=== PATIENT | female | born 1950 | race Caucasian/White ===

== ENCOUNTER 2017-07-08 19:46 | Inpatient (IN) | payer MEDICARE ==
[~2017-07-08] VITALS: Ht 170.2 cm; Wt 72.7 kg
--- OUTSIDE RECORDS SUMMARY | 2017-07-08 19:48 | XMS REPORT | Clinical Summary ---
Author Author [facility] Organization [facility] Address Unknown Phone Unavailable Care Team Providers Care Supervisor Braiding Name Role Phone Davon Grewal MD PCP Allergies Active Allergy Reactions Severity Noted Date Comments Acetaminophen-Codeine 12/05/2016 Amoxicillin 12/05/2016 Cefaclor Rash High 12/29/2007 Lisinopril Other (See Comments) High 05/24/2009 cough Losartan Other (See Comments) High 09/07/2015 Elevated serum creatinine Penicillins Rash Low 05/23/2015 Current Medications Prescription Sig. Disp. Refills Start End Date Status Date acetaminophen (TYLENOL) Take 2 tablets by mouth. Active 325 MG tablet ipratropium-albuterol USE 1 VIAL VIA NEBULIZER 11/02/19 Active (DUO-NEB) 0.5-2.5 mg/mL EVERY 6 HOURS NEEDED 17 nebulizer FOR WHEEZING aspirin (ECOTRIN) 81 MG Take 81 mg by mouth. 01/05/20 01/05/20 Active enteric coated tablet 17 18 atorvastatin (LIPITOR) 20 Take 20 mg by mouth. 05/25/19 Active MG tablet 16 cholecalciferol, vitamin Take 1 tablet by mouth. Active D3, (VITAMIN D3) 1,000 unit tablet ferrous sulfate 325 (65 TAKE 1 TABLET BY MOUTH 02/01/20 Active FE) MG tablet TWICE DAILY WITH MEALS 17 gabapentin (NEURONTIN) TAKE 2 CAPSULES BY MOUTH 03/23/19 Active 100 mg capsule THREE TIMES DAILY 18 hydrALAZINE (APRESOLINE) Take 50 mg by mouth. 12/18/19 12/18/19 Active 50 MG tablet 17 18 insulin ASPART (NovoLOG 2 units before each Meal 10/24/19 Active Flexpen U-100 Insulin) Tid 17 100 unit/mL insulin pen insulin DETEMIR (LEVEMIR) Inject 12 unit bid 10/24/19 Active 100 unit/mL (3 mL) 17 insulin pen isosorbide mononitrate Take 60 mg by mouth. Active (IMDUR) 60 MG 24 hr tablet meclizine (ANTIVERT) 25 Chew 12.5 mg. Active mg chewable tablet MELATONIN ORAL Take 10 mg by mouth. Active metoprolol tartrate Take 25 mg by mouth. Active (LOPRESSOR) 25 mg tablet ondansetron (ZOFRAN, Take 4 mg by mouth. Active HYDROCHLORIDE,) 4 MG tablet pantoprazole (PROTONIX) Take 40 mg by mouth. 05/25/19 Active 40 MG EC tablet 16 ticagrelor (BRILINTA) 90 Take 90 mg by mouth. Active mg tablet traMADol (ULTRAM) 50 mg Take 50 mg by mouth. Active tablet vitamin A & D ointment Apply topically 2 (two) 02/20/20 02/20/20 Active times daily. 17 18 clopidogrel (PLAVIX) 75 Take 75 mg by mouth Active mg tablet daily. Active Problems Not on file Encounters Date Type Specialty Care Team Description 05/17/2017 [facility] Diarrhea, unspecified type (Primary Dx) after 07/07/2016 Social History Tobacco Use Types Packs/Day Years Used Date Never Smoker Smokeless Tobacco: Never Used Alcohol Use Drinks/Week oz/Week Comments No Sex Assigned at Date Recorded Not on file Last Filed Vital Signs Vital Sign Reading Time Taken Blood Pressure 196/77 05/17/2017 6:03 PM CDT Pulse 64 05/17/2017 6:03 PM CDT Temperature 36.6 C (97.9 F) 05/17/2017 6:03 PM CDT Respiratory Rate 16 05/17/2017 6:03 PM CDT Oxygen Saturation 99% 05/17/2017 6:03 PM CDT Inhaled Oxygen - - Concentration Weight 79.4 kg (175 lb) 05/17/2017 3:55 PM CDT Height 170.2 cm (5' 7") 05/17/2017 3:55 PM CDT Body Mass Index 27.41 05/17/2017 3:55 PM CDT Plan of Treatment Not on file Results * Estimated GFR (05/17/2017 4:20 PM) Component Value Ref Range GFR Non Af Amer 13 (A) mL/min/1.73 m2 GFR Af Amer 15 (A) mL/min/1.73 m2 Comment: Chronic kidney disease: <60 mL/min/1.73m2 Kidney failure: <15 mL/min/1.73m2 The estimated GFR is calculated from the IDMS-traceable Modification of Diet in Renal Disease Equation. The accuracy of the calculation is poor when the creatinine is normal. Calculated values >90 mL/min/1.73m2 are not reported. This equation has not been validated in children (<18 years), women, the elderly (>70 years), or ethnic groups other than Caucasians and Americans. Specimen Performing Laboratory Plasma specimen [facility] [address] [place] [address] * CBC with platelet and differential (05/17/2017 4:20 PM) Component Value Ref Range WBC 14.3 (H) 4.2 - 11.0 k/uL RBC 3.42 (L) 4.04 - 5.86 m/uL HGB 9.5 (L) 11.5 - 15.3 g/dL HCT 31.5 (L) 34.0 - 45.0 % MCV 92.1 80.0 - 98.0 fL MCH 27.8 27.0 - 34.0 pg MCHC 30.2 (L) 31.5 - 36.5 g/dL RDW - SD 52.6 (H) 37.0 - 51.0 fL MPV 9.8 7.4 - 10.4 fL Platelet count 469 (H) 150 - 400 k/uL Nucleated RBC 0.10 /100 WBC Neutrophils 71.5 (H) 36.0 - 66.0 % Lymphocytes 16.1 (L) 24.0 - 44.0 % Monocytes 5.8 0.0 - 6.0 % Eosinophils 5.4 0.0 - 6.0 % Basophils 0.5 0.0 - 1.2 % Immature granulocytes 0.7 0.0 - 1.0 % Specimen Performing Laboratory Blood [facility] [address] [place] [address] * Comprehensive metabolic panel (05/17/2017 4:20 PM) Component Value Ref Range Sodium 139 135 - 150 mEq/L Potassium 4.0 3.5 - 5.0 mEq/L Chloride 100 100 - 109 mEq/L CO2 32 24 - 32 mmol/L Anion gap 7 7 - 15 mEq/L Comment: Starting from June , anion gap calculation no longer incorporates potassium. Please note the change. BUN 35 (H) 7 - 18 mg/dL Creatinine 3.6 (H) 0.8 - 1.5 mg/dL Glucose 163 (H) 65 - 100 mg/dL Calcium 9.0 8.6 - 10.7 mg/dL Protein 6.7 6.3 - 8.2 g/dL Albumin 2.6 (L) 3.2 - 5.0 g/dL A/G ratio 0.6 (L) 0.7 - 3.8 Alkaline phosphatase 114 30 - 120 U/L AST 15 15 - 37 U/L ALT 13 (L) 30 - 65 U/L Total bilirubin 0.2 0.2 - 1.2 mg/dL Specimen Performing Laboratory Plasma specimen [facility] [place] [address] after 07/07/2016 Insurance Payer Benefit Subscriber ID Type Phone Address Plan / Group [facility] AD[facility] xxxxxxxxxxx O ADVANTAGE [facility] [place] [address]
--- OUTSIDE RECORDS SUMMARY | 2017-07-08 19:48 | XMS REPORT | Clinical Summary ---
Author Author ANGELLA [employer] [facility] [employer] Address Unknown Phone Unavailable Care Team Providers Care Resource Specialist Name Role Phone PCP Unavailable Allergies Active Allergy Reactions Severity Noted Date Comments Lisinopril Other (See Comments) High 05/24/2009 cough Losartan Other (See Comments) High 09/07/2015 Elevated serum creatinine Codeine Nausea And Vomiting 09/02/2015 Amoxicillin Rash Low 02/17/2017 Cefaclor Rash Low 05/23/2015 Penicillins Rash Low 05/23/2015 Current Medications Prescription Sig. Disp. Refills Start End Date Status Date atorvastatin (LIPITOR) 20 Take 1 tablet (20 mg 60 tablet 0 05/25/19 Active MG tablet total) by mouth nightly. 16 pantoprazole (PROTONIX) Take 1 tablet (40 mg 30 tablet 0 05/25/19 Active 40 MG tablet total) by mouth daily. 16 ferrous sulfate 325 (65 Take 325 mg by mouth 2 Active FE) MG tablet (two) times daily with breakfast and dinner . cholecalciferol (VITAMIN Take 1,000 Units by mouth Active D3) 1,000 unit tablet daily. gabapentin (NEURONTIN) Take 1 capsule (100 mg 0 12/18/19 Active 100 MG capsule total) by mouth 2 (two) 17 times daily. hydrALAZINE (APRESOLINE) Take 1 tablet (50 mg 12/18/19 12/18/19 Active 50 MG tablet total) by mouth 2 (two) 17 18 times daily. metoprolol (LOPRESSOR) 25 Take 1 tablet (25 mg 0 12/18/19 Active MG tablet total) by mouth 2 (two) 17 times daily. ALPRAZolam (XANAX) 0.5 MG Take 0.5 mg by mouth Active tablet every night as needed for Anxiety. calcium carbonate (TUMS) Take 1 tablet by mouth Active 500 mg chewable tablet daily. aspirin 81 MG EC tablet Take 1 tablet (81 mg 0 01/05/20 01/05/20 Active total) by mouth daily. 17 18 traMADol (ULTRAM) 50 mg Take 50 mg by mouth 2 Active tablet (two) times daily as needed for Pain. melatonin 3 mg Tab tablet Take 10 mg by mouth Active nightly. insulin detemir (LEVEMIR) Inject 12 Units Active 100 unit/mL injection subcutaneously 2 (two) times daily. ipratropium-albuterol Take 3 mLs by Active (DUO-NEB) 0.5 mg-3 mg(2.5 nebulization every 6 mg base)/3 mL nebulizer (six) hours as needed for solution Wheezing. vitamins A & Apply topically 2 (two) 45 g 0 02/20/20 02/20/20 Active F-nzcnllplfb-uevnlaw (A & times daily. 17 18 D) ointment insulin lispro (HUMALOG) Inject subcutaneously 3 Active 100 unit/mL InPn (three) times daily with meals As needed based on sliding scale . meclizine (ANTIVERT) 25 Take 12.5 mg by mouth 3 Active MG tablet (three) times daily as needed. amLODIPine (NORVASC) 5 MG Take 5 mg by mouth daily. Active tablet bisacodyl (DULCOLAX) 5 mg Take 5 mg by mouth daily Active EC tablet as needed for Constipation. clopidogrel (PLAVIX) 75 Take 75 mg by mouth Active mg tablet daily. multivitamin per tablet Take 1 tablet by mouth Active daily. ondansetron (ZOFRAN) 4 MG Take 4 mg by mouth 2 Active tablet (two) times daily as needed for Nausea. LOPERAMIDE HCL Take 2 mg by mouth as Active (LOPERAMIDE ORAL) needed. insulin glargine (LANTUS) Inject 25 Units 10 mL 0 05/25/19 12/18/19 Discontin 100 unit/mL injection subcutaneously 2 (two) 16 17 ued times daily Use as directed. insulin lispro (HUMALOG) Inject 7 Units 10 Syringe 0 05/25/19 Discontin 100 unit/mL InPn subcutaneously 3 (three) 16 17 ued times daily with meals. amLODIPine (NORVASC) 5 MG Take 5 mg by mouth 2 08/11/19 Discontin tablet (two) times daily. 17 ued clopidogrel (PLAVIX) 75 Take 75 mg by mouth 12/06/19 Discontin mg tablet daily. 17 ued gabapentin (NEURONTIN) Take 200 mg by mouth 3 12/18/19 Discontin 100 MG capsule (three) times daily . 17 ued meclizine (ANTIVERT) 25 Take 12.5 mg by mouth 3 01/05/20 Discontin MG tablet (three) times daily as 17 ued needed. metoclopramide HCl Take 10 mg by mouth 4 12/18/19 Discontin (REGLAN) 10 MG tablet (four) times daily as 17 ued needed for Nausea. sertraline (ZOLOFT) 100 Take 25 mg by mouth daily 12/18/19 Discontin MG tablet . 17 ued carvedilol (COREG) 25 MG Take 25 mg by mouth 2 12/06/19 Discontin tablet (two) times daily with 17 ued breakfast and dinner. calcium citrate-vitamin D Take 2 tablets by mouth 08/08/19 Discontin (CITRACAL+D) 315-200 daily with lunch. 17 ued mg-unit per tablet multivitamin Take 2 tablets by mouth 01/05/20 Discontin (MULTIVITAMIN) per tablet daily VITAFUSION WOMEN'S 17 ued GUMMY VITAMINS . traMADol (ULTRAM) 50 mg Take 50 mg by mouth every 08/08/19 Discontin tablet 6 (six) hours as needed 17 ued for Pain. cloNIDine HCl (CATAPRES) 1 tablet every 8 hours as 06/07/19 12/18/19 Discontin 0.1 MG tablet needed for SBP>160 or 17 17 ued DBP>100. hydrALAZINE (APRESOLINE) Take 1 tablet (50 mg 0 06/24/19 12/18/19 Discontin 50 MG tablet total) by mouth every 8 17 17 ued (eight) hours. furosemide (LASIX) 20 MG Take 20 mg by mouth every 08/11/19 Discontin tablet morning. 17 ued furosemide (LASIX) 20 MG Take 10 mg by mouth daily 08/11/19 Discontin tablet with lunch. 17 ued ciprofloxacin HCl (CIPRO) Take 500 mg by mouth 2 07/22/19 Discontin 500 MG tabletIndications: (two) times daily. 17 ued E. Coli Urinary Tract Infection ciprofloxacin (CIPRO) 500 Take 500 mg by mouth 2 07/20/19 07/22/19 Discontin mg/5 mL (two) times daily. 17 17 ued suspensionIndications: E. Coli Urinary Tract Infection melatonin 5 mg Take 10 mg by mouth every 01/05/20 Discontin TbDLIndications: Sleep night as needed . 17 ued Disorders ciprofloxacin HCl (CIPRO) Take 1 tablet (500 mg 10 tablet 0 07/22/19 07/29/19 Discontin 500 MG tabletIndications: total) by mouth 2 (two) 17 17 ued E. Coli Urinary Tract times daily. Infection ipratropium-albuterol Take 3 mLs by 60 vial 0 08/01/19 01/05/20 Discontin (DUO-NEB) 0.5 mg-3 mg(2.5 nebulization every 6 17 17 ued mg base)/3 mL nebulizer (six) hours as needed for solution Wheezing. levoFLOXacin (LEVAQUIN) Take 1 tablet (250 mg 7 tablet 0 08/01/19 Discontin 250 MG tablet total) by mouth daily for 17 17 ued 7 days. methylPREDNISolone follow package 21 tablet 0 08/01/19 08/08/19 Discontin (MEDROL DOSEPACK) 4 mg directions. 17 17 ued tablet isosorbide mononitrate Take 1 tablet (30 mg 30 tablet 0 08/01/1911/21 Discontin (IMDUR) 30 MG 24 hr total) by mouth daily for 17 17 ued tablet 30 days. bumetanide (BUMEX) 1 MG Take 1 mg by mouth daily. 08/11/19 Discontin tablet 17 ued isosorbide dinitrate Take 30 mg by mouth 4 08/11/19 Discontin (ISORDIL) 30 MG tablet (four) times daily. 17 ued isosorbide mononitrate Take 1 tablet (60 mg 30 tablet 0 08/11/1911/21 (IMDUR) 60 MG 24 hr total) by mouth daily for 17 17 tablet 30 days. levoFLOXacin (LEVAQUIN) Take 1 tablet (250 mg 3 tablet 0 08/11/19 Discontin 250 MG tablet total) by mouth daily for 17 17 ued 3 days. furosemide (LASIX) 40 MG Take 1 tablet (40 mg 30 tablet 0 08/11/19 08/18/19 Discontin tablet total) by mouth daily for 17 17 ued 30 days. ondansetron (ZOFRAN) 4 MG Take 1 tablet (4 mg 30 tablet 0 08/11/19 08/18/19 tablet total) by mouth 2 (two) 17 17 times daily as needed for Nausea for up to 7 days. ondansetron (ZOFRAN) 4 MG Take 1 tablet (4 mg 12 tablet 0 08/11/19 08/18/19 tablet total) by mouth every 6 17 17 (six) hours for 7 days. furosemide (LASIX) 40 MG Take 1 tablet (40 mg 60 tablet 0 08/18/19 09/17/19 tablet total) by mouth 2 (two) 17 17 times daily for [address] 1 patch (1.5 mg 10 patch 0 08/18/19 12/06/19 Discontin (TRANSDERM-SCOP) 1.5 mg total) onto the skin 17 17 ued (1 mg over 3 days) patch every third day as needed (nausea/vomitting). traMADol (ULTRAM) 50 mg Take 2 tablets (100 mg 30 tablet 0 08/18/19 08/28/19 tablet total) by mouth every 6 17 17 (six) hours as needed for Pain for up to 10 days. Max Daily Amount: 400 mg cefTRIAXone (ROCEPHIN) 1 Inject 1 g intravenously 0 08/24/19 g in sodium chloride 0.9 daily for 7 days Patient 17 17 % (NS) 100 mL ADD EASE tolerated rocephin in the [facility] without allergic symptoms. ondansetron (ZOFRAN) 4 Inject 2 mLs (4 mg total) 20 mL 0 08/24/19 Discontin mg/2 mL injection intravenously every 8 17 17 ued (eight) hours as needed. aspirin 81 MG chewable Take 81 mg by mouth 01/05/20 Discontin tablet daily. 17 ued acetaminophen (TYLENOL) Take 325 mg by mouth . 01/05/20 Discontin 325 MG tablet 17 ued amLODIPine (NORVASC) 5 MG Take 5 mg by mouth daily. 12/18/19 Discontin tablet 17 ued metoprolol (LOPRESSOR) 25 Take 12.5 mg by mouth 2 10/16/20 Discontin MG tablet (two) times daily. 17 ued ticagrelor (BRILINTA) 90 Take 90 mg by mouth 2 06/21/19 Discontin mg Tab tablet (two) times daily. 18 ued insulin glargine (LANTUS) Inject 8 Units 10 mL 0 12/18/19 02/18/20 Discontin 100 unit/mL injection subcutaneously every 17 17 ued morning Use as directed. insulin lispro (HUMALOG) Inject 7 Units 10 Syringe 0 12/18/19 Discontin 100 unit/mL InPn subcutaneously 3 (three) 17 17 ued times daily as needed. isosorbide mononitrate Take 1 tablet (60 mg 90 tablet 3 12/18/1905/21 Discontin (IMDUR) 60 MG 24 hr total) by mouth daily. 17 17 ued tablet ondansetron (ZOFRAN) 4 MG Take 4 mg by mouth 3 02/20/20 Discontin tablet (three) times daily as 17 ued needed for Nausea. isosorbide mononitrate Take 1 tablet (60 mg 0 01/05/20 04/04/19 Discontin (IMDUR) 60 MG 24 hr total) by mouth daily. 17 18 ued tablet multivitamin capsule Take 1 capsule by mouth 02/18/20 Discontin daily. 17 ued melatonin 3 mg Tab tablet Take 10 mg by mouth 02/18/20 Discontin nightly. 17 ued calcium citrate-vitamin D Take 2 tablets by mouth 02/18/20 Discontin (CITRACAL+D) 315-200 daily. 17 ued mg-unit per tablet ciprofloxacin HCl (CIPRO) Take 1 tablet (500 mg 7 tablet 0 02/18/20 02/18/20 Discontin 500 MG tablet total) by mouth daily for 17 17 ued 7 days. promethazine (PHENERGAN) Take 1 tablet (25 mg 30 tablet 0 02/18/20 02/18/20 Discontin 25 MG tablet total) by mouth every 6 17 17 ued (six) hours as needed for Nausea for up to 7 days. diphenoxylate-atropine Take 1 tablet by mouth 4 30 tablet 0 02/18/20 02/18/20 Discontin (LOMOTIL) 2.5-0.025 mg (four) times daily as 17 17 ued per tablet needed for Diarrhea for up to 10 days. Max Daily Amount: 4 tablets metroNIDAZOLE (FLAGYL) Take 1 tablet (500 mg 14 tablet 0 02/18/20 Discontin 500 MG tablet total) by mouth 2 (two) 17 17 ued times daily for 7 days. insulin aspart (NOVOLOG) Inject subcutaneously 3 02/20/20 Discontin 100 unit/mL InPn (three) times daily with 17 ued meals. metroNIDAZOLE (FLAGYL) Take 1 tablet (500 mg 30 tablet 0 02/20/20 500 MG tablet total) by mouth every 8 17 17 (eight) hours for 10 days. miconazole (MICOTIN) 2 % Place 1 applicator 45 g 0 02/20/20 vaginal cream vaginally nightly for 7 17 17 days. minocycline Take 1 capsule (100 mg 10 capsule 0 06/22/19 06/27/19 (MINOCIN,DYNACIN) 100 MG total) by mouth 2 (two) 18 18 capsule times daily for 10 doses. Active Problems Problem Noted Date Hx of ventricular fibrillation 06/20/2017 Overview: history of sudden cardiac (SCD) resuscitated VF 11/18/2016 [facility] S/P implantation of automatic cardioverter/defibrillator (AICD) MRI 2017 conditional Subcutaneous AICD single chamber BSX left 06/20/2017 Hemodialysis patient ([facility]) MWF 06/20/2017 Coronary artery disease involving jena coronary artery of jena heart 11/2016 S/P primary angioplasty with coronary stent MIRIAN RCA [facility] 11/201606/20/2017 Clostridium difficile colitis 02/19/2017 Leukocytosis 02/18/2017 ESRD (end stage renal disease) ([facility]) 02/18/2017 Hypokalemia 02/18/2017 Hypertensive urgency 02/18/2017 NITHYA on CPAP 02/18/2017 Nausea vomiting and diarrhea 02/17/2017 Diarrhea 02/17/2017 GI bleed 01/02/2017 Acute encephalopathy 12/09/2016 Bilateral pleural effusion 12/07/2016 Complex sleep apnea syndrome 12/07/2016 Hypotension 12/06/2016 Hypoxia 08/22/2016 Biliary colic 08/15/2016 Chronic cholecystitis 08/13/2016 Diabetes mellitus type 2 with neurological manifestations ([facility]) 06/20/2016 Chronic diastolic CHF (congestive heart failure) ([facility]) 09/07/2015 History of cerebellar stroke 06/03/2015 Hypertension 05/23/2015 GERD (gastroesophageal reflux disease), H/O 05/23/2015 Frequent falls Sleep apnea Hyperlipidemia ESRD (end stage renal disease) ([facility]) Resolved Problems Problem Noted Date Resolved Date Hyponatremia 12/09/2016 02/06/2017 Persistent fever 12/09/2016 02/06/2017 SIRS (systemic inflammatory response syndrome) ([facility]) 12/06/2016 01/03/2017 Sepsis secondary to UTI ([facility]) 08/20/2016 01/03/2017 Acute renal failure, unspecified acute renal failure type ([facility]) 08/20/2016 01/03/2017 Hypokalemia 08/16/2016 02/06/2017 Generalized abdominal pain 08/12/2016 01/03/2017 Vomiting in adult 08/12/2016 02/06/2017 Dyspnea on exertion 07/28/2016 02/06/2017 COPD with acute exacerbation ([facility]) 07/28/2016 08/20/2016 CHF (congestive heart failure) ([facility]) 07/19/2016 12/06/2016 Shortness of breath 07/19/2016 01/03/2017 Acute renal failure superimposed on stage 3 chronic kidney disease ([facility]) 01/03/2017 Bimalleolar fracture, left, closed, initial encounter 06/17/20162016 Encounters Date Type Specialty Care Team Description 06/20/2017 [facility] Romelia Majano MD - Encounter 06/21/2017 06/20/2017 Anesthesia Jonathon Mckeon MD Event 06/20/2017 Procedure Pass 06/20/2017 Surgery Romelia Majano MD SUBCUTANEOUS ICD GENERATOR & LEAD INSERTION (S-ICD) 05/03/2017 Documentation Transplant Monse Maldonado 04/29/2017 Orders Only Transplant Lillie Rivera RN ESRD (end stage renal disease) on dialysis ([facility]) (Primary Dx);Pre-transplant evaluation for chronic kidney disease;Abnormal blood chemistry;Anemia of renal disease;Type 2 diabetes mellitus with chronic kidney disease on chronic dialysis, with long-term current use of insulin ([facility]) 04/04/2017 Office Visit Cardiology Susana Carrasco MD 03/25/2017 Abstract Ainsley Burch 03/21/2017 Abstract Ainsley Burch 03/18/2017 Abstract Hailey Burchiea 02/17/2017 Emergency Cardiology Reggie Brown, Nausea vomiting and - MD diarrhea (Primary 02/19/2017 Yeni Robbins Dx);ESRD on dialysis MD Kiki ([facility]);Hypokalemia;Rocael Lofotn MD nsive urgency;Clostridium difficile colitis;Chronic diastolic CHF (congestive heart failure) ([facility]);History of cerebellar stroke;Frequent falls;Diabetes mellitus type 2 with neurological manifestations ([facility]);Chronic cholecystitis;Biliary colic;Hypoxia;ESRD (end stage renal disease) ([facility]);Bilateral pleural effusion;Complex sleep apnea syndrome 01/15/2017 Documentation Cardiology Salome Rivera, MELT SUPERINTENDANT 01/03/2017 Anesthesia Gastroenterology Sarahy Menendez, Event PRODUCT LISTER 01/03/2017 Procedure Pass Gastroenterology 01/03/2017 Surgery Gastroenterology Marsha Oseguera MD UPPER ENDOSCOPY 01/02/2017 [facility] Internal Medicine Noah Horner MD Acute encephalopathy - Encounter Karley Balbuena MD (Primary 01/04/2017 Leonarda Martinez MD Dx);Gastrointestinal hemorrhage, unspecified gastrointestinal hemorrhage type;ESRD (end stage renal disease) ([facility]) 12/12/2016 Outside Orders Lab Amari Shetty Acute renal failure, unspecified acute renal failure type (HCC) (Primary Dx) 12/05/2016 [facility] General Internal Medicine James Dougherty MD Acute renal failure, - Encounter Estefany Fan, unspecified acute renal 12/17/2016 failure type ([facility]);Laboratory test 08/20/2016 [facility] General Internal Medicine Brit Perea MD Acute renal failure, - Encounter Phill Adamson MD unspecified acute renal 08/23/2016 failure type ([facility]) (Primary Dx);Urinary tract infection without hematuria, site unspecified 08/14/2016 Anesthesia Tyree Timmons AA Event 08/14/2016 Procedure Pass 08/14/2016 Surgery Akash Joya MD LAPAROSCOPY,CHOLECYSTECTO MY 08/12/2016 [facility] General Internal Medicine Karie Dockery MD Chronic cholecystitis - Encounter Lalita Barker MD (Primary Dx);Generalized 08/17/2016 abdominal pain;Vomiting in adult;Shortness of breath;Other chest pain;Chronic diastolic heart failure (HCC) 08/10/2016 Emergency Emergency Medicine Gaby Hoang DO Nausea and vomiting, - intractability of 08/11/2016 vomiting not specified, unspecified vomiting type (Primary Dx);Gallbladder sludge;Leukocytosis, unspecified type;Constipation, unspecified constipation type;Renal insufficiency 08/07/2016 [facility] General Internal Medicine Karie Dockery MD Acute on chronic - Encounter Anisa Chandra MD diastolic (congestive) 08/10/2016 heart failure (HCC) (Primary Dx);Congestive heart failure, unspecified congestive heart failure chronicity, unspecified congestive heart failure type (HCC);Weakness 07/28/2016 Emergency General Internal Medicine Autumn Pickering MD COPD with acute - Hannah Mckeon, exacerbation (HCC) 08/01/2016 (Primary Dx);Dyspnea on exertion;Hypoxia;Acute respiratory failure with hypoxia (HCC) 07/19/2016 Emergency General Internal Medicine Edwin Weaver MD SOB (shortness of breath) - Candy Walters (Primary Dx);Acute 07/21/2016 congestive heart failure, unspecified congestive heart failure type (HCC);Bilateral pleural effusion;Bimalleolar fracture, left, closed, initial encounter 07/19/2016 Orders Only General Internal Medicine after 07/07/2016 Family History Medical History Relation Name Comments Heart disease Father Kidney disease Father Arthritis Mother Stroke Mother Cancer Sister Relation Name Status Comments Father Mother Sister Social History Tobacco Use Types Packs/Day Years Used Date Never Smoker Smokeless Tobacco: Never Used Alcohol Use Drinks/Week oz/Week Comments No Sex Assigned at Date Recorded Not on file Last Filed Vital Signs Vital Sign Reading Time Taken Blood Pressure 164/71 06/21/2017 8:16 AM CDT Pulse 73 06/21/2017 8:16 AM CDT Temperature 37.6 C (99.6 F) 06/21/2017 8:16 AM CDT Respiratory Rate 19 06/21/2017 8:16 AM CDT Oxygen Saturation 96% 06/21/2017 8:16 AM CDT Inhaled Oxygen - - Concentration Weight 72.1 kg (158 lb 14.4 oz) 06/20/2017 6:01 AM CDT Height 170.2 cm (5' 7") 06/20/2017 6:01 AM CDT Body Mass Index 24.89 06/20/2017 6:01 AM CDT Plan of Treatment Date Type Specialty Care Team Description 07/23/2017 Office Visit Transplant 07/23/2017 Orders Only Transplant Hepatology 07/23/2017 Evaluation Transplant 07/23/2017 Evaluation Transplant Health Maintenance Due Date Last Done Comments INFLUENZA VACCINE 12/02/2017 Implants Implanted Type Area Pediatric Cns Device Expiration Model / Identifier Date Serial / Lot Scr Crtx Dcp St 2.7x18 Ns 202.818 - Fracture/F Left: SYNTHES:SYNTHES 202.818 / [id number] [employer]ation Ankle [employer] / Implanted: Qty: 1 on 06/20/2016 by [id number] Gutiérrez MD Plt Recon Lcp 8h 3.5x112 Ns - Fracture/F Left: SYNTHES:SYNTHES 245.081 / [id number] [employer]ation Ankle [employer] / Implanted: Qty: 1 on 06/20/2016 by [id number] Gutiérrez MD Scr Crtx St D/L/P 3.5x14 Ns - Fracture/F Left: SYNTHES:SYNTHES 204.814 / [id number] ixation Ankle [employer] / Implanted: Qty: 1 on 06/20/2016 by [id number] Gutiérrez MD Scr Lck St T15 3.5x16 Ns 212.104 - Fracture/F Left: SYNTHES:SYNTHES 212.104 / [id number] ixation Ankle [employer] / Implanted: Qty: 1 on 06/20/2016 by [id number] Gutiérrez MD Scr Lck St T15 3.5x12 Ns 212.102 - Fracture/F Left: SYNTHES:SYNTHES 212.102 / [id number] ixation Ankle [employer] / Implanted: Qty: 1 on 06/20/2016 by [id number] Gutiérrez MD Scr Braden Sh-Thrd 4.0x40 Ns 207.640 Fracture/F Left: SYNTHES:SYNTHES 207.640 / - [id number] ixation Ankle [employer] / Implanted: Qty: 1 on 06/20/2016 by [id number] Gutiérrez MD [place] [employer] S-Icd PACEMAKER/ Left: [place]ON 04/05/2019 [id number] / Implanted: Qty: 1 on 06/20/2017 by ICD [employer] [id number] / Romelia Majano MD CHAMBER Wall DEVICE Emblem S-Icd Subcutaneous Electrode Pacemaker Left: B[place]ON 2019 [id number] / Implanted: Qty: 1 on 06/20/2017 by Lead [employer] [id number] / Romelia Majano MD Wall 42mm X 4.0 Cortex Screw Left: Synthes 206.442 / Implanted: Qty: 1 on 06/20/2016 by Trinh Lindquist MD [id number] 44mm X 4.0 Cortex Screw Left: Synthes 206.444 / Implanted: Qty: 1 on 06/20/2016 by Trinh Lindquist MD [id number] 40mm X 4.0 Cortex Screw Left: Synthes 206.440 / Implanted: Qty: 2 on 06/20/2016 by Trinh Lindquist MD [id number] Procedures Procedure Name Priority Date/Time Associated Diagnosis Comments SUBCUTANEOUS ICD 06/20/2017 V-tach (HCC) GENERATOR & LEAD 7:30 AM CDT INSERTION (S-ICD) Case Notes 1CASE POP6 FIRST CASE REQUEST W/GENERAL ANESTHESIA Special Needs FIRST CASE REQUEST W/GENERAL ANESTHESIA UPPER ENDOSCOPY 01/03/2017 GI Bleed 12:00 PM CDT LAPAROSCOPY,CHOLECYSTECTO 08/14/2016 ABDOMINAL PAIN, MY 1:00 PM CDT CHOLECYSTITIS Special Needs ROOM MartinDRTrung JOYA WILL CALL IF ASSIST NEEDED CRITICAL CARE Routine 07/28/2016 Results for this 3:31 PM CDT procedure are in the results section. after 07/07/2016 Results * EKG-SCANNED (06/25/2017 7:30 AM) Only the most recent of 5 results within the time period is included. * ARRYTHMIA IMPLANT REPORT - SCAN (06/25/2017 7:30 AM) * RHYTHM STRIP - SCAN (06/25/2017 7:30 AM) Only the most recent of 12 results within the time period is included. * CARDIAC CATH REPORT - SCAN (06/21/2017 6:21 PM) * CBC (Hemogram only) (06/21/2017 3:22 AM) Only the most recent of 2 results within the time period is included. Component Value Ref Range WBC 10.9 (H) 3.5 - 10.5 K/ L RBC 4.78 3.93 - 5.22 M/ L Hemoglobin 13.1 11.2 - 15.7 GM/DL Hematocrit 44.3 34.1 - 44.9 % MCV 92.7 79.4 - 94.8 fL MCH 27.4 25.6 - 32.2 pg MCHC 29.6 (L) 32.2 - 35.5 GM/DL RDW 17.8 (H) 11.7 - 14.4 % Platelets 241 150 - 450 K/CU MM MPV 10.5 9.4 - 12.3 fL nRBC 0 0 - 0 /100 WBC Specimen Performing Laboratory Blood [address] [address] * Basic metabolic panel (06/21/2017 3:22 AM) Only the most recent of 32 results within the time period is included. Component Value Ref Range Sodium 136 136 - 145 meq/L Potassium 4.3 3.5 - 5.1 meq/L Chloride 96 (L) 98 - 107 meq/L CO2 26 22 - 29 meq/L BUN 34 (H) 7 - 21 mg/dL Creatinine 4.17 (H) 0.57 - 1.25 mg/dL Glucose 202 (H) 70 - 105 mg/dL Calcium 9.0 8.4 - 10.2 mg/dL EGFR 11Comment: ESTIMATED GFR IS NOT ACCURATE mL/min/1.73 sq m CREATININE CLEARANCE IN PREDICTING GLOMERULAR FILTRATION RATE. ESTIMATED GFR IS NOT APPLICABLE FOR DIALYSIS PATIENTS. Specimen Performing Laboratory Blood [address] [address] * POC-Glucose meter (06/20/2017 5:51 PM) Only the most recent of 131 results within the time period is included. Component Value Ref Range POC-Glucose Meter 221 (H)Comment: TESTED AT [address] 70 - 110 mg /dL [facility] [id number] Specimen Performing Laboratory Blood [address] [address] * Potassium-Stat Lab (06/20/2017 7:18 AM) Component Value Ref Range Potassium 3.5 (L) 3.6 - 5.5 meq/L Specimen Performing Laboratory Blood, Arterial [address] [address] * PERIPHERAL VASCULAR REPORT - SCAN (02/19/2017 10:52 AM) Only the most recent of 4 results within the time period is included. * Vein mapping arm/arms (02/19/2017 9:30 AM) Component Value Ref Range Ejection Fraction Specimen Performing Laboratory [facility] Impressions Right Impression 1. There is no deep venous obstruction in the jugular, subclavian, axillary, brachial, radial or ulnar veins. 2. There is no superficial venous obstruction in the cephalic or basilic veins. 3. The subclavian, axillary, brachial, radial and ulnar arteries are patent with normal triphasic Doppler waveforms throughout. Left Impression 1. There is no deep venous obstruction in the jugular, subclavian, axillary, brachial, radial or ulnar veins. 2. There is no superficial venous obstruction in the cephalic or basilic veins. 3. The subclavian, axillary, brachial, radial and ulnar arteries are patent with normal triphasic Doppler waveforms throughout. Conclusions Summary Arterial duplex imaging, venous duplex imaging and compression of both upper extremities was performed. All arteries and veins were adequately visualized. The arteries were patent with normal triphasic Doppler waveforms bilaterally. The venous systems were patent and compressible with no evidence of thrombus bilaterally. Superficial venous measurements are documented below. Signature Velocities are measured in cm/s ; Diameters are measured in cm Cephalic Mapping Right Left + + + + + + +---- + !Location ! !AP Diam !Trans Diam! !AP Diam !Trans Diam ! + + + + + + +---- + !Cephalic at Prox UA ! !0.38 ! ! !0.24 ! ! + + + + + + +---- + !Cephalic at Mid UA ! !0.37 ! ! !0.17 ! ! + + + + + + +---- + !Cephalic at Dist UA ! !0.27 ! ! !0.19 ! ! + + + + + + +---- + !Cephalic at Prox LA ! !0.15 ! ! !0.24 ! ! + + + + + + +---- + !Cephalic at Mid LA ! !0.18 ! ! !0.21 ! ! + + + + + + +---- + !Cephalic at Dist LA ! !0.12 ! ! !0.13 ! ! + + + + + + +---- + Basilic Mapping Right Left + + + + + + +---- + !Location ! !AP Diam !Trans Diam! !AP Diam !Trans Diam ! + + + + + + +---- + !Basilic at Prox UA ! !0.44 ! ! !0.48 ! ! + + + + + + +---- + !Basilic at Mid UA ! !0.45 ! ! !0.32 ! ! + + + + + + +---- + !Basilic at Dist UA ! !0.35 ! ! !0.29 ! ! + + + + + + +---- + !Basilic at Prox LA ! !0.19 ! ! !0.19 ! ! + + + + + + +---- + !Basilic at Mid LA ! !0.23 ! ! !0.11 ! ! + + + + + + +---- + !Basilic at Dist LA ! !0.16 ! ! !0.14 ! ! + + + + + + +---- + Narrative [facility] - Upper Extremities Vein Mapping Demographics Patient Name HONEY ANGUIANO Date of Study 02/19/2017 [place] [id number] Visit Number [id number] Female Accession Number [id number] of 1950 [facility] June[facility] Number [id number] Physician SonographerSjunior Champion. Kuldeep Allan, Physician , [facility] Procedure Type of Study: Veins: Upper Extremity Vein Mapping, VEIN MAPPING ARM/ARMS. Indications for Study:Permanent dialysis access placement . Patient Status:Routine. Study Location:Vascular Lab. Technical Quality:Adequate visualization. Risk Factors History of Disease + +----+ + !Diagnosis!Date!Comments ! + +----+ + !History/Risk Factors:!!ESRD, HTN, DM, H/O CVA, CKD, CAD, CHF ! + +----+ + Procedure Note Interface, External Ris In - 02/19/2017 10:12 AM LOSS CONTROL REPRESENTATIVE PV LAB - Upper Extremities Vein Mapping Demographics Patient Name HONEY ANGUIANO Date of Study 02/19/2017 [place] Age 66 Visit Number [id number] Gender Female Accession Number [id number] Date of 1950 Referring [facility] Room Number 2461 Physician Name Plate Stamping Machine Operator Trupti Gaitan Interpreting Flavia Allan, Physician , [facility] Procedure Type of Study: Veins: Upper Extremity Vein Mapping, VEIN MAPPING ARM/ARMS. Indications for Study:Permanent dialysis access placement . Patient Status:Routine. Study Location:Vascular Lab. Technical Quality:Adequate visualization. Risk Factors History of Disease + +----+ + !Diagnosis !Date!Comments ! + +----+ + !History/Risk Factors: ! !ESRD, HTN, DM, H/O CVA, CKD, CAD, CHF ! + +----+ + Impressions Right Impression 1. There is no deep venous obstruction in the jugular, subclavian, axillary, brachial, radial or ulnar veins. 2. There is no superficial venous obstruction in the cephalic or basilic veins. 3. The subclavian, axillary, brachial, radial and ulnar arteries are patent with normal triphasic Doppler waveforms throughout. Left Impression 1. There is no deep venous obstruction in the jugular, subclavian, axillary, brachial, radial or ulnar veins. 2. There is no superficial venous obstruction in the cephalic or basilic veins. 3. The subclavian, axillary, brachial, radial and ulnar arteries are patent with normal triphasic Doppler waveforms throughout. Conclusions Summary Arterial duplex imaging, venous duplex imaging and compression of both upper extremities was performed. All arteries and veins were adequately visualized. The arteries were patent with normal triphasic Doppler waveforms bilaterally. The venous systems were patent and compressible with no evidence of thrombus bilaterally. Superficial venous measurements are documented below. Signature Velocities are measured in cm/s ; Diameters are measured in cm Cephalic Mapping Right Left + + + + + + +---- + !Location ! !AP Diam !Trans Diam ! !AP Diam ! Trans Diam ! + + + + + + +---- + !Cephalic at Prox UA ! !0.38 ! ! !0.24 ! ! + + + + + + +---- + !Cephalic at Mid UA ! !0.37 ! ! !0.17 ! ! + + + + + + +---- + !Cephalic at Dist UA ! !0.27 ! ! !0.19 ! ! + + + + + + +---- + !Cephalic at Prox LA ! !0.15 ! ! !0.24 ! ! + + + + + + +---- + !Cephalic at Mid LA ! !0.18 ! ! !0.21 ! ! + + + + + + +---- + !Cephalic at Dist LA ! !0.12 ! ! !0.13 ! ! + + + + + + +---- + Basilic Mapping Right Left + + + + + + +---- + !Location ! !AP Diam !Trans Diam ! !AP Diam ! Trans Diam ! + + + + + + +---- + !Basilic at Prox UA ! !0.44 ! ! !0.48 ! ! + + + + + + +---- + !Basilic at Mid UA ! !0.45 ! ! !0.32 ! ! + + + + + + +---- + !Basilic at Dist UA ! !0.35 ! ! !0.29 ! ! + + + + + + +---- + !Basilic at Prox LA ! !0.19 ! ! !0.19 ! ! + + + + + + +---- + !Basilic at Mid LA ! !0.23 ! ! !0.11 ! ! + + + + + + +---- + !Basilic at Dist LA ! !0.16 ! ! !0.14 ! ! + + + + + + +---- + * Hepatitis B surface antigen (02/18/2017 12:26 PM) Only the most recent of 2 results within the time period is included. Component Value Ref Range hepatitis B Surface Ag Nonreactive Nonreactive Specimen Performing Laboratory Blood - [facility], [address] [address] * CBC with platelet count + automated diff (02/18/2017 7:05 AM) Only the most recent of 35 results within the time period is included. Component Value Ref Range WBC 10.5 3.5 - 10.5 K/ L RBC 3.39 (L) 3.93 - 5.22 M/ L Hemoglobin 9.7 (L) 11.2 - 15.7 GM/DL Hematocrit 31.3 (L) 34.1 - 44.9 % MCV 92.3 79.4 - 94.8 fL MCH 28.6 25.6 - 32.2 pg MCHC 31.0 (L) 32.2 - 35.5 GM/DL RDW 16.3 (H) 11.7 - 14.4 % Platelets 318Comment: Significant difference from previous 150 - 450 K/CU MM result MPV 10.2 9.4 - 12.3 fL nRBC 0 0 - 0 /100 WBC % Neutros 73 % % Lymphs 14 % % Monos 7 % % Eos 4 % % Baso 1 % # Neutros 7.69 (H) 1.56 - 6.13 K/ L # Lymphs 1.51 1.18 - 3.74 K/ L # Monos 0.76 (H) 0.24 - 0.36 K/ L # Eos 0.46 (H) 0.04 - 0.36 K/ L # Baso 0.07 0.01 - 0.08 K/ L Immature 0 0 - 1 % Granulocytes-Relative Specimen Performing Laboratory Blood - Arm, [place] [address] * CBC with platelet count + automated diff (02/18/2017 7:05 AM) Only the most recent of 35 results within the time period is included. Specimen Performing Laboratory Blood Narrative The following orders were created for panel order CBC with platelet count + automated diff. Procedure Abnormality Status --------- - ------ CBC with platelet count ...[[id number]]AbnormalFinal result Please view results for these tests on the individual orders. * Clostridium difficile Toxin PCR (02/17/2017 10:27 PM) Component Value Ref Range C.Diff Toxin, PCR Detected (A) Not Detected Specimen Performing Laboratory Stool [place] [id number] Narrative This qualitative real-time polymerase chain reaction assay detects the tcdB gene , encoded on the C.difficile pathogenicity locus (PaLoc).The product of tcdB , toxin B, is a cytotoxin essential for causing C.difficile-associated disease ( CDAD) and is found in virtually all toxigenic C.difficile. This assay is performed for patients suspected of having either community- acquired or nosocomial CDAD.Accordingly, only symptomatic patients should be tested and formed stools will be rejected unless ileus is present (i.e., specified when ordering).Patients may be colonized with toxigenic C.difficile strains not causing active disease; therefore, clinical correlation is needed when deciding how to manage patients with a positive test result. The assay has not been validated as a test of cure as amplifiable nucleic acid may persist after effective treatment; therefore, follow-up testing of a positive result is not recommended. * STOOL PATH CHARGE (02/17/2017 8:41 PM) Component Value Ref Range Pathogen exam charged Done Specimen Performing [place] [address] * Shiga Toxin Screen (02/17/2017 8:41 PM) Component Value Ref Range Shiga toxin 1 Not detected Not detected Shiga toxin 2 Not detected Not detected Specimen Performing [place] [address] * Ova and Parasite Examination (02/17/2017 8:41 PM) Component Value Ref Range O&P Direct Smear No ova or parasites seen No ova or parasites seen Specimen [place] [address] * Fecal leukocytes (02/17/2017 8:41 PM) Component Value Ref Range Fecal Leukocytes 3+ Fecal leukocytes seen (A) No fecal leukocytes seen Specimen Performing [place] [address] * Stool culture + Shiga toxin (02/17/2017 8:41 PM) Component Value Ref Range Result No Salmonella, Shigella or Campylobacter isolated Specimen [place] [address] * POCT OCCULT BLOOD STOOL (GUIAC) [facility] ONLY (02/17/2017 8:04 PM) Only the most recent of 2 results within the time period is included. Component Value Ref Range Fecal Occult Blood Positive (A) Negative (Guiac), POC QC Result Acceptable?, QC Acceptable POC FOB Card Lot #, POC [id number] FOB Developer Lot # [id number] Specimen Performing Laboratory Stool * Lipase (02/17/2017 2:28 PM) Only the most recent of 5 results within the time period is included. Component Value Ref Range Lipase 26 8 - 78 U/L Specimen Performing Laboratory Blood - Line, [place] [address] * Hepatic function panel (02/17/2017 2:28 PM) Only the most recent of 6 results within the time period is included. Component Value Ref Range Protein, Total 6.8 6.0 - 8.3 gm/dL Albumin 3.5 3.5 - 5.0 g/dL Total Bilirubin 0.4 0.2 - 1.2 mg/dL Bilirubin, Direct 0.2 0.1 - 0.5 mg/dL Alkaline Phosphatase 120 40 - 150 U/L AST 22 5 - 34 U/L ALT 13 6 - 55 U/L Specimen Performing Laboratory Blood - Line, Venous [facility] [address] [place] [address] * TRANSFUSION SERVICE REPORT - SCAN (01/06/2017 5:42 PM) Only the most recent of 13 results within the time period is included. * Prepare Leuko-Red RBC (01/04/2017 11:54 PM) Only the most recent of 5 results within the time period is included. Component Value Ref Range CROSSMATCH COMPATIBLE Unit ABO A Pos UNIT NUMBER [id number] Status WORK IN PROGRESS Blood Bank Product RED BLOOD CELLS PRODUCT CODE [id number] CROSSMATCH COMPATIBLE Unit ABO A Pos UNIT NUMBER [id number] Status TRANSFUSED Blood Bank Product RED BLOOD CELLS PRODUCT CODE [id number] Specimen Performing Laboratory Other [facility] [place] * Hemodialysis (01/04/2017 7:16 PM) Only the most recent of 4 results within the time period is included. Narrative Moustapha Kaur RN 01/04/20177:16 PM HD completed 3.5h, UF 3L. Lab Results Component Value Date WBC 10.7 (H) 01/04/2017 HGB 8.8 (L) 01/04/2017 HCT 28.3 (L) 01/04/2017 MCV 90.1 01/04/2017 PLT 394 01/04/2017 Lab Results Component Value Date GLUCOSE 145 (H) 01/04/2017 CALCIUM 9.0 01/04/2017 NA 143 01/04/2017 K 3.7 01/04/2017 CO2 28 01/04/2017 CL 103 01/04/2017 BUN 20 01/04/2017 CREATININE 3.08 (H) 01/04/2017 Lab Results Component Value Date HEPBSAG Nonreactive 12/07/2016 Vitals: 11/03/17 1500 BP: 124/67 Pulse: 84 Resp: 18 Temp: 97.5 F (36.4 C) SpO2: 94% * REPORT OF PROCEDURE - ENDOSCOPY URL (01/03/2017 1:09 PM) * Transfuse Leuko-Red RBC (01/03/2017 6:48 AM) Only the most recent of 3 results within the time period is included. * Type and screen, automated ([facility] and [facility] only) (01/02/2017 11:52 PM) Only the most recent of 2 results within the time period is included. Component Value Ref Range ABO/RH AUTOMATED (BEAKER) AB POSITIVE Ab Scrn NEGATIVE Specimen Performing Laboratory Blood [facility] [address] [place] [address] * XR chest 1 view portable / bedside (01/02/2017 8:30 PM) Only the most recent of 8 results within the time period is included. Specimen Performing Laboratory GE RIS Narrative FINAL REPORT EXAM: Chest one view COMPARISON: December 15, 2016 CLINICAL HISTORY: Anemia, generalized weakness FINDINGS: There is interval improvement in bilateral pleural effusions. The cardiac size remains enlarged. The left internal jugular tunneled dialysis catheter is unchanged in position. There is no evidence of pneumothorax. The regional osseous structures are unremarkable. Signed: Dinh Calderon MD Report Verified Date/Time:01/02/2017 20:51:27 Reading Location: [address] Consult Reading Room Procedure Note Interface, External Ris In - 01/02/2017 8:53 PM CDT FINAL REPORT EXAM: Chest one view COMPARISON: December 15, 2016 CLINICAL HISTORY: Anemia, generalized weakness FINDINGS: There is interval improvement in bilateral pleural effusions. The cardiac size remains enlarged. The left internal jugular tunneled dialysis catheter is unchanged in position. There is no evidence of pneumothorax. The regional osseous structures are unremarkable. Signed: Dinh Calderon MD Report Verified Date/Time: 01/02/2017 20:51:27 Reading Location: [address] Consult Reading Room * ECG 12 lead (01/02/2017 7:04 PM) Only the most recent of 3 results within the time period is included. Specimen Performing Laboratory GE MUSE Narrative Ventricular Rate 77 BPM Atrial Rate 77 BPM P-R Interval 192 ms QRS Duration 78 ms Q-T Interval 446 ms QTC Calculation(Bazett) 504 ms P [place] 31 degrees R [place] 18 degrees T [place] 23 degrees Normal sinus rhythm Poor R wave progression Nonspecific ST and T wave abnormality Abnormal ECG When compared with ECG of 09-DEC-2016 08:25, No significant change was found Confirmed by Rashel ROBLES MICHAEL ([id number]) on 01/02/2017 8:57:58 PM Procedure Note Interface, External Ris In - 01/02/2017 8:58 PM CDT Ventricular Rate 77 BPM Atrial Rate 77 BPM P-R Interval 192 ms QRS Duration 78 ms Q-T Interval 446 ms QTC Calculation(Bazett) 504 ms P [place] 31 degrees R [place] 18 degrees T [place] 23 degrees Normal sinus rhythm Poor R wave progression Nonspecific ST and T wave abnormality Abnormal ECG When compared with ECG of 09-DEC-2016 08:25, No significant change was found Confirmed by Rashel ROBLES MICHAEL ([id number]) on 01/02/2017 8:57:58 PM * PT/PTT (01/02/2017 7:02 PM) Only the most recent of 4 results within the time period is included. Component Value Ref Range Protime 12.9 11.7 - 14.7 seconds INR 1.0 <=5.9 PTT 32.9 22.5 - 36.0 seconds Specimen Performing Laboratory Blood - Arm, Left [place] [id number] Narrative RECOMMENDED COUMADIN/WARFARIN INR THERAPY RANGES STANDARD DOSE: 2.0 - 3.0 Includes: PROPHYLAXIS for venous thrombosis, systemic embolization; TREATMENT for venous thrombosis and/or pulmonary embolus. HIGH RISK: Target INR is 2.5-3.5 for patients with mechanical heart valves. * Troponin I (01/02/2017 7:02 PM) Only the most recent of 13 results within the time period is included. Component Value Ref Range Troponin I 0.01 0.00 - 0.03 ng/mL Specimen Performing Laboratory Blood - Arm, Left [address] [address] Narrative Troponin I (TnI) levels must be interpreted in the context of the presenting symptoms and the clinical findings. Elevated TnI levels indicate myocardial damage, but are not specific for ischemic heart disease. Elevated TnI levels are seen in patients with other cardiac conditions (including myocarditis and congestive heart failure), and slight TnI elevations occur in patients with other conditions, including sepsis, renal failure, acidosis, acute neurological disease, and persistent tachyarrhythmia. * B-type Natriuretic Factor (BNP) (01/02/2017 7:02 PM) Only the most recent of 6 results within the time period is included. Component Value Ref Range BNP 190 (H) 0 - 100 pg/mL Specimen Performing Laboratory Blood - Arm, [address] [address] * Magnesium (01/02/2017 7:02 PM) Only the most recent of 10 results within the time period is included. Component Value Ref Range Magnesium 1.4 (L) 1.6 - 2.6 mg/dL Specimen Performing Laboratory Blood - Arm, [address] [address] * Creatine Kinase (CK), Total and MB (01/02/2017 7:02 PM) Only the most recent of 10 results within the time period is included. Component Value Ref Range Total CK 21 (L) 29 - 200 U/L CK-MB 0.7 0.0 - 6.6 ng/mL MB Relative Index 3.3 % Specimen Performing Laboratory Blood - Arm, [address] [address] Narrative CK-MB Reference Range: <6.7Normal 6.7-10.0Borderline >10.0 Abnormal * Protein, total (12/13/2016 11:00 AM) Component Value Ref Range Protein, Total 7.2Comment: Specimen moderately hemolyzed 6.0 - 8.3 gm/dL Specimen Performing Laboratory Blood - Arm, [address] [address] * Lactate dehydrogenase (LDH) (12/13/2016 11:00 AM) Component Value Ref Range LDH 416 (H)Comment: Specimen moderately hemolyzed 125 - 220 U/L Specimen Performing Laboratory Blood - Arm, Right [facility] [address] * US thoracentesis (12/12/2016 3:17 PM) Specimen Performing Laboratory GE RIS Narrative FINAL REPORT Ultrasound-guided diagnostic thoracentesis. Clinical History: fever, effusion. Informed consent was obtained from the patient and the risks of the procedure were explained including bleeding, infection, pneumothorax and visceral injury. The increased risk of bleeding as the patient is on Brilanta was discussed with the patient, Dr. Dougherty and Dr. King. The procedure was deemed medically necessary despite the increased risk. A smaller needle was utilized. Sedation: 1% Xylocaine was used as local sedation. Conscious sedation protocol was not utilized as no systemic analgesia was administered. Technique: Using sterile technique, ultrasound guidance and a 22-gauge spinal needle, the tip of the needle was inserted into the left pleural space. The procedure yielded 40 cc of serous fluid. The needle was removed. No immediate complications developed. Labs were sent as requested. Estimated blood loss: None Patient disposition: The patient was asymptomatic at the end of the exam. A followup chest x-ray will be performed while the patient is in the department to ensure that no pneumothorax developed. Impression: Successful left sided thoracentesis. Signed: Brynn Terry MD Report Verified Date/Time:12/12/2016 15:24:19 Reading Location: [address] Ultrasound Reading Room Procedure Note Interface, External Ris In - 12/12/2016 3:26 PM CDT FINAL REPORT Ultrasound-guided diagnostic thoracentesis. Clinical History: fever, effusion. Informed consent was obtained from the patient and the risks of the procedure were explained including bleeding, infection, pneumothorax and visceral injury. The increased risk of bleeding as the patient is on Brilanta was discussed with the patient, Dr. Dougherty and Dr. King. The procedure was deemed medically necessary despite the increased risk. A smaller needle was utilized. Sedation: 1% Xylocaine was used as local sedation. Conscious sedation protocol was not utilized as no systemic analgesia was administered. Technique: Using sterile technique, ultrasound guidance and a 22-gauge spinal needle, the tip of the needle was inserted into the left pleural space. The procedure yielded 40 cc of serous fluid. The needle was removed. No immediate complications developed. Labs were sent as requested. Estimated blood loss: None Patient disposition: The patient was asymptomatic at the end of the exam. A followup chest x-ray will be performed while the patient is in the department to ensure that no pneumothorax developed. Impression: Successful left sided thoracentesis. Signed: Brynn Terry MD Report Verified Date/Time: 12/12/2016 15:24:19 Reading Location: [address] Ultrasound Reading Room * Body fluid culture + gram stain (12/12/2016 3:10 PM) Component Value Ref Range Result No growth Gram Stain Result <1+ WBCs Gram Stain Result No organisms seen Specimen Performing Laboratory Body Fluid - Pleural, [facility] Left [address] [place] [address] * Body fluid cell count with differential (12/12/2016 3:10 PM) Component Value Ref Range Appearance Hazy (A) Clear Color Straw Colorless, Straw RBCs 619 (H) <=1 /cu mm Adjusted WBC Count 366 (H) <=5 /cu mm Lining Cells 0 <=1 /cu mm % Segs 5 % % Lymphs 81 % % Monos 14 % % Eos 0 % % Baso 0 % Container Body Fluid EDTA Tube Specimen Performing Laboratory Body Fluid - Pleural, [facility] Left [address] [place] [address] * Protein, body fluid (12/12/2016 3:10 PM) Component Value Ref Range Protein, Fluid 3.0 Light's criteria identifies effusions if one or more are present: Pleural to serum protein ratio of more than 0.5; Pleural to Serum LDH of more than 0.6; Pleural LDH of more than two third of upper serum reference limit g/dL Specimen Performing Laboratory Body Fluid - Pleural, [facility] Left [address] [place] [address] Narrative Absence of reference range indicates that normals have not been defined. Assay performance has not been validated for this type of specimen. * Lactate dehydrogenase (LDH), body fluid (12/12/2016 3:10 PM) Component Value Ref Range LDH, Fluid 96 Light's criteria identifies effusions if one or more are present: Pleural to serum protein ratio of more than 0.5; Pleural to serum LDH ratio of more than 0.6; Pleural LDH more than two third of upper serum reference limit U/L Specimen Performing Laboratory Body Fluid - Pleural, [facility] Left [address] [place] [address] Narrative Absence of reference range indicates that normals have not been defined. Assay performance has not been validated for this type of specimen. * Hemoglobin and hematocrit (12/11/2016 9:13 PM) Only the most recent of 2 results within the time period is included. Component Value Ref Range Hemoglobin 8.7 (L) 11.2 - 15.7 GM/DL Hematocrit 28.6 (L) 34.1 - 44.9 % Specimen Performing Laboratory Blood - Arm, Left [address] [address] Narrative Get after transfusion * EEG AWAKE/ASLEEP (12/11/2016 9:36 AM) Specimen Performing Laboratory GE RIS Narrative DATE OF REPORT: 12/11/16 ACC: [id number] EE Start time: 08:34 am Stop time: 09:19 am ICD-10: R56.9 CPT Code: 16208 HISTORY: 65 y.o female on HD, ESRD, past NM, past cerebellar CVA (1 yr ago) with confusion since past few days. MEDICATIONS THAT COULD AFFECT EEG: Tylenol, Norvasc, ASA, Lipitor, Catapres, Neurontin, Apresoline, Lantus, Humalog, Duo-Neb, Antivert, Melatonin, Reglan, Lopressor,Protonix, Zoloft, Brilinta TECHNICAL SUMMARY: This is a digital EEG recorded with 32 input channels reviewed with bipolar and referential montages using the modified combinatorial system nomenclature. DESCRIPTION OF RECORD: During the maximally alert state an 8 Hz posterior dominant rhythm was seen that was symmetric, reactive to eye opening and well regulated.More anteriorly, low voltage frontocentral beta predominated. There is moderate voltage 4 to 5 Hz activity in anterior regions.Drowsiness was characterized by alpha attenuation and increased frontocentral theta, vertex sharp transients and POSTS. Stage 2 sleep was not achieved. HV: Hyperventilation was not performed. PHOTIC STIMULATION: not performed IMPRESSION: This patient's electroencephalogram is mildly diffusely slow consistent with the presence of a mild diffuse brain disturbance.No epileptiform activity is present. Viridiana Tafoya MD Neurophysiology/Epilepsy Fellow I have reviewed the electroencephalogram and this report and agree with its interpretation. Procedure Note Interface, External Ris In - 12/11/2016 3:38 PM CDT DATE OF REPORT: 12/11/16 ACC: [id number] EE Start time: 08:34 am Stop time: 09:19 am ICD-10: R56.9 CPT Code: 50499 HISTORY: 65 y.o female on HD, ESRD, past NM, past cerebellar CVA (1 yr ago) with confusion since past few days. MEDICATIONS THAT COULD AFFECT EEG: Tylenol, Norvasc, ASA, Lipitor, Catapres, Neurontin, Apresoline, Lantus, Humalog, Duo-Neb, Antivert, Melatonin, Reglan, Lopressor,Protonix, Zoloft, Brilinta TECHNICAL SUMMARY: This is a digital EEG recorded with 32 input channels reviewed with bipolar and referential montages using the modified combinatorial system nomenclature. DESCRIPTION OF RECORD: During the maximally alert state an 8 Hz posterior dominant rhythm was seen that was symmetric, reactive to eye opening and well regulated. More anteriorly, low voltage frontocentral beta predominated. There is moderate voltage 4 to 5 Hz activity in anterior regions. Drowsiness was characterized by alpha attenuation and increased frontocentral theta, vertex sharp transients and POSTS. Stage 2 sleep was not achieved. HV: Hyperventilation was not performed. PHOTIC STIMULATION: not performed IMPRESSION: This patient's electroencephalogram is mildly diffusely slow consistent with the presence of a mild diffuse brain disturbance. No epileptiform activity is present. Viridiana Tafoya MD Neurophysiology/Epilepsy Fellow I have reviewed the electroencephalogram and this report and agree with its interpretation. * Vancomycin level, random (12/11/2016 4:34 AM) Only the most recent of 2 results within the time period is included. Component Value Ref Range Vancomycin Rm 16.4 ug/mL Specimen Performing Laboratory Blood - Arm, Left [facility] [address] [address] Narrative Reference Range: No Normals * XR chest 2 views (12/10/2016 10:20 AM) Only the most recent of 2 results within the time period is included. Specimen Performing Laboratory [facility] RIS Narrative FINAL REPORT One lateral and two frontal chest images. Comparison to December 06 Discussion: Cardiac prominence, moderate to large left effusion, and pulmonary congestion overall similar. No pneumothorax. Left chest dialysis catheter unchanged. Signed: Tisha Clarke MD Report Verified Date/Time:12/10/2016 11:04:41 Reading Location: [facility] Radiology Reading Room Procedure Note Interface, External Ris In - 12/10/2016 11:06 AM CDT FINAL REPORT One lateral and two frontal chest images. Comparison to December 06 Discussion: Cardiac prominence, moderate to large left effusion, and pulmonary congestion overall similar. No pneumothorax. Left chest dialysis catheter unchanged. Signed: Tisha Clarke MD Report Verified Date/Time: 12/10/2016 11:04:41 Reading Location: [facility] Radiology Reading Room * Adriana antigen with reflex to titer (12/10/2016 4:19 AM) Component Value Ref Range Adriana Antigen Negative Specimen Performing Laboratory Blood - Arm, [facility] [address] [place] [address] * MR brain without IV contrast (12/09/2016 3:32 PM) Specimen Performing Laboratory [facility] RIS Narrative FINAL REPORT MRI brain without contrast 12/09/2016 3:30 PM CLINICAL INDICATION: Cerebral ischemia TECHNIQUE: Multiplanar, multisequence MR imaging of the brain was performed utilizing the following imaging sequences: Axial T1, T2, FLAIR, GRE, and DWI; sagittal and coronal T1-weighted images. COMPARISON: 06/18/2016 FINDINGS: There is no acute infarct, hematoma, mass, extra-axial collection, or hydrocephalus. 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 Additional tiny chronic infarcts are evident in the cerebellum. There is generalized parenchymal volume loss. Normal appearing flow-voids are present in the major intracranial vascular structures. The sellar and pineal regions are normal. The craniovertebral junction is intact. The orbits, face, and skull base are without worrisome finding. IMPRESSION: Chronic ischemic changes. No acute intracranial abnormality. Signed: Wilfrido West MD Report Verified Date/Time:12/09/2016 15:33:57 Reading Location: [address] Neuro Reading Room Procedure Note Interface, External Ris In - 12/09/2016 3:36 PM CDT FINAL REPORT MRI brain without contrast 12/09/2016 3:30 PM CLINICAL INDICATION: Cerebral ischemia TECHNIQUE: Multiplanar, multisequence MR imaging of the brain was performed utilizing the following imaging sequences: Axial T1, T2, FLAIR, GRE, and DWI; sagittal and coronal T1-weighted images. COMPARISON: 06/18/2016 FINDINGS: There is no acute infarct, hematoma, mass, extra-axial collection, or hydrocephalus. 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 Additional tiny chronic infarcts are evident in the cerebellum. There is generalized parenchymal volume loss. Normal appearing flow-voids are present in the major intracranial vascular structures. The sellar and pineal regions are normal. The craniovertebral junction is intact. The orbits, face, and skull base are without worrisome finding. IMPRESSION: Chronic ischemic changes. No acute intracranial abnormality. Signed: Wilfrido West MD Report Verified Date/Time: 12/09/2016 15:33:57 Reading Location: [address] Neuro Reading Room * Blood gas, arterial (12/09/2016 7:45 AM) Only the most recent of 2 results within the time period is included. Component Value Ref Range pH, Arterial 7.40 7.35 - 7.45 pCO2, Arterial 44 35 - 45 mmHg pO2, Arterial 83 80 - 90 mmHg O2 Sat, Arterial 95.3 (L) 96.0 - 97.0 % HCO3, Arterial 26 21 - 29 mmol/L Base Excess, Arterial 1.7 -2.0 - 3.0 mmol/L Patient Temperature 38.5 C FIO2 32.0 % Specimen Performing Laboratory Blood, Arterial - Arm, [facility] Left [address] [place] [address] * Urinalysis w/Microscopic (12/09/2016 6:45 AM) Only the most recent of 3 results within the time period is included. Component Value Ref Range Color, UA Yellow Clarity, UA Hazy Specific [place], UA 1.020 1.001 - 1.035 pH, UA 5.0 5.0 - 8.0 Protein, UA 200 mg/dL (A) Negative Glucose, UA Negative Negative Ketones, UA 10 mg/dL (A) Negative Bilirubin, UA Positive (A) Negative Blood, UA Small (A) Negative Nitrite, UA Negative Negative Leukocytes, UA Moderate (A) Negative Urobilinogen, UA 0.2 0.2 - 1.0 mg/dL RBC, UA 4 /HPF WBC, UA 5 /HPF Mucus Rare Squam Epithel, UA <1 /HPF Renal Epithelial 5 /HPF Casts 2 /LPF Yeast Many Specimen Source Urine, Straight Catheter Specimen Performing Laboratory Urine - Urine, [facility] Catheter [address] [place] [id number] * Urine culture (12/09/2016 6:45 AM) Only the most recent of 5 results within the time period is included. 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 Other organisms and resistance markers not contained in this PCR panel cannot be excluded and follow-up of traditional culture results is required. This sample was tested at the [facility] Clinical Microbiology Laboratory using the [employer] FilmArray Blood Culture ID Panel. This test is FDA cleared for in vitro diagnostic use and has been verified and approved by the [facility] Clinical Microbiologylaboratory for clinical use. Reference Range: Not Detected * Blood culture (12/09/2016 6:36 AM) Only the most recent of 8 results within the time period is included. Component Value Ref Range Result Result From Aerobic Bottle Only Coagulase negative Staphylococcus (A) Gram Stain Result From aerobic bottle only: gram positive cocci in clusters Specimen Performing Laboratory Blood - Arm, [place] [address] Narrative Coagulase Negative Staphylococcus Species (CoNS) DETECTED, Methicillin Resistant First line therapy: Vancomycin Coagulase Negative Staphylococcus (CoNS) DETECTED mecA DETECTED Possible contamination.The likelihood of pathogenicity is increased if the organism is observed in multiple blood cultures obtained from separate venipunctures. Other organisms and resistance markers not contained in this PCR panel cannot be excluded and follow-up of traditional culture results is required. This sample was tested at the [facility] Clinical Microbiology Laboratory using the HBCSArray Blood Culture ID Panel. This test is FDA cleared for in vitro diagnostic use and has been verified and approved by the [facility] Clinical Microbiology laboratory for clinical use. Reference Range: Not Detected * Vancomycin level, trough (12/09/2016 6:36 AM) Component Value Ref Range Vancomycin Tr 30.4 (HH) 10.0 - 20.0 ug/mL Specimen Performing Laboratory Blood [address] [address] * Lactic acid, venous, whole blood (12/09/2016 6:10 AM) Only the most recent of 2 results within the time period is included. Component Value Ref Range Lactate, Venous 0.7 0.5 - 2.2 mmol/L Specimen Performing Laboratory Blood - Arm, Left [address] [address] Narrative Effective 07/06/2015: Units/Reference Range Change New: 0.5-2.2 mmol/LPrevious: 5-20 mg/dL * Comprehensive metabolic panel (12/09/2016 6:10 AM) Only the most recent of 4 results within the time period is included. Component Value Ref Range Protein, Total 5.8 (L) 6.0 - 8.3 gm/dL Albumin 2.5 (L) 3.5 - 5.0 g/dL Alkaline Phosphatase 163 (H) 40 - 150 U/L Total Bilirubin 0.4 0.2 - 1.2 mg/dL Sodium 129 (L) 136 - 145 meq/L Potassium 4.2 3.5 - 5.1 meq/L Chloride 96 (L) 98 - 107 meq/L CO2 23 22 - 29 meq/L BUN 29 (H) 7 - 21 mg/dL Creatinine 3.02 (H) 0.57 - 1.25 mg/dL Glucose 126 (H) 70 - 105 mg/dL Calcium 8.6 8.4 - 10.2 mg/dL AST 13 5 - 34 U/L ALT 9 6 - 55 U/L EGFR 15Comment: ESTIMATED GFR IS NOT ACCURATE mL/min/1.73 sq m CREATININE CLEARANCE IN PREDICTING GLOMERULAR FILTRATION RATE. ESTIMATED GFR IS NOT APPLICABLE FOR DIALYSIS PATIENTS. Specimen Performing Laboratory Blood - Arm, Left [address] [address] * Cortisol (12/08/2016 5:07 PM) Component Value Ref Range Cortisol, Total 14.0 3.7 - 19.4 ug/dL Specimen Performing Laboratory Blood - Arm, Left [address] [address] * Vitamin B12 and Folate (12/07/2016 6:45 AM) Component Value Ref Range Vitamin B12 1240 (H) 213 - 816 pg/mL Folate 10.5 >=7.0 ng/mL Specimen Performing Laboratory Blood - Arm, [address] [address] * TSH/Free T4 If Indicated (12/07/2016 6:45 AM) Only the most recent of 2 results within the time period is included. Component Value Ref Range TSH 2.64 0.35 - 4.94 uIU/mL Specimen Performing Laboratory Blood - Arm, Right [address] [address] * Iron, TIBC, % sat. (without ferritin) (12/07/2016 6:45 AM) Only the most recent of 2 results within the time period is included. Component Value Ref Range Iron 12 (L) 40 - 160 ug/dL TIBC 159 (L) 250 - 450 ug/dL Iron % Saturation 8 (L) 20 - 55 % Specimen Performing Laboratory Blood - Arm, Right [address] [address] * Reticulocyte count (12/07/2016 6:45 AM) Component Value Ref Range % Retic 2.7 (H) 0.5 - 1.7 % Specimen Performing Laboratory Blood - Arm, Right [address] [address] * Ferritin (12/07/2016 6:45 AM) Component Value Ref Range Ferritin 1142 (H) 5 - 275 ng/mL Specimen Performing Laboratory Blood - Arm, Right [address] [address] * Urinalysis w/Microscopic + Reflex to Culture (12/06/2016 1:30 PM) Component Value Ref Range Color, UA Yellow Clarity, UA Hazy Specific [place], UA 1.020 1.001 - 1.035 pH, UA 5.0 5.0 - 8.0 Protein, UA 70 mg/dL (A) Negative Glucose, UA Negative Negative Ketones, UA Negative Negative Bilirubin, UA Positive (A) Negative Blood, UA Trace (A) Negative Nitrite, UA Negative Negative Leukocytes, UA Large (A) Negative Urobilinogen, UA 2.0 (H) 0.2 - 1.0 mg/dL RBC, UA 7 /HPF WBC, UA 59 /HPF Bacteria, UA Occasional Mucus Rare Squam Epithel, UA 2 /HPF Hyaline Casts, UA 75 /LPF Yeast Few Specimen Source Specimen Performing Laboratory Urine - Urine, Straight [facility] Catheter [address] [place] [address] * Type and screen (08/22/2016 11:23 AM) Only the most recent of 3 results within the time period is included. Component Value Ref Range Ab Scrn NEGATIVE ABO Grouping AB Rh Factor POS Specimen Performing Laboratory Blood [facility] [address] [place] [address] * US renal complete (08/20/2016 2:45 PM) Specimen Performing Laboratory GE RIS Narrative FINAL REPORT Renal ultrasound, 08/20/2016 Grayscale, and limited Doppler evaluations of the kidneys were performed. Examination is limited secondary to patient body habitus. Both kidneys measure less than 10 cm in diameter, measuring 9.5 cm in length on the right and 9.8 cm on the left. There is no evidence of hydronephrosis, stone or definite mass blood flow can be seen in the kidneys. No perinephric fluid collections are identified. Echogenicity appears grossly within normal limits. The bladder was not seen. The patient has a Kelly catheter but it also could not be visualized. CONCLUSION: No evidence of hydronephrosis. Somewhat limited examination. Signed: Oscar Piper MD Report Verified Date/Time:08/20/2016 14:47:22 Reading Location: [facility] Radiology Reading Room Procedure Note Interface, External Ris In - 08/20/2016 3:19 PM CDT FINAL REPORT Renal ultrasound, 08/20/2016 Grayscale, and limited Doppler evaluations of the kidneys were performed. Examination is limited secondary to patient body habitus. Both kidneys measure less than 10 cm in diameter, measuring 9.5 cm in length on the right and 9.8 cm on the left. There is no evidence of hydronephrosis, stone or definite mass blood flow can be seen in the kidneys. No perinephric fluid collections are identified. Echogenicity appears grossly within normal limits. The bladder was not seen. The patient has a Kelly catheter but it also could not be visualized. CONCLUSION: No evidence of hydronephrosis. Somewhat limited examination. Signed: Oscar Piper MD Report Verified Date/Time: 08/20/2016 14:47:22 Reading Location: [facility] Radiology Reading Room * Occult blood, stool (08/17/2016 11:25 AM) Component Value Ref Range Occult blood Negative Negative Specimen Performing Laboratory Stool - Per Rectum [facility] [address] [place] [address] * Prepare Leuko-Red PLT (08/15/2016 11:54 PM) Component Value Ref Range Unit ABO A Pos UNIT NUMBER [id number] Status TRANSFUSED Blood Bank Product [employer] PRODUCT CODE [id number] Specimen Performing Laboratory Blood [facility] [place] * Tissue Exam (08/14/2016 1:51 PM) Component Value Ref Range Case Report Surgical Pathology Report Case: [id number] Authorizing Provider: Akash Joya MD Collected: 08/14/2016 1351 Ordering Location: [address] Med/Surg Received: 08/14/2016 2291 Pathologist: Roxana Hill MD Specimen: Gallbladder DIAGNOSIS GALLBLADDER, CHOLECYSTECTOMY: CHRONIC CHOLECYSTITIS CPT Code(s) MG/ew 22722 CLINICAL HISTORY Abdominal pain, cholecystitis SPECIMEN SOURCE Gallbladder GROSS DESCRIPTION Specimen is received in fixative and designated with the same medical record number and the same name as "gallbladder", consists of a cholecystectomy specimen (7.0 x 3.0 x 0.8 cm). The gallbladder contains no gallstones. The mucosa is yellow-lopez and velvety. No discrete lesions are identified. Se[employer] sections of the gallbladder mucosa and cystic duct are submitted into A1. MG/ew MICROSCOPIC DESCRIPTION Performed Specimen Performing Laboratory Tissue - Gallbladder [facility] [address] [place] [address] * NM hepatobiliary (HIDA) scan (08/13/2016 12:40 PM) Specimen Performing Laboratory GE R[facility] Narrative FINAL REPORT PROCEDURE: HEPATOBILIARY SCAN CPT CODE: 76980 INDICATION: Nausea, vomiting, positive Agustin's sign PROTOCOL: 6.2 mCi of Tc-99m mebrofenin was injected intravenously. Images of the upper abdomen were obtained for approximately 60 minutes after tracer injection. FINDINGS:Initial tracer uptake into the liver is physiological. The dome of the liver is excluded from the available images. Subsequent tracer clearance from the liver proceeds normally. There is good visualization of the extrahepatic biliary duct and the gallbladder, and the tracer appears appropriately in the small bowel. Moderate tracer activity is noted in the stomach. IMPRESSION: 1. Bile reflux into the stomach. 2. Otherwise normal study. Signed: Tito Joya MD Report Verified Date/Time:08/13/2016 16:23:17 Reading Location: [address] Med Reading Room Procedure Note Interface, External Ris In - 08/13/2016 4:25 PM CDT FINAL REPORT PROCEDURE: HEPATOBILIARY SCAN CPT CODE: 42640 INDICATION: Nausea, vomiting, positive Agustin's sign PROTOCOL: 6.2 mCi of Tc-99m mebrofenin was injected intravenously. Images of the upper abdomen were obtained for approximately 60 minutes after tracer injection. FINDINGS: Initial tracer uptake into the liver is physiological. The dome of the liver is excluded from the available images. Subsequent tracer clearance from the liver proceeds normally. There is good visualization of the extrahepatic biliary duct and the gallbladder, and the tracer appears appropriately in the small bowel. Moderate tracer activity is noted in the stomach. IMPRESSION: 1. Bile reflux into the stomach. 2. Otherwise normal study. Signed: Tito Joya MD Report Verified Date/Time: 08/13/2016 16:23:17 Reading Location: [address] Reading Room * Hemoglobin A1c (08/13/2016 6:23 AM) Component Value Ref Range Hemoglobin A1C 6.8 (H) 4.3 - 6.1 % Specimen Performing Laboratory Blood [facility] [address] [place] [address] * Amylase (08/12/2016 10:07 PM) Component Value Ref Range Amylase 18 (L) 30 - 110 U/L Specimen Performing Laboratory Blood [facility] [address] [place] [address] * US abdomen limited (08/12/2016 3:09 PM) Specimen Performing Laboratory GE RIS Narrative ...................................................................... ...................................................................... ............................ Study Date Accession # Location 08/12/2016 4:45 PM [id number] Procedure Code Procedure 5010 U/S, ABDOMINAL, LIMITED ...................................................................... ...................................................................... ............................ Final Patient: Honey Anguiano : 1950 TECHNIQUE: Grayscale ultrasound of the right abdomen. INDICATION: 65-year-old woman with abdominal pain and emesis. COMPARISON: Abdomen and pelvis CT 08/10/2016. FINDINGS: MIDLINE VASCULATURE: The visualized IVC is patent. Portal vein is patent. The maximum visualized aortic diameter is 1.6 cm. LIVER: Smooth liver contour. No focal lesions. BILIARY: Gallbladder: Gallbladder sludge present. No gallbladder wall thickening, pericholecystic fluid, or distention. Negative sonographic Agustin sign. Common bile duct measures 0.3 cm, within normal limits. No intrahepatic biliary ductal dilatation. PANCREAS: Incompletely visualized due to overlying bowel gas. PERITONEUM: No free fluid. RIGHT KIDNEY: Normal in size. No hydronephrosis. No sonographically evident solid mass lesion. IMPRESSION: Gallbladder sludge without evidence of acute cholecystitis or biliary ductal dilatation. The above findings were discussed with Dr. Lopez, who acknowledged the findings, on 08/12/2016 at 4:48 PM. Dictated on: 08/12/2016 4:45 PM Interpreted by: Selin Alan Transcribed by: Signed by: Selin Alan 08/12/2016 4:49 PM Procedure Note Interface, External Ris In - 08/15/2016 2:39 PM CDT ...................................................................... ...................................................................... ............................ Study Date Accession # Location 08/12/2016 4:45 PM [id number] Procedure Code Procedure 5010 U/S, ABDOMINAL, LIMITED ...................................................................... ...................................................................... ............................ Final Patient: Honey Anguiano : 1950 TECHNIQUE: Grayscale ultrasound of the right abdomen. INDICATION: 65-year-old woman with abdominal pain and emesis. COMPARISON: Abdomen and pelvis CT 08/10/2016. FINDINGS: MIDLINE VASCULATURE: The visualized IVC is patent. Portal vein is patent. The maximum visualized aortic diameter is 1.6 cm. LIVER: Smooth liver contour. No focal lesions. BILIARY: Gallbladder: Gallbladder sludge present. No gallbladder wall thickening, pericholecystic fluid, or distention. Negative sonographic Agustin sign. Common bile duct measures 0.3 cm, within normal limits. No intrahepatic biliary ductal dilatation. PANCREAS: Incompletely visualized due to overlying bowel gas. PERITONEUM: No free fluid. RIGHT KIDNEY: Normal in size. No hydronephrosis. No sonographically evident solid mass lesion. IMPRESSION: Gallbladder sludge without evidence of acute cholecystitis or biliary ductal dilatation. The above findings were discussed with Dr. Lopez, who acknowledged the findings, on 08/12/2016 at 4:48 PM. Dictated on: 08/12/2016 4:45 PM Interpreted by: Selin Alan Transcribed by: Signed by: Selin Alan 08/12/2016 4:49 PM * CT abdomen pelvis without contrast (08/10/2016 10:48 PM) Only the most recent of 2 results within the time period is included. Specimen Performing Laboratory [employer] Narrative FINAL REPORT CT abdomen pelvis without IV or oral contrast Technique: Axial images were obtained from the lung bases to the pubic symphysis without IV or oral contrast. Coronal and sagittal reformats were provided. Lack of contrast limits evaluation of the solid organs and hollow viscera. This exam was performed according to our departmental dose optimization program which includes automated exposure control, adjustment of the mA and/or kV according to patient size and/or use of iterative reconstruction technique. History: EMESIS abdominal pain Comparison: CT 08/07/2016 Findings: Lower chest: Small to moderate bilateral pleural effusions with adjacent compressive atelectasis identified, slightly increased since the prior study.. Trace pericardial effusion is noted. Liver: No significant findings. Gallbladder and biliary tree: Faint intraluminal density within the otherwise unremarkable gallbladder may represent artifact or sludge. No biliary dilatation. Spleen: No significant findings. Adrenal Glands: No significant findings. Pancreas: No significant findings. Kidneys and ureters: A 7 mm relatively hyperdense focus within the interpolar region of the left kidney anteriorly is too small to further characterize but could represent a proteinaceous or hemorrhagic cyst. Follow-up study can be obtained to document stability. Bowel: No obstructing pattern or bowel wall thickening. A moderate amount stool is noted within the colon and rectum, correlate for history of constipation. Appendix:Nonvisualized. No right lower quadrant inflammatory changes. Bladder: A few punctate gas foci within the bladder may be related to recent instrumentation. No bladder wall thickening is noted. Major vascular structures: No significant findings. Reproductive organs: The uterus is not visualized. No adnexal masses are noted. Surgical clips are noted along the pelvic sidewalls. Other: No free air, fluid or adenopathy. Skeleton: No acute bony abnormality. IMPRESSION: Limited noncontrast study. No acute abnormality to explain given complaint. Small to moderate bilateral pleural effusions with adjacent compressive atelectasis, increased in size since the prior study. Possible gallbladder sludge versus artifact. No biliary dilatation. Additional findings as above. Signed: Jose Luis Molina MD Report Verified Date/Time:08/10/2016 23:15:06 Reading Location: [facility] B1 C013T Transitional Reading Room Procedure Note Interface, External Ris In - 08/10/2016 11:17 PM CDT FINAL REPORT CT abdomen pelvis without IV or oral contrast Technique: Axial images were obtained from the lung bases to the pubic symphysis without IV or oral contrast. Coronal and sagittal reformats were provided. Lack of contrast limits evaluation of the solid organs and hollow viscera. This exam was performed according to our departmental dose optimization program which includes automated exposure control, adjustment of the mA and/or kV according to patient size and/or use of iterative reconstruction technique. History: EMESIS abdominal pain Comparison: CT 08/07/2016 Findings: Lower chest: Small to moderate bilateral pleural effusions with adjacent compressive atelectasis identified, slightly increased since the prior study.. Trace pericardial effusion is noted. Liver: No significant findings. Gallbladder and biliary tree: Faint intraluminal density within the otherwise unremarkable gallbladder may represent artifact or sludge. No biliary dilatation. Spleen: No significant findings. Adrenal Glands: No significant findings. Pancreas: No significant findings. Kidneys and ureters: A 7 mm relatively hyperdense focus within the interpolar region of the left kidney anteriorly is too small to further characterize but could represent a proteinaceous or hemorrhagic cyst. Follow-up study can be obtained to document stability. Bowel: No obstructing pattern or bowel wall thickening. A moderate amount stool is noted within the colon and rectum, correlate for history of constipation. Appendix: Nonvisualized. No right lower quadrant inflammatory changes. Bladder: A few punctate gas foci within the bladder may be related to recent instrumentation. No bladder wall thickening is noted. Major vascular structures: No significant findings. Reproductive organs: The uterus is not visualized. No adnexal masses are noted. Surgical clips are noted along the pelvic sidewalls. Other: No free air, fluid or adenopathy. Skeleton: No acute bony abnormality. IMPRESSION: Limited noncontrast study. No acute abnormality to explain given complaint. Small to moderate bilateral pleural effusions with adjacent compressive atelectasis, increased in size since the prior study. Possible gallbladder sludge versus artifact. No biliary dilatation. Additional findings as above. Signed: Jose Luis Molina MD Report Verified Date/Time: 08/10/2016 23:15:06 Reading Location: [address] Reading Room * Venous doppler arm, left (08/07/2016 10:37 PM) Specimen Performing Laboratory [facility] Narrative FINAL REPORT VENOUS DOPPLER ARM, LEFT CLINICAL INDICATION:left arm swelling COMPARISON: None TECHNIQUE: Real time dawkins scale, color, and spectral Doppler imaging of the left upper extremity venous system was performed. FINDINGS: There is normal compressibility of the left internal jugular, brachial, basilic, and cephalic veins. There is normal color and spectral Doppler flow within the internal jugular, subclavian, axillary, cephalic, basilic, and brachial veins. IMPRESSION: No evidence for deep venous thrombosis of the left upper extremity. Signed: JR Mccracken Robert MD Report Verified Date/Time:08/07/2016 22:49:49 Reading Location: [address] Reading Room Procedure Note Interface, External Ris In - 08/07/2016 10:52 PM CDT FINAL REPORT VENOUS DOPPLER ARM, LEFT CLINICAL INDICATION: left arm swelling COMPARISON: None TECHNIQUE: Real time dawkins scale, color, and spectral Doppler imaging of the left upper extremity venous system was performed. FINDINGS: There is normal compressibility of the left internal jugular, brachial, basilic, and cephalic veins. There is normal color and spectral Doppler flow within the internal jugular, subclavian, axillary, cephalic, basilic, and brachial veins. IMPRESSION: No evidence for deep venous thrombosis of the left upper extremity. Signed: JR Mccracken Robert MD Report Verified Date/Time: 08/07/2016 22:49:49 Reading Location: [address] Reading Room * Ammonia (08/07/2016 10:14 PM) Component Value Ref Range Ammonia <11 (L) 17 - 80 mol/L Specimen Performing Laboratory Blood - Arm, Right [facility] [address] [place] [address] * Venous doppler legs bilateral (08/07/2016 9:57 PM) Only the most recent of 2 results within the time period is included. Specimen Performing Laboratory [facility] Narrative FINAL REPORT VENOUS DOPPLER LEGS, BILATERAL INDICATION: bilateral leg swelling COMPARISON: 07/19/16 TECHNIQUE:Real time dawkins-scale, color, and spectral Doppler imaging of the bilateral lower extremity venous system. FINDINGS: Thigh: Normal compressibility and color Doppler flow within the common femoral, superficial femoral, and popliteal veins bilaterally. Calf: Normal compressibility is demonstrated within the peroneal and posterior tibial veins bilaterally. Additional findings: None. IMPRESSION: No Doppler or grayscale evidence for deep venous thrombosis bilaterally. Signed: JR Mccracken Robert MD Report Verified Date/Time:08/07/2016 22:47:15 Reading Location: [address] Reading Room Procedure Note Interface, External Ris In - 08/07/2016 10:49 PM CDT FINAL REPORT VENOUS DOPPLER LEGS, BILATERAL INDICATION: bilateral leg swelling COMPARISON: 07/19/16 TECHNIQUE: Real time dawkins-scale, color, and spectral Doppler imaging of the bilateral lower extremity venous system. FINDINGS: Thigh: Normal compressibility and color Doppler flow within the common femoral, superficial femoral, and popliteal veins bilaterally. Calf: Normal compressibility is demonstrated within the peroneal and posterior tibial veins bilaterally. Additional findings: None. IMPRESSION: No Doppler or grayscale evidence for deep venous thrombosis bilaterally. Signed: JR Mccracken Robert MD Report Verified Date/Time: 08/07/2016 22:47:15 Reading Location: [address] Reading Room * D-dimer, quantitative (08/07/2016 9:21 PM) Only the most recent of 2 results within the time period is included. Component Value Ref Range D-Dimer, Quant 1.72 (H) <0.50 MG/L FEU Specimen Performing Laboratory Blood - Arm, Left [facility] [address] [place] [address] Narrative REGARDING D-DIMER RESULTS: The 98% NPV (Negative Predictive Value) for DVT/PE exclusion is 0.50 mg/L FEU as suggested by the civil engineering manager and as approved by the FDA. * aPTT (08/07/2016 7:42 PM) Component Value Ref Range PTT 26.3 23.0 - 35.0 seconds Specimen Performing Laboratory Blood - Arm, Right [facility] [address] [place], [place] [address] * Prothrombin time/INR (08/07/2016 7:42 PM) Component Value Ref Range Protime 10.7 9.3 - 12.0 seconds INR 1.0 <=5.9 Specimen Performing Laboratory Blood - Arm, Right [facility] [address] [place], [place] [address] Narrative RECOMMENDED COUMADIN/WARFARIN INR THERAPY RANGES STANDARD DOSE: 2.0 - 3.0 Includes: PROPHYLAXIS for venous thrombosis, systemic embolization; TREATMENT for venous thrombosis and/or pulmonary embolus. HIGH RISK: Target INR is 2.5-3.5 for patients with mechanical heart valves. * Manual Differential (08/01/2016 5:12 AM) Only the most recent of 2 results within the time period is included. Component Value Ref Range % Neutros (manual) 81 % % Lymphs (manual) 10 % % Monos (manual) 8 % % Bands (manual) 1 0 - 10 % # Neutros (manual) 18.14 (H) 1.80 - 8.00 K/ L # Lymphs (manual) 2.24 1.48 - 4.50 K/ L # Monos (manual) 1.79 (H) 0.00 - 1.30 K/ L # Bands (manual) 0.2 0.0 - 0.8 K/ L Total Counted 100 Bands plus Segmented 18.37 Neutrophils WBC Morphology Normal Platelet Morphology Normal RBC Morphology Normal Specimen Performing Laboratory Blood - Arm, [facility] [address] [place], [place] [address] * Glucose (07/31/2016 8:43 PM) Component Value Ref Range Glucose 561 (HH) 70 - 110 mg/dL Specimen Performing Laboratory Blood - Arm, Right [facility] [address] [place] [address] * Urea Nitrogen, random urine (07/29/2016 3:11 PM) Component Value Ref Range Urea Nitrogen, Ur 614 mg/dL Specimen Performing Laboratory Urine - Urine, [facility] [address] [address] [place] [address] Narrative Reference Range: No Normals * Creatinine, random urine (07/29/2016 3:11 PM) Component Value Ref Range Creatinine, Ur 57.0 mg/dL Specimen Performing Laboratory Urine - Urine, [facility] [address] [place] [address] Narrative Reference Range: No Normals * ED ECG Interpretation (07/28/2016 3:31 PM) Only the most recent of 2 results within the time period is included. Narrative Autumn Pickering MD 07/28/20163:31 PM ECG/EKG Interpretation Date/Time: 07/28/2016 2:12 PM Performed by: AUTUMN PICKERING Authorized by: AUTUMN PICKERING The ECG was interpreted by ED physician. The ECG is interpreted as sinus bradycardia. Rate is bradycardic. Heart rate is 55 BPM. Conduction: conduction normal. ST segments normal. T waves normal. [place] is normal. Clinical Impression: non-specific ECGECG reviewed and does not meet STEMI criteria. Patient tolerance: Patient tolerated the procedure well with no immediate complications * Critical Care (07/28/2016 3:31 PM) Narrative Autumn Pickering MD 07/28/20163:31 PM Critical Care Performed by: AUTUMN PICKERING Authorized by: AUTUMN PICKERING Total critical care time: 60 minutes Critical care was necessary to treat or prevent imminent or life-threatening deterioration of the following conditions: respiratory failure. Critical care was time spent personally by me on the following activities: discussions with consultants, evaluation of patient's response to treatment, obtaining history from patient or surrogate, ordering and review of laboratory studies, pulse oximetry, review of old charts, interpretation of cardiac output measurements, examination of patient, ordering and performing treatments and interventions, ordering and review of radiographic studies and re-evaluation of patient's condition. Comments: Acute respiratory failure with hypoxia requiring supplemental oxygen * ECHOCARDIOGRAM REPORT - SCAN (07/23/2016 11:53 AM) * ECHO W CONTRAST & DOPPLER (07/20/2016 3:53 PM) Component Value Ref Range Ejection Fraction Est EF is 55-60% Specimen Performing Laboratory [facility] ASTON SHANKAR Narrative Transthoracic Echocardiography Report (TTE) Demographics Patient NameTHOMSNORTH RIOJASIADate of Study07/20/2016 [place] Gender Female Visit [id number] Race Unknown [id number] Number Date of 1950 ReferringSaint [facility] Hospitalsamantha Reynolds Physician Age 65 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 Physician Procedure Type of Study TTE procedure:2DECHO W/CONTRAST & DOPPLER (Routine) Indications:Dyspnea/SOB. Clinical History ANEMIA, CHF, CKD, HTN, NM, STROKE, TIA, CAD. Height: 67 inches Weight: 92.99 kg (205 lbs) BSA: 2.04 m^2 BMI: 32.11 kg/m^2 Rhythm: Normal Sinus Rhythm HR: 66 bpm BP: 167/72 mmHg Summary Normal LV size. Normal LV systolic function with an estimated LVEF of 55-60%. Doppler indices are consistent with normal diastolic function. No obvious wall motion abnormalities. No obvious structural valvular abnormalities visualized. There appears to be no significant functional valvular abnormality seen. No pulmonary hypertension; estimated PA systolic pressure of 18 mm Hg, assuming an RA pressure of 3 mm Hg. No pericardial effusion. No previous study to compare from. Signature Findings Left VentricleNormal left ventricular chamber size. Normal wall thickness. Normal overall left ventricular systolic function. No apparent segmental wall motion abnormalities. Estimated LVEF is 55-60%. Normal left ventricular diastolic filling dynamics. Left Atrium The left atrium is normal in size (LA volume indexed to BSA <29 mL/m2). Right Ventricle The right ventricular chamber size and systolic function are within normal limits. Right AtriumNormal right atrium size. Aortic ValveStructurally normal aortic valve with normal cusp mobility. There is no evidence of aortic valve sclerosis or stenosis. Mitral ValveThe mitral valve appears structurally normal. There is trace mitral regurgitation observed. Tricuspid Valve The tricuspid valve has normal leaflets and excursion. There is trace tricuspid regurgitation. The systolic PA pressure is estimated to be at least 18 mmHg. Pulmonic ValveNo significant pulmonic valve regurgitation seen. Pericardial No pericardial effusion is visualized. Effusion Aorta/PA/PV/IVC Normal IVC size with appropriate collapse. Normal aortic root size. Chambers/Structures Left Atrium LA Dimension: 3.54 cm Left Ventricle LVIDd: 4.62 cmLVEDV 2D: 98.51 ml LVIDs: 3.39 cmLVESV 2D: 47.1 ml LV Septum Diastolic: 1.32 cm LV Septum Systolic: 1.43 cm LV PW Diastolic: 1.01 cmLV FS: 26.6 % LV PW Systolic: 1.45 cm LV ESV (Cubed): 38.96 cc LVOT Diameter: 2.06 cm LV ESV (Teich):47.1 ml LV SV (Teich):51.23 ml LV SI (Teich):25.11 ml/m^2 LVEF 2D Teich: 52.2 % Right Atrium RA Systolic Pressure: 10 mmHg Right Ventricle RV Systolic Pressure: 25.6 mmHg Aorta Ao Root S of Elisabet.: 2.59 cm Shunts QS:110.02 ml Doppler/Quantitative Measurements Mitral Valve MV Peak E-Wave: 1.15 m/sMV Peak A-Wave: 0.88 m/s Peak Velocity: 1.16 m/s E/A Ratio: 1.31 Mean Velocity: 0.6 m/sPeak Gradient: 5.33 mmHg Mean Gradient: 1.72 mmHgDeceleration Time: 228.9 msec Area (continuity): 3.27 cm^2 MR Velocity: 4.69 m/s MV VTI: 33.67 cm MR Pk Grad: 88.11 mmHg Tissue Doppler E' Septal Velocity: 0.06 m/s E' Lateral Velocity: 0.09 m/s Aortic Valve Peak Velocity: 1.67 m/sMean Velocity: 1.2 m /s Peak Gradient: 11.18 mmHgMean Gradient: 6.41 mmHg AV Area (continuity): 2.47 cm^2 AV VTI: 44.46 cm Cusp Separation: 1.94 cm AV DVI: 0.74 LVOT Peak Velocity: 1.23 m/s Peak Gradient: 6.1 mmHg Mean Velocity: 0.94 m/s Mean Gradient: 3.77 mmHg LVOT Diameter: 2.06 cmLVOT VTI: 33.01 cm LVOT Area: 3.33 cm^2LVOT SV:109.96 ml LVOT CO: 7.26 l/min LVOT CI: 3.56 l/min/m^2 Tricuspid Valve Estimated RVSP: 25.6 mmHg Estimated RAP: 10 mmHg TR Velocity: 1.97 m/s TR Gradient: 15.6 mmHg Pulmonic Valve Peak Velocity: 0.88 m/sPeak Gradient: 3.08 mmHg Estimated PASP: 25.6 mmHg Procedure Note Interface, External Ris In - 07/23/2016 11:09 AM CDT Transthoracic Echocardiography Report (TTE) Demographics Patient Name HONEY ANGUIANO Date of Study 07/20/2016 [place] Gender Female Visit Number [id number] Race Unknown Room Number A514 Number Date of 1950 Referring Owen Reynolds Physician Age 65 year(s) 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 Physician Procedure Type of Study TTE procedure:2DECHO W/CONTRAST & DOPPLER (Routine) Indications:Dyspnea/SOB. Clinical History ANEMIA, CHF, CKD, HTN, NM, STROKE, TIA, CAD. Height: 67 inches Weight: 92.99 kg (205 lbs) BSA: 2.04 m^2 BMI: 32.11 kg/m^2 Rhythm: Normal Sinus Rhythm HR: 66 bpm BP: 167/72 mmHg Summary Normal LV size. Normal LV systolic function with an estimated LVEF of 55-60%. Doppler indices are consistent with normal diastolic function. No obvious wall motion abnormalities. No obvious structural valvular abnormalities visualized. There appears to be no significant functional valvular abnormality seen. No pulmonary hypertension; estimated PA systolic pressure of 18 mm Hg, assuming an RA pressure of 3 mm Hg. No pericardial effusion. No previous study to compare from. Signature Findings Left Ventricle Normal left ventricular chamber size. Normal wall thickness. Normal overall left ventricular systolic function. No apparent segmental wall motion abnormalities. Estimated LVEF is 55-60%. Normal left ventricular diastolic filling dynamics. Left Atrium The left atrium is normal in size (LA volume indexed to BSA <29 mL/m2). Right Ventricle The right ventricular chamber size and systolic function are within normal limits. Right Atrium Normal right atrium size. Aortic Valve Structurally normal aortic valve with normal cusp mobility. There is no evidence of aortic valve sclerosis or stenosis. Mitral Valve The mitral valve appears structurally normal. There is trace mitral regurgitation observed. Tricuspid Valve The tricuspid valve has normal leaflets and excursion. There is trace tricuspid regurgitation. The systolic PA pressure is estimated to be at least 18 mmHg. Pulmonic Valve No significant pulmonic valve regurgitation seen. Pericardial No pericardial effusion is visualized. Effusion Aorta/PA/PV/IVC Normal IVC size with appropriate collapse. Normal aortic root size. Chambers/Structures Left Atrium LA Dimension: 3.54 cm Left Ventricle LVIDd: 4.62 cm LVEDV 2D:98.51 ml LVIDs: 3.39 cm LVESV 2D:47.1 ml LV Septum Diastolic: 1.32 cm LV Septum Systolic: 1.43 cm LV PW Diastolic: 1.01 cm LV FS: 26.6 % LV PW Systolic: 1.45 cm LV ESV (Cubed):38.96 cc LVOT Diameter: 2.06 cm LV ESV (Teich):47.1 ml LV SV (Teich):51.23 ml LV SI (Teich):25.11 ml/m^2 LVEF 2D Teich: 52.2 % Right Atrium RA Systolic Pressure: 10 mmHg Right Ventricle RV Systolic Pressure: 25.6 mmHg Aorta Ao Root S of Eilsabet.: 2.59 cm Shunts QS:110.02 ml Doppler/Quantitative Measurements Mitral Valve MV Peak E-Wave: 1.15 m/s MV Peak A-Wave: 0.88 m/s Peak Velocity: 1.16 m/s E/A Ratio: 1.31 Mean Velocity: 0.6 m/s Peak Gradient: 5.33 mmHg Mean Gradient: 1.72 mmHg Deceleration Time: 228.9 msec Area (continuity): 3.27 cm^2 MR Velocity: 4.69 m/s MV VTI: 33.67 cm MR Pk Grad: 88.11 mmHg Tissue Doppler E' Septal Velocity: 0.06 m/s E' Lateral Velocity: 0.09 m/s Aortic Valve Peak Velocity: 1.67 m/s Mean Velocity: 1.2 m/s Peak Gradient: 11.18 mmHg Mean Gradient: 6.41 mmHg AV Area (continuity): 2.47 cm^2 AV VTI: 44.46 cm Cusp Separation: 1.94 cm AV DVI: 0.74 LVOT Peak Velocity: 1.23 m/s Peak Gradient: 6.1 mmHg Mean Velocity: 0.94 m/s Mean Gradient: 3.77 mmHg LVOT Diameter: 2.06 cm LVOT VTI: 33.01 cm LVOT Area: 3.33 cm^2 LVOT SV:109.96 ml LVOT CO: 7.26 l/min LVOT CI: 3.56 l/min/m^2 Tricuspid Valve Estimated RVSP: 25.6 mmHg Estimated RAP: 10 mmHg TR Velocity: 1.97 m/s TR Gradient: 15.6 mmHg Pulmonic Valve Peak Velocity: 0.88 m/s Peak Gradient: 3.08 mmHg Estimated PASP: 25.6 mmHg * NM lung scan perfusion particulate vent (07/19/2016 7:35 PM) Specimen Performing Laboratory [facility] Impressions : 1. Very low probability of acute pulmonary embolization. 2. Mild parenchymal abnormality, similar to 09/03/15. 3. Left pleural abnormality, not seen on the prior study. Signed: Tito Joya MD Report Verified Date/Time:07/19/2016 20:03:57 Narrative FINAL REPORT PROCEDURE: V/Q LUNG SCAN CPT CODE: 69998 INDICATION: dyspnea, elevated d-dimer PROTOCOL: 10.4 mCi ofXe-133 gas was administered by inhalation. Single breath and rebreathing/washout images were obtained in the anterior and the posterior projections.5.3 mCi of Tc-99m MAA was then injected intravenously, and static perfusion images were obtained in multiple projections. FINDINGS: Ventilation: Initial tracer distribution is mildly irregular. Washout is mildly delayed. Perfusion:Tracer distribution is nonsegmentally mildly irregular in both lungs and further, nonsegmentally decreased in the left lung base. Procedure Note Interface, External Ris In - 07/19/2016 8:06 PM CDT FINAL REPORT PROCEDURE: V/Q LUNG SCAN CPT CODE: [id number] INDICATION: dyspnea, elevated d-dimer PROTOCOL: 10.4 mCi of Xe-133 gas was administered by inhalation. Single breath and rebreathing/washout images were obtained in the anterior and the posterior projections. 5.3 mCi of Tc-99m MAA was then injected intravenously, and static perfusion images were obtained in multiple projections. FINDINGS: Ventilation: Initial tracer distribution is mildly irregular. Washout is mildly delayed. Perfusion: Tracer distribution is nonsegmentally mildly irregular in both lungs and further, nonsegmentally decreased in the left lung base. IMPRESSION : 1. Very low probability of acute pulmonary embolization. 2. Mild parenchymal abnormality, similar to 09/03/15. 3. Left pleural abnormality, not seen on the prior study. Signed: Tito Joya MD Report Verified Date/Time: 07/19/2016 20:03:57 after 07/07/2016
--- OUTSIDE RECORDS SUMMARY | 2017-07-08 19:50 | XMS REPORT ---
Author Author [facility] Address Unknown Phone Unavailable Care Team Providers Care Neonatal Critical Care Nurse Name Role Phone SILVANO CHEO Unavailable Unavailable GRAHAM, JAIR Unavailable Unavailable SAMWAYS, RESHMA Unavailable Unavailable LUNDY, BELIZEAN Unavailable Unavailable TIMMY, MARIA DEL ROSARIO Unavailable Unavailable STONE, JOHANNA Unavailable Unavailable MELLISA, SLICK Unavailable Unavailable SAMANTHA, ARIF Unavailable Unavailable OTHEE, ORI Unavailable Unavailable HARJAI, JOGESH Unavailable Unavailable DEBBIE, CAR Unavailable Unavailable Problems This patient has no known problems. Allergies, Adverse Reactions, Alerts This patient has no known allergies or adverse reactions. Medications This patient has no known medications. Results Test Description Test Time Test Comments Text Results Atomic Results Result Comments BASIC METABOLIC PANEL 2017-06-21 04:36:00 SODIUM (BEAKER) (test iwlx=003) 136 meq/L 136-145 POTASSIUM (BEAKER) (test qkiu=805) 4.3 meq/L 3.5-5.1 CHLORIDE (BEAKER) (test ptbf=754) 96 meq/L 98-107 CO2 (BEAKER) (test hzgv=912) 26 meq/L 22-29 BLOOD UREA NITROGEN (BEAKER) (test suee=499) 34 mg/dL 7-21 CREATININE (BEAKER) (test vxjs=339) 4.17 mg/dL 0.57-1.25 GLUCOSE RANDOM (BEAKER) (test agru=339) 202 mg/dL 70-105 CALCIUM (BEAKER) (test msfv=269) 9.0 mg/dL 8.4-10.2 EGFR (BEAKER) (test woft=5358) 11 mL/min/1.73 sq m ESTIMATED GFR IS NOT ACCURATE CREATININE CLEARANCE IN PREDICTING GLOMERULAR FILTRATION RATE. ESTIMATED GFR IS NOT APPLICABLE FOR DIALYSIS PATIENTS. CBC (HEMOGRAM ONLY)2017-06-21 04:25:00* Test Item Value Reference Range Comments WHITE BLOOD CELL COUNT (BEAKER) (test pfdl=965) 10.9 K/ L 3.5-10.5 RED BLOOD CELL COUNT (BEAKER) (test jizh=625) 4.78 M/ L 3.93-5.22 HEMOGLOBIN (BEAKER) (test jiou=619) 13.1 GM/DL 11.2-15.7 HEMATOCRIT (BEAKER) (test ldhw=537) 44.3 % 34.1-44.9 MEAN CORPUSCULAR VOLUME (BEAKER) (test vial=719) 92.7 fL 79.4-94.8 MEAN CORPUSCULAR HEMOGLOBIN (BEAKER) (test myuh=877) 27.4 pg 25.6-32.2 MEAN CORPUSCULAR HEMOGLOBIN CONC (BEAKER) (test bavr=222) 29.6 GM/DL 32.2- 35.5 RED CELL DISTRIBUTION WIDTH (BEAKER) (test phik=281) 17.8 % 11.7-14.4 PLATELET COUNT (BEAKER) (test scbg=797) 241 K/CU MM 150-450 MEAN PLATELET VOLUME (BEAKER) (test mmgv=051) 10.5 fL 9.4-12.3 NUCLEATED RED BLOOD CELLS (BEAKER) (test somz=606) 0 /100 WBC 0-0 POCT-GLUCOSE [id number] 17:53:00* Test Item Value Reference Range Comments POC-GLUCOSE METER (BEAKER) (test tyhw=7052) 221 mg/dL 70-110 TESTED AT [address] [address] POCT-GLUCOSE [id number] 12:47:00* Test Item Value Reference Range Comments POC-GLUCOSE METER (BEAKER) (test yykh=3644) 223 mg/dL 70-110 TESTED AT [address] [address] POTASSIUM-STAT [id number] 07:40:00* Test Item Value Reference Range Comments POTASSIUM (BEAKER) (test apmp=311) 3.5 meq/L 3.6-5.5 POCT-GLUCOSE [id number] 06:29:00* Test Item Value Reference Range Comments POC-GLUCOSE METER (BEAKER) (test dgnz=5560) 209 mg/dL 70-110 TESTED AT [address] [address] OVA AND PARASITE [id number] 15:07:00* Test Item Value Reference Range Comments DIRECT SMEAR - O\\T\\P (BEAKER) (test noej=240) No ova or parasites seen No ova or parasites seen STOOL CULTURE + SHIGA [id number] 13:15:00* Test Item Value Reference Range Comments CULTURE (BEAKER) (test gtoi=4491) No Salmonella, Shigella or Campylobacter isolated SHIGA TOXIN [id number] 13:59:00* Test Item Value Reference Range Comments SHIGA TOXIN 1 (BEAKER) (test rprk=4382) Not detected Not detected SHIGA TOXIN 2 (BEAKER) (test ghkk=6774) Not detected Not detected POCT-GLUCOSE [id number] 13:34:00* Test Item Value Reference Range Comments POC-GLUCOSE METER (BEAKER) (test zdty=4614) 210 mg/dL 70-110 TESTED AT [address] [address] POCT-GLUCOSE [id number] 10:06:00* Test Item Value Reference Range Comments POC-GLUCOSE METER (BEAKER) (test qdno=0188) 182 mg/dL 70-110 TESTED AT [address] [address] STOOL PATH [id number] 09:45:00* Test Item Value Reference Range Comments PATHOGEN EXAM CHARGED (BEAKER) (test bool=7322) Done POCT-GLUCOSE [id number] 21:34:00* Test Item Value Reference Range Comments POC-GLUCOSE METER (BEAKER) (test ryfi=1072) 110 mg/dL 70-110 TESTED AT [address] [address] POCT-GLUCOSE [id number] 17:22:00* Test Item Value Reference Range Comments POC-GLUCOSE METER (BEAKER) (test ivna=2112) 113 mg/dL 70-110 TESTED AT [address] [address] HEPATITIS B SURFACE [id number] 13:16:00* Test Item Value Reference Range Comments HEPATITIS B SURFACE ANTIGEN (2) (BEAKER) (test plkb=6843) Nonreactive Nonreactive POCT-GLUCOSE [id number] 11:37:00* Test Item Value Reference Range Comments POC-GLUCOSE METER (BEAKER) (test nkro=1258) 155 mg/dL 70-110 TESTED AT [address] [address] CLOSTRIDIUM DIFFICILE TOXIN [id number] 09:27:00* Test Item Value Reference Range Comments CLOSTRIDIUM DIFFICILE TOXIN, PCR (BEAKER) (test dssf=6607) Detected Not Detected This qualitative real-time polymerase chain reaction assay detects the tcdB gene , encoded on the C.difficile pathogenicity locus (PaLoc). The product of tcdB, toxin B, is a cytotoxin essential for causing C.difficile-associated disease ( CDAD) and is found in virtually all toxigenic C.difficile.This assay is performed for patients suspected of having either community-acquired or nosocomial CDAD. Accordingly, only symptomatic patients should be tested and formed stools will be rejected unless ileus is present (i.e., specified when ordering). Patients may be colonized with toxigenic C.difficile strains not causing active disease; therefore, clinical correlation is needed when deciding how to manage patients with a positive test result.The assay has not been validated as a test of cure as amplifiable nucleic acid may persist after effective treatment; therefore, follow-up testing of a positive result is not recommended.FECAL [id number] 09:26:00* Test Item Value Reference Range Comments FECAL LEUKOCYTES (BEAKER) (test ohzx=770) 3+ Fecal leukocytes seen No fecal leukocytes seen BASIC METABOLIC [id number] 08:33:00* Test Item Value Reference Range Comments SODIUM (BEAKER) (test bqia=749) 138 meq/L 136-145 POTASSIUM (BEAKER) (test dpkv=998) 3.0 meq/L 3.5-5.1 CHLORIDE (BEAKER) (test hkzj=468) 101 meq/L 98-107 CO2 (BEAKER) (test ahnn=626) 25 meq/L 22-29 BLOOD UREA NITROGEN (BEAKER) (test xgza=213) 33 mg/dL 7-21 CREATININE (BEAKER) (test ziij=081) 4.23 mg/dL 0.57-1.25 GLUCOSE RANDOM (BEAKER) (test uslu=038) 133 mg/dL 70-105 CALCIUM (BEAKER) (test yqsq=278) 8.5 mg/dL 8.4-10.2 EGFR (BEAKER) (test gpsg=4400) 10 mL/min/1.73 sq m ESTIMATED GFR IS NOT ACCURATE CREATININE CLEARANCE IN PREDICTING GLOMERULAR FILTRATION RATE. ESTIMATED GFR IS NOT APPLICABLE FOR DIALYSIS PATIENTS. POCT-GLUCOSE [id number] 08:06:00* Test Item Value Reference Range Comments POC-GLUCOSE METER (BEAKER) (test wigz=0256) 139 mg/dL 70-110 TESTED AT [facility] [address] [facility] [address] CBC W/PLT COUNT & AUTO [id number] 07:55:00* Test Item Value Reference Range Comments WHITE BLOOD CELL COUNT (BEAKER) (test ybuc=062) 10.5 K/ L 3.5-10.5 RED BLOOD CELL COUNT (BEAKER) (test pqbc=327) 3.39 M/ L 3.93-5.22 HEMOGLOBIN (BEAKER) (test lqrg=435) 9.7 GM/DL 11.2-15.7 HEMATOCRIT (BEAKER) (test kbkj=984) 31.3 % 34.1-44.9 MEAN CORPUSCULAR VOLUME (BEAKER) (test hjjd=377) 92.3 fL 79.4-94.8 MEAN CORPUSCULAR HEMOGLOBIN (BEAKER) (test mcdl=945) 28.6 pg 25.6-32.2 MEAN CORPUSCULAR HEMOGLOBIN CONC (BEAKER) (test rdbj=116) 31.0 GM/DL 32.2- 35.5 RED CELL DISTRIBUTION WIDTH (BEAKER) (test hicp=542) 16.3 % 11.7-14.4 PLATELET COUNT (BEAKER) (test uola=878) 318 K/CU MM 150-450 Significant difference from previous result MEAN PLATELET VOLUME (BEAKER) (test kfht=262) 10.2 fL 9.4-12.3 NUCLEATED RED BLOOD CELLS (BEAKER) (test zszu=273) 0 /100 WBC 0-0 NEUTROPHILS RELATIVE PERCENT (BEAKER) (test yhvr=422) 73 % LYMPHOCYTES RELATIVE PERCENT (BEAKER) (test jxbi=926) 14 % MONOCYTES RELATIVE PERCENT (BEAKER) (test cext=605) 7 % EOSINOPHILS RELATIVE PERCENT (BEAKER) (test qpsw=181) 4 % BASOPHILS RELATIVE PERCENT (BEAKER) (test psov=456) 1 % NEUTROPHILS ABSOLUTE COUNT (BEAKER) (test krnt=963) 7.69 K/ L 1.56-6.13 LYMPHOCYTES ABSOLUTE COUNT (BEAKER) (test txjl=554) 1.51 K/ L 1.18-3.74 MONOCYTES ABSOLUTE COUNT (BEAKER) (test mbpv=410) 0.76 K/ L 0.24-0.36 EOSINOPHILS ABSOLUTE COUNT (BEAKER) (test fitn=638) 0.46 K/ L 0.04-0.36 BASOPHILS ABSOLUTE COUNT (BEAKER) (test yzli=900) 0.07 K/ L 0.01-0.08 IMMATURE GRANULOCYTES-RELATIVE PERCENT (BEAKER) (test mehx=5184) 0 % 0-1 POCT-GLUCOSE [id number] 01:54:00* Test Item Value Reference Range Comments POC-GLUCOSE METER (BEAKER) (test wtom=1679) 145 mg/dL 70-110 TESTED AT [facility] [address] [facility] [address] POCT-GLUCOSE [id number] 22:41:00* Test Item Value Reference Range Comments POC-GLUCOSE METER (BEAKER) (test gveg=5882) 145 mg/dL 70-110 TESTED AT [address] [address] BASIC METABOLIC [id number] 15:04:00* Test Item Value Reference Range Comments SODIUM (BEAKER) (test vcey=266) 141 meq/L 136-145 POTASSIUM (BEAKER) (test pkgy=259) 3.4 meq/L 3.5-5.1 CHLORIDE (BEAKER) (test mejj=907) 100 meq/L 98-107 CO2 (BEAKER) (test ridc=482) 24 meq/L 22-29 BLOOD UREA NITROGEN (BEAKER) (test uiyw=164) 30 mg/dL 7-21 CREATININE (BEAKER) (test mbfq=635) 4.09 mg/dL 0.57-1.25 GLUCOSE RANDOM (BEAKER) (test veaq=921) 190 mg/dL 70-105 CALCIUM (BEAKER) (test rxwn=300) 9.3 mg/dL 8.4-10.2 EGFR (BEAKER) (test jmeo=9560) 11 mL/min/1.73 sq m ESTIMATED GFR IS NOT ACCURATE CREATININE CLEARANCE IN PREDICTING GLOMERULAR FILTRATION RATE. ESTIMATED GFR IS NOT APPLICABLE FOR DIALYSIS PATIENTS. [id number] 14:58:00* Test Item Value Reference Range Comments LIPASE (BEAKER) (test ckfb=902) 26 U/L 8-78 HEPATIC FUNCTION [id number] 14:58:00* Test Item Value Reference Range Comments TOTAL PROTEIN (BEAKER) (test fftn=623) 6.8 gm/dL 6.0-8.3 ALBUMIN (BEAKER) (test mezi=7148) 3.5 g/dL 3.5-5.0 BILIRUBIN TOTAL (BEAKER) (test ejcu=219) 0.4 mg/dL 0.2-1.2 BILIRUBIN DIRECT (BEAKER) (test gkta=126) 0.2 mg/dL 0.1-0.5 ALKALINE PHOSPHATASE (BEAKER) (test andp=116) 120 U/L 40-150 AST (SGOT) (BEAKER) (test vbeg=117) 22 U/L 5-34 ALT (SGPT) (BEAKER) (test wfrm=788) 13 U/L 6-55 CBC W/PLT COUNT & AUTO [id number] 14:47:00* Test Item Value Reference Range Comments WHITE BLOOD CELL COUNT (BEAKER) (test wiuj=849) 14.2 K/ L 3.5-10.5 RED BLOOD CELL COUNT (BEAKER) (test vinn=233) 3.76 M/ L 3.93-5.22 HEMOGLOBIN (BEAKER) (test tklb=774) 10.9 GM/DL 11.2-15.7 HEMATOCRIT (BEAKER) (test lgdb=499) 34.8 % 34.1-44.9 MEAN CORPUSCULAR VOLUME (BEAKER) (test zgze=058) 92.6 fL 79.4-94.8 MEAN CORPUSCULAR HEMOGLOBIN (BEAKER) (test klym=974) 29.0 pg 25.6-32.2 MEAN CORPUSCULAR HEMOGLOBIN CONC (BEAKER) (test supg=659) 31.3 GM/DL 32.2- 35.5 RED CELL DISTRIBUTION WIDTH (BEAKER) (test xvjc=055) 16.5 % 11.7-14.4 PLATELET COUNT (BEAKER) (test iubo=736) 370 K/CU MM 150-450 MEAN PLATELET VOLUME (BEAKER) (test cpwd=440) 10.2 fL 9.4-12.3 NUCLEATED RED BLOOD CELLS (BEAKER) (test uvqo=871) 0 /100 WBC 0-0 NEUTROPHILS RELATIVE PERCENT (BEAKER) (test qpqo=195) 78 % LYMPHOCYTES RELATIVE PERCENT (BEAKER) (test ljje=041) 13 % MONOCYTES RELATIVE PERCENT (BEAKER) (test uvxx=894) 6 % EOSINOPHILS RELATIVE PERCENT (BEAKER) (test usrk=659) 2 % BASOPHILS RELATIVE PERCENT (BEAKER) (test vqyi=728) 1 % NEUTROPHILS ABSOLUTE COUNT (BEAKER) (test nrfo=178) 11.02 K/ L 1.56-6.13 LYMPHOCYTES ABSOLUTE COUNT (BEAKER) (test lpzl=461) 1.84 K/ L 1.18-3.74 MONOCYTES ABSOLUTE COUNT (BEAKER) (test mlyg=643) 0.87 K/ L 0.24-0.36 EOSINOPHILS ABSOLUTE COUNT (BEAKER) (test ewmd=560) 0.34 K/ L 0.04-0.36 BASOPHILS ABSOLUTE COUNT (BEAKER) (test hspa=467) 0.10 K/ L 0.01-0.08 IMMATURE GRANULOCYTES-RELATIVE PERCENT (BEAKER) (test vpec=5559) 0 % 0-1 POCT-GLUCOSE [id number] 09:03:00* Test Item Value Reference Range Comments POC-GLUCOSE METER (BEAKER) (test mkdd=4097) 126 mg/dL 70-110 TESTED AT [address] [address] POCT-GLUCOSE [id number] 07:35:00* Test Item Value Reference Range Comments POC-GLUCOSE METER (BEAKER) (test ytsi=6797) 153 mg/dL 70-110 TESTED AT [address] [address] BASIC METABOLIC [id number] 06:28:00* Test Item Value Reference Range Comments SODIUM (BEAKER) (test cxgg=561) 143 meq/L 136-145 POTASSIUM (BEAKER) (test rafq=543) 3.7 meq/L 3.5-5.1 CHLORIDE (BEAKER) (test piow=563) 103 meq/L 98-107 CO2 (BEAKER) (test dgfq=602) 28 meq/L 22-29 BLOOD UREA NITROGEN (BEAKER) (test ctrq=734) 20 mg/dL 7-21 CREATININE (BEAKER) (test ffuk=599) 3.08 mg/dL 0.57-1.25 GLUCOSE RANDOM (BEAKER) (test pkie=631) 145 mg/dL 70-105 CALCIUM (BEAKER) (test ebqa=476) 9.0 mg/dL 8.4-10.2 EGFR (BEAKER) (test qonm=1695) 15 mL/min/1.73 sq m ESTIMATED GFR IS NOT ACCURATE CREATININE CLEARANCE IN PREDICTING GLOMERULAR FILTRATION RATE. ESTIMATED GFR IS NOT APPLICABLE FOR DIALYSIS PATIENTS. CBC W/PLT COUNT & AUTO [id number] 06:20:00* Test Item Value Reference Range Comments WHITE BLOOD CELL COUNT (BEAKER) (test alau=362) 10.7 K/ L 3.5-10.5 RED BLOOD CELL COUNT (BEAKER) (test xnjc=869) 3.14 M/ L 3.93-5.22 HEMOGLOBIN (BEAKER) (test bgac=608) 8.8 GM/DL 11.2-15.7 HEMATOCRIT (BEAKER) (test wxrf=718) 28.3 % 34.1-44.9 MEAN CORPUSCULAR VOLUME (BEAKER) (test qeqm=272) 90.1 fL 79.4-94.8 MEAN CORPUSCULAR HEMOGLOBIN (BEAKER) (test wvar=062) 28.0 pg 25.6-32.2 MEAN CORPUSCULAR HEMOGLOBIN CONC (BEAKER) (test krjr=034) 31.1 GM/DL 32.2- 35.5 RED CELL DISTRIBUTION WIDTH (BEAKER) (test wwse=493) 16.8 % 11.7-14.4 PLATELET COUNT (BEAKER) (test xcuq=654) 394 K/CU MM 150-450 MEAN PLATELET VOLUME (BEAKER) (test mfes=128) 10.6 fL 9.4-12.3 NUCLEATED RED BLOOD CELLS (BEAKER) (test tqxl=374) 0 /100 WBC 0-0 NEUTROPHILS RELATIVE PERCENT (BEAKER) (test ppoa=864) 79 % LYMPHOCYTES RELATIVE PERCENT (BEAKER) (test oyxv=324) 14 % MONOCYTES RELATIVE PERCENT (BEAKER) (test yrvy=241) 6 % EOSINOPHILS RELATIVE PERCENT (BEAKER) (test jlgn=255) 0 % BASOPHILS RELATIVE PERCENT (BEAKER) (test mayg=388) 1 % NEUTROPHILS ABSOLUTE COUNT (BEAKER) (test xwzy=799) 8.43 K/ L 1.56-6.13 LYMPHOCYTES ABSOLUTE COUNT (BEAKER) (test tnqy=209) 1.45 K/ L 1.18-3.74 MONOCYTES ABSOLUTE COUNT (BEAKER) (test gzmj=800) 0.66 K/ L 0.24-0.36 EOSINOPHILS ABSOLUTE COUNT (BEAKER) (test iaot=416) 0.00 K/ L 0.04-0.36 BASOPHILS ABSOLUTE COUNT (BEAKER) (test kxye=545) 0.05 K/ L 0.01-0.08 IMMATURE GRANULOCYTES-RELATIVE PERCENT (BEAKER) (test nujq=1769) 1 % 0-1 POCT-GLUCOSE [id number] 20:34:00* Test Item Value Reference Range Comments POC-GLUCOSE METER (BEAKER) (test idkz=9300) 218 mg/dL 70-110 TESTED AT [address] [address] POCT-GLUCOSE [id number] 17:41:00* Test Item Value Reference Range Comments POC-GLUCOSE METER (BEAKER) (test pwjv=3930) 229 mg/dL 70-110 TESTED AT [address] [address] POCT-GLUCOSE [id number] 15:09:00* Test Item Value Reference Range Comments POC-GLUCOSE METER (BEAKER) (test ifmn=9661) 172 mg/dL 70-110 TESTED AT [address] [address] POCT-GLUCOSE [id number] 12:32:00* Test Item Value Reference Range Comments POC-GLUCOSE METER (BEAKER) (test msdl=4519) 163 mg/dL 70-110 TESTED AT [address] [address] BASIC METABOLIC [id number] 08:50:00* Test Item Value Reference Range Comments SODIUM (BEAKER) (test huwh=596) 141 meq/L 136-145 POTASSIUM (BEAKER) (test pmhh=624) 3.2 meq/L 3.5-5.1 CHLORIDE (BEAKER) (test pquv=655) 99 meq/L 98-107 CO2 (BEAKER) (test oovc=174) 33 meq/L 22-29 BLOOD UREA NITROGEN (BEAKER) (test dwel=359) 14 mg/dL 7-21 CREATININE (BEAKER) (test aduj=509) 2.43 mg/dL 0.57-1.25 GLUCOSE RANDOM (BEAKER) (test aljr=781) 156 mg/dL 70-105 CALCIUM (BEAKER) (test uwsl=898) 9.0 mg/dL 8.4-10.2 EGFR (BEAKER) (test qwks=3513) 20 mL/min/1.73 sq m ESTIMATED GFR IS NOT ACCURATE CREATININE CLEARANCE IN PREDICTING GLOMERULAR FILTRATION RATE. ESTIMATED GFR IS NOT APPLICABLE FOR DIALYSIS PATIENTS. CBC W/PLT COUNT & AUTO [id number] 08:23:00* Test Item Value Reference Range Comments WHITE BLOOD CELL COUNT (BEAKER) (test anzp=659) 10.9 K/ L 3.5-10.5 RED BLOOD CELL COUNT (BEAKER) (test kwhw=296) 3.44 M/ L 3.93-5.22 HEMOGLOBIN (BEAKER) (test aqmq=485) 9.6 GM/DL 11.2-15.7 HEMATOCRIT (BEAKER) (test wcbg=084) 30.7 % 34.1-44.9 MEAN CORPUSCULAR VOLUME (BEAKER) (test mlkg=154) 89.2 fL 79.4-94.8 MEAN CORPUSCULAR HEMOGLOBIN (BEAKER) (test ujqf=880) 27.9 pg 25.6-32.2 MEAN CORPUSCULAR HEMOGLOBIN CONC (BEAKER) (test citl=456) 31.3 GM/DL 32.2- 35.5 RED CELL DISTRIBUTION WIDTH (BEAKER) (test oqln=876) 16.2 % 11.7-14.4 PLATELET COUNT (BEAKER) (test jkpz=044) 401 K/CU MM 150-450 MEAN PLATELET VOLUME (BEAKER) (test bmmc=389) 10.3 fL 9.4-12.3 NUCLEATED RED BLOOD CELLS (BEAKER) (test koec=338) 0 /100 WBC 0-0 NEUTROPHILS RELATIVE PERCENT (BEAKER) (test csjc=679) 70 % LYMPHOCYTES RELATIVE PERCENT (BEAKER) (test jvgr=220) 18 % MONOCYTES RELATIVE PERCENT (BEAKER) (test zvjy=855) 8 % EOSINOPHILS RELATIVE PERCENT (BEAKER) (test djge=532) 3 % BASOPHILS RELATIVE PERCENT (BEAKER) (test uxhb=586) 1 % NEUTROPHILS ABSOLUTE COUNT (BEAKER) (test cmga=594) 7.57 K/ L 1.56-6.13 LYMPHOCYTES ABSOLUTE COUNT (BEAKER) (test gapv=567) 1.90 K/ L 1.18-3.74 MONOCYTES ABSOLUTE COUNT (BEAKER) (test krsh=201) 0.85 K/ L 0.24-0.36 EOSINOPHILS ABSOLUTE COUNT (BEAKER) (test kwlj=935) 0.35 K/ L 0.04-0.36 BASOPHILS ABSOLUTE COUNT (BEAKER) (test ikwy=767) 0.10 K/ L 0.01-0.08 IMMATURE GRANULOCYTES-RELATIVE PERCENT (BEAKER) (test auwg=1794) 1 % 0-1 POCT-GLUCOSE [id number] 04:47:00* Test Item Value Reference Range Comments POC-GLUCOSE METER (BEAKER) (test hffv=3549) 155 mg/dL 70-110 TESTED AT [facility] [address] [facility] [address] RAD, CHEST, 1 VIEW, NON [id number] 20:51:00Reason for exam:->ANEMIAReason for exam:->GENERALIZED WEAKNESS, NOT ASSOCIATED WITH EXTREMITIESFINAL REPORT EXAM: Chest one view COMPARISON: December 15, 2016 CLINICAL HISTORY: Anemia, generalized weakness FINDINGS: There is interval improvement in bilateral pleural effusions. The cardiac size remains enlarged. The left internal jugular tunneled dialysis catheter is unchanged in position. There is no evidence of pneumothorax. The regional osseous structures are unremarkable. Signed: Ronald Calderon MDReport Verified Date/Time: 01/02/2017 20:51:27 Reading Location: [address] Consult Reading Room TINE KINASE (CK), TOTAL AND [id number] 20:31:00* Test Item Value Reference Range Comments CREATINE KINASE TOTAL (BEAKER) (test lpel=976) 21 U/L 29-200 CREATINE KINASE-MB (BEAKER) (test sxmu=038) 0.7 ng/mL 0.0-6.6 CREATINE KINASE-MB INDEX (BEAKER) (test jjnl=053) 3.3 % CK-MB Reference Range:<6.7 Normal6.7-10.0 Borderline>10.0 AbnormalTROPONIN [id number] 20:31:00* Test Item Value Reference Range Comments TROPONIN I (BEAKER) (test kjii=829) 0.01 ng/mL 0.00-0.03 Troponin I (TnI) levels must be interpreted [...] failure, acidosis, acute neurological disease, and persistent tachyarrhythmia.B-TYPE NATRIURETIC FACTOR (BNP) 20:27:00* Test Item Value Reference Range Comments B-TYPE NATRIURETIC PEPTIDE (BEAKER) (test xmcs=675) 190 pg/mL 0-100 BASIC METABOLIC [id number] 20:26:00* Test Item Value Reference Range Comments SODIUM (BEAKER) (test kwpw=916) 139 meq/L 136-145 POTASSIUM (BEAKER) (test gtlk=933) 3.1 meq/L 3.5-5.1 CHLORIDE (BEAKER) (test khfs=247) 97 meq/L 98-107 CO2 (BEAKER) (test bmfi=016) 33 meq/L 22-29 BLOOD UREA NITROGEN (BEAKER) (test gpxs=032) 13 mg/dL 7-21 CREATININE (BEAKER) (test uwjd=334) 2.08 mg/dL 0.57-1.25 GLUCOSE RANDOM (BEAKER) (test zbhx=116) 157 mg/dL 70-105 CALCIUM (BEAKER) (test urzs=127) 9.1 mg/dL 8.4-10.2 EGFR (BEAKER) (test nvwt=9835) 24 mL/min/1.73 sq m ESTIMATED GFR IS NOT ACCURATE CREATININE CLEARANCE IN PREDICTING GLOMERULAR FILTRATION RATE. ESTIMATED GFR IS NOT APPLICABLE FOR DIALYSIS PATIENTS. [id number] 20:23:00* Test Item Value Reference Range Comments MAGNESIUM (BEAKER) (test vvgk=756) 1.4 mg/dL 1.6-2.6 [id number] 20:07:00* Test Item Value Reference Range Comments PROTIME (BEAKER) (test dhen=212) 12.9 seconds 11.7-14.7 INR (BEAKER) (test btzg=102) 1.0 <=5.9 PARTIAL THROMBOPLASTIN TIME (BEAKER) (test lnep=264) 32.9 seconds 22.5-36.0 RECOMMENDED COUMADIN/WARFARIN INR THERAPY RANGESSTANDARD DOSE: 2.0 - 3.0 Includes: PROPHYLAXIS for venous thrombosis, systemic embolization; TREATMENT for venous thrombosis and/or pulmonary embolus.HIGH RISK: Target INR is 2.5-3.5 for patients with mechanical heart valves.CBC W/PLT COUNT & AUTO [id number] 19:54:00* Test Item Value Reference Range Comments WHITE BLOOD CELL COUNT (BEAKER) (test gvqj=966) 10.4 K/ L 3.5-10.5 RED BLOOD CELL COUNT (BEAKER) (test pdvz=483) 2.90 M/ L 3.93-5.22 HEMOGLOBIN (BEAKER) (test ytee=592) 8.0 GM/DL 11.2-15.7 HEMATOCRIT (BEAKER) (test zupu=769) 26.0 % 34.1-44.9 MEAN CORPUSCULAR VOLUME (BEAKER) (test rdpq=734) 89.7 fL 79.4-94.8 MEAN CORPUSCULAR HEMOGLOBIN (BEAKER) (test ejko=348) 27.6 pg 25.6-32.2 MEAN CORPUSCULAR HEMOGLOBIN CONC (BEAKER) (test netj=723) 30.8 GM/DL 32.2- 35.5 RED CELL DISTRIBUTION WIDTH (BEAKER) (test irwb=809) 17.0 % 11.7-14.4 PLATELET COUNT (BEAKER) (test oyby=205) 428 K/CU MM 150-450 MEAN PLATELET VOLUME (BEAKER) (test qrkr=246) 10.3 fL 9.4-12.3 NUCLEATED RED BLOOD CELLS (BEAKER) (test dnob=964) 0 /100 WBC 0-0 NEUTROPHILS RELATIVE PERCENT (BEAKER) (test rywv=295) 68 % LYMPHOCYTES RELATIVE PERCENT (BEAKER) (test vuuz=175) 17 % MONOCYTES RELATIVE PERCENT (BEAKER) (test gyru=968) 9 % EOSINOPHILS RELATIVE PERCENT (BEAKER) (test frxg=779) 4 % BASOPHILS RELATIVE PERCENT (BEAKER) (test zfsk=858) 1 % NEUTROPHILS ABSOLUTE COUNT (BEAKER) (test ghwj=384) 7.09 K/ L 1.56-6.13 LYMPHOCYTES ABSOLUTE COUNT (BEAKER) (test uclv=725) 1.79 K/ L 1.18-3.74 MONOCYTES ABSOLUTE COUNT (BEAKER) (test wzgf=638) 0.91 K/ L 0.24-0.36 EOSINOPHILS ABSOLUTE COUNT (BEAKER) (test tvka=332) 0.42 K/ L 0.04-0.36 BASOPHILS ABSOLUTE COUNT (BEAKER) (test honq=349) 0.10 K/ L 0.01-0.08 IMMATURE GRANULOCYTES-RELATIVE PERCENT (BEAKER) (test uqtz=4147) 0 % 0-1 POCT-GLUCOSE [id number] 09:03:00* Test Item Value Reference Range Comments POC-GLUCOSE METER (BEAKER) (test clkk=4044) 105 mg/dL 70-110 TESTED AT [facility] [address] [facility] [address] BASIC METABOLIC [id number] 05:12:00* Test Item Value Reference Range Comments SODIUM (BEAKER) (test tgop=223) 142 meq/L 136-145 POTASSIUM (BEAKER) (test pdld=707) 3.6 meq/L 3.5-5.1 CHLORIDE (BEAKER) (test zafy=113) 104 meq/L 98-107 CO2 (BEAKER) (test zwvv=257) 28 meq/L 22-29 BLOOD UREA NITROGEN (BEAKER) (test dzxw=834) 21 mg/dL 7-21 CREATININE (BEAKER) (test eyno=117) 2.64 mg/dL 0.57-1.25 GLUCOSE RANDOM (BEAKER) (test yadn=281) 96 mg/dL 70-105 CALCIUM (BEAKER) (test zajy=619) 9.1 mg/dL 8.4-10.2 EGFR (BEAKER) (test zchw=3070) 18 mL/min/1.73 sq m ESTIMATED GFR IS NOT ACCURATE CREATININE CLEARANCE IN PREDICTING GLOMERULAR FILTRATION RATE. ESTIMATED GFR IS NOT APPLICABLE FOR DIALYSIS PATIENTS. CBC W/PLT COUNT & AUTO [id number] 04:55:00* Test Item Value Reference Range Comments WHITE BLOOD CELL COUNT (BEAKER) (test nivb=423) 11.4 K/ L 3.5-10.5 RED BLOOD CELL COUNT (BEAKER) (test vubr=580) 3.44 M/ L 3.93-5.22 HEMOGLOBIN (BEAKER) (test ysoq=159) 9.2 GM/DL 11.2-15.7 HEMATOCRIT (BEAKER) (test ubxm=215) 30.1 % 34.1-44.9 MEAN CORPUSCULAR VOLUME (BEAKER) (test echq=822) 87.5 fL 79.4-94.8 MEAN CORPUSCULAR HEMOGLOBIN (BEAKER) (test amya=747) 26.7 pg 25.6-32.2 MEAN CORPUSCULAR HEMOGLOBIN CONC (BEAKER) (test piqn=780) 30.6 GM/DL 32.2- 35.5 RED CELL DISTRIBUTION WIDTH (BEAKER) (test abvp=780) 15.8 % 11.7-14.4 PLATELET COUNT (BEAKER) (test igci=892) 589 K/CU MM 150-450 MEAN PLATELET VOLUME (BEAKER) (test aohn=458) 9.7 fL 9.4-12.3 NUCLEATED RED BLOOD CELLS (BEAKER) (test pzjv=414) 0 /100 WBC 0-0 NEUTROPHILS RELATIVE PERCENT (BEAKER) (test utvc=080) 65 % LYMPHOCYTES RELATIVE PERCENT (BEAKER) (test ngwt=408) 19 % MONOCYTES RELATIVE PERCENT (BEAKER) (test wyrb=911) 7 % EOSINOPHILS RELATIVE PERCENT (BEAKER) (test vuzd=220) 7 % BASOPHILS RELATIVE PERCENT (BEAKER) (test hctn=621) 1 % NEUTROPHILS ABSOLUTE COUNT (BEAKER) (test kwrc=945) 7.46 K/ L 1.56-6.13 LYMPHOCYTES ABSOLUTE COUNT (BEAKER) (test ewcc=192) 2.19 K/ L 1.18-3.74 MONOCYTES ABSOLUTE COUNT (BEAKER) (test yqfn=501) 0.77 K/ L 0.24-0.36 EOSINOPHILS ABSOLUTE COUNT (BEAKER) (test ikob=465) 0.82 K/ L 0.04-0.36 BASOPHILS ABSOLUTE COUNT (BEAKER) (test tlel=307) 0.10 K/ L 0.01-0.08 IMMATURE GRANULOCYTES-RELATIVE PERCENT (BEAKER) (test ysgk=5198) 1 % 0-1 POCT-GLUCOSE [id number] 20:22:00* Test Item Value Reference Range Comments POC-GLUCOSE METER (BEAKER) (test fhix=6009) 122 mg/dL 70-110 TESTED AT [facility] [address] [facility] [address] POCT-GLUCOSE [id number] 17:12:00* Test Item Value Reference Range Comments POC-GLUCOSE METER (BEAKER) (test mqip=0752) 173 mg/dL 70-110 TESTED AT [facility] [address] [facility] [address] POCT-GLUCOSE [id number] 08:54:00* Test Item Value Reference Range Comments POC-GLUCOSE METER (BEAKER) (test kwbg=6572) 145 mg/dL 70-110 TESTED AT [facility] [address] [facility] [address] CBC W/PLT COUNT & AUTO [id number] 06:24:00* Test Item Value Reference Range Comments WHITE BLOOD CELL COUNT (BEAKER) (test djpb=867) 12.0 K/ L 3.5-10.5 RED BLOOD CELL COUNT (BEAKER) (test pdga=987) 3.27 M/ L 3.93-5.22 HEMOGLOBIN (BEAKER) (test evjj=660) 8.7 GM/DL 11.2-15.7 HEMATOCRIT (BEAKER) (test xfic=798) 29.0 % 34.1-44.9 MEAN CORPUSCULAR VOLUME (BEAKER) (test cfzz=296) 88.7 fL 79.4-94.8 MEAN CORPUSCULAR HEMOGLOBIN (BEAKER) (test iojl=836) 26.6 pg 25.6-32.2 MEAN CORPUSCULAR HEMOGLOBIN CONC (BEAKER) (test pryv=926) 30.0 GM/DL 32.2- 35.5 RED CELL DISTRIBUTION WIDTH (BEAKER) (test hkbm=034) 16.1 % 11.7-14.4 PLATELET COUNT (BEAKER) (test rcmn=928) 554 K/CU MM 150-450 MEAN PLATELET VOLUME (BEAKER) (test oerv=264) 9.5 fL 9.4-12.3 NUCLEATED RED BLOOD CELLS (BEAKER) (test vhoq=157) 0 /100 WBC 0-0 NEUTROPHILS RELATIVE PERCENT (BEAKER) (test pywj=200) 66 % LYMPHOCYTES RELATIVE PERCENT (BEAKER) (test rlal=206) 17 % MONOCYTES RELATIVE PERCENT (BEAKER) (test pyvd=844) 8 % EOSINOPHILS RELATIVE PERCENT (BEAKER) (test kqbj=627) 8 % BASOPHILS RELATIVE PERCENT (BEAKER) (test mtex=027) 1 % NEUTROPHILS ABSOLUTE COUNT (BEAKER) (test ajjp=178) 7.90 K/ L 1.56-6.13 LYMPHOCYTES ABSOLUTE COUNT (BEAKER) (test tlsd=163) 2.01 K/ L 1.18-3.74 MONOCYTES ABSOLUTE COUNT (BEAKER) (test wtuy=297) 0.95 K/ L 0.24-0.36 EOSINOPHILS ABSOLUTE COUNT (BEAKER) (test tura=557) 0.91 K/ L 0.04-0.36 BASOPHILS ABSOLUTE COUNT (BEAKER) (test hnok=268) 0.10 K/ L 0.01-0.08 IMMATURE GRANULOCYTES-RELATIVE PERCENT (BEAKER) (test mrhe=4490) 1 % 0-1 BASIC METABOLIC [id number] 06:10:00* Test Item Value Reference Range Comments SODIUM (BEAKER) (test mccl=330) 139 meq/L 136-145 POTASSIUM (BEAKER) (test pooa=203) 3.5 meq/L 3.5-5.1 CHLORIDE (BEAKER) (test trky=970) 102 meq/L 98-107 CO2 (BEAKER) (test alti=019) 27 meq/L 22-29 BLOOD UREA NITROGEN (BEAKER) (test aijk=498) 20 mg/dL 7-21 CREATININE (BEAKER) (test oegq=679) 2.60 mg/dL 0.57-1.25 GLUCOSE RANDOM (BEAKER) (test bjaz=354) 126 mg/dL 70-105 CALCIUM (BEAKER) (test tfak=359) 8.8 mg/dL 8.4-10.2 EGFR (BEAKER) (test quxw=2094) 18 mL/min/1.73 sq m ESTIMATED GFR IS NOT ACCURATE CREATININE CLEARANCE IN PREDICTING GLOMERULAR FILTRATION RATE. ESTIMATED GFR IS NOT APPLICABLE FOR DIALYSIS PATIENTS. POCT-GLUCOSE [id number] 20:42:00* Test Item Value Reference Range Comments POC-GLUCOSE METER (BEAKER) (test afbk=3210) 113 mg/dL 70-110 TESTED AT [facility] [address] [facility] [address] RAD, CHEST, 1 VIEW, NON [id number] 17:02:00Reason for exam:->sobShould this be performed at the bedside?->YesFINAL REPORT EXAMINATION: AP PORTABLE CHEST RADIOGRAPH CLINICAL INDICATION: Shortness of breath FINDINGS: Compared with 12/12/2016. The enlarged heart, pulmonary edema and bilateral pleural effusions are again noted and grossly stable. More confluent consolidation at the lung bases likely reflects associated passive atelectasis. No evidence of new lung consolidation or pneumothorax. Tip of the left jugular dialysis catheter projects over the junction of the superior vena cava and right atrium. IMPRESSION: Congestive heart failure/fluid overload, similar to previous. Signed: Jak Thurston MDReport Verified Date/Time: 2016 17:02:03 Reading Location: [address] Reading Room - GLUCOSE [id number] 16:57:00* Test Item Value Reference Range Comments POC-GLUCOSE METER (BEAKER) (test hitg=9613) 92 mg/dL 70-110 TESTED AT [address] [address] POCT-GLUCOSE [id number] 12:56:00* Test Item Value Reference Range Comments POC-GLUCOSE METER (BEAKER) (test axlj=5246) 125 mg/dL 70-110 TESTED AT [address] [address] POCT-GLUCOSE [id number] 08:34:00* Test Item Value Reference Range Comments POC-GLUCOSE METER (BEAKER) (test mkqj=9975) 89 mg/dL 70-110 TESTED AT [address] [address] BODY FLUID CULTURE + GRAM [id number] 07:42:00* Test Item Value Reference Range Comments CULTURE (BEAKER) (test nqya=8289) No growth GRAM STAIN RESULT (BEAKER) (test ejug=6736) <1+ WBCs GRAM STAIN RESULT (BEAKER) (test lyeu=71523) No organisms seen CBC W/PLT COUNT & AUTO [id number] 04:06:00* Test Item Value Reference Range Comments WHITE BLOOD CELL COUNT (BEAKER) (test eqom=340) 13.2 K/ L 3.5-10.5 RED BLOOD CELL COUNT (BEAKER) (test dumk=960) 3.22 M/ L 3.93-5.22 HEMOGLOBIN (BEAKER) (test yptr=156) 8.6 GM/DL 11.2-15.7 HEMATOCRIT (BEAKER) (test khul=044) 28.8 % 34.1-44.9 MEAN CORPUSCULAR VOLUME (BEAKER) (test qagx=624) 89.4 fL 79.4-94.8 MEAN CORPUSCULAR HEMOGLOBIN (BEAKER) (test wdsl=142) 26.7 pg 25.6-32.2 MEAN CORPUSCULAR HEMOGLOBIN CONC (BEAKER) (test hkwm=600) 29.9 GM/DL 32.2- 35.5 RED CELL DISTRIBUTION WIDTH (BEAKER) (test yvnh=902) 16.3 % 11.7-14.4 PLATELET COUNT (BEAKER) (test cjud=026) 515 K/CU MM 150-450 MEAN PLATELET VOLUME (BEAKER) (test ysmd=243) 9.5 fL 9.4-12.3 NUCLEATED RED BLOOD CELLS (BEAKER) (test qkwi=143) 0 /100 WBC 0-0 NEUTROPHILS RELATIVE PERCENT (BEAKER) (test hbbm=789) 62 % LYMPHOCYTES RELATIVE PERCENT (BEAKER) (test rxwf=877) 22 % MONOCYTES RELATIVE PERCENT (BEAKER) (test rmiw=520) 7 % EOSINOPHILS RELATIVE PERCENT (BEAKER) (test cbsd=319) 8 % BASOPHILS RELATIVE PERCENT (BEAKER) (test vara=136) 1 % NEUTROPHILS ABSOLUTE COUNT (BEAKER) (test vlax=967) 8.19 K/ L 1.56-6.13 LYMPHOCYTES ABSOLUTE COUNT (BEAKER) (test gdbx=747) 2.85 K/ L 1.18-3.74 MONOCYTES ABSOLUTE COUNT (BEAKER) (test yaap=868) 0.93 K/ L 0.24-0.36 EOSINOPHILS ABSOLUTE COUNT (BEAKER) (test tdqa=436) 1.00 K/ L 0.04-0.36 BASOPHILS ABSOLUTE COUNT (BEAKER) (test pjtc=153) 0.11 K/ L 0.01-0.08 IMMATURE GRANULOCYTES-RELATIVE PERCENT (BEAKER) (test hiap=0693) 1 % 0-1 POCT-GLUCOSE [id number] 21:23:00* Test Item Value Reference Range Comments POC-GLUCOSE METER (BEAKER) (test vgiu=9143) 101 mg/dL 70-110 TESTED AT [facility] [address] [facility] [address] POCT-GLUCOSE [id number] 17:51:00* Test Item Value Reference Range Comments POC-GLUCOSE METER (BEAKER) (test ites=3371) 129 mg/dL 70-110 TESTED AT [facility] [address] [facility] [address] POCT-GLUCOSE [id number] 12:38:00* Test Item Value Reference Range Comments POC-GLUCOSE METER (BEAKER) (test kxuk=0350) 133 mg/dL 70-110 TESTED AT [place] [id number] [facility] [address] BLOOD [id number] 11:00:00* Test Item Value Reference Range Comments CULTURE (BEAKER) (test jbyq=7938) No growth in 5 days BASIC METABOLIC [id number] 09:53:00* Test Item Value Reference Range Comments SODIUM (BEAKER) (test dhmy=890) 144 meq/L 136-145 POTASSIUM (BEAKER) (test bzkf=444) 4.3 meq/L 3.5-5.1 CHLORIDE (BEAKER) (test tazx=964) 104 meq/L 98-107 CO2 (BEAKER) (test vgms=164) 28 meq/L 22-29 BLOOD UREA NITROGEN (BEAKER) (test sosk=242) 17 mg/dL 7-21 CREATININE (BEAKER) (test qbra=383) 2.26 mg/dL 0.57-1.25 GLUCOSE RANDOM (BEAKER) (test lbmb=233) 110 mg/dL 70-105 CALCIUM (BEAKER) (test aikm=556) 8.8 mg/dL 8.4-10.2 EGFR (BEAKER) (test jspo=3577) 22 mL/min/1.73 sq m ESTIMATED GFR IS NOT ACCURATE CREATININE CLEARANCE IN PREDICTING GLOMERULAR FILTRATION RATE. ESTIMATED GFR IS NOT APPLICABLE FOR DIALYSIS PATIENTS. 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 Other organisms and resistance markers not contained in this PCR panel cannot be excluded and follow-up of traditional culture results is required. This sample was tested at the [facility] Clinical Microbiology Laboratory using the [email or web address] Blood Culture ID Panel. This test is FDA cleared for in vitro diagnostic use and has been verified and approved by the [facility] Clinical Microbiology laboratory for clinical use. Reference Range: Not DetectedPOCT-GLUCOSE [id number] 21:18:00 * Test Item Value Reference Range Comments POC-GLUCOSE METER (BEAKER) (test kweu=2855) 165 mg/dL 70-110 TESTED AT [address] [address] POCT-GLUCOSE [id number] 17:36:00* Test Item Value Reference Range Comments POC-GLUCOSE METER (BEAKER) (test aaas=7966) 104 mg/dL 70-110 TESTED AT [address] [address] POCT-GLUCOSE [id number] 16:26:00* Test Item Value Reference Range Comments POC-GLUCOSE METER (BEAKER) (test dslj=9671) 90 mg/dL 70-110 TESTED AT [address] [address] LACTATE DEHYDROGENASE (LDH)2016-12-13 12:00:00* Test Item Value Reference Range Comments LACTATE DEHYDROGENASE (BEAKER) (test clla=348) 416 U/L 125-220 Specimen moderately hemolyzed PROTEIN, [id number] 11:58:00* Test Item Value Reference Range Comments TOTAL PROTEIN (BEAKER) (test shwo=606) 7.2 gm/dL 6.0-8.3 Specimen moderately hemolyzed POCT-GLUCOSE [id number] 11:45:00* Test Item Value Reference Range Comments POC-GLUCOSE METER (BEAKER) (test hxpw=1111) 141 mg/dL 70-110 TESTED AT [address] [address] POCT-GLUCOSE [id number] 07:53:00* Test Item Value Reference Range Comments POC-GLUCOSE METER (BEAKER) (test bpjf=6453) 64 mg/dL 70-110 TESTED AT [address] [address] POCT-GLUCOSE [id number] 07:40:00* Test Item Value Reference Range Comments POC-GLUCOSE METER (BEAKER) (test gyzz=1170) 51 mg/dL 70-110 Notified NARENDRA SOTO/ TESTED AT [facility] [address] [facility] [address] CBC W/PLT COUNT & AUTO [id number] 06:06:00* Test Item Value Reference Range Comments WHITE BLOOD CELL COUNT (BEAKER) (test ofpy=995) 12.8 K/ L 3.5-10.5 RED BLOOD CELL COUNT (BEAKER) (test iyoo=451) 3.12 M/ L 3.93-5.22 HEMOGLOBIN (BEAKER) (test mdji=842) 8.4 GM/DL 11.2-15.7 HEMATOCRIT (BEAKER) (test rvgg=066) 27.8 % 34.1-44.9 MEAN CORPUSCULAR VOLUME (BEAKER) (test qjpc=934) 89.1 fL 79.4-94.8 MEAN CORPUSCULAR HEMOGLOBIN (BEAKER) (test opad=321) 26.9 pg 25.6-32.2 MEAN CORPUSCULAR HEMOGLOBIN CONC (BEAKER) (test tzoo=807) 30.2 GM/DL 32.2- 35.5 RED CELL DISTRIBUTION WIDTH (BEAKER) (test xcfk=110) 17.4 % 11.7-14.4 PLATELET COUNT (BEAKER) (test hvho=976) 511 K/CU MM 150-450 MEAN PLATELET VOLUME (BEAKER) (test qewe=358) 9.5 fL 9.4-12.3 NUCLEATED RED BLOOD CELLS (BEAKER) (test snzx=411) 0 /100 WBC 0-0 NEUTROPHILS RELATIVE PERCENT (BEAKER) (test tcxd=897) 66 % LYMPHOCYTES RELATIVE PERCENT (BEAKER) (test klkz=030) 17 % MONOCYTES RELATIVE PERCENT (BEAKER) (test eykr=036) 10 % EOSINOPHILS RELATIVE PERCENT (BEAKER) (test kyzb=076) 5 % BASOPHILS RELATIVE PERCENT (BEAKER) (test lesp=310) 1 % NEUTROPHILS ABSOLUTE COUNT (BEAKER) (test obco=742) 8.50 K/ L 1.56-6.13 LYMPHOCYTES ABSOLUTE COUNT (BEAKER) (test lfid=891) 2.19 K/ L 1.18-3.74 MONOCYTES ABSOLUTE COUNT (BEAKER) (test icaj=442) 1.28 K/ L 0.24-0.36 EOSINOPHILS ABSOLUTE COUNT (BEAKER) (test frgi=302) 0.63 K/ L 0.04-0.36 BASOPHILS ABSOLUTE COUNT (BEAKER) (test qqov=607) 0.12 K/ L 0.01-0.08 IMMATURE GRANULOCYTES-RELATIVE PERCENT (BEAKER) (test exkq=7676) 1 % 0-1 POCT-GLUCOSE [id number] 21:31:00* Test Item Value Reference Range Comments POC-GLUCOSE METER (BEAKER) (test ykci=8791) 145 mg/dL 70-110 TESTED AT [facility] [address] [facility] [address] BODY FLUID CELL COUNT WITH [id number] 17:46:00* Test Item Value Reference Range Comments APPEARANCE FLUID (BEAKER) (test bjtj=516) Hazy Clear COLOR FLUID (BEAKER) (test cqme=539) Straw Colorless, Straw RBC FLUID (BEAKER) (test hesz=679) 619 /cu mm <=1 ADJUSTED WBC FLUID (BEAKER) (test rbny=3022) 366 /cu mm <=5 LINING CELLS (BEAKER) (test elnp=8523) 0 /cu mm <=1 NEUTROPHILS FLUID (BEAKER) (test mjbd=4013) 5 % LYMPHS FLUID (BEAKER) (test xvop=923) 81 % MONO/MACROPHAGE FLUID (BEAKER) (test bfmr=570) 14 % EOSINOPHILS FLUID (BEAKER) (test bimp=608) 0 % BASO FLUID (BEAKER) (test hctb=429) 0 % CONTAINER BODY FLUID (BEAKER) (test hsmi=5810) EDTA Tube POCT-GLUCOSE [id number] 17:34:00* Test Item Value Reference Range Comments POC-GLUCOSE METER (BEAKER) (test hkxe=3651) 142 mg/dL 70-110 TESTED AT [facility] [address] [facility] [address] LACTATE DEHYDROGENASE (LDH), BODY [id number] 16:51:00* Test Item Value Reference Range Comments LACTATE DEHYDROGENASE FLUID (BEAKER) (test fxtb=045) 96 U/L Light's criteria identifies effusions if one or more are pre Absence of reference range indicates that normals have not been defined.Assay performance has not been validated for this type of specimen.PROTEIN, BODY [id number] 16:51:00* Test Item Value Reference Range Comments PROTEIN FLUID (BEAKER) (test uywz=936) 3.0 g/dL Light's criteria identifies effusions if one or more are pre Absence of reference range indicates that normals have not been defined.Assay performance has not been validated for this type of specimen.RAD, CHEST, 1 VIEW , NON [id number] 16:37:00Reason for exam:->thoracentesisShould this be performed at the bedside?->YesFINAL REPORT EXAM: AP chest radiograph HISTORY PROVIDED: Status post thoracentesis COMPARISON: 2016 IMPRESSION:Left pleural effusion has decreased in size since the previous examination and is now moderate in size. No discernible pneumothorax. Small right pleural effusion shows no significant change. There are associated bibasilar opacities likely representing atelectasis without significant change. Central pulmonary vascular congestion is similar. The tip of a left IJ dialysis type catheter terminates at the level of the right atrium. The cardiac silhouette is partially obscured but remains enlarged. No acute osseous abnormality. Signed: Shaka Canales MDReport Verified Date/Time: 2016 16:37:28 Reading Location: [facility] Mammo Reading Room U/S, [id number] 15:24:00Laterality?->LeftReason for exam:->fever, effusionFINAL REPORT Ultrasound-guided diagnostic thoracentesis. Clinical History: fever, effusion. Informed consent was obtained from the patient and the risks of the procedure were explained including bleeding, infection, pneumothorax and visceral injury. The increased risk of bleeding as the patient is on Brilanta was discussed with the patient, Dr. Lundy and Dr. King. The procedure was deemed medically necessary despite the increased risk. A smaller needle was utilized. Sedation: 1% Xylocaine was used as local sedation. Conscious sedation protocol was not utilized as no systemic analgesia was administered. Technique: Using sterile technique, ultrasound guidance and a 22- gauge spinal needle, the tip of the needle [...] developed. Impression: Successful left sided thoracentesis. Signed: Deo Terry MDReport Verified Date/Time: 12/12/2016 15:24:19 Reading Location: [address] Ultrasound Reading Room E [id number] 08:35:00* Test Item Value Reference Range Comments CULTURE (BEAKER) (test bcwa=1591) >100,000 col/mL Adriana albicans POCT-GLUCOSE [id number] 07:51:00* Test Item Value Reference Range Comments POC-GLUCOSE METER (BEAKER) (test effm=1927) 145 mg/dL 70-110 TESTED AT [address] [address] CBC W/PLT COUNT & AUTO [id number] 06:01:00* Test Item Value Reference Range Comments WHITE BLOOD CELL COUNT (BEAKER) (test dxba=731) 18.3 K/ L 3.5-10.5 RED BLOOD CELL COUNT (BEAKER) (test mrlz=707) 3.04 M/ L 3.93-5.22 HEMOGLOBIN (BEAKER) (test qpyx=164) 8.2 GM/DL 11.2-15.7 HEMATOCRIT (BEAKER) (test zxcn=025) 26.9 % 34.1-44.9 MEAN CORPUSCULAR VOLUME (BEAKER) (test mcyz=141) 88.5 fL 79.4-94.8 MEAN CORPUSCULAR HEMOGLOBIN (BEAKER) (test eexb=325) 27.0 pg 25.6-32.2 MEAN CORPUSCULAR HEMOGLOBIN CONC (BEAKER) (test rulp=934) 30.5 GM/DL 32.2- 35.5 RED CELL DISTRIBUTION WIDTH (BEAKER) (test jlbu=006) 17.9 % 11.7-14.4 PLATELET COUNT (BEAKER) (test tapm=422) 556 K/CU MM 150-450 MEAN PLATELET VOLUME (BEAKER) (test hzwv=015) 9.8 fL 9.4-12.3 NUCLEATED RED BLOOD CELLS (BEAKER) (test qxwv=380) 0 /100 WBC 0-0 NEUTROPHILS RELATIVE PERCENT (BEAKER) (test anki=449) 69 % LYMPHOCYTES RELATIVE PERCENT (BEAKER) (test vdxg=354) 14 % MONOCYTES RELATIVE PERCENT (BEAKER) (test kgxg=018) 11 % EOSINOPHILS RELATIVE PERCENT (BEAKER) (test qbot=492) 4 % BASOPHILS RELATIVE PERCENT (BEAKER) (test eatl=350) 1 % NEUTROPHILS ABSOLUTE COUNT (BEAKER) (test wpxy=065) 12.71 K/ L 1.56-6.13 LYMPHOCYTES ABSOLUTE COUNT (BEAKER) (test wqei=473) 2.59 K/ L 1.18-3.74 MONOCYTES ABSOLUTE COUNT (BEAKER) (test scif=876) 1.99 K/ L 0.24-0.36 EOSINOPHILS ABSOLUTE COUNT (BEAKER) (test roxj=090) 0.78 K/ L 0.04-0.36 BASOPHILS ABSOLUTE COUNT (BEAKER) (test rjwy=564) 0.10 K/ L 0.01-0.08 IMMATURE GRANULOCYTES-RELATIVE PERCENT (BEAKER) (test rgeb=8671) 1 % 0-1 POCT-GLUCOSE [id number] 05:50:00* Test Item Value Reference Range Comments POC-GLUCOSE METER (BEAKER) (test esiv=6837) 79 mg/dL 70-110 TESTED AT [place] [id number] POCT-GLUCOSE [id number] 22:04:00* Test Item Value Reference Range Comments POC-GLUCOSE METER (BEAKER) (test wxrk=3705) 87 mg/dL 70-110 TESTED AT [address] [address] HEMOGLOBIN AND [id number] 21:51:00* Test Item Value Reference Range Comments HEMOGLOBIN (BEAKER) (test wptk=080) 8.7 GM/DL 11.2-15.7 HEMATOCRIT (BEAKER) (test rugz=851) 28.6 % 34.1-44.9 Get after transfusionPOCT-GLUCOSE [id number] 21:32:00* Test Item Value Reference Range Comments POC-GLUCOSE METER (BEAKER) (test litl=3055) 40 mg/dL 70-110 TESTED AT [place] [id number] POCT-GLUCOSE [id number] 16:44:00* Test Item Value Reference Range Comments POC-GLUCOSE METER (BEAKER) (test xvgc=6283) 145 mg/dL 70-110 TESTED AT [facility] [address] [facility] [address] EEG AWAKE/ASLEEP AND [id number] 15:38:00Reason for exam:->confusionDATE OF REPORT: 12/11/16 ACC: [id number] Start time: 08:34 am Stop time: 09: 19 am ICD-10: R56.9 CPT Code: 22494 HISTORY: 65 y.o female on HD, ESRD, past IL, 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 E [id number] 14:26:00* Test Item Value Reference Range Comments CULTURE (BEAKER) (test tttz=3620) 30-39,000 col/mL YeastSame as first isolate. POCT-GLUCOSE [id number] 12:24:00* Test Item Value Reference Range Comments POC-GLUCOSE METER (BEAKER) (test kxyd=3819) 208 mg/dL 70-110 TESTED AT [place] [id number] [facility] [address] HEMOGLOBIN AND [id number] 11:52:00* Test Item Value Reference Range Comments HEMOGLOBIN (BEAKER) (test ckks=093) 6.1 GM/DL 11.2-15.7 HEMATOCRIT (BEAKER) (test mlvh=334) 20.2 % 34.1-44.9 [id number] 09:17:00* Test Item Value Reference Range Comments PROTIME (BEAKER) (test onlx=943) 15.4 seconds 11.7-14.7 INR (BEAKER) (test lsja=409) 1.2 <=5.9 PARTIAL THROMBOPLASTIN TIME (BEAKER) (test ijcd=242) 42.1 seconds 22.5-36.0 RECOMMENDED COUMADIN/WARFARIN INR THERAPY RANGESSTANDARD DOSE: 2.0 - 3.0 Includes: PROPHYLAXIS for venous thrombosis, systemic embolization; TREATMENT for venous thrombosis and/or pulmonary embolus.HIGH RISK: Target INR is 2.5-3.5 for patients with mechanical heart valves.Draw on HDDraw on HDPOCT-GLUCOSE [id number] 08:42:00* Test Item Value Reference Range Comments POC-GLUCOSE METER (BEAKER) (test estd=6881) 136 mg/dL 70-110 TESTED AT [address] [address] MISCELLANEOUS LAB [id number] 07:50:00* Test Item Value Reference Range Comments SCAN RESULT (test rnsm=[id number]) Result comments: Coagulase Negative Staphylococcus Species (CoNS) [...] required. This sample was tested at the [facility] Clinical Microbiology Laboratory using the [employer] Blood Culture ID Panel. This test is FDA cleared for in vitro diagnostic use and has been verified and approved by the [facility] Clinical Microbiology laboratory for clinical use. Reference Range: Not DetectedVANCOMYCIN LEVEL, [id number] 07 :46:00* Test Item Value Reference Range Comments VANCOMYCIN RANDOM (BEAKER) (test vprn=493) 16.4 ug/mL Reference Range: No NormalsCBC W/PLT COUNT & AUTO [id number] 07:36: 00* Test Item Value Reference Range Comments WHITE BLOOD CELL COUNT (BEAKER) (test uccv=147) 16.5 K/ L 3.5-10.5 RED BLOOD CELL COUNT (BEAKER) (test ejcq=203) 2.50 M/ L 3.93-5.22 HEMOGLOBIN (BEAKER) (test tgbj=578) 6.9 GM/DL 11.2-15.7 HEMATOCRIT (BEAKER) (test clsx=191) 22.7 % 34.1-44.9 MEAN CORPUSCULAR VOLUME (BEAKER) (test ifkq=110) 90.8 fL 79.4-94.8 MEAN CORPUSCULAR HEMOGLOBIN (BEAKER) (test oisj=812) 27.6 pg 25.6-32.2 MEAN CORPUSCULAR HEMOGLOBIN CONC (BEAKER) (test wubl=688) 30.4 GM/DL 32.2- 35.5 RED CELL DISTRIBUTION WIDTH (BEAKER) (test wlim=265) 16.1 % 11.7-14.4 PLATELET COUNT (BEAKER) (test awfe=260) 521 K/CU MM 150-450 MEAN PLATELET VOLUME (BEAKER) (test yllp=379) 10.3 fL 9.4-12.3 NUCLEATED RED BLOOD CELLS (BEAKER) (test ayld=041) 0 /100 WBC 0-0 NEUTROPHILS RELATIVE PERCENT (BEAKER) (test qjmv=732) 75 % LYMPHOCYTES RELATIVE PERCENT (BEAKER) (test ytoc=187) 12 % MONOCYTES RELATIVE PERCENT (BEAKER) (test mgcs=340) 8 % EOSINOPHILS RELATIVE PERCENT (BEAKER) (test pifr=123) 3 % BASOPHILS RELATIVE PERCENT (BEAKER) (test haqj=476) 0 % NEUTROPHILS ABSOLUTE COUNT (BEAKER) (test okam=933) 12.44 K/ L 1.56-6.13 LYMPHOCYTES ABSOLUTE COUNT (BEAKER) (test ixdr=718) 1.99 K/ L 1.18-3.74 MONOCYTES ABSOLUTE COUNT (BEAKER) (test zngp=141) 1.39 K/ L 0.24-0.36 EOSINOPHILS ABSOLUTE COUNT (BEAKER) (test optz=948) 0.49 K/ L 0.04-0.36 BASOPHILS ABSOLUTE COUNT (BEAKER) (test hiab=782) 0.07 K/ L 0.01-0.08 IMMATURE GRANULOCYTES-RELATIVE PERCENT (BEAKER) (test dpyg=5708) 1 % 0-1 BLOOD [id number] 06:00:00* Test Item Value Reference Range Comments CULTURE (BEAKER) (test pikx=4633) No growth in 5 days BLOOD [id number] 06:00:00* Test Item Value Reference Range Comments CULTURE (BEAKER) (test cwmv=3630) No growth in 5 days POCT-GLUCOSE [id number] 23:48:00* Test Item Value Reference Range Comments POC-GLUCOSE METER (BEAKER) (test spic=2932) 171 mg/dL 70-110 TESTED AT [facility] [address] [facility] [address] POCT-GLUCOSE [id number] 11:34:00* Test Item Value Reference Range Comments POC-GLUCOSE METER (BEAKER) (test hoag=9879) 185 mg/dL 70-110 TESTED AT [facility] [address] [facility] [address] RAD, CHEST, 2 [id number] 11:04:00Reason for exam:->feverFINAL REPORT One lateral and two frontal chest images. Comparison to December 06 Discussion: Cardiac prominence, moderate to large left effusion, and pulmonary congestion overall similar. No pneumothorax. Left chest dialysis catheter unchanged. Signed: Tisha Clarkeeport Verified Date/Time: 2016 11:04:41 Reading Location: [facility] Radiology Reading Room ANA ANTIGEN WITH REFLEX TO [id number] 09:58:00* Test Item Value Reference Range Comments ADRIANA ANTIGEN (BEAKER) (test gnli=1127) Negative POCT-GLUCOSE [id number] 07:59:00* Test Item Value Reference Range Comments POC-GLUCOSE METER (BEAKER) (test yrrx=9607) 145 mg/dL 70-110 TESTED AT [facility] [address] [facility] [address] CBC W/PLT COUNT & AUTO [id number] 05:09:00* Test Item Value Reference Range Comments WHITE BLOOD CELL COUNT (BEAKER) (test kxsv=806) 19.6 K/ L 3.5-10.5 RED BLOOD CELL COUNT (BEAKER) (test nejg=155) 2.72 M/ L 3.93-5.22 HEMOGLOBIN (BEAKER) (test mzce=312) 7.5 GM/DL 11.2-15.7 HEMATOCRIT (BEAKER) (test ntyi=589) 24.9 % 34.1-44.9 MEAN CORPUSCULAR VOLUME (BEAKER) (test zodv=915) 91.5 fL 79.4-94.8 MEAN CORPUSCULAR HEMOGLOBIN (BEAKER) (test iugb=850) 27.6 pg 25.6-32.2 MEAN CORPUSCULAR HEMOGLOBIN CONC (BEAKER) (test glxj=002) 30.1 GM/DL 32.2- 35.5 RED CELL DISTRIBUTION WIDTH (BEAKER) (test deiz=246) 16.1 % 11.7-14.4 PLATELET COUNT (BEAKER) (test hmcz=159) 525 K/CU MM 150-450 MEAN PLATELET VOLUME (BEAKER) (test lzqe=521) 10.1 fL 9.4-12.3 NUCLEATED RED BLOOD CELLS (BEAKER) (test spym=245) 0 /100 WBC 0-0 NEUTROPHILS RELATIVE PERCENT (BEAKER) (test tutq=937) 78 % LYMPHOCYTES RELATIVE PERCENT (BEAKER) (test cueu=905) 10 % MONOCYTES RELATIVE PERCENT (BEAKER) (test isgi=878) 8 % EOSINOPHILS RELATIVE PERCENT (BEAKER) (test dcdj=079) 2 % BASOPHILS RELATIVE PERCENT (BEAKER) (test tgpq=184) 0 % NEUTROPHILS ABSOLUTE COUNT (BEAKER) (test lepi=859) 15.35 K/ L 1.56-6.13 LYMPHOCYTES ABSOLUTE COUNT (BEAKER) (test zdpj=180) 2.03 K/ L 1.18-3.74 MONOCYTES ABSOLUTE COUNT (BEAKER) (test zdxt=530) 1.60 K/ L 0.24-0.36 EOSINOPHILS ABSOLUTE COUNT (BEAKER) (test vzzy=799) 0.43 K/ L 0.04-0.36 BASOPHILS ABSOLUTE COUNT (BEAKER) (test jpok=679) 0.05 K/ L 0.01-0.08 IMMATURE GRANULOCYTES-RELATIVE PERCENT (BEAKER) (test tswk=2044) 1 % 0-1 BASIC METABOLIC [id number] 05:03:00* Test Item Value Reference Range Comments SODIUM (BEAKER) (test mwzc=659) 132 meq/L 136-145 POTASSIUM (BEAKER) (test avpw=269) 3.9 meq/L 3.5-5.1 CHLORIDE (BEAKER) (test wrer=634) 96 meq/L 98-107 CO2 (BEAKER) (test zlsw=938) 25 meq/L 22-29 BLOOD UREA NITROGEN (BEAKER) (test eszf=430) 37 mg/dL 7-21 CREATININE (BEAKER) (test zwrx=616) 3.28 mg/dL 0.57-1.25 GLUCOSE RANDOM (BEAKER) (test waje=910) 129 mg/dL 70-105 CALCIUM (BEAKER) (test efan=759) 8.7 mg/dL 8.4-10.2 EGFR (BEAKER) (test horv=3963) 14 mL/min/1.73 sq m ESTIMATED GFR IS NOT ACCURATE CREATININE CLEARANCE IN PREDICTING GLOMERULAR FILTRATION RATE. ESTIMATED GFR IS NOT APPLICABLE FOR DIALYSIS PATIENTS. POCT-GLUCOSE [id number] 21:52:00* Test Item Value Reference Range Comments POC-GLUCOSE METER (BEAKER) (test qtpu=6697) 160 mg/dL 70-110 TESTED AT [facility] [address] [facility] [address] POCT-GLUCOSE [id number] 17:01:00* Test Item Value Reference Range Comments POC-GLUCOSE METER (BEAKER) (test neas=7552) 214 mg/dL 70-110 TESTED AT [place] [id number] [facility] [address] MR, BRAIN, WITHOUT [id number] 15:33:00FINAL REPORT MRI brain without contrast 12/09/2016 3:30 [...] ischemic changes. No acute intracranial abnormality. Signed: Leroy Westort Verified Date/Time: 12/09/2016 15 :33:57 Reading Location: [address] Neuro Reading Room -GLUCOSE [id number] 11:19:00* Test Item Value Reference Range Comments POC-GLUCOSE METER (BEAKER) (test nofc=8933) 157 mg/dL 70-110 TESTED AT [facility] [address] [place] [address] BLOOD GAS, [id number] 07:59:00* Test Item Value Reference Range Comments PH ARTERIAL (BEAKER) (test pxfr=583) 7.40 7.35-7.45 PCO2 ARTERIAL (BEAKER) (test begd=180) 44 mmHg 35-45 PO2 ARTERIAL (BEAKER) (test irjw=687) 83 mmHg 80-90 O2 SATURATION ARTERIAL (BEAKER) (test vuzz=974) 95.3 % 96.0-97.0 HCO3 ARTERIAL (BEAKER) (test cynz=826) 26 mmol/L 21-29 BASE EXCESS ARTERIAL (BEAKER) (test jgue=047) 1.7 mmol/L -2.0-3.0 PATIENT TEMPERATURE (BEAKER) (test mhui=0606) 38.5 C FIO2 (BEAKER) (test oeng=9714) 32.0 % VANCOMYCIN LEVEL, [id number] 07:50:00* Test Item Value Reference Range Comments VANCOMYCIN TROUGH (BEAKER) (test qizg=786) 30.4 ug/mL 10.0-20.0 POCT-GLUCOSE [id number] 07:36:00* Test Item Value Reference Range Comments POC-GLUCOSE METER (BEAKER) (test txqe=6122) 164 mg/dL 70-110 TESTED AT [facility] [address] [facility] [address] URINALYSIS W/ [id number] 07:36:00* Test Item Value Reference Range Comments COLOR (BEAKER) (test zpki=805) Yellow CLARITY (BEAKER) (test xain=369) Hazy SPECIFIC GRAVITY UA (BEAKER) (test xuxs=457) 1.020 1.001-1.035 PH UA (BEAKER) (test jwkb=183) 5.0 5.0-8.0 PROTEIN UA (BEAKER) (test oelh=587) 200 mg/dL Negative GLUCOSE UA (BEAKER) (test nncl=802) Negative Negative KETONES UA (BEAKER) (test frki=179) 10 mg/dL Negative BILIRUBIN UA (BEAKER) (test jmdn=534) Positive Negative BLOOD UA (BEAKER) (test owlo=120) Small Negative NITRITE UA (BEAKER) (test lwhw=783) Negative Negative LEUKOCYTE ESTERASE UA (BEAKER) (test hjqq=905) Moderate Negative UROBILINOGEN UA (BEAKER) (test ojxk=830) 0.2 mg/dL 0.2-1.0 RBC UA (BEAKER) (test nskw=270) 4 /HPF WBC UA (BEAKER) (test bjgh=788) 5 /HPF MUCUS (BEAKER) (test lioh=6782) Rare SQUAMOUS EPITHELIAL (BEAKER) (test qzjk=018) < /HPF RENAL EPITHELIAL (BEAKER) (test wegf=2749) 5 /HPF CASTS (BEAKER) (test oebm=1241) 2 /LPF YEAST (BEAKER) (test xpkr=0939) Many SOURCE(BEAKER) (test tnot=6126) Urine, Straight Catheter TROPONIN [id number] 07:20:00* Test Item Value Reference Range Comments TROPONIN I (BEAKER) (test ecpz=802) < ng/mL 0.00-0.03 Troponin I (TnI) levels must be interpreted [...] failure, acidosis, acute neurological disease, and persistent tachyarrhythmia.COMPREHENSIVE METABOLIC [id number] 07:14:00* Test Item Value Reference Range Comments TOTAL PROTEIN (BEAKER) (test qnqt=964) 5.8 gm/dL 6.0-8.3 ALBUMIN (BEAKER) (test dvjp=8328) 2.5 g/dL 3.5-5.0 ALKALINE PHOSPHATASE (BEAKER) (test bygs=227) 163 U/L 40-150 BILIRUBIN TOTAL (BEAKER) (test aqki=565) 0.4 mg/dL 0.2-1.2 SODIUM (BEAKER) (test fosx=108) 129 meq/L 136-145 POTASSIUM (BEAKER) (test biuu=568) 4.2 meq/L 3.5-5.1 CHLORIDE (BEAKER) (test dnpu=233) 96 meq/L 98-107 CO2 (BEAKER) (test mbth=879) 23 meq/L 22-29 BLOOD UREA NITROGEN (BEAKER) (test ieln=534) 29 mg/dL 7-21 CREATININE (BEAKER) (test ftcf=491) 3.02 mg/dL 0.57-1.25 GLUCOSE RANDOM (BEAKER) (test sapb=543) 126 mg/dL 70-105 CALCIUM (BEAKER) (test esuc=272) 8.6 mg/dL 8.4-10.2 AST (SGOT) (BEAKER) (test sgev=123) 13 U/L 5-34 ALT (SGPT) (BEAKER) (test smxm=252) 9 U/L 6-55 EGFR (BEAKER) (test renk=8713) 15 mL/min/1.73 sq m ESTIMATED GFR IS NOT ACCURATE CREATININE CLEARANCE IN PREDICTING GLOMERULAR FILTRATION RATE. ESTIMATED GFR IS NOT APPLICABLE FOR DIALYSIS PATIENTS. CBC W/PLT COUNT & AUTO [id number] 06:58:00* Test Item Value Reference Range Comments WHITE BLOOD CELL COUNT (BEAKER) (test ywlo=346) 21.1 K/ L 3.5-10.5 RED BLOOD CELL COUNT (BEAKER) (test ozea=301) 2.62 M/ L 3.93-5.22 HEMOGLOBIN (BEAKER) (test purg=964) 7.3 GM/DL 11.2-15.7 HEMATOCRIT (BEAKER) (test yhev=545) 24.0 % 34.1-44.9 MEAN CORPUSCULAR VOLUME (BEAKER) (test idrv=289) 91.6 fL 79.4-94.8 MEAN CORPUSCULAR HEMOGLOBIN (BEAKER) (test fxfd=667) 27.9 pg 25.6-32.2 MEAN CORPUSCULAR HEMOGLOBIN CONC (BEAKER) (test oedb=438) 30.4 GM/DL 32.2- 35.5 RED CELL DISTRIBUTION WIDTH (BEAKER) (test chky=562) 16.3 % 11.7-14.4 PLATELET COUNT (BEAKER) (test hevn=430) 487 K/CU MM 150-450 MEAN PLATELET VOLUME (BEAKER) (test uyxs=264) 10.1 fL 9.4-12.3 NUCLEATED RED BLOOD CELLS (BEAKER) (test uklm=362) 0 /100 WBC 0-0 NEUTROPHILS RELATIVE PERCENT (BEAKER) (test pptw=360) 84 % LYMPHOCYTES RELATIVE PERCENT (BEAKER) (test grnr=945) 6 % MONOCYTES RELATIVE PERCENT (BEAKER) (test flxx=574) 7 % EOSINOPHILS RELATIVE PERCENT (BEAKER) (test vncc=622) 2 % BASOPHILS RELATIVE PERCENT (BEAKER) (test svfl=084) 0 % NEUTROPHILS ABSOLUTE COUNT (BEAKER) (test wwtg=508) 17.67 K/ L 1.56-6.13 LYMPHOCYTES ABSOLUTE COUNT (BEAKER) (test dcgp=123) 1.30 K/ L 1.18-3.74 MONOCYTES ABSOLUTE COUNT (BEAKER) (test kxhd=662) 1.57 K/ L 0.24-0.36 EOSINOPHILS ABSOLUTE COUNT (BEAKER) (test zscv=978) 0.39 K/ L 0.04-0.36 BASOPHILS ABSOLUTE COUNT (BEAKER) (test aovt=429) 0.08 K/ L 0.01-0.08 IMMATURE GRANULOCYTES-RELATIVE PERCENT (BEAKER) (test vbvq=1413) 1 % 0-1 LACTIC ACID, VENOUS, WHOLE [id number] 06:58:00* Test Item Value Reference Range Comments LACTATE BLOOD VENOUS (2) (BEAKER) (test eeju=0816) 0.7 mmol/L 0.5-2.2 Effective 07/06/2015: Units/Reference Range ChangeNew: 0.5-2.2 mmol/L Previous: 5 -20 mg/dLPOCT-GLUCOSE [id number] 06:18:00* Test Item Value Reference Range Comments POC-GLUCOSE METER (BEAKER) (test rtvi=8676) 149 mg/dL 70-110 TESTED AT [address] [address] POCT-GLUCOSE [id number] 23:24:00* Test Item Value Reference Range Comments POC-GLUCOSE METER (BEAKER) (test bwur=1400) 133 mg/dL 70-110 TESTED AT [address] [address] POCT-GLUCOSE [id number] 21:01:00* Test Item Value Reference Range Comments POC-GLUCOSE METER (BEAKER) (test hnox=2367) 110 mg/dL 70-110 TESTED AT [place] [address] [id number] 17:57:00* Test Item Value Reference Range Comments CORTISOL, TOTAL (BEAKER) (test pbmx=8305) 14.0 ug/dL 3.7-19.4 POCT-GLUCOSE [id number] 17:46:00* Test Item Value Reference Range Comments POC-GLUCOSE METER (BEAKER) (test anum=7604) 159 mg/dL 70-110 TESTED AT [address] [address] POCT-GLUCOSE [id number] 12:54:00* Test Item Value Reference Range Comments POC-GLUCOSE METER (BEAKER) (test hfag=4727) 132 mg/dL 70-110 TESTED AT [address] [address] POCT-GLUCOSE [id number] 08:09:00* Test Item Value Reference Range Comments POC-GLUCOSE METER (BEAKER) (test zavx=3948) 163 mg/dL 70-110 TESTED AT [address] [address] BASIC METABOLIC [id number] 06:03:00* Test Item Value Reference Range Comments SODIUM (BEAKER) (test wlxl=013) 132 meq/L 136-145 POTASSIUM (BEAKER) (test pmpq=781) 3.9 meq/L 3.5-5.1 CHLORIDE (BEAKER) (test mlbw=146) 98 meq/L 98-107 CO2 (BEAKER) (test mjfv=946) 26 meq/L 22-29 BLOOD UREA NITROGEN (BEAKER) (test akcm=334) 22 mg/dL 7-21 CREATININE (BEAKER) (test oubs=266) 2.40 mg/dL 0.57-1.25 GLUCOSE RANDOM (BEAKER) (test iuoo=882) 136 mg/dL 70-105 CALCIUM (BEAKER) (test hoay=176) 8.4 mg/dL 8.4-10.2 EGFR (BEAKER) (test rsdm=2421) 20 mL/min/1.73 sq m ESTIMATED GFR IS NOT ACCURATE CREATININE CLEARANCE IN PREDICTING GLOMERULAR FILTRATION RATE. ESTIMATED GFR IS NOT APPLICABLE FOR DIALYSIS PATIENTS. VANCOMYCIN LEVEL, [id number] 05:50:00* Test Item Value Reference Range Comments VANCOMYCIN RANDOM (BEAKER) (test viav=298) 12.0 ug/mL Reference Range: No NormalsPOCT-GLUCOSE [id number] 22:04:00* Test Item Value Reference Range Comments POC-GLUCOSE METER (BEAKER) (test uynq=0234) 232 mg/dL 70-110 TESTED AT [facility] [address] [facility] [address] POCT-GLUCOSE [id number] 12:41:00* Test Item Value Reference Range Comments POC-GLUCOSE METER (BEAKER) (test zxcq=7642) 153 mg/dL 70-110 TESTED AT [address] [address] [id number] 09:02:00* Test Item Value Reference Range Comments FERRITIN (BEAKER) (test whvr=266) 1142 ng/mL 5-275 TSH/FREE T4 IF [id number] 09:02:00* Test Item Value Reference Range Comments THYROID STIMULATING HORMONE (BEAKER) (test sonj=100) 2.64 uIU/mL 0.35-4.94 VITAMIN B12 AND [id number] 09:02:00* Test Item Value Reference Range Comments VITAMIN B12 (BEAKER) (test jbla=449) 1240 pg/mL 213-816 FOLATE (BEAKER) (test ycka=608) 10.5 ng/mL >=7.0 HEPATITIS B SURFACE [id number] 08:29:00* Test Item Value Reference Range Comments HEPATITIS B SURFACE ANTIGEN (2) (BEAKER) (test sein=9253) Nonreactive Nonreactive IRON, TIBC, % SAT. (WITHOUT FERRITIN)2016-12-07 08:28:00* Test Item Value Reference Range Comments IRON (BEAKER) (test rwuh=816) 12 ug/dL 40-160 TOTAL IRON BINDING CAPACITY (BEAKER) (test bxtc=400) 159 ug/dL 250-450 IRON % SATURATION (2) (BEAKER) (test iqia=0964) 8 % 20-55 CBC (HEMOGRAM ONLY)2016-12-07 08:27:00* Test Item Value Reference Range Comments WHITE BLOOD CELL COUNT (BEAKER) (test llfh=812) 18.2 K/ L 3.5-10.5 RED BLOOD CELL COUNT (BEAKER) (test gqkn=847) 2.73 M/ L 3.93-5.22 HEMOGLOBIN (BEAKER) (test mtzn=171) 7.5 GM/DL 11.2-15.7 HEMATOCRIT (BEAKER) (test jxtb=052) 24.9 % 34.1-44.9 MEAN CORPUSCULAR VOLUME (BEAKER) (test hauv=004) 91.2 fL 79.4-94.8 MEAN CORPUSCULAR HEMOGLOBIN (BEAKER) (test kuez=876) 27.5 pg 25.6-32.2 MEAN CORPUSCULAR HEMOGLOBIN CONC (BEAKER) (test jhgi=419) 30.1 GM/DL 32.2- 35.5 RED CELL DISTRIBUTION WIDTH (BEAKER) (test uygu=047) 16.3 % 11.7-14.4 PLATELET COUNT (BEAKER) (test moby=060) 555 K/CU MM 150-450 MEAN PLATELET VOLUME (BEAKER) (test cqnz=541) 10.1 fL 9.4-12.3 NUCLEATED RED BLOOD CELLS (BEAKER) (test qpju=162) 0 /100 WBC 0-0 POCT-GLUCOSE [id number] 08:12:00* Test Item Value Reference Range Comments POC-GLUCOSE METER (BEAKER) (test waef=1106) 124 mg/dL 70-110 TESTED AT [facility] [address] [facility] [address] RETICULOCYTE [id number] 07:38:00* Test Item Value Reference Range Comments RETICULOCYTE COUNT PCT (BEAKER) (test srxw=961) 2.7 % 0.5-1.7 BASIC METABOLIC [id number] 07:31:00* Test Item Value Reference Range Comments SODIUM (BEAKER) (test fcmf=272) 131 meq/L 136-145 POTASSIUM (BEAKER) (test xbqv=462) 3.9 meq/L 3.5-5.1 CHLORIDE (BEAKER) (test wnvz=024) 95 meq/L 98-107 CO2 (BEAKER) (test xluq=380) 28 meq/L 22-29 BLOOD UREA NITROGEN (BEAKER) (test lrjh=535) 40 mg/dL 7-21 CREATININE (BEAKER) (test pkoz=988) 3.53 mg/dL 0.57-1.25 GLUCOSE RANDOM (BEAKER) (test pmly=910) 87 mg/dL 70-105 CALCIUM (BEAKER) (test itpj=698) 8.5 mg/dL 8.4-10.2 EGFR (BEAKER) (test wmpn=5559) 13 mL/min/1.73 sq m ESTIMATED GFR IS NOT ACCURATE CREATININE CLEARANCE IN PREDICTING GLOMERULAR FILTRATION RATE. ESTIMATED GFR IS NOT APPLICABLE FOR DIALYSIS PATIENTS. POCT-GLUCOSE [id number] 23:12:00* Test Item Value Reference Range Comments POC-GLUCOSE METER (BEAKER) (test ofmo=9304) 175 mg/dL 70-110 TESTED AT [facility] [address] [facility] [address] POCT-GLUCOSE [id number] 18:26:00* Test Item Value Reference Range Comments POC-GLUCOSE METER (BEAKER) (test dqvh=6963) 112 mg/dL 70-110 TESTED AT [facility] [address] [facility] [address] RAD, CHEST, 2 [id number] 17:12:00Reason for exam:->assess for left side pleural effusionFINAL REPORT EXAM: PA and lateral chest radiograph COMPARISON: August 22, 2016 CLINICAL HISTORY: Left pleural effusion FINDINGS: There is interval worsening in cardiomegaly and development of large left pleural effusion and small right pleural effusion. Bilateral pulmonary vascular congestion is also noted. There is no evidence of pneumothorax. A left internal jugular tunneled dialysis catheter is noted with its tip at the proximal right atrium. The regional osseous structures are unremarkable. Signed : Ronald Calderoneport Verified Date/Time: 12/06/2016 17:12:10 Reading Location: [facility] Consult Reading Room ALYSIS W/ REFLEX URINE [id number] 14:48:00* Test Item Value Reference Range Comments COLOR (BEAKER) (test bwgc=072) Yellow CLARITY (BEAKER) (test anez=644) Hazy SPECIFIC GRAVITY UA (BEAKER) (test aufp=540) 1.020 1.001-1.035 PH UA (BEAKER) (test lvwp=345) 5.0 5.0-8.0 PROTEIN UA (BEAKER) (test zogm=966) 70 mg/dL Negative GLUCOSE UA (BEAKER) (test hbqz=055) Negative Negative KETONES UA (BEAKER) (test nhqm=998) Negative Negative BILIRUBIN UA (BEAKER) (test aqvb=890) Positive Negative BLOOD UA (BEAKER) (test sjva=669) Trace Negative NITRITE UA (BEAKER) (test ulhf=954) Negative Negative LEUKOCYTE ESTERASE UA (BEAKER) (test xzlp=185) Large Negative UROBILINOGEN UA (BEAKER) (test vvny=120) 2.0 mg/dL 0.2-1.0 RBC UA (BEAKER) (test rqba=974) 7 /HPF WBC UA (BEAKER) (test lpdk=500) 59 /HPF BACTERIA (BEAKER) (test qtrg=213) Occasional MUCUS (BEAKER) (test evqd=2234) Rare SQUAMOUS EPITHELIAL (BEAKER) (test wjin=407) 2 /HPF HYALINE CASTS (BEAKER) (test acgh=176) 75 /LPF YEAST (BEAKER) (test lfqs=1167) Few SOURCE(BEAKER) (test macb=1000) POCT-GLUCOSE [id number] 12:17:00* Test Item Value Reference Range Comments POC-GLUCOSE METER (BEAKER) (test aogz=8025) 140 mg/dL 70-110 TESTED AT [place] [id number] [facility] [address] POCT-GLUCOSE [id number] 07:26:00* Test Item Value Reference Range Comments POC-GLUCOSE METER (BEAKER) (test dpat=8610) 130 mg/dL 70-110 TESTED AT [place] [id number] [facility] [address] BASIC METABOLIC [id number] 01:32:00* Test Item Value Reference Range Comments SODIUM (BEAKER) (test zafj=701) 133 meq/L 136-145 POTASSIUM (BEAKER) (test htfp=444) 3.6 meq/L 3.5-5.1 CHLORIDE (BEAKER) (test osdr=893) 95 meq/L 98-107 CO2 (BEAKER) (test eosp=437) 28 meq/L 22-29 BLOOD UREA NITROGEN (BEAKER) (test gqzk=284) 31 mg/dL 7-21 CREATININE (BEAKER) (test cbrn=695) 3.35 mg/dL 0.57-1.25 GLUCOSE RANDOM (BEAKER) (test cnza=969) 142 mg/dL 70-105 CALCIUM (BEAKER) (test bisa=178) 8.6 mg/dL 8.4-10.2 EGFR (BEAKER) (test pdxb=3586) 14 mL/min/1.73 sq m ESTIMATED GFR IS NOT ACCURATE CREATININE CLEARANCE IN PREDICTING GLOMERULAR FILTRATION RATE. ESTIMATED GFR IS NOT APPLICABLE FOR DIALYSIS PATIENTS. CBC W/PLT COUNT & AUTO [id number] 01:25:00* Test Item Value Reference Range Comments WHITE BLOOD CELL COUNT (BEAKER) (test nwsy=131) 17.0 K/ L 3.5-10.5 RED BLOOD CELL COUNT (BEAKER) (test afgc=465) 2.51 M/ L 3.93-5.22 HEMOGLOBIN (BEAKER) (test cnyf=962) 7.1 GM/DL 11.2-15.7 HEMATOCRIT (BEAKER) (test kkdl=735) 23.0 % 34.1-44.9 MEAN CORPUSCULAR VOLUME (BEAKER) (test jthz=697) 91.6 fL 79.4-94.8 MEAN CORPUSCULAR HEMOGLOBIN (BEAKER) (test mbxs=400) 28.3 pg 25.6-32.2 MEAN CORPUSCULAR HEMOGLOBIN CONC (BEAKER) (test annl=468) 30.9 GM/DL 32.2- 35.5 RED CELL DISTRIBUTION WIDTH (BEAKER) (test ctni=925) 16.7 % 11.7-14.4 PLATELET COUNT (BEAKER) (test lhis=949) 530 K/CU MM 150-450 MEAN PLATELET VOLUME (BEAKER) (test nrhp=837) 10.2 fL 9.4-12.3 NUCLEATED RED BLOOD CELLS (BEAKER) (test gqct=783) 0 /100 WBC 0-0 NEUTROPHILS RELATIVE PERCENT (BEAKER) (test qyso=774) 76 % LYMPHOCYTES RELATIVE PERCENT (BEAKER) (test sgnp=302) 12 % MONOCYTES RELATIVE PERCENT (BEAKER) (test lawy=892) 8 % EOSINOPHILS RELATIVE PERCENT (BEAKER) (test zdew=178) 3 % BASOPHILS RELATIVE PERCENT (BEAKER) (test eupr=789) 0 % NEUTROPHILS ABSOLUTE COUNT (BEAKER) (test ntob=878) 12.97 K/ L 1.56-6.13 LYMPHOCYTES ABSOLUTE COUNT (BEAKER) (test sbzt=033) 2.05 K/ L 1.18-3.74 MONOCYTES ABSOLUTE COUNT (BEAKER) (test gcht=074) 1.27 K/ L 0.24-0.36 EOSINOPHILS ABSOLUTE COUNT (BEAKER) (test reou=464) 0.48 K/ L 0.04-0.36 BASOPHILS ABSOLUTE COUNT (BEAKER) (test oseu=753) 0.05 K/ L 0.01-0.08 IMMATURE GRANULOCYTES-RELATIVE PERCENT (BEAKER) (test bpuc=4287) 1 % 0-1 POCT-GLUCOSE [id number] 00:41:00* Test Item Value Reference Range Comments POC-GLUCOSE METER (BEAKER) (test bfkj=3675) 175 mg/dL 70-110 TESTED AT [facility] [address] [facility] [address] BLOOD [id number] 16:00:00* Test Item Value Reference Range Comments CULTURE (BEAKER) (test owzb=8419) No growth in 5 days BLOOD [id number] 16:00:00* Test Item Value Reference Range Comments CULTURE (BEAKER) (test wkxw=2607) No growth in 5 days POCT-GLUCOSE [id number] 11:16:00* Test Item Value Reference Range Comments POC-GLUCOSE METER (BEAKER) (test oxag=6418) 159 mg/dL 70-110 TESTED AT [address] [facility] [place] [address] POCT-GLUCOSE [id number] 05:36:00* Test Item Value Reference Range Comments POC-GLUCOSE METER (BEAKER) (test nzyx=6962) 121 mg/dL 70-110 TESTED AT [address] [address] POCT-GLUCOSE [id number] 20:52:00* Test Item Value Reference Range Comments POC-GLUCOSE METER (BEAKER) (test ripu=6794) 78 mg/dL 70-110 TESTED AT [address] [address] POCT-GLUCOSE [id number] 17:59:00* Test Item Value Reference Range Comments POC-GLUCOSE METER (BEAKER) (test pejo=1043) 95 mg/dL 70-110 TESTED AT [address] [address] POCT-GLUCOSE [id number] 11:47:00* Test Item Value Reference Range Comments POC-GLUCOSE METER (BEAKER) (test euws=9893) 135 mg/dL 70-110 TESTED AT [address] [address] URINE [id number] 07:58:00* Test Item Value Reference Range Comments CULTURE (BEAKER) (test wcso=0030) ESCHERICHIA COLI 10-19,000 col/mL Escherichia coli Amikacin (test code=1) Ampicillin + Sulbactam (test code=6) Aztreonam (test code=32) Cefazolin (test code=9) Cefepime (test code=51) Cefoxitin (test code=68) Ceftazidime (test code=27) Ceftriaxone (test code=52) Ertapenem (test code=38) Gentamicin (test code=18) Levofloxacin (test code=22) Meropenem (test code=34) Nitrofurantoin (test code=23) Piperacillin + Tazobactam (test code=29) Tetracycline (test code=2) Tigecycline (test wetu=771) Tobramycin (test code=25) Trimethoprim + Sulfamethoxazole (test code=47) >100,000 col/mL skin floraPOCT-GLUCOSE [id number] 06:32:00* Test Item Value Reference Range Comments POC-GLUCOSE METER (BEAKER) (test pumd=3143) 111 mg/dL 70-110 TESTED AT [address] [address] BASIC METABOLIC [id number] 05:33:00* Test Item Value Reference Range Comments SODIUM (BEAKER) (test vubw=740) 142 meq/L 135-148 POTASSIUM (BEAKER) (test prog=663) 4.4 meq/L 3.6-5.5 CHLORIDE (BEAKER) (test hfxn=014) 106 meq/L 98-106 CO2 (BEAKER) (test lkic=744) 26 meq/L 20-29 BLOOD UREA NITROGEN (BEAKER) (test nssd=396) 51 mg/dL 10-26 CREATININE (BEAKER) (test vuoq=280) 2.50 mg/dL 0.50-1.20 GLUCOSE RANDOM (BEAKER) (test tksw=402) 114 mg/dL 70-110 CALCIUM (BEAKER) (test nree=365) 8.6 mg/dL 8.5-10.5 EGFR (BEAKER) (test hbqf=8841) 19 mL/min/1.73 sq m ESTIMATED GFR IS NOT ACCURATE CREATININE CLEARANCE IN PREDICTING GLOMERULAR FILTRATION RATE. ESTIMATED GFR IS NOT APPLICABLE FOR DIALYSIS PATIENTS. [id number] 05:24:00* Test Item Value Reference Range Comments MAGNESIUM (BEAKER) (test iosp=127) 1.8 mg/dL 1.5-3.0 CBC W/PLT COUNT & AUTO [id number] 05:03:00* Test Item Value Reference Range Comments WHITE BLOOD CELL COUNT (BEAKER) (test wfel=885) 10.6 K/ L 4.0-10.0 RED BLOOD CELL COUNT (BEAKER) (test jlqu=578) 2.70 M/ L 4.00-5.00 HEMOGLOBIN (BEAKER) (test jocy=734) 7.6 GM/DL 12.0-15.0 HEMATOCRIT (BEAKER) (test mdms=231) 23.8 % 36.0-45.0 MEAN CORPUSCULAR VOLUME (BEAKER) (test mbgf=247) 88.0 fL 82.0-99.0 MEAN CORPUSCULAR HEMOGLOBIN (BEAKER) (test luya=081) 28.1 pg 27.0-33.0 MEAN CORPUSCULAR HEMOGLOBIN CONC (BEAKER) (test rlbm=260) 31.9 GM/DL 32.0- 36.0 RED CELL DISTRIBUTION WIDTH (BEAKER) (test tpdu=649) 14.7 % 10.3-14.2 PLATELET COUNT (BEAKER) (test fnie=122) 370 K/CU MM 150-430 MEAN PLATELET VOLUME (BEAKER) (test saqo=959) 8.3 fL 6.5-10.5 NUCLEATED RED BLOOD CELLS (BEAKER) (test pkkz=733) 0 /100 WBC 0-0 NEUTROPHILS RELATIVE PERCENT (BEAKER) (test wkji=157) 53 % LYMPHOCYTES RELATIVE PERCENT (BEAKER) (test qrql=437) 25 % MONOCYTES RELATIVE PERCENT (BEAKER) (test dhja=810) 16 % EOSINOPHILS RELATIVE PERCENT (BEAKER) (test orpf=132) 5 % BASOPHILS RELATIVE PERCENT (BEAKER) (test cqnw=153) 0 % NEUTROPHILS ABSOLUTE COUNT (BEAKER) (test ernh=550) 5.70 K/ L 1.80-8.00 LYMPHOCYTES ABSOLUTE COUNT (BEAKER) (test cjam=689) 2.70 K/ L 1.48-4.50 MONOCYTES ABSOLUTE COUNT (BEAKER) (test hztn=997) 1.70 K/ L 0.00-1.30 EOSINOPHILS ABSOLUTE COUNT (BEAKER) (test qwqd=697) 0.60 K/ L 0.00-0.50 BASOPHILS ABSOLUTE COUNT (BEAKER) (test lihx=047) 0.00 K/ L 0.00-0.20 POCT-GLUCOSE [id number] 21:02:00* Test Item Value Reference Range Comments POC-GLUCOSE METER ([facility]) (test ltzm=7498) 168 mg/dL 70-110 TESTED AT [place] [address] B-TYPE NATRIURETIC FACTOR (BNP)2016-08-21 18:01:00* Test Item Value Reference Range Comments B-TYPE NATRIURETIC PEPTIDE (BEAKER) (test qqxz=087) 288 pg/mL 0-100 POCT-GLUCOSE [id number] 16:43:00* Test Item Value Reference Range Comments POC-GLUCOSE METER ([facility]) (test ltiz=2103) 67 mg/dL 70-110 TESTED AT [place] [address] POCT-GLUCOSE [id number] 12:13:00* Test Item Value Reference Range Comments POC-GLUCOSE METER ([facility]) (test vxun=8231) 221 mg/dL 70-110 TESTED AT [place] [address] CBC W/PLT COUNT & AUTO [id number] 08:04:00* Test Item Value Reference Range Comments WHITE BLOOD CELL COUNT (BEAKER) (test irgi=379) 11.3 K/ L 4.0-10.0 RED BLOOD CELL COUNT (BEAKER) (test qocq=159) 2.81 M/ L 4.00-5.00 HEMOGLOBIN (BEAKER) (test hdfo=793) 7.9 GM/DL 12.0-15.0 HEMATOCRIT (BEAKER) (test uoqc=714) 24.8 % 36.0-45.0 MEAN CORPUSCULAR VOLUME (BEAKER) (test nzgv=607) 88.1 fL 82.0-99.0 MEAN CORPUSCULAR HEMOGLOBIN (BEAKER) (test etxo=020) 27.9 pg 27.0-33.0 MEAN CORPUSCULAR HEMOGLOBIN CONC (BEAKER) (test istq=372) 31.7 GM/DL 32.0- 36.0 RED CELL DISTRIBUTION WIDTH (BEAKER) (test gyph=757) 14.6 % 10.3-14.2 PLATELET COUNT (BEAKER) (test otsp=937) 324 K/CU MM 150-430 MEAN PLATELET VOLUME (BEAKER) (test atai=120) 7.7 fL 6.5-10.5 NUCLEATED RED BLOOD CELLS (BEAKER) (test glkl=048) 0 /100 WBC 0-0 NEUTROPHILS RELATIVE PERCENT (BEAKER) (test cnuf=687) 67 % LYMPHOCYTES RELATIVE PERCENT (BEAKER) (test igyl=887) 14 % MONOCYTES RELATIVE PERCENT (BEAKER) (test tsao=666) 14 % EOSINOPHILS RELATIVE PERCENT (BEAKER) (test cjnq=876) 5 % BASOPHILS RELATIVE PERCENT (BEAKER) (test evqk=631) 0 % NEUTROPHILS ABSOLUTE COUNT (BEAKER) (test fcty=967) 7.50 K/ L 1.80-8.00 LYMPHOCYTES ABSOLUTE COUNT (BEAKER) (test vosi=189) 1.60 K/ L 1.48-4.50 MONOCYTES ABSOLUTE COUNT (BEAKER) (test pykv=594) 1.60 K/ L 0.00-1.30 EOSINOPHILS ABSOLUTE COUNT (BEAKER) (test uaqz=093) 0.60 K/ L 0.00-0.50 BASOPHILS ABSOLUTE COUNT (BEAKER) (test qrmd=561) 0.00 K/ L 0.00-0.20 BASIC METABOLIC [id number] 06:41:00* Test Item Value Reference Range Comments SODIUM (BEAKER) (test lzaz=004) 136 meq/L 135-148 POTASSIUM (BEAKER) (test nsgl=086) 4.5 meq/L 3.6-5.5 Specimen slightly hemolyzed CHLORIDE (BEAKER) (test jjpy=472) 105 meq/L 98-106 CO2 (BEAKER) (test qlha=715) 23 meq/L 20-29 BLOOD UREA NITROGEN (BEAKER) (test gkrb=223) 53 mg/dL 10-26 CREATININE (BEAKER) (test dezg=005) 2.70 mg/dL 0.50-1.20 Specimen slightly hemolyzed GLUCOSE RANDOM (BEAKER) (test umqa=833) 276 mg/dL 70-110 CALCIUM (BEAKER) (test lvqx=725) 8.5 mg/dL 8.5-10.5 EGFR (BEAKER) (test jxoo=2506) 18 mL/min/1.73 sq m ESTIMATED GFR IS NOT ACCURATE CREATININE CLEARANCE IN PREDICTING GLOMERULAR FILTRATION RATE. ESTIMATED GFR IS NOT APPLICABLE FOR DIALYSIS PATIENTS. POCT-GLUCOSE [id number] 06:28:00* Test Item Value Reference Range Comments POC-GLUCOSE METER (BEAKER) (test saxn=5584) 290 mg/dL 70-110 TESTED AT [place] [address] [id number] 06:25:00* Test Item Value Reference Range Comments MAGNESIUM (BEAKER) (test avfb=193) 2.4 mg/dL 1.5-3.0 Specimen slightly hemolyzed POCT-GLUCOSE [id number] 21:36:00* Test Item Value Reference Range Comments POC-GLUCOSE METER (BEAKER) (test thac=7965) 264 mg/dL 70-110 TESTED AT [address] [address] POCT-GLUCOSE [id number] 18:40:00* Test Item Value Reference Range Comments POC-GLUCOSE METER (BEAKER) (test djnx=3272) 218 mg/dL 70-110 TESTED AT [place] [address] LACTIC ACID, VENOUS, WHOLE [id number] 12:19:00* Test Item Value Reference Range Comments LACTATE BLOOD VENOUS (2) (BEAKER) (test quvq=7349) 0.9 mmol/L 0.5-2.2 Specimen moderately hemolyzed Effective 07/06/2015: Units/Reference Range ChangeNew: 0.5-2.2 mmol/L Previous: 5 -18 mg/dLURINALYSIS W/ [id number] 12:18:00* Test Item Value Reference Range Comments COLOR (BEAKER) (test vzgz=329) Yellow CLARITY (BEAKER) (test kmcg=657) Slightly Cloudy SPECIFIC GRAVITY UA (BEAKER) (test zrfq=748) 1.015 1.001-1.035 PH UA (BEAKER) (test bqro=611) 5.0 5.0-8.0 PROTEIN UA (BEAKER) (test szzl=325) 30 mg/dL Negative GLUCOSE UA (BEAKER) (test jdru=732) Negative Negative KETONES UA (BEAKER) (test edpy=960) Negative Negative BILIRUBIN UA (BEAKER) (test owei=798) Negative Negative BLOOD UA (BEAKER) (test fccr=919) Negative Negative NITRITE UA (BEAKER) (test yppp=568) Negative Negative LEUKOCYTE ESTERASE UA (BEAKER) (test cgrz=327) Moderate Negative UROBILINOGEN UA (BEAKER) (test xyoo=952) 0.2 mg/dL 0.2-1.0 BACTERIA (BEAKER) (test nsxm=628) Moderate RBC UA-MANUAL (BEAKER) (test jvpg=4923) <5 /HPF WBC UA-MANUAL (BEAKER) (test jbwy=2201) 50-100 /HPF SQUAMOUS EPITHELIAL MANUAL (BEAKER) (test dfvc=3591) 10-20 /HPF HYALINE CASTS MANUAL (BEAKER) (test anwz=3882) 0-5 /LPF SOURCE(BEAKER) (test hdei=9046) COMPREHENSIVE METABOLIC [id number] 11:51:00* Test Item Value Reference Range Comments TOTAL PROTEIN (BEAKER) (test fvbu=630) 5.6 gm/dL 6.0-8.5 ALBUMIN (BEAKER) (test qnvt=4984) 3.0 g/dL 3.5-5.0 ALKALINE PHOSPHATASE (BEAKER) (test qipp=912) 77 U/L 30-115 BILIRUBIN TOTAL (BEAKER) (test hbrr=347) 0.4 mg/dL 0.1-1.2 SODIUM (BEAKER) (test prft=747) 138 meq/L 135-148 POTASSIUM (BEAKER) (test wvxu=472) 4.5 meq/L 3.6-5.5 CHLORIDE (BEAKER) (test csby=918) 103 meq/L 98-106 CO2 (BEAKER) (test xzzi=833) 24 meq/L 20-29 BLOOD UREA NITROGEN (BEAKER) (test tvqx=899) 50 mg/dL 10-26 CREATININE (BEAKER) (test jbfh=189) 2.90 mg/dL 0.50-1.20 GLUCOSE RANDOM (BEAKER) (test glmu=170) 218 mg/dL 70-110 CALCIUM (BEAKER) (test wczi=508) 9.1 mg/dL 8.5-10.5 AST (SGOT) (BEAKER) (test utpq=664) 16 U/L 5-40 ALT (SGPT) (BEAKER) (test kjhy=747) 10 U/L 5-50 EGFR (BEAKER) (test rsuk=2040) 16 mL/min/1.73 sq m ESTIMATED GFR IS NOT ACCURATE CREATININE CLEARANCE IN PREDICTING GLOMERULAR FILTRATION RATE. ESTIMATED GFR IS NOT APPLICABLE FOR DIALYSIS PATIENTS. [id number] 11:46:00* Test Item Value Reference Range Comments LIPASE (BEAKER) (test mmoh=718) 7 U/L 6-51 CBC W/PLT COUNT & AUTO [id number] 11:32:00* Test Item Value Reference Range Comments WHITE BLOOD CELL COUNT (BEAKER) (test inwz=069) 14.5 K/ L 4.0-10.0 RED BLOOD CELL COUNT (BEAKER) (test lvlx=811) 3.00 M/ L 4.00-5.00 HEMOGLOBIN (BEAKER) (test vpmu=895) 8.4 GM/DL 12.0-15.0 HEMATOCRIT (BEAKER) (test uaep=498) 26.6 % 36.0-45.0 MEAN CORPUSCULAR VOLUME (BEAKER) (test omvk=483) 88.5 fL 82.0-99.0 MEAN CORPUSCULAR HEMOGLOBIN (BEAKER) (test qhut=097) 28.0 pg 27.0-33.0 MEAN CORPUSCULAR HEMOGLOBIN CONC (BEAKER) (test qecq=243) 31.6 GM/DL 32.0- 36.0 RED CELL DISTRIBUTION WIDTH (BEAKER) (test ryar=077) 14.7 % 10.3-14.2 PLATELET COUNT (BEAKER) (test dzhu=503) 337 K/CU MM 150-430 MEAN PLATELET VOLUME (BEAKER) (test rbrv=834) 8.4 fL 6.5-10.5 NUCLEATED RED BLOOD CELLS (BEAKER) (test fjyp=282) 0 /100 WBC 0-0 NEUTROPHILS RELATIVE PERCENT (BEAKER) (test azox=831) 79 % LYMPHOCYTES RELATIVE PERCENT (BEAKER) (test djmf=381) 11 % MONOCYTES RELATIVE PERCENT (BEAKER) (test wnnp=655) 9 % EOSINOPHILS RELATIVE PERCENT (BEAKER) (test xlme=578) 2 % BASOPHILS RELATIVE PERCENT (BEAKER) (test jduq=773) 0 % NEUTROPHILS ABSOLUTE COUNT (BEAKER) (test brrz=516) 11.40 K/ L 1.80-8.00 LYMPHOCYTES ABSOLUTE COUNT (BEAKER) (test tdjx=575) 1.60 K/ L 1.48-4.50 MONOCYTES ABSOLUTE COUNT (BEAKER) (test vftg=390) 1.30 K/ L 0.00-1.30 EOSINOPHILS ABSOLUTE COUNT (BEAKER) (test ksiy=741) 0.20 K/ L 0.00-0.50 BASOPHILS ABSOLUTE COUNT (BEAKER) (test qixm=054) 0.00 K/ L 0.00-0.20 OCCULT BLOOD, [id number] 12:03:00* Test Item Value Reference Range Comments FECAL OCCULT BLOOD (BEAKER) (test ksai=254) Negative Negative POCT-GLUCOSE [id number] 12:01:00* Test Item Value Reference Range Comments POC-GLUCOSE METER (BEAKER) (test yodp=8210) 206 mg/dL 70-110 TESTED AT [address] [address] POCT-GLUCOSE [id number] 06:24:00* Test Item Value Reference Range Comments POC-GLUCOSE METER (BEAKER) (test zevg=6662) 236 mg/dL 70-110 TESTED AT [address] [address] BASIC METABOLIC [id number] 06:08:00* Test Item Value Reference Range Comments SODIUM (BEAKER) (test oyez=614) 142 meq/L 135-148 POTASSIUM (BEAKER) (test dwvl=838) 4.0 meq/L 3.6-5.5 CHLORIDE (BEAKER) (test goza=883) 107 meq/L 98-106 CO2 (BEAKER) (test weuv=184) 26 meq/L 20-29 BLOOD UREA NITROGEN (BEAKER) (test rcbw=587) 37 mg/dL 10-26 CREATININE (BEAKER) (test tlfe=589) 2.60 mg/dL 0.50-1.20 GLUCOSE RANDOM (BEAKER) (test erqj=263) 226 mg/dL 70-110 CALCIUM (BEAKER) (test bvfn=807) 8.0 mg/dL 8.5-10.5 EGFR (BEAKER) (test lgcl=5336) 18 mL/min/1.73 sq m ESTIMATED GFR IS NOT ACCURATE CREATININE CLEARANCE IN PREDICTING GLOMERULAR FILTRATION RATE. ESTIMATED GFR IS NOT APPLICABLE FOR DIALYSIS PATIENTS. [id number] 06:02:00* Test Item Value Reference Range Comments MAGNESIUM (BEAKER) (test yodo=731) 2.1 mg/dL 1.5-3.0 CBC W/PLT COUNT & AUTO [id number] 05:54:00* Test Item Value Reference Range Comments WHITE BLOOD CELL COUNT (BEAKER) (test opbt=149) 8.8 K/ L 4.0-10.0 RED BLOOD CELL COUNT (BEAKER) (test vugu=344) 2.95 M/ L 4.00-5.00 HEMOGLOBIN (BEAKER) (test sepx=821) 8.3 GM/DL 12.0-15.0 HEMATOCRIT (BEAKER) (test lrzn=596) 26.2 % 36.0-45.0 MEAN CORPUSCULAR VOLUME (BEAKER) (test lwmw=376) 88.7 fL 82.0-99.0 MEAN CORPUSCULAR HEMOGLOBIN (BEAKER) (test lwxu=234) 28.1 pg 27.0-33.0 MEAN CORPUSCULAR HEMOGLOBIN CONC (BEAKER) (test dfuy=037) 31.7 GM/DL 32.0- 36.0 RED CELL DISTRIBUTION WIDTH (BEAKER) (test gseq=132) 14.8 % 10.3-14.2 PLATELET COUNT (BEAKER) (test xllu=439) 287 K/CU MM 150-430 MEAN PLATELET VOLUME (BEAKER) (test ztvn=486) 7.3 fL 6.5-10.5 NUCLEATED RED BLOOD CELLS (BEAKER) (test pkym=277) 0 /100 WBC 0-0 NEUTROPHILS RELATIVE PERCENT (BEAKER) (test zrvs=019) 62 % LYMPHOCYTES RELATIVE PERCENT (BEAKER) (test axck=958) 23 % MONOCYTES RELATIVE PERCENT (BEAKER) (test bfla=464) 8 % EOSINOPHILS RELATIVE PERCENT (BEAKER) (test mtwm=125) 6 % BASOPHILS RELATIVE PERCENT (BEAKER) (test ciel=757) 0 % NEUTROPHILS ABSOLUTE COUNT (BEAKER) (test ivhe=427) 5.40 K/ L 1.80-8.00 LYMPHOCYTES ABSOLUTE COUNT (BEAKER) (test ckgq=585) 2.00 K/ L 1.48-4.50 MONOCYTES ABSOLUTE COUNT (BEAKER) (test wsmn=534) 0.70 K/ L 0.00-1.30 EOSINOPHILS ABSOLUTE COUNT (BEAKER) (test jggl=662) 0.50 K/ L 0.00-0.50 BASOPHILS ABSOLUTE COUNT (BEAKER) (test pomm=228) 0.00 K/ L 0.00-0.20 POCT-GLUCOSE [id number] 21:40:00* Test Item Value Reference Range Comments POC-GLUCOSE METER (BEAKER) (test tuwd=8994) 190 mg/dL 70-110 TESTED AT [address] [address] POCT-GLUCOSE [id number] 16:39:00* Test Item Value Reference Range Comments POC-GLUCOSE METER (BEAKER) (test lghe=6106) 265 mg/dL 70-110 TESTED AT [address] [address] POCT-GLUCOSE [id number] 12:31:00* Test Item Value Reference Range Comments POC-GLUCOSE METER (BEAKER) (test wgyg=6594) 243 mg/dL 70-110 TESTED AT [address] [address] POCT-GLUCOSE [id number] 06:46:00* Test Item Value Reference Range Comments POC-GLUCOSE METER (BEAKER) (test rlvi=2030) 191 mg/dL 70-110 TESTED AT [facility] [address] [facility] [address] BASIC METABOLIC [id number] 06:03:00* Test Item Value Reference Range Comments SODIUM (BEAKER) (test fgfx=321) 141 meq/L 135-148 POTASSIUM (BEAKER) (test ivjm=104) 3.5 meq/L 3.6-5.5 CHLORIDE (BEAKER) (test mxfz=553) 104 meq/L 98-106 CO2 (BEAKER) (test xeei=273) 25 meq/L 20-29 BLOOD UREA NITROGEN (BEAKER) (test ohst=264) 35 mg/dL 10-26 CREATININE (BEAKER) (test tmwz=470) 2.20 mg/dL 0.50-1.20 GLUCOSE RANDOM (BEAKER) (test kzok=266) 184 mg/dL 70-110 CALCIUM (BEAKER) (test mmdy=239) 8.1 mg/dL 8.5-10.5 EGFR (BEAKER) (test flwu=8300) 22 mL/min/1.73 sq m ESTIMATED GFR IS NOT ACCURATE CREATININE CLEARANCE IN PREDICTING GLOMERULAR FILTRATION RATE. ESTIMATED GFR IS NOT APPLICABLE FOR DIALYSIS PATIENTS. [id number] 05:52:00* Test Item Value Reference Range Comments MAGNESIUM (BEAKER) (test wllt=409) 2.2 mg/dL 1.5-3.0 CBC W/PLT COUNT & AUTO [id number] 05:45:00* Test Item Value Reference Range Comments WHITE BLOOD CELL COUNT (BEAKER) (test qrpg=335) 9.6 K/ L 4.0-10.0 RED BLOOD CELL COUNT (BEAKER) (test uaoq=598) 3.04 M/ L 4.00-5.00 HEMOGLOBIN (BEAKER) (test zezm=316) 8.6 GM/DL 12.0-15.0 HEMATOCRIT (BEAKER) (test oung=514) 27.0 % 36.0-45.0 MEAN CORPUSCULAR VOLUME (BEAKER) (test xxsi=700) 88.8 fL 82.0-99.0 MEAN CORPUSCULAR HEMOGLOBIN (BEAKER) (test wmcg=051) 28.4 pg 27.0-33.0 MEAN CORPUSCULAR HEMOGLOBIN CONC (BEAKER) (test udvq=929) 31.9 GM/DL 32.0- 36.0 RED CELL DISTRIBUTION WIDTH (BEAKER) (test sfhe=755) 15.0 % 10.3-14.2 PLATELET COUNT (BEAKER) (test qjks=300) 320 K/CU MM 150-430 MEAN PLATELET VOLUME (BEAKER) (test szxb=039) 7.6 fL 6.5-10.5 NUCLEATED RED BLOOD CELLS (BEAKER) (test anws=342) 0 /100 WBC 0-0 NEUTROPHILS RELATIVE PERCENT (BEAKER) (test znci=521) 61 % LYMPHOCYTES RELATIVE PERCENT (BEAKER) (test gbif=033) 26 % MONOCYTES RELATIVE PERCENT (BEAKER) (test lvrk=058) 7 % EOSINOPHILS RELATIVE PERCENT (BEAKER) (test vllm=209) 6 % BASOPHILS RELATIVE PERCENT (BEAKER) (test oqyl=019) 1 % NEUTROPHILS ABSOLUTE COUNT (BEAKER) (test ovet=739) 5.80 K/ L 1.80-8.00 LYMPHOCYTES ABSOLUTE COUNT (BEAKER) (test jrjt=590) 2.50 K/ L 1.48-4.50 MONOCYTES ABSOLUTE COUNT (BEAKER) (test bfua=892) 0.70 K/ L 0.00-1.30 EOSINOPHILS ABSOLUTE COUNT (BEAKER) (test xten=012) 0.50 K/ L 0.00-0.50 BASOPHILS ABSOLUTE COUNT (BEAKER) (test pzhm=599) 0.10 K/ L 0.00-0.20 POCT-GLUCOSE [id number] 21:21:00* Test Item Value Reference Range Comments POC-GLUCOSE METER (BEAKER) (test znus=2776) 182 mg/dL 70-110 TESTED AT [address] [address] POCT-GLUCOSE [id number] 16:36:00* Test Item Value Reference Range Comments POC-GLUCOSE METER (BEAKER) (test evqy=4393) 202 mg/dL 70-110 TESTED AT [address] [address] POCT-GLUCOSE [id number] 11:47:00* Test Item Value Reference Range Comments POC-GLUCOSE METER (BEAKER) (test oelf=4687) 281 mg/dL 70-110 TESTED AT [facility] [address] [facility] [address] TISSUE [id number] 10:49:00Surgical Pathology Report Case: [id number] Authorizing Provider: Akash Joya MD Collected: 08/14/2016 1351 Ordering Location: [address] Med/Surg Received: 08/14/2016 1445 Pathologist: Roxana Hill MD Specimen: Gallbladder GALLBLADDER, CHOLECYSTECTOMY: CHRONIC CHOLECYSTITIS MG/[id number] pain, cholecystitisGallbladderSpecimen is received in fixative and designated with the same medical record number and the same name as "gallbladder", consists of a cholecystectomy specimen (7.0 x 3.0 x 0.8 cm). The gallbladder contains no gallstones. The mucosa is yellow-lopez and velvety. No discrete lesions are identified. [employer] sections of the gallbladder mucosa and cystic duct are submitted into A1. MG/ewPerformedPOCT-GLUCOSE [id number] 06:38:00* Test Item Value Reference Range Comments POC-GLUCOSE METER (BEAKER) (test ukte=3668) 346 mg/dL 70-110 TESTED AT [address] [address] BASIC METABOLIC [id number] 06:26:00* Test Item Value Reference Range Comments SODIUM (BEAKER) (test rkda=483) 141 meq/L 135-148 POTASSIUM (BEAKER) (test ppwk=892) 4.1 meq/L 3.6-5.5 CHLORIDE (BEAKER) (test zjgu=949) 102 meq/L 98-106 CO2 (BEAKER) (test eahp=107) 26 meq/L 20-29 BLOOD UREA NITROGEN (BEAKER) (test zdwj=964) 35 mg/dL 10-26 CREATININE (BEAKER) (test wueo=185) 2.20 mg/dL 0.50-1.20 GLUCOSE RANDOM (BEAKER) (test lyya=886) 361 mg/dL 70-110 CALCIUM (BEAKER) (test otba=985) 8.5 mg/dL 8.5-10.5 EGFR (BEAKER) (test fahv=8277) 22 mL/min/1.73 sq m ESTIMATED GFR IS NOT ACCURATE CREATININE CLEARANCE IN PREDICTING GLOMERULAR FILTRATION RATE. ESTIMATED GFR IS NOT APPLICABLE FOR DIALYSIS PATIENTS. [id number] 06:19:00* Test Item Value Reference Range Comments MAGNESIUM (BEAKER) (test dqtd=646) 2.0 mg/dL 1.5-3.0 CBC W/PLT COUNT & AUTO [id number] 06:17:00* Test Item Value Reference Range Comments WHITE BLOOD CELL COUNT (BEAKER) (test kstd=738) 10.1 K/ L 4.0-10.0 RED BLOOD CELL COUNT (BEAKER) (test xbog=770) 3.28 M/ L 4.00-5.00 HEMOGLOBIN (BEAKER) (test qsyt=771) 9.2 GM/DL 12.0-15.0 HEMATOCRIT (BEAKER) (test uipx=383) 29.2 % 36.0-45.0 MEAN CORPUSCULAR VOLUME (BEAKER) (test rmvo=421) 88.9 fL 82.0-99.0 MEAN CORPUSCULAR HEMOGLOBIN (BEAKER) (test audr=058) 28.2 pg 27.0-33.0 MEAN CORPUSCULAR HEMOGLOBIN CONC (BEAKER) (test wrum=820) 31.7 GM/DL 32.0- 36.0 RED CELL DISTRIBUTION WIDTH (BEAKER) (test loet=841) 14.5 % 10.3-14.2 PLATELET COUNT (BEAKER) (test ntrj=403) 356 K/CU MM 150-430 MEAN PLATELET VOLUME (BEAKER) (test yxss=123) 8.0 fL 6.5-10.5 NUCLEATED RED BLOOD CELLS (BEAKER) (test efaq=579) 0 /100 WBC 0-0 NEUTROPHILS RELATIVE PERCENT (BEAKER) (test cyok=069) 86 % LYMPHOCYTES RELATIVE PERCENT (BEAKER) (test vfdt=760) 8 % MONOCYTES RELATIVE PERCENT (BEAKER) (test lrjn=947) 5 % EOSINOPHILS RELATIVE PERCENT (BEAKER) (test bwgc=203) 0 % BASOPHILS RELATIVE PERCENT (BEAKER) (test bqwt=661) 0 % NEUTROPHILS ABSOLUTE COUNT (BEAKER) (test trnz=883) 8.80 K/ L 1.80-8.00 LYMPHOCYTES ABSOLUTE COUNT (BEAKER) (test wovj=160) 0.80 K/ L 1.48-4.50 MONOCYTES ABSOLUTE COUNT (BEAKER) (test hzjn=337) 0.50 K/ L 0.00-1.30 EOSINOPHILS ABSOLUTE COUNT (BEAKER) (test iylb=778) 0.00 K/ L 0.00-0.50 BASOPHILS ABSOLUTE COUNT (BEAKER) (test xsps=226) 0.00 K/ L 0.00-0.20 POCT-GLUCOSE [id number] 21:47:00* Test Item Value Reference Range Comments POC-GLUCOSE METER (BEAKER) (test tiew=0781) 392 mg/dL 70-110 TESTED AT [address] [address] POCT-GLUCOSE [id number] 14:45:00* Test Item Value Reference Range Comments POC-GLUCOSE METER (BEAKER) (test ozhl=3982) 204 mg/dL 70-110 TESTED AT [address] [address] POCT-GLUCOSE [id number] 12:25:00* Test Item Value Reference Range Comments POC-GLUCOSE METER (BEAKER) (test mycd=7931) 224 mg/dL 70-110 TESTED AT [place] [id number] [facility] [address] POCT-GLUCOSE [id number] 07:20:00* Test Item Value Reference Range Comments POC-GLUCOSE METER (BEAKER) (test kyju=8269) 262 mg/dL 70-110 TESTED AT [address] [address] BASIC METABOLIC [id number] 06:39:00* Test Item Value Reference Range Comments SODIUM (BEAKER) (test zflx=509) 143 meq/L 135-148 POTASSIUM (BEAKER) (test nsmu=288) 3.5 meq/L 3.6-5.5 CHLORIDE (BEAKER) (test rouo=887) 103 meq/L 98-106 CO2 (BEAKER) (test wyma=828) 28 meq/L 20-29 BLOOD UREA NITROGEN (BEAKER) (test zmew=478) 34 mg/dL 10-26 CREATININE (BEAKER) (test fmsv=817) 2.20 mg/dL 0.50-1.20 GLUCOSE RANDOM (BEAKER) (test oebg=760) 271 mg/dL 70-110 CALCIUM (BEAKER) (test lmyg=532) 8.2 mg/dL 8.5-10.5 EGFR (BEAKER) (test blcb=0176) 22 mL/min/1.73 sq m ESTIMATED GFR IS NOT ACCURATE CREATININE CLEARANCE IN PREDICTING GLOMERULAR FILTRATION RATE. ESTIMATED GFR IS NOT APPLICABLE FOR DIALYSIS PATIENTS. CBC W/PLT COUNT & AUTO [id number] 06:20:00* Test Item Value Reference Range Comments WHITE BLOOD CELL COUNT (BEAKER) (test yomh=902) 8.7 K/ L 4.0-10.0 RED BLOOD CELL COUNT (BEAKER) (test wsmh=641) 2.96 M/ L 4.00-5.00 HEMOGLOBIN (BEAKER) (test vwrv=462) 8.3 GM/DL 12.0-15.0 HEMATOCRIT (BEAKER) (test mygi=662) 26.3 % 36.0-45.0 MEAN CORPUSCULAR VOLUME (BEAKER) (test zxhy=590) 88.7 fL 82.0-99.0 MEAN CORPUSCULAR HEMOGLOBIN (BEAKER) (test epcd=623) 28.1 pg 27.0-33.0 MEAN CORPUSCULAR HEMOGLOBIN CONC (BEAKER) (test xlke=435) 31.7 GM/DL 32.0- 36.0 RED CELL DISTRIBUTION WIDTH (BEAKER) (test tlmq=588) 14.6 % 10.3-14.2 PLATELET COUNT (BEAKER) (test ddma=995) 273 K/CU MM 150-430 MEAN PLATELET VOLUME (BEAKER) (test sjcz=247) 8.1 fL 6.5-10.5 NUCLEATED RED BLOOD CELLS (BEAKER) (test ognc=738) 0 /100 WBC 0-0 NEUTROPHILS RELATIVE PERCENT (BEAKER) (test btcs=185) 65 % LYMPHOCYTES RELATIVE PERCENT (BEAKER) (test iklv=882) 20 % MONOCYTES RELATIVE PERCENT (BEAKER) (test yzdq=419) 9 % EOSINOPHILS RELATIVE PERCENT (BEAKER) (test odwc=470) 5 % BASOPHILS RELATIVE PERCENT (BEAKER) (test vuum=011) 1 % NEUTROPHILS ABSOLUTE COUNT (BEAKER) (test axpi=785) 5.70 K/ L 1.80-8.00 LYMPHOCYTES ABSOLUTE COUNT (BEAKER) (test fssl=302) 1.70 K/ L 1.48-4.50 MONOCYTES ABSOLUTE COUNT (BEAKER) (test bquy=957) 0.80 K/ L 0.00-1.30 EOSINOPHILS ABSOLUTE COUNT (BEAKER) (test dhup=193) 0.40 K/ L 0.00-0.50 BASOPHILS ABSOLUTE COUNT (BEAKER) (test agbe=697) 0.10 K/ L 0.00-0.20 [id number] 06:14:00* Test Item Value Reference Range Comments MAGNESIUM (BEAKER) (test lsdj=524) 1.9 mg/dL 1.5-3.0 POCT-GLUCOSE [id number] 23:27:00* Test Item Value Reference Range Comments POC-GLUCOSE METER (BEAKER) (test ndiv=7431) 306 mg/dL 70-110 TESTED AT [address] [address] POCT-GLUCOSE [id number] 17:24:00* Test Item Value Reference Range Comments POC-GLUCOSE METER (BEAKER) (test tfbm=2843) 225 mg/dL 70-110 TESTED AT [address] [address] POCT-GLUCOSE [id number] 13:12:00* Test Item Value Reference Range Comments POC-GLUCOSE METER (BEAKER) (test fwvn=4808) 234 mg/dL 70-110 TESTED AT [address] [address] POCT-GLUCOSE [id number] 07:23:00* Test Item Value Reference Range Comments POC-GLUCOSE METER (BEAKER) (test nnkw=0227) 203 mg/dL 70-110 TESTED AT [address] [address] BASIC METABOLIC [id number] 07:09:00* Test Item Value Reference Range Comments SODIUM (BEAKER) (test uffn=207) 144 meq/L 135-148 POTASSIUM (BEAKER) (test dfyh=018) 3.9 meq/L 3.6-5.5 Specimen slightly hemolyzed CHLORIDE (BEAKER) (test dmxm=137) 102 meq/L 98-106 CO2 (BEAKER) (test vakd=057) 28 meq/L 20-29 BLOOD UREA NITROGEN (BEAKER) (test cozp=770) 39 mg/dL 10-26 CREATININE (BEAKER) (test rucr=459) 2.20 mg/dL 0.50-1.20 Specimen slightly hemolyzed GLUCOSE RANDOM (BEAKER) (test laxc=627) 179 mg/dL 70-110 CALCIUM (BEAKER) (test isnn=839) 8.3 mg/dL 8.5-10.5 EGFR (BEAKER) (test yvye=9408) 22 mL/min/1.73 sq m ESTIMATED GFR IS NOT ACCURATE CREATININE CLEARANCE IN PREDICTING GLOMERULAR FILTRATION RATE. ESTIMATED GFR IS NOT APPLICABLE FOR DIALYSIS PATIENTS. HEMOGLOBIN [id number] 06:49:00* Test Item Value Reference Range Comments HEMOGLOBIN A1C (BEAKER) (test qagd=272) 6.8 % 4.3-6.1 CBC W/PLT COUNT & AUTO [id number] 06:37:00* Test Item Value Reference Range Comments WHITE BLOOD CELL COUNT (BEAKER) (test hpsi=701) 10.5 K/ L 4.0-10.0 RED BLOOD CELL COUNT (BEAKER) (test itzr=011) 3.07 M/ L 4.00-5.00 HEMOGLOBIN (BEAKER) (test pvog=945) 8.7 GM/DL 12.0-15.0 HEMATOCRIT (BEAKER) (test rosr=176) 27.1 % 36.0-45.0 MEAN CORPUSCULAR VOLUME (BEAKER) (test hkwi=427) 88.3 fL 82.0-99.0 MEAN CORPUSCULAR HEMOGLOBIN (BEAKER) (test gpvr=833) 28.5 pg 27.0-33.0 MEAN CORPUSCULAR HEMOGLOBIN CONC (BEAKER) (test rtxw=681) 32.2 GM/DL 32.0- 36.0 RED CELL DISTRIBUTION WIDTH (BEAKER) (test qwoo=862) 14.5 % 10.3-14.2 PLATELET COUNT (BEAKER) (test pqly=130) 277 K/CU MM 150-430 MEAN PLATELET VOLUME (BEAKER) (test yvzt=385) 8.1 fL 6.5-10.5 NUCLEATED RED BLOOD CELLS (BEAKER) (test mdtt=878) 0 /100 WBC 0-0 NEUTROPHILS RELATIVE PERCENT (BEAKER) (test mwai=569) 74 % LYMPHOCYTES RELATIVE PERCENT (BEAKER) (test pxtj=194) 15 % MONOCYTES RELATIVE PERCENT (BEAKER) (test gevp=311) 8 % EOSINOPHILS RELATIVE PERCENT (BEAKER) (test bydl=642) 2 % BASOPHILS RELATIVE PERCENT (BEAKER) (test fzpt=253) 1 % NEUTROPHILS ABSOLUTE COUNT (BEAKER) (test powf=099) 7.80 K/ L 1.80-8.00 LYMPHOCYTES ABSOLUTE COUNT (BEAKER) (test ekas=524) 1.50 K/ L 1.48-4.50 MONOCYTES ABSOLUTE COUNT (BEAKER) (test qnkn=153) 0.90 K/ L 0.00-1.30 EOSINOPHILS ABSOLUTE COUNT (BEAKER) (test yyig=826) 0.20 K/ L 0.00-0.50 BASOPHILS ABSOLUTE COUNT (BEAKER) (test eqyl=222) 0.10 K/ L 0.00-0.20 HEPATIC FUNCTION [id number] 22:46:00* Test Item Value Reference Range Comments TOTAL PROTEIN (BEAKER) (test hulz=253) 5.7 gm/dL 6.0-8.5 ALBUMIN (BEAKER) (test qnlw=4712) 3.1 g/dL 3.5-5.0 BILIRUBIN TOTAL (BEAKER) (test jlle=930) 0.6 mg/dL 0.1-1.2 BILIRUBIN DIRECT (BEAKER) (test klcc=161) 0.3 mg/dL 0.0-0.4 ALKALINE PHOSPHATASE (BEAKER) (test cocu=424) 73 U/L 30-115 AST (SGOT) (BEAKER) (test bbfx=140) 16 U/L 5-40 ALT (SGPT) (BEAKER) (test avtx=969) 11 U/L 5-50 [id number] 22:45:00* Test Item Value Reference Range Comments AMYLASE (BEAKER) (test tvxf=085) 18 U/L 30-110 BLOOD [id number] 22:00:00* Test Item Value Reference Range Comments CULTURE (BEAKER) (test xswb=2909) No growth in 5 days BLOOD [id number] 22:00:00* Test Item Value Reference Range Comments CULTURE (BEAKER) (test veey=5667) No growth in 5 days B-TYPE NATRIURETIC FACTOR (BNP)2016-08-12 13:14:00* Test Item Value Reference Range Comments B-TYPE NATRIURETIC PEPTIDE (BEAKER) (test bxft=090) 746 pg/mL 0-100 BLOOD GAS, [id number] 13:02:00* Test Item Value Reference Range Comments PH ARTERIAL (BEAKER) (test ttcf=275) 7.47 7.35-7.45 PCO2 ARTERIAL (BEAKER) (test ergl=573) 43 mm Hg 35-45 PO2 ARTERIAL (BEAKER) (test xbsj=327) 70 mm Hg 80-90 O2 SATURATION ARTERIAL (BEAKER) (test thws=270) 94.9 % 96.0-97.0 HCO3 ARTERIAL (BEAKER) (test mjrt=857) 31 mmol/L 21-29 BASE EXCESS ARTERIAL (BEAKER) (test qoaq=449) 6.3 mmol/L -2.0-3.0 PATIENT TEMPERATURE (BEAKER) (test qneo=8619) 37.0 FIO2 (BEAKER) (test tfbf=6185) 21 BASIC METABOLIC [id number] 13:02:00* Test Item Value Reference Range Comments SODIUM (BEAKER) (test esbd=298) 143 meq/L 135-148 POTASSIUM (BEAKER) (test cgvm=879) 4.5 meq/L 3.6-5.5 CHLORIDE (BEAKER) (test vrdo=474) 101 meq/L 98-106 CO2 (BEAKER) (test vawj=053) 25 meq/L 20-29 BLOOD UREA NITROGEN (BEAKER) (test jtuc=804) 37 mg/dL 10-26 CREATININE (BEAKER) (test ddpf=875) 2.10 mg/dL 0.50-1.20 GLUCOSE RANDOM (BEAKER) (test xxfr=657) 251 mg/dL 70-110 CALCIUM (BEAKER) (test fsln=938) 9.3 mg/dL 8.5-10.5 EGFR (BEAKER) (test cndz=3038) 23 mL/min/1.73 sq m ESTIMATED GFR IS NOT ACCURATE CREATININE CLEARANCE IN PREDICTING GLOMERULAR FILTRATION RATE. ESTIMATED GFR IS NOT APPLICABLE FOR DIALYSIS PATIENTS. HEPATIC FUNCTION [id number] 13:02:00* Test Item Value Reference Range Comments TOTAL PROTEIN (BEAKER) (test msgn=732) 6.8 gm/dL 6.0-8.5 ALBUMIN (BEAKER) (test gzbb=3919) 3.5 g/dL 3.5-5.0 BILIRUBIN TOTAL (BEAKER) (test mopd=392) 0.7 mg/dL 0.1-1.2 BILIRUBIN DIRECT (BEAKER) (test ompj=014) 0.2 mg/dL 0.0-0.4 ALKALINE PHOSPHATASE (BEAKER) (test cdvh=064) 91 U/L 30-115 AST (SGOT) (BEAKER) (test srgy=467) 24 U/L 5-40 ALT (SGPT) (BEAKER) (test sape=809) 15 U/L 5-50 [id number] 13:02:00* Test Item Value Reference Range Comments LIPASE (BEAKER) (test xqkr=565) 15 U/L 6-51 TROPONIN [id number] 13:02:00* Test Item Value Reference Range Comments TROPONIN I (BEAKER) (test tlkc=182) 0.05 ng/mL 0.00-0.15 Troponin I (TnI) levels must be interpreted [...] failure, acidosis, acute neurological disease, and persistent tachyarrhythmia.CREATINE KINASE (CK), TOTAL AND [id number] 13:02:00* Test Item Value Reference Range Comments CREATINE KINASE TOTAL (BEAKER) (test hfxv=411) 66 U/L 25-235 CREATINE KINASE-MB (BEAKER) (test ueqo=223) 1.2 ng/mL 0.0-4.9 CREATINE KINASE-MB INDEX (BEAKER) (test gtex=456) 1.8 % CK-MB Reference Range:<5 Normal5-10 Borderline>10 AbnormalCBC W/PLT COUNT & AUTO [id number] 12:32:00* Test Item Value Reference Range Comments WHITE BLOOD CELL COUNT (BEAKER) (test rjcw=045) 15.1 K/ L 4.0-10.0 RED BLOOD CELL COUNT (BEAKER) (test joqc=019) 82.70 M/ L 4.00-5.00 HEMOGLOBIN (BEAKER) (test hqac=481) 10.3 GM/DL 12.0-15.0 HEMATOCRIT (BEAKER) (test xdef=662) 31.6 % 36.0-45.0 MEAN CORPUSCULAR VOLUME (BEAKER) (test vvht=019) 87.9 fL 82.0-99.0 MEAN CORPUSCULAR HEMOGLOBIN (BEAKER) (test epix=560) 28.7 pg 27.0-33.0 MEAN CORPUSCULAR HEMOGLOBIN CONC (BEAKER) (test zpgk=006) 32.6 GM/DL 32.0- 36.0 RED CELL DISTRIBUTION WIDTH (BEAKER) (test snqg=914) 14.6 % 10.3-14.2 PLATELET COUNT (BEAKER) (test aych=497) 320 K/CU MM 150-430 MEAN PLATELET VOLUME (BEAKER) (test dhgr=824) 8.0 fL 6.5-10.5 NEUTROPHILS RELATIVE PERCENT (BEAKER) (test amoz=610) 83 % LYMPHOCYTES RELATIVE PERCENT (BEAKER) (test rmkc=505) 9 % MONOCYTES RELATIVE PERCENT (BEAKER) (test augh=244) 1 % EOSINOPHILS RELATIVE PERCENT (BEAKER) (test imyr=221) 0 % BASOPHILS RELATIVE PERCENT (BEAKER) (test cblg=739) 0 % NEUTROPHILS ABSOLUTE COUNT (BEAKER) (test fopp=615) 12.50 K/ L 1.80-8.00 LYMPHOCYTES ABSOLUTE COUNT (BEAKER) (test xxvs=606) 1.30 K/ L 1.48-4.50 MONOCYTES ABSOLUTE COUNT (BEAKER) (test yxgx=020) 1.10 K/ L 0.00-1.30 EOSINOPHILS ABSOLUTE COUNT (BEAKER) (test lhwg=788) 0.20 K/ L 0.00-0.50 BASOPHILS ABSOLUTE COUNT (BEAKER) (test znty=151) 0.00 K/ L 0.00-0.20 URINE [id number] 07:46:00* Test Item Value Reference Range Comments CULTURE (BEAKER) (test yhbf=5789) No growth TROPONIN [id number] 22:04:00* Test Item Value Reference Range Comments TROPONIN I (BEAKER) (test qhtn=071) 0.03 ng/mL 0.00-0.15 Troponin I (TnI) levels must be interpreted [...] failure, acidosis, acute neurological disease, and persistent tachyarrhythmia.CREATINE KINASE (CK), TOTAL AND [id number] 22:03:00* Test Item Value Reference Range Comments CREATINE KINASE TOTAL (BEAKER) (test beto=739) 57 U/L 25-235 CREATINE KINASE-MB (BEAKER) (test hsus=991) 0.8 ng/mL 0.0-4.9 CREATINE KINASE-MB INDEX (BEAKER) (test utrl=364) 1.4 % CK-MB Reference Range:<5 Normal5-10 Borderline>10 AbnormalBASIC METABOLIC [id number] 22:01:00* Test Item Value Reference Range Comments SODIUM (BEAKER) (test exkf=257) 144 meq/L 135-148 POTASSIUM (BEAKER) (test bosu=669) 4.6 meq/L 3.6-5.5 Specimen slightly hemolyzed CHLORIDE (BEAKER) (test thsh=694) 100 meq/L 98-106 CO2 (BEAKER) (test oqiq=462) 29 meq/L 20-29 BLOOD UREA NITROGEN (BEAKER) (test crbw=312) 51 mg/dL 10-26 CREATININE (BEAKER) (test lxtx=240) 2.30 mg/dL 0.50-1.20 Specimen slightly hemolyzed GLUCOSE RANDOM (BEAKER) (test tqbl=077) 127 mg/dL 70-110 CALCIUM (BEAKER) (test poiz=280) 9.6 mg/dL 8.5-10.5 EGFR (BEAKER) (test xjlp=6163) 21 mL/min/1.73 sq m ESTIMATED GFR IS NOT ACCURATE CREATININE CLEARANCE IN PREDICTING GLOMERULAR FILTRATION RATE. ESTIMATED GFR IS NOT APPLICABLE FOR DIALYSIS PATIENTS. [id number] 21:58:00* Test Item Value Reference Range Comments LIPASE (BEAKER) (test ftmg=913) 12 U/L 6-51 HEPATIC FUNCTION [id number] 21:57:00* Test Item Value Reference Range Comments TOTAL PROTEIN (BEAKER) (test zovh=953) 6.8 gm/dL 6.0-8.5 Specimen slightly hemolyzed ALBUMIN (BEAKER) (test vuzi=2868) 3.4 g/dL 3.5-5.0 Specimen slightly hemolyzed BILIRUBIN TOTAL (BEAKER) (test vijp=469) 0.5 mg/dL 0.1-1.2 Specimen slightly hemolyzed BILIRUBIN DIRECT (BEAKER) (test jjqf=180) 0.2 mg/dL 0.0-0.4 Specimen slightly hemolyzed ALKALINE PHOSPHATASE (BEAKER) (test htga=450) 88 U/L 30-115 AST (SGOT) (BEAKER) (test swlt=695) 24 U/L 5-40 Specimen slightly hemolyzed ALT (SGPT) (BEAKER) (test vnhm=295) 16 U/L 5-50 Specimen slightly hemolyzed CBC W/PLT COUNT & AUTO [id number] 21:42:00* Test Item Value Reference Range Comments WHITE BLOOD CELL COUNT (BEAKER) (test kohs=839) 12.4 K/ L 4.0-10.0 RED BLOOD CELL COUNT (BEAKER) (test vxje=417) 3.51 M/ L 4.00-5.00 HEMOGLOBIN (BEAKER) (test najh=027) 9.9 GM/DL 12.0-15.0 HEMATOCRIT (BEAKER) (test vvbt=153) 31.0 % 36.0-45.0 MEAN CORPUSCULAR VOLUME (BEAKER) (test rbyx=999) 88.2 fL 82.0-99.0 MEAN CORPUSCULAR HEMOGLOBIN (BEAKER) (test suhx=336) 28.2 pg 27.0-33.0 MEAN CORPUSCULAR HEMOGLOBIN CONC (BEAKER) (test ucpf=160) 32.0 GM/DL 32.0- 36.0 RED CELL DISTRIBUTION WIDTH (BEAKER) (test yvce=067) 15.0 % 10.3-14.2 PLATELET COUNT (BEAKER) (test bhje=798) 303 K/CU MM 150-430 MEAN PLATELET VOLUME (BEAKER) (test zqij=443) 8.5 fL 6.5-10.5 NUCLEATED RED BLOOD CELLS (BEAKER) (test rtlx=786) 0 /100 WBC 0-0 NEUTROPHILS RELATIVE PERCENT (BEAKER) (test eolu=324) 76 % LYMPHOCYTES RELATIVE PERCENT (BEAKER) (test rzct=912) 12 % MONOCYTES RELATIVE PERCENT (BEAKER) (test nlea=404) 9 % EOSINOPHILS RELATIVE PERCENT (BEAKER) (test cypp=461) 3 % BASOPHILS RELATIVE PERCENT (BEAKER) (test hqwt=406) 0 % NEUTROPHILS ABSOLUTE COUNT (BEAKER) (test cboc=994) 9.50 K/ L 1.80-8.00 LYMPHOCYTES ABSOLUTE COUNT (BEAKER) (test gqqw=179) 1.40 K/ L 1.48-4.50 MONOCYTES ABSOLUTE COUNT (BEAKER) (test waaf=227) 1.10 K/ L 0.00-1.30 EOSINOPHILS ABSOLUTE COUNT (BEAKER) (test eozv=105) 0.40 K/ L 0.00-0.50 BASOPHILS ABSOLUTE COUNT (BEAKER) (test bfnz=001) 0.00 K/ L 0.00-0.20 POCT-GLUCOSE [id number] 16:33:00* Test Item Value Reference Range Comments [facility] (test nmkv=9840) 101 mg/dL 70-110 TESTED AT [place] [address] POCT-GLUCOSE [id number] 13:35:00* Test Item Value Reference Range Comments POC-GLUCOSE METER ([facility]) (test zzzw=5444) 104 mg/dL 70-110 TESTED AT [place] [address] POCT-GLUCOSE [id number] 12:01:00* Test Item Value Reference Range Comments POC-GLUCOSE METER (BEAKER) (test yabh=3163) 63 mg/dL 70-110 TESTED AT [place] [address] POCT-GLUCOSE [id number] 07:13:00* Test Item Value Reference Range Comments POC-GLUCOSE METER (AKER) (test cytt=0385) 90 mg/dL 70-110 TESTED AT [place] [address] BASIC METABOLIC [id number] 06:09:00* Test Item Value Reference Range Comments SODIUM (BEAKER) (test mopl=084) 146 meq/L 135-148 POTASSIUM (BEAKER) (test wlhv=232) 3.6 meq/L 3.6-5.5 CHLORIDE (BEAKER) (test nnfl=132) 103 meq/L 98-106 CO2 (BEAKER) (test mnto=903) 31 meq/L 20-29 BLOOD UREA NITROGEN (BEAKER) (test tqhp=416) 57 mg/dL 10-26 CREATININE (BEAKER) (test eakx=106) 2.40 mg/dL 0.50-1.20 GLUCOSE RANDOM (BEAKER) (test swue=716) 104 mg/dL 70-110 CALCIUM (BEAKER) (test lffo=877) 8.9 mg/dL 8.5-10.5 EGFR (BEAKER) (test sycm=8091) 20 mL/min/1.73 sq m ESTIMATED GFR IS NOT ACCURATE CREATININE CLEARANCE IN PREDICTING GLOMERULAR FILTRATION RATE. ESTIMATED GFR IS NOT APPLICABLE FOR DIALYSIS PATIENTS. [id number] 06:02:00* Test Item Value Reference Range Comments MAGNESIUM (BEAKER) (test ujwd=335) 2.1 mg/dL 1.5-3.0 CBC W/PLT COUNT & AUTO [id number] 05:57:00* Test Item Value Reference Range Comments WHITE BLOOD CELL COUNT (BEAKER) (test aiym=336) 10.2 K/ L 4.0-10.0 RED BLOOD CELL COUNT (BEAKER) (test qqwi=487) 3.04 M/ L 4.00-5.00 HEMOGLOBIN (BEAKER) (test qius=656) 8.7 GM/DL 12.0-15.0 HEMATOCRIT (BEAKER) (test brms=336) 26.8 % 36.0-45.0 MEAN CORPUSCULAR VOLUME (BEAKER) (test jyrf=028) 88.2 fL 82.0-99.0 MEAN CORPUSCULAR HEMOGLOBIN (BEAKER) (test zpvc=365) 28.5 pg 27.0-33.0 MEAN CORPUSCULAR HEMOGLOBIN CONC (BEAKER) (test lmsd=989) 32.3 GM/DL 32.0- 36.0 RED CELL DISTRIBUTION WIDTH (BEAKER) (test rrxw=415) 14.8 % 10.3-14.2 PLATELET COUNT (BEAKER) (test mzpb=318) 260 K/CU MM 150-430 MEAN PLATELET VOLUME (BEAKER) (test khkp=637) 8.4 fL 6.5-10.5 NUCLEATED RED BLOOD CELLS (BEAKER) (test jmgr=726) 0 /100 WBC 0-0 NEUTROPHILS RELATIVE PERCENT (BEAKER) (test nzhp=095) 61 % LYMPHOCYTES RELATIVE PERCENT (BEAKER) (test nuvu=543) 22 % MONOCYTES RELATIVE PERCENT (BEAKER) (test xxhu=784) 13 % EOSINOPHILS RELATIVE PERCENT (BEAKER) (test adhy=998) 4 % BASOPHILS RELATIVE PERCENT (BEAKER) (test eeol=678) 0 % NEUTROPHILS ABSOLUTE COUNT (BEAKER) (test gqae=627) 6.20 K/ L 1.80-8.00 LYMPHOCYTES ABSOLUTE COUNT (BEAKER) (test nhjq=455) 2.30 K/ L 1.48-4.50 MONOCYTES ABSOLUTE COUNT (BEAKER) (test efcr=974) 1.30 K/ L 0.00-1.30 EOSINOPHILS ABSOLUTE COUNT (BEAKER) (test kzsw=509) 0.40 K/ L 0.00-0.50 BASOPHILS ABSOLUTE COUNT (BEAKER) (test gegp=608) 0.00 K/ L 0.00-0.20 POCT-GLUCOSE [id number] 21:32:00* Test Item Value Reference Range Comments POC-GLUCOSE METER (BEAKER) (test kmyh=3500) 186 mg/dL 70-110 TESTED AT [place] [id number] [facility] [address] POCT-GLUCOSE [id number] 15:09:00* Test Item Value Reference Range Comments POC-GLUCOSE METER (BEAKER) (test pmxm=5596) 191 mg/dL 70-110 TESTED AT [address] [address] POCT-GLUCOSE [id number] 11:57:00* Test Item Value Reference Range Comments POC-GLUCOSE METER (BEAKER) (test cisw=8585) 170 mg/dL 70-110 TESTED AT [address] [address] BASIC METABOLIC [id number] 11:15:00* Test Item Value Reference Range Comments SODIUM (BEAKER) (test ggho=381) 144 meq/L 135-148 POTASSIUM (BEAKER) (test vzco=576) 4.0 meq/L 3.6-5.5 CHLORIDE (BEAKER) (test ukkc=332) 104 meq/L 98-106 CO2 (BEAKER) (test qele=885) 29 meq/L 20-29 BLOOD UREA NITROGEN (BEAKER) (test jxin=195) 67 mg/dL 10-26 CREATININE (BEAKER) (test fnar=406) 2.30 mg/dL 0.50-1.20 GLUCOSE RANDOM (BEAKER) (test hkwc=913) 138 mg/dL 70-110 CALCIUM (BEAKER) (test pbzd=971) 8.5 mg/dL 8.5-10.5 EGFR (BEAKER) (test uuct=3236) 21 mL/min/1.73 sq m ESTIMATED GFR IS NOT ACCURATE CREATININE CLEARANCE IN PREDICTING GLOMERULAR FILTRATION RATE. ESTIMATED GFR IS NOT APPLICABLE FOR DIALYSIS PATIENTS. CBC W/PLT COUNT & AUTO [id number] 10:47:00* Test Item Value Reference Range Comments WHITE BLOOD CELL COUNT (BEAKER) (test adhs=924) 11.1 K/ L 4.0-10.0 RED BLOOD CELL COUNT (BEAKER) (test lmib=593) 3.09 M/ L 4.00-5.00 HEMOGLOBIN (BEAKER) (test oqok=945) 8.8 GM/DL 12.0-15.0 HEMATOCRIT (BEAKER) (test frlt=356) 27.2 % 36.0-45.0 MEAN CORPUSCULAR VOLUME (BEAKER) (test ubdq=348) 88.2 fL 82.0-99.0 MEAN CORPUSCULAR HEMOGLOBIN (BEAKER) (test ytpz=070) 28.5 pg 27.0-33.0 MEAN CORPUSCULAR HEMOGLOBIN CONC (BEAKER) (test khoi=271) 32.4 GM/DL 32.0- 36.0 RED CELL DISTRIBUTION WIDTH (BEAKER) (test mijd=623) 15.5 % 10.3-14.2 PLATELET COUNT (BEAKER) (test egzy=343) 249 K/CU MM 150-430 MEAN PLATELET VOLUME (BEAKER) (test ozyg=733) 8.9 fL 6.5-10.5 NUCLEATED RED BLOOD CELLS (BEAKER) (test hpti=541) 0 /100 WBC 0-0 NEUTROPHILS RELATIVE PERCENT (BEAKER) (test xson=298) 68 % LYMPHOCYTES RELATIVE PERCENT (BEAKER) (test cgcu=686) 16 % MONOCYTES RELATIVE PERCENT (BEAKER) (test rwsk=125) 12 % EOSINOPHILS RELATIVE PERCENT (BEAKER) (test ygri=198) 4 % BASOPHILS RELATIVE PERCENT (BEAKER) (test alqs=333) 0 % NEUTROPHILS ABSOLUTE COUNT (BEAKER) (test fyqq=295) 7.60 K/ L 1.80-8.00 LYMPHOCYTES ABSOLUTE COUNT (BEAKER) (test jnex=932) 1.70 K/ L 1.48-4.50 MONOCYTES ABSOLUTE COUNT (BEAKER) (test ccuk=719) 1.30 K/ L 0.00-1.30 EOSINOPHILS ABSOLUTE COUNT (BEAKER) (test zsxh=268) 0.40 K/ L 0.00-0.50 BASOPHILS ABSOLUTE COUNT (BEAKER) (test zgmh=191) 0.00 K/ L 0.00-0.20 POCT-GLUCOSE [id number] 05:57:00* Test Item Value Reference Range Comments POC-GLUCOSE METER (BEAKER) (test hlqy=9377) 122 mg/dL 70-110 TESTED AT [address] [address] POCT-GLUCOSE [id number] 21:17:00* Test Item Value Reference Range Comments POC-GLUCOSE METER (BEAKER) (test pvpv=9832) 114 mg/dL 70-110 TESTED AT [facility] [address] [facility] [address] POCT-GLUCOSE [id number] 16:05:00* Test Item Value Reference Range Comments POC-GLUCOSE METER (BEAKER) (test hypq=1272) 239 mg/dL 70-110 TESTED AT [place] [address] [facility] [address] TROPONIN [id number] 14:27:00* Test Item Value Reference Range Comments TROPONIN I (BEAKER) (test vbon=467) < ng/mL 0.00-0.15 Troponin I (TnI) levels must be interpreted [...] failure, acidosis, acute neurological disease, and persistent tachyarrhythmia.IRON, TIBC, % SAT. (WITHOUT FERRITIN) 2016-08-08 13:08:00* Test Item Value Reference Range Comments IRON (BEAKER) (test psqj=232) 21 ug/dL 40-160 TOTAL IRON BINDING CAPACITY (BEAKER) (test gpim=217) 194 ug/dL 250-450 IRON % SATURATION (2) (BEAKER) (test amwf=9257) 11 % 20-55 CREATINE KINASE (CK), TOTAL AND [id number] 13:04:00* Test Item Value Reference Range Comments CREATINE KINASE TOTAL (BEAKER) (test mfwj=390) 47 U/L 25-235 CREATINE KINASE-MB (BEAKER) (test tsyj=740) 1.1 ng/mL 0.0-4.9 CREATINE KINASE-MB INDEX (BEAKER) (test txtf=793) 2.3 % CK-MB Reference Range:<5 Normal5-10 Borderline>10 AbnormalPOCT-GLUCOSE [id number] 11:57:00* Test Item Value Reference Range Comments POC-GLUCOSE METER (BEAKER) (test crtu=9935) 340 mg/dL 70-110 TESTED AT [address] [address] POCT-GLUCOSE [id number] 06:25:00* Test Item Value Reference Range Comments POC-GLUCOSE METER (BEAKER) (test wabm=0642) 324 mg/dL 70-110 Notified NARENDRA SOTO/ TESTED AT [address] [address] CREATINE KINASE (CK), TOTAL AND [id number] 05:46:00* Test Item Value Reference Range Comments CREATINE KINASE TOTAL (BEAKER) (test qggc=640) 52 U/L 25-235 CREATINE KINASE-MB (BEAKER) (test lkwn=263) 1.0 ng/mL 0.0-4.9 CREATINE KINASE-MB INDEX (BEAKER) (test rzbp=346) 1.9 % CK-MB Reference Range:<5 Normal5-10 Borderline>10 AbnormalCOMPREHENSIVE METABOLIC [id number] 05:28:00* Test Item Value Reference Range Comments TOTAL PROTEIN (BEAKER) (test ycdx=609) 5.5 gm/dL 6.0-8.5 ALBUMIN (BEAKER) (test jvnc=9163) 3.0 g/dL 3.5-5.0 ALKALINE PHOSPHATASE (BEAKER) (test hzep=921) 63 U/L 30-115 BILIRUBIN TOTAL (BEAKER) (test qiut=910) 0.4 mg/dL 0.1-1.2 SODIUM (BEAKER) (test smda=267) 140 meq/L 135-148 POTASSIUM (BEAKER) (test fcfi=158) 4.2 meq/L 3.6-5.5 CHLORIDE (BEAKER) (test omhu=713) 104 meq/L 98-106 CO2 (BEAKER) (test uafn=206) 29 meq/L 20-29 BLOOD UREA NITROGEN (BEAKER) (test sbvz=484) 69 mg/dL 10-26 CREATININE (BEAKER) (test veeu=714) 2.10 mg/dL 0.50-1.20 GLUCOSE RANDOM (BEAKER) (test rois=078) 254 mg/dL 70-110 CALCIUM (BEAKER) (test gpxp=279) 8.8 mg/dL 8.5-10.5 AST (SGOT) (BEAKER) (test fcrx=924) 18 U/L 5-40 ALT (SGPT) (BEAKER) (test xjpx=071) 19 U/L 5-50 EGFR (BEAKER) (test ztxg=9807) 23 mL/min/1.73 sq m ESTIMATED GFR IS NOT ACCURATE CREATININE CLEARANCE IN PREDICTING GLOMERULAR FILTRATION RATE. ESTIMATED GFR IS NOT APPLICABLE FOR DIALYSIS PATIENTS. TROPONIN [id number] 05:25:00* Test Item Value Reference Range Comments TROPONIN I (BEAKER) (test feul=519) < ng/mL 0.00-0.15 Troponin I (TnI) levels must be interpreted [...] failure, acidosis, acute neurological disease, and persistent tachyarrhythmia.CBC W/PLT COUNT & AUTO [id number] 04:58:00* Test Item Value Reference Range Comments WHITE BLOOD CELL COUNT (BEAKER) (test fltq=262) 12.0 K/ L 4.0-10.0 RED BLOOD CELL COUNT (BEAKER) (test qquy=515) 2.79 M/ L 4.00-5.00 HEMOGLOBIN (BEAKER) (test feiq=148) 7.8 GM/DL 12.0-15.0 HEMATOCRIT (BEAKER) (test qqyv=336) 25.0 % 36.0-45.0 MEAN CORPUSCULAR VOLUME (BEAKER) (test goxy=622) 89.8 fL 82.0-99.0 MEAN CORPUSCULAR HEMOGLOBIN (BEAKER) (test etnx=224) 28.1 pg 27.0-33.0 MEAN CORPUSCULAR HEMOGLOBIN CONC (BEAKER) (test hmse=353) 31.3 GM/DL 32.0- 36.0 RED CELL DISTRIBUTION WIDTH (BEAKER) (test quew=824) 15.5 % 10.3-14.2 PLATELET COUNT (BEAKER) (test mkhh=479) 227 K/CU MM 150-430 MEAN PLATELET VOLUME (BEAKER) (test hetv=222) 8.8 fL 6.5-10.5 NUCLEATED RED BLOOD CELLS (BEAKER) (test crpu=278) 0 /100 WBC 0-0 NEUTROPHILS RELATIVE PERCENT (BEAKER) (test loju=972) 67 % LYMPHOCYTES RELATIVE PERCENT (BEAKER) (test bqid=861) 19 % MONOCYTES RELATIVE PERCENT (BEAKER) (test kexi=868) 11 % EOSINOPHILS RELATIVE PERCENT (BEAKER) (test pzke=082) 3 % BASOPHILS RELATIVE PERCENT (BEAKER) (test tavr=420) 0 % NEUTROPHILS ABSOLUTE COUNT (BEAKER) (test xrmz=370) 8.00 K/ L 1.80-8.00 LYMPHOCYTES ABSOLUTE COUNT (BEAKER) (test wcbf=439) 2.30 K/ L 1.48-4.50 MONOCYTES ABSOLUTE COUNT (BEAKER) (test gnen=050) 1.30 K/ L 0.00-1.30 EOSINOPHILS ABSOLUTE COUNT (BEAKER) (test pnok=240) 0.40 K/ L 0.00-0.50 BASOPHILS ABSOLUTE COUNT (BEAKER) (test jvia=678) 0.00 K/ L 0.00-0.20 POCT-GLUCOSE [id number] 01:07:00* Test Item Value Reference Range Comments POC-GLUCOSE METER (BEAKER) (test ogpy=3030) 177 mg/dL 70-110 TESTED AT [facility] [address] [place] [id number] TSH/FREE T4 IF [id number] 23:02:00* Test Item Value Reference Range Comments THYROID STIMULATING HORMONE (BEAKER) (test csdw=554) 1.29 uIU/mL 0.35-5.50 [id number] 22:35:00* Test Item Value Reference Range Comments AMMONIA (BEAKER) (test gxrv=319) < mol/L 17-80 [id number] 22:06:00* Test Item Value Reference Range Comments D-DIMER QUANTITATIVE (BEAKER) (test eesn=832) 1.72 MG/L FEU <0.50 REGARDING D-DIMER RESULTS: The 98% NPV (Negative Predictive Value) for DVT/PE exclusion is 0.50 mg/L FEU as suggested by the gaming worker and as approved by the FDA.URINALYSIS W/ [id number] 21:58:00* Test Item Value Reference Range Comments COLOR (BEAKER) (test tkzw=229) Yellow CLARITY (BEAKER) (test mame=698) Clear SPECIFIC GRAVITY UA (BEAKER) (test ibns=777) 1.010 1.001-1.035 PH UA (BEAKER) (test njyy=799) 5.5 5.0-8.0 PROTEIN UA (BEAKER) (test zmdi=136) 100 mg/dL Negative GLUCOSE UA (BEAKER) (test zjiv=948) Negative Negative KETONES UA (BEAKER) (test vqku=055) Negative Negative BILIRUBIN UA (BEAKER) (test ktlt=903) Negative Negative BLOOD UA (BEAKER) (test dkfw=398) Negative Negative NITRITE UA (BEAKER) (test xzwf=919) Negative Negative LEUKOCYTE ESTERASE UA (BEAKER) (test ctgj=766) Trace Negative UROBILINOGEN UA (BEAKER) (test wtki=973) 0.2 mg/dL 0.2-1.0 BACTERIA (BEAKER) (test gvdo=536) Few AMORPHOUS CRYSTALS (BEAKER) (test kknr=2636) Many RBC UA-MANUAL (BEAKER) (test djjp=4904) <5 /HPF WBC UA-MANUAL (BEAKER) (test wqbg=8612) <5 /HPF SQUAMOUS EPITHELIAL MANUAL (BEAKER) (test wybr=2899) <5 /HPF SOURCE(BEAKER) (test dzwm=4834) B-TYPE NATRIURETIC FACTOR (BNP)2016-08-07 20:16:00* Test Item Value Reference Range Comments B-TYPE NATRIURETIC PEPTIDE (BEAKER) (test hmif=981) 252 pg/mL 0-100 TROPONIN [id number] 20:15:00* Test Item Value Reference Range Comments TROPONIN I (BEAKER) (test rvji=357) 0.03 ng/mL 0.00-0.15 Troponin I (TnI) levels must be interpreted [...] failure, acidosis, acute neurological disease, and persistent tachyarrhythmia.CREATINE KINASE (CK), TOTAL AND [id number] 20:14:00* Test Item Value Reference Range Comments CREATINE KINASE TOTAL (BEAKER) (test gvcq=991) 72 U/L 25-235 CREATINE KINASE-MB (BEAKER) (test vxru=531) 0.9 ng/mL 0.0-4.9 CREATINE KINASE-MB INDEX (BEAKER) (test rdah=295) 1.3 % CK-MB Reference Range:<5 Normal5-10 Borderline>10 AbnormalCOMPREHENSIVE METABOLIC [id number] 20:09:00* Test Item Value Reference Range Comments TOTAL PROTEIN (BEAKER) (test yqoy=615) 5.9 gm/dL 6.0-8.5 ALBUMIN (BEAKER) (test ghni=3110) 3.2 g/dL 3.5-5.0 ALKALINE PHOSPHATASE (BEAKER) (test xchh=744) 69 U/L 30-115 BILIRUBIN TOTAL (BEAKER) (test dshq=371) 0.4 mg/dL 0.1-1.2 SODIUM (BEAKER) (test fqcq=344) 141 meq/L 135-148 POTASSIUM (BEAKER) (test wmys=892) 4.5 meq/L 3.6-5.5 CHLORIDE (BEAKER) (test seal=542) 105 meq/L 98-106 CO2 (BEAKER) (test jsdi=943) 28 meq/L 20-29 BLOOD UREA NITROGEN (BEAKER) (test tqsg=797) 71 mg/dL 10-26 CREATININE (BEAKER) (test oirw=108) 2.10 mg/dL 0.50-1.20 GLUCOSE RANDOM (BEAKER) (test vbxa=769) 167 mg/dL 70-110 CALCIUM (BEAKER) (test cxxk=140) 8.6 mg/dL 8.5-10.5 AST (SGOT) (BEAKER) (test crkf=814) 19 U/L 5-40 ALT (SGPT) (BEAKER) (test hyao=302) 21 U/L 5-50 EGFR (BEAKER) (test digz=3072) 23 mL/min/1.73 sq m ESTIMATED GFR IS NOT ACCURATE CREATININE CLEARANCE IN PREDICTING GLOMERULAR FILTRATION RATE. ESTIMATED GFR IS NOT APPLICABLE FOR DIALYSIS PATIENTS. [id number] 20:08:00* Test Item Value Reference Range Comments LIPASE (BEAKER) (test lzer=736) 41 U/L 6-51 PROTHROMBIN TIME/[id number] 20:03:00* Test Item Value Reference Range Comments PROTIME (BEAKER) (test fpoc=119) 10.7 seconds 9.3-12.0 INR (BEAKER) (test ylxm=914) 1.0 <=5.9 RECOMMENDED COUMADIN/WARFARIN INR THERAPY RANGESSTANDARD DOSE: 2.0 - 3.0 Includes: PROPHYLAXIS for venous thrombosis, systemic embolization; TREATMENT for venous thrombosis and/or pulmonary embolus.HIGH RISK: Target INR is 2.5-3.5 for patients with mechanical heart valves.[id number] 20:03:00* Test Item Value Reference Range Comments PARTIAL THROMBOPLASTIN TIME (BEAKER) (test hhgc=775) 26.3 seconds 23.0-35.0 CBC W/PLT COUNT & AUTO [id number] 19:52:00* Test Item Value Reference Range Comments WHITE BLOOD CELL COUNT (BEAKER) (test lxxw=826) 15.0 K/ L 4.0-10.0 RED BLOOD CELL COUNT (BEAKER) (test blre=879) 2.92 M/ L 4.00-5.00 HEMOGLOBIN (BEAKER) (test oktz=196) 8.2 GM/DL 12.0-15.0 HEMATOCRIT (BEAKER) (test uhes=036) 26.1 % 36.0-45.0 MEAN CORPUSCULAR VOLUME (BEAKER) (test sbms=226) 89.2 fL 82.0-99.0 MEAN CORPUSCULAR HEMOGLOBIN (BEAKER) (test vzrb=971) 28.2 pg 27.0-33.0 MEAN CORPUSCULAR HEMOGLOBIN CONC (BEAKER) (test rpxs=825) 31.6 GM/DL 32.0- 36.0 RED CELL DISTRIBUTION WIDTH (BEAKER) (test wljn=739) 15.7 % 10.3-14.2 PLATELET COUNT (BEAKER) (test hsyy=766) 245 K/CU MM 150-430 MEAN PLATELET VOLUME (BEAKER) (test iouv=825) 9.0 fL 6.5-10.5 NUCLEATED RED BLOOD CELLS (BEAKER) (test ckie=696) 0 /100 WBC 0-0 NEUTROPHILS RELATIVE PERCENT (BEAKER) (test cjkq=833) 79 % LYMPHOCYTES RELATIVE PERCENT (BEAKER) (test zjyb=416) 12 % MONOCYTES RELATIVE PERCENT (BEAKER) (test lcik=456) 7 % EOSINOPHILS RELATIVE PERCENT (BEAKER) (test ucus=169) 2 % BASOPHILS RELATIVE PERCENT (BEAKER) (test dbtk=684) 0 % NEUTROPHILS ABSOLUTE COUNT (BEAKER) (test eyxq=691) 11.90 K/ L 1.80-8.00 LYMPHOCYTES ABSOLUTE COUNT (BEAKER) (test sxuz=589) 1.70 K/ L 1.48-4.50 MONOCYTES ABSOLUTE COUNT (BEAKER) (test gohv=981) 1.10 K/ L 0.00-1.30 EOSINOPHILS ABSOLUTE COUNT (BEAKER) (test jtwr=019) 0.30 K/ L 0.00-0.50 BASOPHILS ABSOLUTE COUNT (BEAKER) (test tyfy=200) 0.00 K/ L 0.00-0.20 CBC W/PLT COUNT & AUTO [id number] 07:30:00* Test Item Value Reference Range Comments WHITE BLOOD CELL COUNT (BEAKER) (test lowt=418) 22.4 K/ L 4.0-10.0 RED BLOOD CELL COUNT (BEAKER) (test sntq=230) 3.15 M/ L 4.00-5.00 HEMOGLOBIN (BEAKER) (test tlyk=451) 9.1 GM/DL 12.0-15.0 HEMATOCRIT (BEAKER) (test nzka=100) 27.9 % 36.0-45.0 MEAN CORPUSCULAR VOLUME (BEAKER) (test yvtu=966) 88.6 fL 82.0-99.0 MEAN CORPUSCULAR HEMOGLOBIN (BEAKER) (test dkaz=318) 28.8 pg 27.0-33.0 MEAN CORPUSCULAR HEMOGLOBIN CONC (BEAKER) (test rojg=353) 32.5 GM/DL 32.0- 36.0 RED CELL DISTRIBUTION WIDTH (BEAKER) (test wyyi=407) 14.6 % 10.3-14.2 PLATELET COUNT (BEAKER) (test qmqa=863) 281 K/CU MM 150-430 MEAN PLATELET VOLUME (BEAKER) (test urll=263) 8.7 fL 6.5-10.5 NUCLEATED RED BLOOD CELLS (BEAKER) (test ezlf=876) 0 /100 WBC 0-0 (MANUAL DIFFERENTIAL)2016-08-01 07:30:00* Test Item Value Reference Range Comments NEUTROPHILS - REL (DIFF) (BEAKER) (test ltdo=7223) 81 % LYMPHOCYTES - REL (DIFF) (BEAKER) (test vemv=7506) 10 % MONOCYTES - REL (DIFF) (BEAKER) (test izbj=7731) 8 % BANDS - REL (DIFF) (BEAKER) (test rwvk=6352) 1 % 0-10 NEUTROPHILS - ABS (DIFF) (BEAKER) (test bnez=5140) 18.14 K/ L 1.80-8.00 LYMPHOCYTES - ABS (DIFF) (BEAKER) (test nwyk=9182) 2.24 K/ L 1.48-4.50 MONOCYTES - ABS (DIFF) (BEAKER) (test cxqd=1881) 1.79 K/ L 0.00-1.30 BANDS-ABS (DIFF) (BEAKER) (test hulu=7350) 0.2 K/ L 0.0-0.8 TOTAL COUNTED (BEAKER) (test zyxz=3530) 100 BANDS + SEGMENTED NEUTROPHILS (BEAKER) (test szzh=1459) 18.37 WBC MORPHOLOGY (BEAKER) (test nfsi=653) Normal PLT MORPHOLOGY (BEAKER) (test xaau=815) Normal RBC MORPHOLOGY (BEAKER) (test nlra=572) Normal POCT-GLUCOSE [id number] 06:38:00* Test Item Value Reference Range Comments POC-GLUCOSE METER (BEAKER) (test jwdh=4145) 369 mg/dL 70-110 TESTED AT [address] [address] BASIC METABOLIC [id number] 06:01:00* Test Item Value Reference Range Comments SODIUM (BEAKER) (test ykez=956) 141 meq/L 135-148 POTASSIUM (BEAKER) (test ywpv=219) 4.1 meq/L 3.6-5.5 CHLORIDE (BEAKER) (test yqqt=677) 106 meq/L 98-106 CO2 (BEAKER) (test lfdq=286) 23 meq/L 20-29 BLOOD UREA NITROGEN (BEAKER) (test exga=456) 84 mg/dL 10-26 CREATININE (BEAKER) (test dwod=128) 2.40 mg/dL 0.50-1.20 GLUCOSE RANDOM (BEAKER) (test cerb=276) 362 mg/dL 70-110 CALCIUM (BEAKER) (test pdwn=518) 8.8 mg/dL 8.5-10.5 EGFR (BEAKER) (test bueo=5201) 20 mL/min/1.73 sq m ESTIMATED GFR IS NOT ACCURATE CREATININE CLEARANCE IN PREDICTING GLOMERULAR FILTRATION RATE. ESTIMATED GFR IS NOT APPLICABLE FOR DIALYSIS PATIENTS. [id number] 21:05:00* Test Item Value Reference Range Comments GLUCOSE RANDOM (BEAKER) (test ojpe=072) 561 mg/dL 70-110 POCT-GLUCOSE [id number] 20:34:00* Test Item Value Reference Range Comments POC-GLUCOSE METER (BEAKER) (test aecm=6961) > mg/dL 70-110 OUTSIDE MEASURING RANGEWill Repeat Test/TESTED AT [address] [address] POCT-GLUCOSE [id number] 17:17:00* Test Item Value Reference Range Comments POC-GLUCOSE METER (BEAKER) (test nkny=1227) 483 mg/dL 70-110 TESTED AT [address] [address] POCT-GLUCOSE [id number] 14:37:00* Test Item Value Reference Range Comments POC-GLUCOSE METER (BEAKER) (test xfak=0048) 376 mg/dL 70-110 TESTED AT [address] [address] (MANUAL DIFFERENTIAL)2016-07-31 06:29:00* Test Item Value Reference Range Comments NEUTROPHILS - REL (DIFF) (BEAKER) (test ejpm=7083) 80 % LYMPHOCYTES - REL (DIFF) (BEAKER) (test rnxm=8113) 16 % MONOCYTES - REL (DIFF) (BEAKER) (test kjfq=0835) 2 % BANDS - REL (DIFF) (BEAKER) (test beno=7944) 2 % 0-10 NEUTROPHILS - ABS (DIFF) (BEAKER) (test bmbb=2255) 19.20 K/ L 1.80-8.00 LYMPHOCYTES - ABS (DIFF) (BEAKER) (test chfz=1311) 3.84 K/ L 1.48-4.50 MONOCYTES - ABS (DIFF) (BEAKER) (test ljhd=9390) 0.48 K/ L 0.00-1.30 BANDS-ABS (DIFF) (BEAKER) (test jhdh=1215) 0.5 K/ L 0.0-0.8 TOTAL COUNTED (BEAKER) (test wknw=0396) 100 BANDS + SEGMENTED NEUTROPHILS (BEAKER) (test istt=0500) 19.68 WBC MORPHOLOGY (BEAKER) (test rhpa=170) Normal PLT MORPHOLOGY (BEAKER) (test ujbm=847) Normal HYPOCHROMIA (BEAKER) (test rcyh=118) 1+ few POCT-GLUCOSE [id number] 06:27:00* Test Item Value Reference Range Comments POC-GLUCOSE METER ([facility]) (test qtgq=8772) 264 mg/dL 70-110 TESTED AT [address] [address] CBC W/PLT COUNT & AUTO [id number] 06:09:00* Test Item Value Reference Range Comments WHITE BLOOD CELL COUNT (BEAKER) (test jakz=312) 24.0 K/ L 4.0-10.0 RED BLOOD CELL COUNT (BEAKER) (test xiny=237) 3.27 M/ L 4.00-5.00 HEMOGLOBIN (BEAKER) (test fsoc=556) 9.3 GM/DL 12.0-15.0 HEMATOCRIT (BEAKER) (test eixp=972) 29.1 % 36.0-45.0 MEAN CORPUSCULAR VOLUME (BEAKER) (test yfcz=511) 88.8 fL 82.0-99.0 MEAN CORPUSCULAR HEMOGLOBIN (BEAKER) (test jmej=123) 28.4 pg 27.0-33.0 MEAN CORPUSCULAR HEMOGLOBIN CONC (BEAKER) (test xduc=335) 32.0 GM/DL 32.0- 36.0 RED CELL DISTRIBUTION WIDTH (BEAKER) (test lmfs=661) 14.5 % 10.3-14.2 PLATELET COUNT (BEAKER) (test mqcr=012) 292 K/CU MM 150-430 MEAN PLATELET VOLUME (BEAKER) (test wjft=984) 8.7 fL 6.5-10.5 NUCLEATED RED BLOOD CELLS (BEAKER) (test rzmr=408) 0 /100 WBC 0-0 NEUTROPHILS RELATIVE PERCENT (BEAKER) (test bueu=999) 86 % LYMPHOCYTES RELATIVE PERCENT (BEAKER) (test lqhi=940) 9 % MONOCYTES RELATIVE PERCENT (BEAKER) (test lxig=943) 5 % EOSINOPHILS RELATIVE PERCENT (BEAKER) (test gdfa=848) 0 % BASOPHILS RELATIVE PERCENT (BEAKER) (test zkkf=999) 0 % NEUTROPHILS ABSOLUTE COUNT (BEAKER) (test hnoi=382) 20.70 K/ L 1.80-8.00 LYMPHOCYTES ABSOLUTE COUNT (BEAKER) (test gnkh=057) 2.10 K/ L 1.48-4.50 MONOCYTES ABSOLUTE COUNT (BEAKER) (test zjco=627) 1.10 K/ L 0.00-1.30 EOSINOPHILS ABSOLUTE COUNT (BEAKER) (test doqo=016) 0.00 K/ L 0.00-0.50 BASOPHILS ABSOLUTE COUNT (BEAKER) (test unhj=202) 0.00 K/ L 0.00-0.20 BASIC METABOLIC [id number] 06:00:00* Test Item Value Reference Range Comments SODIUM (BEAKER) (test bumr=468) 143 meq/L 135-148 POTASSIUM (BEAKER) (test ylfe=476) 4.2 meq/L 3.6-5.5 CHLORIDE (BEAKER) (test ojeu=948) 105 meq/L 98-106 CO2 (BEAKER) (test awdi=585) 23 meq/L 20-29 BLOOD UREA NITROGEN (BEAKER) (test kypk=451) 80 mg/dL 10-26 CREATININE (BEAKER) (test hnrm=556) 2.50 mg/dL 0.50-1.20 GLUCOSE RANDOM (BEAKER) (test jmbz=411) 239 mg/dL 70-110 CALCIUM (BEAKER) (test jhcu=542) 9.0 mg/dL 8.5-10.5 EGFR (BEAKER) (test pctm=1572) 19 mL/min/1.73 sq m ESTIMATED GFR IS NOT ACCURATE CREATININE CLEARANCE IN PREDICTING GLOMERULAR FILTRATION RATE. ESTIMATED GFR IS NOT APPLICABLE FOR DIALYSIS PATIENTS. POCT-GLUCOSE [id number] 20:42:00* Test Item Value Reference Range Comments POC-GLUCOSE METER (BEAKER) (test rdgk=0451) 253 mg/dL 70-110 TESTED AT [address] [address] POCT-GLUCOSE [id number] 16:35:00* Test Item Value Reference Range Comments POC-GLUCOSE METER (BEAKER) (test adls=0878) 240 mg/dL 70-110 TESTED AT [address] [address] UREA NITROGEN, RANDOM [id number] 13:02:00* Test Item Value Reference Range Comments UREA NITROGEN URINE (BEAKER) (test hxrp=469) 614 mg/dL Reference Range: No NormalsPOCT-GLUCOSE [id number] 12:31:00* Test Item Value Reference Range Comments POC-GLUCOSE METER (BEAKER) (test seas=5956) 402 mg/dL 70-110 TESTED AT [address] [address] BASIC METABOLIC [id number] 06:38:00* Test Item Value Reference Range Comments SODIUM (BEAKER) (test lowe=524) 139 meq/L 135-148 POTASSIUM (BEAKER) (test ppav=979) 4.5 meq/L 3.6-5.5 CHLORIDE (BEAKER) (test bjtj=550) 102 meq/L 98-106 CO2 (BEAKER) (test tcvj=225) 27 meq/L 20-29 BLOOD UREA NITROGEN (BEAKER) (test bjzt=988) 67 mg/dL 10-26 CREATININE (BEAKER) (test zoho=212) 2.70 mg/dL 0.50-1.20 GLUCOSE RANDOM (BEAKER) (test ayef=432) 433 mg/dL 70-110 CALCIUM (BEAKER) (test eohc=939) 8.9 mg/dL 8.5-10.5 EGFR (BEAKER) (test yiua=4493) 18 mL/min/1.73 sq m ESTIMATED GFR IS NOT ACCURATE CREATININE CLEARANCE IN PREDICTING GLOMERULAR FILTRATION RATE. ESTIMATED GFR IS NOT APPLICABLE FOR DIALYSIS PATIENTS. POCT-GLUCOSE [id number] 06:25:00* Test Item Value Reference Range Comments POC-GLUCOSE METER (BEAKER) (test boid=7996) 427 mg/dL 70-110 Notified NARENDRA SOTO/ TESTED AT [facility] [address] [facility] [address] CBC W/PLT COUNT & AUTO [id number] 06:18:00* Test Item Value Reference Range Comments WHITE BLOOD CELL COUNT (BEAKER) (test duuc=577) 21.0 K/ L 4.0-10.0 RED BLOOD CELL COUNT (BEAKER) (test dpzp=258) 3.18 M/ L 4.00-5.00 HEMOGLOBIN (BEAKER) (test vsqs=789) 9.1 GM/DL 12.0-15.0 HEMATOCRIT (BEAKER) (test aeye=983) 28.4 % 36.0-45.0 MEAN CORPUSCULAR VOLUME (BEAKER) (test vcov=581) 89.3 fL 82.0-99.0 MEAN CORPUSCULAR HEMOGLOBIN (BEAKER) (test knei=362) 28.5 pg 27.0-33.0 MEAN CORPUSCULAR HEMOGLOBIN CONC (BEAKER) (test rpor=695) 31.9 GM/DL 32.0- 36.0 RED CELL DISTRIBUTION WIDTH (BEAKER) (test abbv=420) 14.5 % 10.3-14.2 PLATELET COUNT (BEAKER) (test xdpy=077) 277 K/CU MM 150-430 MEAN PLATELET VOLUME (BEAKER) (test gopf=451) 8.5 fL 6.5-10.5 NUCLEATED RED BLOOD CELLS (BEAKER) (test ruma=322) 0 /100 WBC 0-0 NEUTROPHILS RELATIVE PERCENT (BEAKER) (test zxos=414) 87 % LYMPHOCYTES RELATIVE PERCENT (BEAKER) (test aeji=833) 9 % MONOCYTES RELATIVE PERCENT (BEAKER) (test ancp=481) 5 % EOSINOPHILS RELATIVE PERCENT (BEAKER) (test ziqt=731) 0 % BASOPHILS RELATIVE PERCENT (BEAKER) (test yejx=866) 0 % NEUTROPHILS ABSOLUTE COUNT (BEAKER) (test znln=952) 18.30 K/ L 1.80-8.00 LYMPHOCYTES ABSOLUTE COUNT (BEAKER) (test ikxv=643) 1.80 K/ L 1.48-4.50 MONOCYTES ABSOLUTE COUNT (BEAKER) (test mogi=171) 1.00 K/ L 0.00-1.30 EOSINOPHILS ABSOLUTE COUNT (BEAKER) (test abgt=484) 0.00 K/ L 0.00-0.50 BASOPHILS ABSOLUTE COUNT (BEAKER) (test wysq=984) 0.00 K/ L 0.00-0.20 POCT-GLUCOSE [id number] 21:08:00* Test Item Value Reference Range Comments POC-GLUCOSE METER (BEAKER) (test vsqw=6032) 389 mg/dL 70-110 Notified NARENDRA SOTO/ TESTED AT [place] [address] POCT-GLUCOSE [id number] 17:01:00* Test Item Value Reference Range Comments POC-GLUCOSE METER ([facility]) (test tugx=8045) 406 mg/dL 70-110 TESTED AT [place] [address] CREATININE, RANDOM [id number] 15:41:00* Test Item Value Reference Range Comments CREATININE URINE ([facility]) (test buzc=908) 57.0 mg/dL Reference Range: No NormalsPOCT-GLUCOSE [id number] 11:15:00* Test Item Value Reference Range Comments POC-GLUCOSE METER (AKER) (test udsi=6746) 436 mg/dL 70-110 TESTED AT [address] [address] TROPONIN [id number] 07:01:00* Test Item Value Reference Range Comments TROPONIN I (BEAKER) (test aerr=434) < ng/mL 0.00-0.15 Troponin I (TnI) levels must be interpreted [...] failure, acidosis, acute neurological disease, and persistent tachyarrhythmia.BASIC METABOLIC [id number] 06:55:00 * Test Item Value Reference Range Comments SODIUM (BEAKER) (test woll=202) 142 meq/L 135-148 POTASSIUM (BEAKER) (test uhpg=061) 4.6 meq/L 3.6-5.5 CHLORIDE (BEAKER) (test qtdn=154) 102 meq/L 98-106 CO2 (BEAKER) (test hwlq=662) 26 meq/L 20-29 BLOOD UREA NITROGEN (BEAKER) (test dwnl=645) 56 mg/dL 10-26 CREATININE (BEAKER) (test fiyp=570) 2.50 mg/dL 0.50-1.20 GLUCOSE RANDOM (BEAKER) (test gypf=306) 405 mg/dL 70-110 CALCIUM (BEAKER) (test wyah=064) 9.3 mg/dL 8.5-10.5 EGFR (BEAKER) (test jmid=5616) 19 mL/min/1.73 sq m ESTIMATED GFR IS NOT ACCURATE CREATININE CLEARANCE IN PREDICTING GLOMERULAR FILTRATION RATE. ESTIMATED GFR IS NOT APPLICABLE FOR DIALYSIS PATIENTS. CBC W/PLT COUNT & AUTO [id number] 06:49:00* Test Item Value Reference Range Comments WHITE BLOOD CELL COUNT (BEAKER) (test hikn=421) 14.5 K/ L 4.0-10.0 RED BLOOD CELL COUNT (BEAKER) (test cioo=841) 3.40 M/ L 4.00-5.00 HEMOGLOBIN (BEAKER) (test uhhx=384) 9.7 GM/DL 12.0-15.0 HEMATOCRIT (BEAKER) (test fqtf=848) 30.0 % 36.0-45.0 MEAN CORPUSCULAR VOLUME (BEAKER) (test ebbe=225) 88.4 fL 82.0-99.0 MEAN CORPUSCULAR HEMOGLOBIN (BEAKER) (test zywr=766) 28.5 pg 27.0-33.0 MEAN CORPUSCULAR HEMOGLOBIN CONC (BEAKER) (test xvtg=756) 32.2 GM/DL 32.0- 36.0 RED CELL DISTRIBUTION WIDTH (BEAKER) (test ddsc=143) 14.1 % 10.3-14.2 PLATELET COUNT (BEAKER) (test uxlz=584) 285 K/CU MM 150-430 MEAN PLATELET VOLUME (BEAKER) (test bdlk=265) 8.9 fL 6.5-10.5 NUCLEATED RED BLOOD CELLS (BEAKER) (test zcxl=338) 0 /100 WBC 0-0 NEUTROPHILS RELATIVE PERCENT (BEAKER) (test uqiz=720) 90 % LYMPHOCYTES RELATIVE PERCENT (BEAKER) (test tkde=453) 9 % MONOCYTES RELATIVE PERCENT (BEAKER) (test hyra=052) 2 % EOSINOPHILS RELATIVE PERCENT (BEAKER) (test rzly=822) 0 % BASOPHILS RELATIVE PERCENT (BEAKER) (test azyx=054) 0 % NEUTROPHILS ABSOLUTE COUNT (BEAKER) (test fhst=965) 13.00 K/ L 1.80-8.00 LYMPHOCYTES ABSOLUTE COUNT (BEAKER) (test bwmk=631) 1.20 K/ L 1.48-4.50 MONOCYTES ABSOLUTE COUNT (BEAKER) (test zryh=986) 0.20 K/ L 0.00-1.30 EOSINOPHILS ABSOLUTE COUNT (BEAKER) (test knzc=329) 0.00 K/ L 0.00-0.50 BASOPHILS ABSOLUTE COUNT (BEAKER) (test eits=641) 0.00 K/ L 0.00-0.20 POCT-GLUCOSE [id number] 06:04:00* Test Item Value Reference Range Comments POC-GLUCOSE METER (BEAKER) (test pqdx=7588) 391 mg/dL 70-110 Procedure Error /TESTED AT [address] [address] TROPONIN [id number] 23:17:00* Test Item Value Reference Range Comments TROPONIN I (BEAKER) (test gdvb=740) < ng/mL 0.00-0.15 Troponin I (TnI) levels must be interpreted [...] failure, acidosis, acute neurological disease, and persistent tachyarrhythmia.POCT-GLUCOSE [id number] 20:57:00* Test Item Value Reference Range Comments POC-GLUCOSE METER (BEAKER) (test uhsh=1882) 307 mg/dL 70-110 Notified NARENDRA SOTO/ TESTED AT [facility] [address] [facility] [address] POCT-GLUCOSE [id number] 17:09:00* Test Item Value Reference Range Comments POC-GLUCOSE METER (BEAKER) (test wubj=4162) 125 mg/dL 70-110 TESTED AT [facility] [address] [facility] [address] HEPATIC FUNCTION [id number] 15:21:00* Test Item Value Reference Range Comments TOTAL PROTEIN (BEAKER) (test oipe=059) 6.7 gm/dL 6.0-8.5 ALBUMIN (BEAKER) (test xpxy=8869) 3.5 g/dL 3.5-5.0 BILIRUBIN TOTAL (BEAKER) (test fhmk=056) 0.5 mg/dL 0.1-1.2 BILIRUBIN DIRECT (BEAKER) (test qoju=159) 0.2 mg/dL 0.0-0.4 ALKALINE PHOSPHATASE (BEAKER) (test vood=529) 114 U/L 30-115 AST (SGOT) (BEAKER) (test qgul=414) 22 U/L 5-40 ALT (SGPT) (BEAKER) (test pzfp=624) 23 U/L 5-50 TROPONIN [id number] 14:29:00* Test Item Value Reference Range Comments TROPONIN I (BEAKER) (test jopv=156) < ng/mL 0.00-0.15 Troponin I (TnI) levels must be interpreted [...] failure, acidosis, acute neurological disease, and persistent tachyarrhythmia.CREATINE KINASE (CK), TOTAL AND [id number] 14:28:00* Test Item Value Reference Range Comments CREATINE KINASE TOTAL (BEAKER) (test ifko=199) 81 U/L 25-235 CREATINE KINASE-MB (BEAKER) (test qmfu=775) 1.2 ng/mL 0.0-4.9 CREATINE KINASE-MB INDEX (BEAKER) (test espr=376) 1.5 % CK-MB Reference Range:<5 Normal5-10 Borderline>10 AbnormalBASIC METABOLIC [id number] 14:24:00* Test Item Value Reference Range Comments SODIUM (BEAKER) (test ogtr=896) 145 meq/L 135-148 POTASSIUM (BEAKER) (test wtvb=258) 4.3 meq/L 3.6-5.5 CHLORIDE (BEAKER) (test uzfi=020) 106 meq/L 98-106 CO2 (BEAKER) (test hiih=370) 32 meq/L 20-29 BLOOD UREA NITROGEN (BEAKER) (test gzni=757) 55 mg/dL 10-26 CREATININE (BEAKER) (test bopr=742) 2.40 mg/dL 0.50-1.20 GLUCOSE RANDOM (BEAKER) (test inqf=225) 111 mg/dL 70-110 CALCIUM (BEAKER) (test dzyl=325) 9.3 mg/dL 8.5-10.5 EGFR (BEAKER) (test ahos=1967) 20 mL/min/1.73 sq m ESTIMATED GFR IS NOT ACCURATE CREATININE CLEARANCE IN PREDICTING GLOMERULAR FILTRATION RATE. ESTIMATED GFR IS NOT APPLICABLE FOR DIALYSIS PATIENTS. B-TYPE NATRIURETIC FACTOR (BNP)2016-07-28 14:24:00* Test Item Value Reference Range Comments B-TYPE NATRIURETIC PEPTIDE (BEAKER) (test etyg=335) 398 pg/mL 0-100 PT/[id number] 14:19:00* Test Item Value Reference Range Comments PROTIME (BEAKER) (test zwtl=031) 10.7 seconds 9.3-12.0 INR (BEAKER) (test qrnt=506) 1.0 <=5.9 PARTIAL THROMBOPLASTIN TIME (BEAKER) (test ydpi=993) 28.3 seconds 23.0-35.0 RECOMMENDED COUMADIN/WARFARIN INR THERAPY RANGESSTANDARD DOSE: 2.0 - 3.0 Includes: PROPHYLAXIS for venous thrombosis, systemic embolization; TREATMENT for venous thrombosis and/or pulmonary embolus.HIGH RISK: Target INR is 2.5-3.5 for patients with mechanical heart valves.[id number] 14:15:00* Test Item Value Reference Range Comments MAGNESIUM (BEAKER) (test kzhf=326) 2.5 mg/dL 1.5-3.0 CBC W/PLT COUNT & AUTO [id number] 14:12:00* Test Item Value Reference Range Comments WHITE BLOOD CELL COUNT (BEAKER) (test jtrx=260) 12.9 K/ L 4.0-10.0 RED BLOOD CELL COUNT (BEAKER) (test usap=382) 3.35 M/ L 4.00-5.00 HEMOGLOBIN (BEAKER) (test msbq=584) 9.4 GM/DL 12.0-15.0 HEMATOCRIT (BEAKER) (test yffn=136) 29.5 % 36.0-45.0 MEAN CORPUSCULAR VOLUME (BEAKER) (test exie=692) 88.0 fL 82.0-99.0 MEAN CORPUSCULAR HEMOGLOBIN (BEAKER) (test grdq=212) 28.2 pg 27.0-33.0 MEAN CORPUSCULAR HEMOGLOBIN CONC (BEAKER) (test mkco=848) 32.0 GM/DL 32.0- 36.0 RED CELL DISTRIBUTION WIDTH (BEAKER) (test swkw=904) 14.6 % 10.3-14.2 PLATELET COUNT (BEAKER) (test alqj=155) 288 K/CU MM 150-430 MEAN PLATELET VOLUME (BEAKER) (test xvuf=839) 8.5 fL 6.5-10.5 NUCLEATED RED BLOOD CELLS (BEAKER) (test sdsy=463) 0 /100 WBC 0-0 NEUTROPHILS RELATIVE PERCENT (BEAKER) (test edlc=607) 70 % LYMPHOCYTES RELATIVE PERCENT (BEAKER) (test hhnm=276) 18 % MONOCYTES RELATIVE PERCENT (BEAKER) (test miko=973) 8 % EOSINOPHILS RELATIVE PERCENT (BEAKER) (test rxds=267) 3 % BASOPHILS RELATIVE PERCENT (BEAKER) (test ofxe=550) 0 % NEUTROPHILS ABSOLUTE COUNT (BEAKER) (test fqdx=974) 9.00 K/ L 1.80-8.00 LYMPHOCYTES ABSOLUTE COUNT (BEAKER) (test afpk=095) 2.30 K/ L 1.48-4.50 MONOCYTES ABSOLUTE COUNT (BEAKER) (test fyea=539) 1.10 K/ L 0.00-1.30 EOSINOPHILS ABSOLUTE COUNT (BEAKER) (test lmhl=643) 0.40 K/ L 0.00-0.50 BASOPHILS ABSOLUTE COUNT (BEAKER) (test tjmm=446) 0.10 K/ L 0.00-0.20 POCT-GLUCOSE [id number] 11:56:00* Test Item Value Reference Range Comments POC-GLUCOSE METER (BEAKER) (test godm=5571) 197 mg/dL 70-110 TESTED AT [address] [address] BASIC METABOLIC [id number] 09:48:00* Test Item Value Reference Range Comments SODIUM (BEAKER) (test qvmr=033) 145 meq/L 135-148 POTASSIUM (BEAKER) (test kvmn=015) 4.0 meq/L 3.6-5.5 CHLORIDE (BEAKER) (test ivfs=175) 103 meq/L 98-106 CO2 (BEAKER) (test mdpr=083) 31 meq/L 20-29 BLOOD UREA NITROGEN (BEAKER) (test rwkq=683) 37 mg/dL 10-26 CREATININE (BEAKER) (test ocob=049) 1.70 mg/dL 0.50-1.20 GLUCOSE RANDOM (BEAKER) (test qzer=902) 77 mg/dL 70-110 CALCIUM (BEAKER) (test afeq=013) 8.5 mg/dL 8.5-10.5 EGFR (BEAKER) (test flyw=3074) 30 mL/min/1.73 sq m ESTIMATED GFR IS NOT ACCURATE CREATININE CLEARANCE IN PREDICTING GLOMERULAR FILTRATION RATE. ESTIMATED GFR IS NOT APPLICABLE FOR DIALYSIS PATIENTS. POCT-GLUCOSE [id number] 08:18:00* Test Item Value Reference Range Comments POC-GLUCOSE METER (BEAKER) (test jxyd=2745) 97 mg/dL 70-110 TESTED AT [address] [address] POCT-GLUCOSE [id number] 21:27:00* Test Item Value Reference Range Comments POC-GLUCOSE METER (BEAKER) (test oofn=3390) 185 mg/dL 70-110 TESTED AT [address] [address] POCT-GLUCOSE [id number] 18:19:00* Test Item Value Reference Range Comments POC-GLUCOSE METER (BEAKER) (test whzi=8881) 68 mg/dL 70-110 Will Repeat Test /TESTED AT [place] [address] [facility] [address] POCT-GLUCOSE [id number] 12:12:00* Test Item Value Reference Range Comments POC-GLUCOSE METER (BEAKER) (test lzzc=0742) 97 mg/dL 70-110 TESTED AT [facility] [address] [facility] [address] POCT-GLUCOSE [id number] 08:06:00* Test Item Value Reference Range Comments POC-GLUCOSE METER (BEAKER) (test ofno=3212) 133 mg/dL 70-110 TESTED AT [facility] [address] [place] [address] TROPONIN [id number] 05:54:00* Test Item Value Reference Range Comments TROPONIN I (BEAKER) (test lfle=936) < ng/mL 0.00-0.15 Troponin I (TnI) levels must be interpreted [...] failure, acidosis, acute neurological disease, and persistent tachyarrhythmia.CREATINE KINASE (CK), TOTAL AND [id number] 05:53:00* Test Item Value Reference Range Comments CREATINE KINASE TOTAL (BEAKER) (test qark=906) 42 U/L 25-235 CREATINE KINASE-MB (BEAKER) (test qigf=904) 1.1 ng/mL 0.0-4.9 CREATINE KINASE-MB INDEX (BEAKER) (test ohjk=307) 2.6 % CK-MB Reference Range:<5 Normal5-10 Borderline>10 AbnormalBASIC METABOLIC [id number] 05:52:00* Test Item Value Reference Range Comments SODIUM (BEAKER) (test cket=944) 147 meq/L 135-148 POTASSIUM (BEAKER) (test twiy=263) 4.0 meq/L 3.6-5.5 CHLORIDE (BEAKER) (test sqdj=559) 105 meq/L 98-106 CO2 (BEAKER) (test dpwe=186) 32 meq/L 20-29 BLOOD UREA NITROGEN (BEAKER) (test hjcc=521) 40 mg/dL 10-26 CREATININE (BEAKER) (test tkwt=084) 1.90 mg/dL 0.50-1.20 GLUCOSE RANDOM (BEAKER) (test ritb=871) 195 mg/dL 70-110 CALCIUM (BEAKER) (test wtsg=603) 8.3 mg/dL 8.5-10.5 EGFR (BEAKER) (test amyk=6268) 26 mL/min/1.73 sq m ESTIMATED GFR IS NOT ACCURATE CREATININE CLEARANCE IN PREDICTING GLOMERULAR FILTRATION RATE. ESTIMATED GFR IS NOT APPLICABLE FOR DIALYSIS PATIENTS. HEPATIC FUNCTION [id number] 05:46:00* Test Item Value Reference Range Comments TOTAL PROTEIN (BEAKER) (test axuh=920) 5.8 gm/dL 6.0-8.5 ALBUMIN (BEAKER) (test qjtg=4185) 3.0 g/dL 3.5-5.0 BILIRUBIN TOTAL (BEAKER) (test lxxr=421) 0.2 mg/dL 0.1-1.2 BILIRUBIN DIRECT (BEAKER) (test iabc=404) 0.1 mg/dL 0.0-0.4 ALKALINE PHOSPHATASE (BEAKER) (test dgub=585) 96 U/L 30-115 AST (SGOT) (BEAKER) (test eoco=550) 17 U/L 5-40 ALT (SGPT) (BEAKER) (test sdco=003) 17 U/L 5-50 CBC W/PLT COUNT & AUTO [id number] 05:45:00* Test Item Value Reference Range Comments WHITE BLOOD CELL COUNT (BEAKER) (test qieh=815) 8.7 K/ L 4.0-10.0 RED BLOOD CELL COUNT (BEAKER) (test wstv=670) 3.13 M/ L 4.00-5.00 HEMOGLOBIN (BEAKER) (test cchp=470) 8.9 GM/DL 12.0-15.0 HEMATOCRIT (BEAKER) (test apit=931) 27.8 % 36.0-45.0 MEAN CORPUSCULAR VOLUME (BEAKER) (test sjqk=900) 88.8 fL 82.0-99.0 MEAN CORPUSCULAR HEMOGLOBIN (BEAKER) (test xvtg=298) 28.2 pg 27.0-33.0 MEAN CORPUSCULAR HEMOGLOBIN CONC (BEAKER) (test yqvo=814) 31.8 GM/DL 32.0- 36.0 RED CELL DISTRIBUTION WIDTH (BEAKER) (test rzxe=060) 14.7 % 10.3-14.2 PLATELET COUNT (BEAKER) (test ermd=863) 299 K/CU MM 150-430 MEAN PLATELET VOLUME (BEAKER) (test fdig=939) 8.3 fL 6.5-10.5 NUCLEATED RED BLOOD CELLS (BEAKER) (test unha=435) 0 /100 WBC 0-0 NEUTROPHILS RELATIVE PERCENT (BEAKER) (test cuih=461) 60 % LYMPHOCYTES RELATIVE PERCENT (BEAKER) (test quzm=685) 24 % MONOCYTES RELATIVE PERCENT (BEAKER) (test oily=830) 11 % EOSINOPHILS RELATIVE PERCENT (BEAKER) (test lmhx=392) 5 % BASOPHILS RELATIVE PERCENT (BEAKER) (test xbsw=401) 0 % NEUTROPHILS ABSOLUTE COUNT (BEAKER) (test wliy=547) 5.20 K/ L 1.80-8.00 LYMPHOCYTES ABSOLUTE COUNT (BEAKER) (test rbdf=833) 2.10 K/ L 1.48-4.50 MONOCYTES ABSOLUTE COUNT (BEAKER) (test nmjs=472) 0.90 K/ L 0.00-1.30 EOSINOPHILS ABSOLUTE COUNT (BEAKER) (test rsrr=475) 0.40 K/ L 0.00-0.50 BASOPHILS ABSOLUTE COUNT (BEAKER) (test gocr=180) 0.00 K/ L 0.00-0.20 TROPONIN [id number] 00:00:00* Test Item Value Reference Range Comments TROPONIN I (BEAKER) (test ogem=752) < ng/mL 0.00-0.15 Troponin I (TnI) levels must be interpreted [...] failure, acidosis, acute neurological disease, and persistent tachyarrhythmia.CREATINE KINASE (CK), TOTAL AND [id number] 23:59:00* Test Item Value Reference Range Comments CREATINE KINASE TOTAL (BEAKER) (test veig=559) 51 U/L 25-235 CREATINE KINASE-MB (BEAKER) (test bdph=719) 1.3 ng/mL 0.0-4.9 CREATINE KINASE-MB INDEX (BEAKER) (test pqfp=720) 2.5 % CK-MB Reference Range:<5 Normal5-10 Borderline>10 AbnormalPOCT-GLUCOSE [id number] 21:14:00* Test Item Value Reference Range Comments POC-GLUCOSE METER (BEAKER) (test jcui=4443) 223 mg/dL 70-110 TESTED AT [facility] [address] [place] [address] [id number] 16:44:00* Test Item Value Reference Range Comments D-DIMER QUANTITATIVE (BEAKER) (test zwzj=138) 2.14 MG/L FEU <0.50 REGARDING D-DIMER RESULTS: The 98% NPV (Negative Predictive Value) for DVT/PE exclusion is 0.50 mg/L FEU as suggested by the gaming worker and as approved by the FDA.CREATINE KINASE (CK), TOTAL AND [id number] 16:40:00* Test Item Value Reference Range Comments CREATINE KINASE TOTAL (BEAKER) (test iiqa=904) 50 U/L 25-235 CREATINE KINASE-MB (BEAKER) (test vhlc=825) 1.2 ng/mL 0.0-4.9 CREATINE KINASE-MB INDEX (BEAKER) (test alhk=981) 2.4 % CK-MB Reference Range:<5 Normal5-10 Borderline>10 AbnormalTROPONIN [id number] 16:40:00* Test Item Value Reference Range Comments TROPONIN I (BEAKER) (test deqk=873) < ng/mL 0.00-0.15 Troponin I (TnI) levels must be interpreted [...] failure, acidosis, acute neurological disease, and persistent tachyarrhythmia.B-TYPE NATRIURETIC FACTOR (BNP) 16:39:00* Test Item Value Reference Range Comments B-TYPE NATRIURETIC PEPTIDE (BEAKER) (test kvxr=422) 231 pg/mL 0-100 BASIC METABOLIC [id number] 16:38:00* Test Item Value Reference Range Comments SODIUM (BEAKER) (test hjzs=873) 145 meq/L 135-148 POTASSIUM (BEAKER) (test mnfm=758) 5.0 meq/L 3.6-5.5 CHLORIDE (BEAKER) (test uvfc=352) 103 meq/L 98-106 CO2 (BEAKER) (test cbct=842) 31 meq/L 20-29 BLOOD UREA NITROGEN (BEAKER) (test yvwc=702) 40 mg/dL 10-26 CREATININE (BEAKER) (test zdlp=075) 2.10 mg/dL 0.50-1.20 GLUCOSE RANDOM (BEAKER) (test rntv=293) 285 mg/dL 70-110 CALCIUM (BEAKER) (test lmdr=659) 8.5 mg/dL 8.5-10.5 EGFR (BEAKER) (test zyce=6216) 23 mL/min/1.73 sq m ESTIMATED GFR IS NOT ACCURATE CREATININE CLEARANCE IN PREDICTING GLOMERULAR FILTRATION RATE. ESTIMATED GFR IS NOT APPLICABLE FOR DIALYSIS PATIENTS. [id number] 16:29:00* Test Item Value Reference Range Comments PROTIME (BEAKER) (test trdb=257) 10.5 seconds 9.3-12.0 INR (BEAKER) (test gyru=158) 1.0 <=5.9 PARTIAL THROMBOPLASTIN TIME (BEAKER) (test uhns=483) 26.7 seconds 23.0-35.0 RECOMMENDED COUMADIN/WARFARIN INR THERAPY RANGESSTANDARD DOSE: 2.0 - 3.0 Includes: PROPHYLAXIS for venous thrombosis, systemic embolization; TREATMENT for venous thrombosis and/or pulmonary embolus.HIGH RISK: Target INR is 2.5-3.5 for patients with mechanical heart valves.[id number] 16:25:00* Test Item Value Reference Range Comments MAGNESIUM (BEAKER) (test widj=236) 1.9 mg/dL 1.5-3.0 CBC W/PLT COUNT & AUTO [id number] 16:17:00* Test Item Value Reference Range Comments WHITE BLOOD CELL COUNT (BEAKER) (test hjcp=146) 10.5 K/ L 4.0-10.0 RED BLOOD CELL COUNT (BEAKER) (test jcqk=763) 3.39 M/ L 4.00-5.00 HEMOGLOBIN (BEAKER) (test ncgk=034) 9.6 GM/DL 12.0-15.0 HEMATOCRIT (BEAKER) (test bctz=823) 30.2 % 36.0-45.0 MEAN CORPUSCULAR VOLUME (BEAKER) (test yved=926) 89.2 fL 82.0-99.0 MEAN CORPUSCULAR HEMOGLOBIN (BEAKER) (test zcna=669) 28.2 pg 27.0-33.0 MEAN CORPUSCULAR HEMOGLOBIN CONC (BEAKER) (test hzja=178) 31.6 GM/DL 32.0- 36.0 RED CELL DISTRIBUTION WIDTH (BEAKER) (test pnzh=236) 15.0 % 10.3-14.2 PLATELET COUNT (BEAKER) (test taic=595) 320 K/CU MM 150-430 MEAN PLATELET VOLUME (BEAKER) (test rxav=753) 8.6 fL 6.5-10.5 NUCLEATED RED BLOOD CELLS (BEAKER) (test wmeh=957) 0 /100 WBC 0-0 NEUTROPHILS RELATIVE PERCENT (BEAKER) (test lrrd=254) 68 % LYMPHOCYTES RELATIVE PERCENT (BEAKER) (test vtry=090) 20 % MONOCYTES RELATIVE PERCENT (BEAKER) (test mtmp=361) 8 % EOSINOPHILS RELATIVE PERCENT (BEAKER) (test ahms=123) 4 % BASOPHILS RELATIVE PERCENT (BEAKER) (test upaz=010) 1 % NEUTROPHILS ABSOLUTE COUNT (BEAKER) (test jqtw=745) 7.10 K/ L 1.80-8.00 LYMPHOCYTES ABSOLUTE COUNT (BEAKER) (test ygij=031) 2.10 K/ L 1.48-4.50 MONOCYTES ABSOLUTE COUNT (BEAKER) (test iplr=021) 0.80 K/ L 0.00-1.30 EOSINOPHILS ABSOLUTE COUNT (BEAKER) (test gjsh=112) 0.40 K/ L 0.00-0.50 BASOPHILS ABSOLUTE COUNT (BEAKER) (test xnmb=125) 0.10 K/ L 0.00-0.20 POCT-GLUCOSE [id number] 13:11:00* Test Item Value Reference Range Comments POC-GLUCOSE METER (BEAKER) (test jlqe=1744) 153 mg/dL 70-110 TESTED AT [facility] [address] [facility] [address] BASIC METABOLIC [id number] 05:38:00* Test Item Value Reference Range Comments SODIUM (BEAKER) (test hkzk=371) 138 meq/L 135-148 POTASSIUM (BEAKER) (test phch=085) 4.3 meq/L 3.5-5.5 CHLORIDE (BEAKER) (test oubo=606) 107 meq/L 98-106 CO2 (BEAKER) (test nijw=886) 19 meq/L 20-31 BLOOD UREA NITROGEN (BEAKER) (test axnf=648) 64 mg/dL 10-26 CREATININE (BEAKER) (test ziyl=079) 2.21 mg/dL 0.50-1.20 GLUCOSE RANDOM (BEAKER) (test zftp=492) 140 mg/dL 70-110 CALCIUM (BEAKER) (test rpgk=642) 9.0 mg/dL 8.5-10.5 EGFR (BEAKER) (test lczd=3051) 22 mL/min/1.73 sq m ESTIMATED GFR IS NOT ACCURATE CREATININE CLEARANCE IN PREDICTING GLOMERULAR FILTRATION RATE. ESTIMATED GFR IS NOT APPLICABLE FOR DIALYSIS PATIENTS. CBC W/PLT COUNT & AUTO [id number] 05:20:00* Test Item Value Reference Range Comments WHITE BLOOD CELL COUNT (BEAKER) (test mftw=826) 13.1 K/ L 4.0-10.0 RED BLOOD CELL COUNT (BEAKER) (test qwmb=595) 3.57 M/ L 4.00-5.00 HEMOGLOBIN (BEAKER) (test zczw=716) 10.5 GM/DL 12.0-15.0 Discordant result compared to previous result. Clinical correlation required. HEMATOCRIT (BEAKER) (test plkx=189) 31.9 % 36.0-45.0 MEAN CORPUSCULAR VOLUME (BEAKER) (test wdmc=989) 89.2 fL 82.0-99.0 MEAN CORPUSCULAR HEMOGLOBIN (BEAKER) (test mjth=706) 29.2 pg 27.0-33.0 MEAN CORPUSCULAR HEMOGLOBIN CONC (BEAKER) (test yint=744) 32.8 GM/DL 32.0- 36.0 RED CELL DISTRIBUTION WIDTH (BEAKER) (test mqgf=861) 15.4 % 12.0-15.0 PLATELET COUNT (BEAKER) (test hycs=610) 283 K/CU MM 150-430 MEAN PLATELET VOLUME (BEAKER) (test hshj=844) 8.0 fL 6.5-10.5 NUCLEATED RED BLOOD CELLS (BEAKER) (test dqwg=042) 0 /100 WBC 0-0 NEUTROPHILS RELATIVE PERCENT (BEAKER) (test fytk=089) 80 % LYMPHOCYTES RELATIVE PERCENT (BEAKER) (test idzq=119) 11 % MONOCYTES RELATIVE PERCENT (BEAKER) (test ieem=881) 7 % EOSINOPHILS RELATIVE PERCENT (BEAKER) (test jxzk=543) 1 % BASOPHILS RELATIVE PERCENT (BEAKER) (test oinb=316) 1 % NEUTROPHILS ABSOLUTE COUNT (BEAKER) (test atqn=090) 10.40 K/ L 1.80-8.00 LYMPHOCYTES ABSOLUTE COUNT (BEAKER) (test yuwp=332) 1.50 K/ L 1.48-4.50 MONOCYTES ABSOLUTE COUNT (BEAKER) (test jvzi=315) 0.90 K/ L 0.00-1.30 EOSINOPHILS ABSOLUTE COUNT (BEAKER) (test vhxc=037) 0.20 K/ L 0.00-0.50 BASOPHILS ABSOLUTE COUNT (BEAKER) (test ztnp=643) 0.10 K/ L 0.00-0.20 POCT-GLUCOSE [id number] 05:17:00* Test Item Value Reference Range Comments POC-GLUCOSE METER (BEAKER) (test hsqb=9644) 143 mg/dL 70-110 TESTED AT [address] [address] POCT-GLUCOSE [id number] 20:53:00* Test Item Value Reference Range Comments POC-GLUCOSE METER (BEAKER) (test pthr=8285) 144 mg/dL 70-110 TESTED AT [facility] [id number] [place] [address] POCT-GLUCOSE [id number] 17:41:00* Test Item Value Reference Range Comments POC-GLUCOSE METER (BEAKER) (test oysx=1243) 239 mg/dL 70-110 TESTED AT [address] [address] POCT-GLUCOSE [id number] 13:19:00* Test Item Value Reference Range Comments POC-GLUCOSE METER (BEAKER) (test medw=4498) 188 mg/dL 70-110 TESTED AT [facility] [address] [facility] [address] POCT-GLUCOSE [id number] 06:14:00* Test Item Value Reference Range Comments POC-GLUCOSE METER (BEAKER) (test uyzq=1703) 302 mg/dL 70-110 TESTED AT [facility] [address] [facility] [address] BASIC METABOLIC [id number] 05:22:00* Test Item Value Reference Range Comments SODIUM (BEAKER) (test srho=380) 136 meq/L 135-148 POTASSIUM (BEAKER) (test idjn=843) 4.3 meq/L 3.5-5.5 CHLORIDE (BEAKER) (test gccg=244) 106 meq/L 98-106 CO2 (BEAKER) (test xlcu=012) 19 meq/L 20-31 BLOOD UREA NITROGEN (BEAKER) (test ffsf=572) 60 mg/dL 10-26 CREATININE (BEAKER) (test egyt=420) 2.31 mg/dL 0.50-1.20 GLUCOSE RANDOM (BEAKER) (test pkfv=002) 252 mg/dL 70-110 CALCIUM (BEAKER) (test tfav=863) 8.3 mg/dL 8.5-10.5 EGFR (BEAKER) (test xwbt=6407) 21 mL/min/1.73 sq m ESTIMATED GFR IS NOT ACCURATE CREATININE CLEARANCE IN PREDICTING GLOMERULAR FILTRATION RATE. ESTIMATED GFR IS NOT APPLICABLE FOR DIALYSIS PATIENTS. CBC W/PLT COUNT & AUTO [id number] 04:52:00* Test Item Value Reference Range Comments WHITE BLOOD CELL COUNT (BEAKER) (test geib=163) 10.7 K/ L 4.0-10.0 RED BLOOD CELL COUNT (BEAKER) (test bdam=571) 2.62 M/ L 4.00-5.00 HEMOGLOBIN (BEAKER) (test kfuq=937) 7.4 GM/DL 12.0-15.0 HEMATOCRIT (BEAKER) (test bzrv=977) 23.0 % 36.0-45.0 MEAN CORPUSCULAR VOLUME (BEAKER) (test cxri=281) 87.7 fL 82.0-99.0 MEAN CORPUSCULAR HEMOGLOBIN (BEAKER) (test btob=319) 28.1 pg 27.0-33.0 MEAN CORPUSCULAR HEMOGLOBIN CONC (BEAKER) (test lnao=518) 32.1 GM/DL 32.0- 36.0 RED CELL DISTRIBUTION WIDTH (BEAKER) (test jkzo=978) 16.1 % 12.0-15.0 PLATELET COUNT (BEAKER) (test ipxs=589) 266 K/CU MM 150-430 MEAN PLATELET VOLUME (BEAKER) (test ulsx=937) 8.1 fL 6.5-10.5 NUCLEATED RED BLOOD CELLS (BEAKER) (test xado=904) 0 /100 WBC 0-0 NEUTROPHILS RELATIVE PERCENT (BEAKER) (test wfpy=712) 69 % LYMPHOCYTES RELATIVE PERCENT (BEAKER) (test rhfb=669) 19 % MONOCYTES RELATIVE PERCENT (BEAKER) (test iqgx=648) 10 % EOSINOPHILS RELATIVE PERCENT (BEAKER) (test pgel=141) 2 % BASOPHILS RELATIVE PERCENT (BEAKER) (test syzt=495) 0 % NEUTROPHILS ABSOLUTE COUNT (BEAKER) (test unif=452) 7.40 K/ L 1.80-8.00 LYMPHOCYTES ABSOLUTE COUNT (BEAKER) (test dssl=505) 2.00 K/ L 1.48-4.50 MONOCYTES ABSOLUTE COUNT (BEAKER) (test weva=964) 1.10 K/ L 0.00-1.30 EOSINOPHILS ABSOLUTE COUNT (BEAKER) (test dkeh=836) 0.20 K/ L 0.00-0.50 BASOPHILS ABSOLUTE COUNT (BEAKER) (test uutt=045) 0.00 K/ L 0.00-0.20 POCT-GLUCOSE [id number] 21:18:00* Test Item Value Reference Range Comments POC-GLUCOSE METER (BEAKER) (test ziep=5920) 375 mg/dL 70-110 Notified NARENDRA SOTO/ TESTED AT [facility] [address] [facility] [address] HEMOGLOBIN AND [id number] 14:31:00* Test Item Value Reference Range Comments HEMOGLOBIN (BEAKER) (test rdxm=554) 8.1 GM/DL 12.0-15.0 HEMATOCRIT (BEAKER) (test memt=357) 25.1 % 36.0-45.0 POCT-GLUCOSE [id number] 10:48:00* Test Item Value Reference Range Comments POC-GLUCOSE METER (BEAKER) (test ykea=1621) 209 mg/dL 70-110 TESTED AT [facility] [address] [facility] [address] BASIC METABOLIC [id number] 03:56:00* Test Item Value Reference Range Comments SODIUM (BEAKER) (test lmqm=552) 140 meq/L 135-148 POTASSIUM (BEAKER) (test jxyj=975) 4.5 meq/L 3.5-5.5 CHLORIDE (BEAKER) (test ngnh=458) 107 meq/L 98-106 CO2 (BEAKER) (test jpmw=856) 21 meq/L 20-31 BLOOD UREA NITROGEN (BEAKER) (test rhux=782) 63 mg/dL 10-26 CREATININE (BEAKER) (test uebc=475) 2.23 mg/dL 0.50-1.20 GLUCOSE RANDOM (BEAKER) (test kljy=550) 191 mg/dL 70-110 CALCIUM (BEAKER) (test imgk=339) 8.5 mg/dL 8.5-10.5 EGFR (BEAKER) (test gnet=8572) 22 mL/min/1.73 sq m ESTIMATED GFR IS NOT ACCURATE CREATININE CLEARANCE IN PREDICTING GLOMERULAR FILTRATION RATE. ESTIMATED GFR IS NOT APPLICABLE FOR DIALYSIS PATIENTS. CBC W/PLT COUNT & AUTO [id number] 03:25:00* Test Item Value Reference Range Comments WHITE BLOOD CELL COUNT (BEAKER) (test nzth=512) 11.4 K/ L 4.0-10.0 RED BLOOD CELL COUNT (BEAKER) (test ktvo=683) 2.80 M/ L 4.00-5.00 HEMOGLOBIN (BEAKER) (test rsxu=660) 7.9 GM/DL 12.0-15.0 HEMATOCRIT (BEAKER) (test aejm=009) 24.3 % 36.0-45.0 MEAN CORPUSCULAR VOLUME (BEAKER) (test gufz=349) 86.9 fL 82.0-99.0 MEAN CORPUSCULAR HEMOGLOBIN (BEAKER) (test aeek=403) 28.2 pg 27.0-33.0 MEAN CORPUSCULAR HEMOGLOBIN CONC (BEAKER) (test hzrv=080) 32.5 GM/DL 32.0- 36.0 RED CELL DISTRIBUTION WIDTH (BEAKER) (test uhrv=367) 16.1 % 12.0-15.0 PLATELET COUNT (BEAKER) (test uinx=727) 259 K/CU MM 150-430 MEAN PLATELET VOLUME (BEAKER) (test wkuz=647) 7.5 fL 6.5-10.5 NUCLEATED RED BLOOD CELLS (BEAKER) (test tmoi=768) 0 /100 WBC 0-0 NEUTROPHILS RELATIVE PERCENT (BEAKER) (test dmnt=098) 80 % LYMPHOCYTES RELATIVE PERCENT (BEAKER) (test cggs=068) 12 % MONOCYTES RELATIVE PERCENT (BEAKER) (test ifdi=413) 7 % EOSINOPHILS RELATIVE PERCENT (BEAKER) (test fojw=344) 2 % BASOPHILS RELATIVE PERCENT (BEAKER) (test rdek=689) 0 % NEUTROPHILS ABSOLUTE COUNT (BEAKER) (test dnud=325) 9.10 K/ L 1.80-8.00 LYMPHOCYTES ABSOLUTE COUNT (BEAKER) (test vxsl=440) 1.30 K/ L 1.48-4.50 MONOCYTES ABSOLUTE COUNT (BEAKER) (test ihif=174) 0.70 K/ L 0.00-1.30 EOSINOPHILS ABSOLUTE COUNT (BEAKER) (test nvxn=273) 0.20 K/ L 0.00-0.50 BASOPHILS ABSOLUTE COUNT (BEAKER) (test quod=385) 0.00 K/ L 0.00-0.20 POCT-GLUCOSE [id number] 20:40:00* Test Item Value Reference Range Comments POC-GLUCOSE METER (BEAKER) (test vgwb=1826) 184 mg/dL 70-110 TESTED AT [facility] [address] [facility] [address] BASIC METABOLIC [id number] 19:44:00* Test Item Value Reference Range Comments SODIUM (BEAKER) (test jyfl=701) 139 meq/L 135-148 POTASSIUM (BEAKER) (test zuwe=454) 5.0 meq/L 3.5-5.5 CHLORIDE (BEAKER) (test lbrk=147) 106 meq/L 98-106 CO2 (BEAKER) (test jtbb=870) 21 meq/L 20-31 BLOOD UREA NITROGEN (BEAKER) (test clpj=901) 63 mg/dL 10-26 CREATININE (BEAKER) (test cpyw=069) 2.34 mg/dL 0.50-1.20 GLUCOSE RANDOM (BEAKER) (test mgly=349) 171 mg/dL 70-110 CALCIUM (BEAKER) (test ulve=741) 8.8 mg/dL 8.5-10.5 EGFR (BEAKER) (test dxwj=8646) 21 mL/min/1.73 sq m ESTIMATED GFR IS NOT ACCURATE CREATININE CLEARANCE IN PREDICTING GLOMERULAR FILTRATION RATE. ESTIMATED GFR IS NOT APPLICABLE FOR DIALYSIS PATIENTS. POCT-GLUCOSE [id number] 18:19:00* Test Item Value Reference Range Comments POC-GLUCOSE METER (BEAKER) (test lmbo=2352) 201 mg/dL 70-110 TESTED AT [facility] [address] [facility] [address] POCT-GLUCOSE [id number] 13:32:00* Test Item Value Reference Range Comments POC-GLUCOSE METER (BEAKER) (test aekq=6721) 240 mg/dL 70-110 TESTED AT [facility] [address] [facility] [address] BASIC METABOLIC [id number] 04:04:00* Test Item Value Reference Range Comments SODIUM (BEAKER) (test wtsx=643) 138 meq/L 135-148 POTASSIUM (BEAKER) (test snub=326) 5.3 meq/L 3.5-5.5 CHLORIDE (BEAKER) (test fnqg=331) 104 meq/L 98-106 CO2 (BEAKER) (test abov=696) 21 meq/L 20-31 BLOOD UREA NITROGEN (BEAKER) (test pyoe=705) 69 mg/dL 10-26 CREATININE (BEAKER) (test yygl=644) 2.67 mg/dL 0.50-1.20 GLUCOSE RANDOM (BEAKER) (test lrrc=584) 204 mg/dL 70-110 CALCIUM (BEAKER) (test xdff=578) 9.0 mg/dL 8.5-10.5 EGFR (BEAKER) (test qrjx=3554) 18 mL/min/1.73 sq m ESTIMATED GFR IS NOT ACCURATE CREATININE CLEARANCE IN PREDICTING GLOMERULAR FILTRATION RATE. ESTIMATED GFR IS NOT APPLICABLE FOR DIALYSIS PATIENTS. CBC W/PLT COUNT & AUTO [id number] 03:48:00* Test Item Value Reference Range Comments WHITE BLOOD CELL COUNT (BEAKER) (test ccfc=566) 12.8 K/ L 4.0-10.0 RED BLOOD CELL COUNT (BEAKER) (test bwte=572) 3.15 M/ L 4.00-5.00 HEMOGLOBIN (BEAKER) (test kzti=642) 8.9 GM/DL 12.0-15.0 HEMATOCRIT (BEAKER) (test wwlr=621) 27.4 % 36.0-45.0 MEAN CORPUSCULAR VOLUME (BEAKER) (test tuhl=978) 87.0 fL 82.0-99.0 MEAN CORPUSCULAR HEMOGLOBIN (BEAKER) (test stbj=058) 28.2 pg 27.0-33.0 MEAN CORPUSCULAR HEMOGLOBIN CONC (BEAKER) (test njux=457) 32.4 GM/DL 32.0- 36.0 RED CELL DISTRIBUTION WIDTH (BEAKER) (test bdxg=016) 16.0 % 12.0-15.0 PLATELET COUNT (BEAKER) (test janc=509) 252 K/CU MM 150-430 MEAN PLATELET VOLUME (BEAKER) (test cdpb=801) 7.9 fL 6.5-10.5 NUCLEATED RED BLOOD CELLS (BEAKER) (test nums=810) 0 /100 WBC 0-0 NEUTROPHILS RELATIVE PERCENT (BEAKER) (test vbtv=352) 67 % LYMPHOCYTES RELATIVE PERCENT (BEAKER) (test bbzu=962) 23 % MONOCYTES RELATIVE PERCENT (BEAKER) (test swbc=890) 7 % EOSINOPHILS RELATIVE PERCENT (BEAKER) (test ndpy=293) 3 % BASOPHILS RELATIVE PERCENT (BEAKER) (test wpye=425) 0 % NEUTROPHILS ABSOLUTE COUNT (BEAKER) (test rovd=777) 8.60 K/ L 1.80-8.00 LYMPHOCYTES ABSOLUTE COUNT (BEAKER) (test oina=200) 2.90 K/ L 1.48-4.50 MONOCYTES ABSOLUTE COUNT (BEAKER) (test bnao=190) 0.90 K/ L 0.00-1.30 EOSINOPHILS ABSOLUTE COUNT (BEAKER) (test czyw=034) 0.30 K/ L 0.00-0.50 BASOPHILS ABSOLUTE COUNT (BEAKER) (test dgkd=822) 0.00 K/ L 0.00-0.20 POCT-GLUCOSE [id number] 21:09:00* Test Item Value Reference Range Comments POC-GLUCOSE METER (BEAKER) (test gbkf=4449) 235 mg/dL 70-110 TESTED AT [facility] [address] [facility] [address] POCT-GLUCOSE [id number] 18:44:00* Test Item Value Reference Range Comments POC-GLUCOSE METER (BEAKER) (test ljyv=7686) 309 mg/dL 70-110 TESTED AT [facility] [id number] [place] [address] POCT-GLUCOSE [id number] 14:25:00* Test Item Value Reference Range Comments POC-GLUCOSE METER (BEAKER) (test aedf=6306) 293 mg/dL 70-110 TESTED AT [facility] [id number] [place], [place] [id number] POCT-GLUCOSE [id number] 06:48:00* Test Item Value Reference Range Comments POC-GLUCOSE METER (BEAKER) (test wcfq=1621) 279 mg/dL 70-110 TESTED AT [place] [address] HEMOGLOBIN [id number] 05:07:00* Test Item Value Reference Range Comments HEMOGLOBIN A1C (BEAKER) (test wyom=335) 7.9 % 4.3-6.1 POCT-GLUCOSE [id number] 22:23:00* Test Item Value Reference Range Comments POC-GLUCOSE METER (BEAKER) (test xafe=6257) 194 mg/dL 70-110 TESTED AT [place] [id number] POCT-GLUCOSE [id number] 16:36:00* Test Item Value Reference Range Comments POC-GLUCOSE METER (BEAKER) (test cpkx=1463) 355 mg/dL 70-110 Notified NARENDRA SOTO/ TESTED AT [place] [id number] POCT-GLUCOSE [id number] 11:48:00* Test Item Value Reference Range Comments POC-GLUCOSE METER (BEAKER) (test fzsn=8031) 334 mg/dL 70-110 Notified NARENDRA SOTO/ TESTED AT [place] [id number] POCT-GLUCOSE [id number] 08:14:00* Test Item Value Reference Range Comments POC-GLUCOSE METER (BEAKER) (test aptg=7392) 234 mg/dL 70-110 TESTED AT [place] [address] CREATINE KINASE (CK), TOTAL AND [id number] 16:12:00* Test Item Value Reference Range Comments CREATINE KINASE TOTAL (BEAKER) (test vomd=968) 33 U/L 29-168 CREATINE KINASE-MB (BEAKER) (test gxhg=996) 1.2 ng/mL 0.0-4.9 CREATINE KINASE-MB INDEX (BEAKER) (test jwrs=046) 3.6 % CK-MB Reference Range:<5 Normal5-10 Borderline>10 AbnormalTROPONIN [id number] 16:12:00* Test Item Value Reference Range Comments TROPONIN I (BEAKER) (test leix=131) 0.01 ng/mL 0.00-0.15 Troponin I (TnI) levels must be interpreted [...] failure, acidosis, acute neurological disease, and persistent tachyarrhythmia.COMPREHENSIVE METABOLIC [id number] 16:03:00* Test Item Value Reference Range Comments TOTAL PROTEIN (BEAKER) (test lzel=191) 6.5 gm/dL 6.0-8.5 ALBUMIN (BEAKER) (test ibak=9528) 3.4 g/dL 3.5-5.0 ALKALINE PHOSPHATASE (BEAKER) (test iuyz=185) 91 U/L 30-115 BILIRUBIN TOTAL (BEAKER) (test xcbf=246) 0.3 mg/dL 0.1-1.3 SODIUM (BEAKER) (test lctc=655) 143 meq/L 135-148 POTASSIUM (BEAKER) (test bzvv=981) 5.2 meq/L 3.5-5.5 CHLORIDE (BEAKER) (test opzi=753) 110 meq/L 98-106 CO2 (BEAKER) (test bblq=629) 23 meq/L 20-31 BLOOD UREA NITROGEN (BEAKER) (test elfz=827) 54 mg/dL 10-26 CREATININE (BEAKER) (test dcvd=034) 1.99 mg/dL 0.50-1.20 GLUCOSE RANDOM (BEAKER) (test xlxl=154) 114 mg/dL 70-110 CALCIUM (BEAKER) (test ueza=459) 9.1 mg/dL 8.5-10.5 AST (SGOT) (BEAKER) (test iuib=427) 21 U/L 5-40 ALT (SGPT) (BEAKER) (test btta=698) 25 U/L 6-50 EGFR (BEAKER) (test qkqe=4079) 25 mL/min/1.73 sq m ESTIMATED GFR IS NOT ACCURATE CREATININE CLEARANCE IN PREDICTING GLOMERULAR FILTRATION RATE. ESTIMATED GFR IS NOT APPLICABLE FOR DIALYSIS PATIENTS. URINALYSIS W/ [id number] 15:56:00* Test Item Value Reference Range Comments COLOR (BEAKER) (test abxs=290) Light Yellow CLARITY (BEAKER) (test vcap=945) Clear SPECIFIC GRAVITY UA (BEAKER) (test ncqu=267) 1.011 1.001-1.035 PH UA (BEAKER) (test yish=017) 5.0 5.0-8.0 PROTEIN UA (BEAKER) (test jizf=666) 30 mg/dL Negative GLUCOSE UA (BEAKER) (test nhtq=182) 50 mg/dL Negative KETONES UA (BEAKER) (test cnxs=133) Negative Negative BILIRUBIN UA (BEAKER) (test mumq=751) Negative Negative BLOOD UA (BEAKER) (test kynz=852) Negative Negative NITRITE UA (BEAKER) (test quwr=519) Negative Negative LEUKOCYTE ESTERASE UA (BEAKER) (test cupl=041) Negative Negative UROBILINOGEN UA (BEAKER) (test lupe=368) < mg/dL 0.2-1.0 RBC UA (BEAKER) (test tpig=861) < /HPF WBC UA (BEAKER) (test sxpw=375) 0 /HPF HYALINE CASTS (BEAKER) (test owjs=641) 1 /LPF SOURCE(BEAKER) (test qzat=5448) CBC W/PLT COUNT & AUTO [id number] 15:41:00* Test Item Value Reference Range Comments WHITE BLOOD CELL COUNT (BEAKER) (test tisv=052) 11.1 K/ L 4.0-10.0 RED BLOOD CELL COUNT (BEAKER) (test oprj=130) 3.70 M/ L 4.00-5.00 HEMOGLOBIN (BEAKER) (test istl=201) 10.4 GM/DL 12.0-15.0 HEMATOCRIT (BEAKER) (test omzj=841) 32.0 % 36.0-45.0 MEAN CORPUSCULAR VOLUME (BEAKER) (test zpje=834) 86.6 fL 82.0-99.0 MEAN CORPUSCULAR HEMOGLOBIN (BEAKER) (test qtiv=645) 28.0 pg 27.0-33.0 MEAN CORPUSCULAR HEMOGLOBIN CONC (BEAKER) (test hbms=497) 32.4 GM/DL 32.0- 36.0 RED CELL DISTRIBUTION WIDTH (BEAKER) (test vtuo=310) 15.9 % 12.0-15.0 PLATELET COUNT (BEAKER) (test oofw=374) 272 K/CU MM 150-430 MEAN PLATELET VOLUME (BEAKER) (test iote=341) 7.4 fL 6.5-10.5 NUCLEATED RED BLOOD CELLS (BEAKER) (test birv=208) 0 /100 WBC 0-0 NEUTROPHILS RELATIVE PERCENT (BEAKER) (test zavj=625) 65 % LYMPHOCYTES RELATIVE PERCENT (BEAKER) (test kvmg=170) 24 % MONOCYTES RELATIVE PERCENT (BEAKER) (test cetz=511) 8 % EOSINOPHILS RELATIVE PERCENT (BEAKER) (test gigv=639) 3 % BASOPHILS RELATIVE PERCENT (BEAKER) (test uxvp=978) 0 % NEUTROPHILS ABSOLUTE COUNT (BEAKER) (test govz=988) 7.30 K/ L 1.80-8.00 LYMPHOCYTES ABSOLUTE COUNT (BEAKER) (test xfpd=798) 2.70 K/ L 1.48-4.50 MONOCYTES ABSOLUTE COUNT (BEAKER) (test amrg=888) 0.80 K/ L 0.00-1.30 EOSINOPHILS ABSOLUTE COUNT (BEAKER) (test gmzy=862) 0.30 K/ L 0.00-0.50 BASOPHILS ABSOLUTE COUNT (BEAKER) (test qvlz=742) 0.00 K/ L 0.00-0.20 TROPONIN [id number] 09:37:00* Test Item Value Reference Range Comments TROPONIN I (BEAKER) (test vppw=754) < ng/mL 0.00-0.15 Troponin I (TnI) levels must be interpreted [...] failure, acidosis, acute neurological disease, and persistent tachyarrhythmia.CREATINE KINASE (CK), TOTAL AND [id number] 09:36:00* Test Item Value Reference Range Comments CREATINE KINASE TOTAL (BEAKER) (test neua=309) 31 U/L 25-235 CREATINE KINASE-MB (BEAKER) (test rngz=614) 0.8 ng/mL 0.0-4.9 CREATINE KINASE-MB INDEX (BEAKER) (test gxxh=345) 2.6 % CK-MB Reference Range:<5 Normal5-10 Borderline>10 AbnormalB-TYPE NATRIURETIC FACTOR (BNP)2016-04-23 09:31:00* Test Item Value Reference Range Comments B-TYPE NATRIURETIC PEPTIDE (BEAKER) (test npbx=464) 27 pg/mL 0-100 BASIC METABOLIC [id number] 09:30:00* Test Item Value Reference Range Comments SODIUM (BEAKER) (test iddj=784) 140 meq/L 135-148 POTASSIUM (BEAKER) (test zvvi=935) 4.3 meq/L 3.6-5.5 CHLORIDE (BEAKER) (test herz=716) 101 meq/L 98-106 CO2 (BEAKER) (test jiqg=259) 29 meq/L 20-29 BLOOD UREA NITROGEN (BEAKER) (test vwuq=827) 51 mg/dL 10-26 CREATININE (BEAKER) (test jryg=123) 2.20 mg/dL 0.50-1.20 GLUCOSE RANDOM (BEAKER) (test uoim=870) 278 mg/dL 70-110 CALCIUM (BEAKER) (test fuyc=318) 9.5 mg/dL 8.5-10.5 EGFR (BEAKER) (test hduj=7975) 22 mL/min/1.73 sq m ESTIMATED GFR IS NOT ACCURATE CREATININE CLEARANCE IN PREDICTING GLOMERULAR FILTRATION RATE. ESTIMATED GFR IS NOT APPLICABLE FOR DIALYSIS PATIENTS. PT/[id number] 09:23:00* Test Item Value Reference Range Comments PROTIME (BEAKER) (test otff=206) 9.9 seconds 9.3-12.0 INR (BEAKER) (test izao=210) 0.9 <=5.9 PARTIAL THROMBOPLASTIN TIME (BEAKER) (test zjba=173) 26.1 seconds 23.0-35.0 RECOMMENDED COUMADIN/WARFARIN INR THERAPY RANGESSTANDARD DOSE: 2.0 - 3.0 Includes: PROPHYLAXIS for venous thrombosis, systemic embolization; TREATMENT for venous thrombosis and/or pulmonary embolus.HIGH RISK: Target INR is 2.5-3.5 for patients with mechanical heart valves.[id number] 09:23:00* Test Item Value Reference Range Comments MAGNESIUM (BEAKER) (test alas=351) 2.3 mg/dL 1.5-3.0 CBC W/PLT COUNT & AUTO [id number] 09:08:00* Test Item Value Reference Range Comments WHITE BLOOD CELL COUNT (BEAKER) (test mnfp=130) 10.4 K/ L 4.0-10.0 RED BLOOD CELL COUNT (BEAKER) (test xhif=984) 4.12 M/ L 4.00-5.00 HEMOGLOBIN (BEAKER) (test kjwl=249) 11.2 GM/DL 12.0-15.0 HEMATOCRIT (BEAKER) (test uwqg=717) 34.3 % 36.0-45.0 MEAN CORPUSCULAR VOLUME (BEAKER) (test lvyj=988) 83.1 fL 82.0-99.0 MEAN CORPUSCULAR HEMOGLOBIN (BEAKER) (test sbon=405) 27.3 pg 27.0-33.0 MEAN CORPUSCULAR HEMOGLOBIN CONC (BEAKER) (test irlf=397) 32.8 GM/DL 32.0- 36.0 RED CELL DISTRIBUTION WIDTH (BEAKER) (test wjey=939) 15.2 % 10.3-14.2 PLATELET COUNT (BEAKER) (test tmwh=238) 355 K/CU MM 150-430 MEAN PLATELET VOLUME (BEAKER) (test dwbf=245) 7.9 fL 6.5-10.5 NUCLEATED RED BLOOD CELLS (BEAKER) (test site=237) 0 /100 WBC 0-0 NEUTROPHILS RELATIVE PERCENT (BEAKER) (test houn=069) 57 % LYMPHOCYTES RELATIVE PERCENT (BEAKER) (test qdwd=873) 30 % MONOCYTES RELATIVE PERCENT (BEAKER) (test pthb=911) 9 % EOSINOPHILS RELATIVE PERCENT (BEAKER) (test wsrj=274) 4 % BASOPHILS RELATIVE PERCENT (BEAKER) (test sjyw=175) 1 % NEUTROPHILS ABSOLUTE COUNT (BEAKER) (test nuhq=594) 5.90 K/ L 1.80-8.00 LYMPHOCYTES ABSOLUTE COUNT (BEAKER) (test mlgr=041) 3.10 K/ L 1.48-4.50 MONOCYTES ABSOLUTE COUNT (BEAKER) (test okzw=304) 1.00 K/ L 0.00-1.30 EOSINOPHILS ABSOLUTE COUNT (BEAKER) (test niit=[id number]) 0.40 K/ L 0.00-0.50 BASOPHILS ABSOLUTE COUNT (BEAKER) (test pnnv=[id number]) 0.10 K/ L 0.00-0.20
[2017-07-08] MEDS ORDERED: ASPIRIN 81 MG CHEW TAB PO ONE (20:00)
[2017-07-08 21:19] LABS: BASOPHILS # (AUTO) 0.2 (0.0-0.1); BASOPHILS % 1.3 % (0.0-1.0); EOSINOPHILS # (AUTO) 0.4 (0.0-0.4); EOSINOPHILS % 3.8 % (0.0-6.0); HEMATOCRIT 50.6 % (34.2-44.1); HEMOGLOBIN 15.8 g/dL (12.0-16.0); LYMPHOCYTES # (AUTO) 2.4 (1.0-3.2); MEAN CORPUSCULAR HEMOGLOBIN 27.9 pg (28-32); MEAN CORPUSCULAR HGB CONC 31.2 g/dL (31-35); MEAN CORPUSCULAR VOLUME 89.2 fL (81-99); MONOCYTES # (AUTO) 0.9 (0.2-0.8); MONOCYTES % 7.3 % (4.4-11.3); NEUTROPHILS # (AUTO) 7.7 (2.1-6.9); NEUTROPHILS % 66.3 % (38.7-80.0); PLATELET COUNT 237 x10e3/uL (140-360); RED BLOOD COUNT 5.67 x10e6/uL (3.6-5.1); RED CELL DISTRIBUTION WIDTH 16.4 % (11.7-14.4)
--- NOTE | 2017-07-08 21:24 | Diagnostic Imaging Report ---
CHEST SINGLE (NOT PORTABLE), 07/08/2017 7:56 PM Technique: CHEST SINGLE (NOT PORTABLE) Comparison: None available. Clinical history: Chest pain Findings: See Impression Impression: 1. Lines/Tubes: Left dialysis catheter tip overlies the right atrium. Left chest wall single-lead ICD projects over the cardiac silhouette midline. 2. Normal cardiac silhouette for technique. Atherosclerotic calcifications. 3. Probable small effusions. Right basilar opacity which may reflect atelectasis. Recommend follow-up upright PA and lateral. Signed by: Dr Ester Lopez MD on 07/08/2017 9:21 PM
[2017-07-08 21:27] LABS: INR 0.99; PROTHROMBIN TIME 12.3 seconds (11.9-14.5)
[2017-07-08 21:29] LABS: PARTIAL THROMBOPLASTIN TIME 61.2 seconds (23.8-35.5)
[2017-07-08 21:38] LABS: ALBUMIN/GLOBULIN RATIO 0.7 (0.8-2.0); ANION GAP 18.2 mmol/L (8-16); CALCIUM 9.3 mg/dL (8.4-10.2); CREATININE, SERUM 2.91 mg/dL (0.57-1.11); POTASSIUM 4.2 mmol/L (3.5-5.1)
[2017-07-08 21:49] LABS: CREATINE KINASE MB 1.3 ng/mL (0-5.0)
[2017-07-09] MEDS ORDERED: NITROGLYCERIN 2% OINT 1 GM PKT TOP ONE
[2017-07-09] MEDS ORDERED: ONDANSETRON HCL 4 MG ORAL DISINTEGRATING TAB PO PRN (01:00)
[2017-07-09] MEDS ORDERED: SODIUM CHLORIDE FLUSH 10 ML SYR INJ PRN (01:00)
[2017-07-09] MEDS ORDERED: MORPHINE SULFATE 2 MG/ML SYR IV PRN (01:00)
[2017-07-09] MEDS ORDERED: DEXTROSE 50% SYRINGE 50 ML IV PRN (01:00)
[2017-07-09] MEDS ORDERED: ASPIRIN 81 MG CHEW TAB PO ONE (01:00)
--- OUTSIDE RECORDS SUMMARY | 2017-07-09 01:08 | XMS REPORT | Clinical Summary ---
Author Author ANGELLA [employer] [facility] [employer] Address Unknown Phone Unavailable Care Team Providers Care Interior Block Wirer Name Role Phone PCP Unavailable Allergies Active [...] (two) 45 g 0 02/20/20 02/20/20 Active V-hsqmieafjs-qqrrdmf (A & times daily. 17 18 D) [...] mL ADD EASE tolerated rocephin in the [facility] without allergic symptoms. ondansetron (ZOFRAN) 4 Inject [...] of sudden cardiac (SCD) resuscitated VF 11/18/2016 [facility] S/P implantation of automatic cardioverter/defibrillator (AICD) MRI 2017 conditional Subcutaneous AICD single chamber BSX left 06/20/2017 Hemodialysis patient ([facility]) MWF 06/20/2017 Coronary artery disease involving king salmon coronary artery of king salmon heart 11/2016 S/P primary angioplasty with coronary stent MIRIAN RCA [facility] 11/201606/20/2017 Clostridium difficile colitis 02/19/2017 Leukocytosis 02/18/2017 ESRD (end stage renal disease) ([facility]) 02/18/2017 Hypokalemia 02/18/2017 Hypertensive urgency 02/18/2017 NITHYA on CPAP 02/18/2017 Nausea vomiting and diarrhea 02/17/2017 Diarrhea 02/17/2017 GI bleed 01/02/2017 Acute encephalopathy 12/09/2016 Bilateral pleural effusion 12/07/2016 Complex sleep apnea syndrome 12/07/2016 Hypotension 12/06/2016 Hypoxia 08/22/2016 Biliary colic 08/15/2016 Chronic cholecystitis 08/13/2016 Diabetes mellitus type 2 with neurological manifestations ([facility]) 06/20/2016 Chronic diastolic CHF (congestive heart failure) ([facility]) 09/07/2015 History of cerebellar stroke 06/03/2015 Hypertension 05/23/2015 GERD (gastroesophageal reflux disease), H/O 05/23/2015 Frequent falls Sleep apnea Hyperlipidemia ESRD (end stage renal disease) ([facility]) Resolved Problems Problem Noted Date Resolved Date Hyponatremia 12/09/2016 02/06/2017 Persistent fever 12/09/2016 02/06/2017 SIRS (systemic inflammatory response syndrome) ([facility]) 12/06/2016 01/03/2017 Sepsis secondary to UTI ([facility]) 08/20/2016 01/03/2017 Acute renal failure, unspecified acute renal failure type ([facility]) 08/20/2016 01/03/2017 Hypokalemia 08/16/2016 02/06/2017 Generalized abdominal pain 08/12/2016 01/03/2017 Vomiting in adult 08/12/2016 02/06/2017 Dyspnea on exertion 07/28/2016 02/06/2017 COPD with acute exacerbation ([facility]) 07/28/2016 08/20/2016 CHF (congestive heart failure) ([facility]) 07/19/2016 12/06/2016 Shortness of breath 07/19/2016 01/03/2017 Acute renal failure superimposed on stage 3 chronic kidney disease ([facility]) 01/03/2017 Bimalleolar fracture, left, closed, initial encounter 06/17/20162016 Encounters Date Type Specialty Care Team Description 06/20/2017 [facility] Cardiology Romelia Majano MD - Encounter 06/21/2017 06/20/2017 Anesthesia Jonathon Mckeon MD Event 06/20/2017 Procedure Pass 06/20/2017 Surgery Romelia Majano MD SUBCUTANEOUS ICD GENERATOR & LEAD INSERTION (S-ICD) 05/03/2017 Documentation Transplant Monse Maldonado 04/29/2017 Orders Only Transplant Lillie Rivera RN ESRD (end stage renal disease) on dialysis ([facility]) (Primary Dx);Pre-transplant evaluation for chronic kidney disease;Abnormal blood chemistry;Anemia of renal disease;Type 2 diabetes mellitus with chronic kidney disease on chronic dialysis, with long-term current use of insulin ([facility]) 04/04/2017 Office Visit Cardiology Susana Carrasco MD 03/25/2017 Abstract Ainsley Burch 03/21/2017 Abstract Ainsley Burch 03/18/2017 Abstract Hailey Burchiea 02/17/2017 Emergency Cardiology Reggie Brown, Nausea vomiting and - MD diarrhea (Primary 02/19/2017 Yeni Robbins Dx);ESRD on dialysis MD Kiki ([facility]);Hypokalemia;Rocael Lofton MD nsive urgency;Clostridium difficile colitis;Chronic diastolic CHF (congestive heart failure) ([facility]);History of cerebellar stroke;Frequent falls;Diabetes mellitus type 2 with neurological manifestations ([facility]);Chronic cholecystitis;Biliary colic;Hypoxia;ESRD (end stage renal disease) ([facility]);Bilateral pleural effusion;Complex sleep apnea syndrome 01/15/2017 Documentation Cardiology Salome Rivera, NEUROPHYSIOLOGICAL TECHNICIAN 01/03/2017 Anesthesia Gastroenterology Sarahy Menendez, Event BASS GUITAR TEACHER 01/03/2017 Procedure Pass Gastroenterology 01/03/2017 Surgery Gastroenterology Marsha Oseguera MD UPPER ENDOSCOPY 01/02/2017 [facility] Internal Medicine Noah Horner MD Acute encephalopathy - Encounter Karley Balubena MD (Primary 01/04/2017 Leonarda Martinez MD Dx);Gastrointestinal hemorrhage, unspecified gastrointestinal hemorrhage type;ESRD (end stage renal disease) ([facility]) 12/12/2016 Outside Orders Lab Amari Shetty Acute renal failure, unspecified acute renal failure type (HCC) (Primary Dx) 12/05/2016 [facility] General Internal Medicine James Dougherty MD Acute renal failure, - Encounter Estefany Fan, unspecified acute renal 12/17/2016 failure type ([facility]);Laboratory test 08/20/2016 [facility] General Internal Medicine Brit Perea MD Acute renal failure, - Encounter Phill Adamson MD unspecified acute renal 08/23/2016 failure type ([facility]) (Primary Dx);Urinary tract infection without hematuria, site unspecified 08/14/2016 Anesthesia Tyree Timmons AA Event 08/14/2016 Procedure Pass 08/14/2016 Surgery Akash Joya MD LAPAROSCOPY,CHOLECYSTECTO MY 08/12/2016 [facility] General Internal Medicine Karie Dockery MD Chronic cholecystitis - Encounter Lalita Barker MD (Primary Dx);Generalized 08/17/2016 abdominal pain;Vomiting in adult;Shortness of breath;Other chest pain;Chronic diastolic heart failure (HCC) 08/10/2016 Emergency Emergency Medicine Gaby Hoang DO Nausea and vomiting, - intractability of 08/11/2016 vomiting not specified, unspecified vomiting type (Primary Dx);Gallbladder sludge;Leukocytosis, unspecified type;Constipation, unspecified constipation type;Renal insufficiency 08/07/2016 [facility] General Internal Medicine Karie Dockery MD [...] 07/19/2016 Orders Only General Internal Medicine after 07/08/2016 Family History Medical History Relation Name Comments [...] INFLUENZA VACCINE 12/02/2017 Implants Implanted Type Area [employer] Device Expiration Model / Identifier Date Serial / Lot Scr Crtx Dcp St 2.7x18 Ns 202.818 - Fracture/F Left: SYNTHES:SYNTHES 202.818 / [id number] [employer]ation Ankle [employer] / Implanted: Qty: 1 on 06/20/2016 by [id number] Gutiérrez MD Plt Recon Lcp 8h 3.5x112 Ns - Fracture/F Left: SYNTHES:SYNTHES 245.081 / [id number] [employer]ation Ankle [employer] / Implanted: Qty: 1 on 06/20/2016 by [id number] Gutiérrez MD Scr Crtx St D/L/P 3.5x14 Ns - Fracture/F Left: SYNTHES:SYNTHES 204.814 / [id number] ixation Ankle [employer] / Implanted: Qty: 1 on 06/20/2016 by [id number] Gutiérrez MD Scr Lck St T15 3.5x16 Ns 212.104 - Fracture/F Left: SYNTHES:SYNTHES 212.104 / [id number] ixation Ankle [employer] / Implanted: Qty: 1 on 06/20/2016 by [id number] Gutiérrez MD Scr Lck St T15 3.5x12 Ns 212.102 - Fracture/F Left: SYNTHES:SYNTHES 212.102 / [id number] ixation Ankle [employer] / Implanted: Qty: 1 on 06/20/2016 by [id number] Gutiérrez MD Scr Braden Sh-Thrd 4.0x40 Ns 207.640 Fracture/F Left: SYNTHES:SYNTHES 207.640 / - [id number] ixation Ankle [employer] / Implanted: Qty: 1 on 06/20/2016 by [id number] Gutiérrez MD [employer]seye Mri S-Icd PACEMAKER/ Left: BOSTON 04/05/2019 [id number] / Implanted: Qty: 1 on 06/20/2017 by ICD [employer] [id number] / Romelia Majano MD CHAMBER Wall DEVICE Emblem S-Icd Subcutaneous Electrode Pacemaker Left: BOSTON 2019 [id number] / Implanted: Qty: 1 on 06/20/2017 by Lead [employer] [id number] / Romelia Majano MD Wall 42mm X 4.0 Cortex Screw Left: Synthes 206.442 / Implanted: Qty: 1 on 06/20/2016 by Trinh Lindquist MD [id number] 44mm X 4.0 Cortex Screw Left: Synthes 206.444 / Implanted: Qty: 1 on 06/20/2016 by Trinh Lindquist MD [id number] 40mm X 4.0 Cortex Screw Left: Synthes 206.440 / Implanted: Qty: 2 on 06/20/2016 by Trinh Lindquist MD [id number] Procedures Procedure Name Priority Date/Time Associated Diagnosis [...] procedure are in the results section. after 07/08/2016 Results * EKG-SCANNED (06/25/2017 7:30 AM) Only [...] 0 /100 WBC Specimen Performing Laboratory Blood [address] [address] * Basic metabolic panel (06/21/2017 3:22 AM) [...] FOR DIALYSIS PATIENTS. Specimen Performing Laboratory Blood [address] [address] * POC-Glucose meter (06/20/2017 5:51 PM) Only the most recent of 131 results within the time period is included. Component Value Ref Range POC-Glucose Meter 221 (H)Comment: TESTED AT [address] 70 - 110 mg /dL [facility] [id number] Specimen Performing Laboratory Blood [address] [address] * Potassium-Stat Lab (06/20/2017 7:18 AM) Component Value Ref Range Potassium 3.5 (L) 3.6 - 5.5 meq/L Specimen Performing Laboratory Blood, Arterial [address] [address] * PERIPHERAL VASCULAR REPORT - SCAN (02/19/2017 10:52 AM) Only the most recent of 4 results within the time period is included. * Vein mapping arm/arms (02/19/2017 9:30 AM) Component Value Ref Range Ejection Fraction Specimen Performing Laboratory [facility] Impressions Right Impression 1. There is no [...] Name HONEY ANGUIANO Date of Study 02/19/2017 [place] [id number] Visit Number [id number] Female Accession Number [id number] of 1950 [facility] June[facility] Number [id number] Physician SonographerSjunior Champion. Kuldeep Allan, Physician , [facility] Procedure Type of Study: Veins: Upper Extremity Vein Mapping, VEIN MAPPING ARM/ARMS. Indications for Study:Permanent dialysis access placement . Patient Status:Routine. Study Location:Vascular Lab. Technical Quality:Adequate visualization. Risk Factors History of Disease + +----+ + !Diagnosis!Date!Comments ! + +----+ + !History/Risk Factors:!!ESRD, HTN, DM, H/O CVA, CKD, CAD, CHF ! + +----+ + Procedure Note Interface, External Ris In - 02/19/2017 10:12 AM FUR FINISHER SEAMSTRESS PV LAB - Upper Extremities Vein Mapping Demographics Patient Name HONEY ANGUIANO Date of Study 02/19/2017 [place] Age 66 Visit Number [id number] Gender Female Accession Number [id number] Date of 1950 Referring [facility] Room Number [id number] Physician Directional Driller Trupti Gaitan Interpreting Flavia Allan, Physician , [facility] Procedure Type of Study: Veins: Upper Extremity [...] Nonreactive Nonreactive Specimen Performing Laboratory Blood - [facility], [address] [address] * CBC with platelet count + automated [...] Specimen Performing Laboratory Blood - Arm, [place] [address] * CBC with platelet count + automated diff (02/18/2017 7:05 AM) Only the most recent of 35 results within the time period is included. Specimen Performing Laboratory Blood Narrative The following orders were created for panel order CBC with platelet count + automated diff. Procedure Abnormality Status --------- - ------ CBC with platelet count ...[[id number]]AbnormalFinal result Please view results for these tests on the individual orders. * Clostridium difficile Toxin PCR (02/17/2017 10:27 PM) Component Value Ref Range C.Diff Toxin, PCR Detected (A) Not Detected Specimen Performing Laboratory Stool [place] [id number] Narrative This qualitative real-time polymerase chain reaction [...] exam charged Done Specimen [place] [address] * Shiga Toxin Screen (02/17/2017 8:41 PM) Component Value Ref Range Shiga toxin 1 Not detected Not detected Shiga toxin 2 Not detected Not detected Specimen [place] [address] * Ova and Parasite Examination (02/17/2017 8:41 PM) Component Value Ref Range O&P Direct Smear No ova or parasites seen No ova or parasites seen Specimen [place] [address] * Fecal leukocytes (02/17/2017 8:41 PM) Component Value Ref Range Fecal Leukocytes 3+ Fecal leukocytes seen (A) No fecal leukocytes seen Specimen [place] [address] * Stool culture + Shiga toxin (02/17/2017 8:41 PM) Component Value Ref Range Result No Salmonella, Shigella or Campylobacter isolated Specimen [place] [address] * POCT OCCULT BLOOD STOOL (GUIAC) [facility] ED [facility] ONLY (02/17/2017 [...] Specimen Performing Laboratory Blood - Line, [place] [address] * Hepatic function panel (02/17/2017 2:28 PM) [...] Performing Laboratory Blood - Line, Venous [facility] [address] [place] [address] * TRANSFUSION SERVICE REPORT - SCAN (01/06/2017 5:42 PM) Only the most recent of 13 results within the time period is included. * Prepare Leuko-Red RBC (01/04/2017 11:54 PM) Only the most recent of 5 results within the time period is included. Component Value Ref Range CROSSMATCH COMPATIBLE Unit ABO A Pos UNIT NUMBER [id number] Status WORK IN PROGRESS Blood Bank Product RED BLOOD CELLS PRODUCT CODE E4788T75 CROSSMATCH COMPATIBLE Unit ABO A Pos UNIT NUMBER [id number] Status TRANSFUSED Blood Bank Product RED BLOOD CELLS PRODUCT CODE [id number] Specimen Performing Laboratory Other [place] * [...] Scrn NEGATIVE Specimen Performing Laboratory Blood [facility] [address] [place] [address] * XR chest 1 view portable / [...] MD Report Verified Date/Time:01/02/2017 20:51:27 Reading Location: [address] Consult Reading Room Procedure Note Interface, [...] Report Verified Date/Time: 01/02/2017 20:51:27 Reading Location: [address] Consult Reading Room * ECG 12 lead (01/02/2017 7:04 PM) Only the most recent of 3 results within the time period is included. Specimen Performing Laboratory GE MUSE Narrative Ventricular Rate 77 BPM Atrial Rate 77 BPM P-R Interval 192 ms QRS Duration 78 ms Q-T Interval 446 ms QTC Calculation(Bazett) 504 ms P Hostetter 31 degrees R Hostetter 18 degrees T Hostetter 23 degrees Normal sinus rhythm Poor R [...] 446 ms QTC Calculation(Bazett) 504 ms P Hostetter 31 degrees R Hostetter 18 degrees T Hostetter 23 degrees Normal sinus rhythm Poor R [...] Specimen Performing Laboratory Blood - Arm, Left [place] [id number] Narrative RECOMMENDED COUMADIN/WARFARIN INR THERAPY RANGES STANDARD [...] Specimen Performing Laboratory Blood - Arm, Left [address] [address] Narrative Troponin I (TnI) levels must be [...] pg/mL Specimen Performing Laboratory Blood - Arm, [address] [address] * Magnesium (01/02/2017 7:02 PM) Only the most recent of 10 results within the time period is included. Component Value Ref Range Magnesium 1.4 (L) 1.6 - 2.6 mg/dL Specimen Performing Laboratory Blood - Arm, [address] [address] * Creatine Kinase (CK), Total and MB (01/02/2017 7:02 PM) Only the most recent of 10 results within the time period is included. Component Value Ref Range Total CK 21 (L) 29 - 200 U/L CK-MB 0.7 0.0 - 6.6 ng/mL MB Relative Index 3.3 % Specimen Performing Laboratory Blood - Arm, [address] [address] Narrative CK-MB Reference Range: <6.7Normal 6.7-10.0Borderline >10.0 Abnormal * Protein, total (12/13/2016 11:00 AM) Component Value Ref Range Protein, Total 7.2Comment: Specimen moderately hemolyzed 6.0 - 8.3 gm/dL Specimen Performing Laboratory Blood - Arm, [address] [address] * Lactate dehydrogenase (LDH) (12/13/2016 11:00 AM) Component Value Ref Range LDH 416 (H)Comment: Specimen moderately hemolyzed 125 - 220 U/L Specimen Performing Laboratory Blood - Arm, Right [facility] [address] * US thoracentesis (12/12/2016 3:17 PM) Specimen [...] MD Report Verified Date/Time:12/12/2016 15:24:19 Reading Location: [address] Ultrasound Reading Room Procedure Note Interface, [...] Report Verified Date/Time: 12/12/2016 15:24:19 Reading Location: [address] Ultrasound Reading Room * Body fluid culture + gram stain (12/12/2016 3:10 PM) Component Value Ref Range Result No growth Gram Stain Result <1+ WBCs Gram Stain Result No organisms seen Specimen Performing Laboratory Body Fluid - Pleural, [facility] Left [address] [place] [address] * Body fluid cell count with differential [...] Specimen Performing Laboratory Body Fluid - Pleural, [facility] Left [address] [place] [address] * Protein, body fluid (12/12/2016 3:10 PM) Component Value Ref Range Protein, Fluid 3.0 Light's criteria identifies effusions if one or more are present: Pleural to serum protein ratio of more than 0.5; Pleural to Serum LDH of more than 0.6; Pleural LDH of more than two third of upper serum reference limit g/dL Specimen Performing Laboratory Body Fluid - Pleural, [facility] Left [address] [place] [address] Narrative Absence of reference range indicates that [...] Specimen Performing Laboratory Body Fluid - Pleural, [facility] Left [address] [place] [address] Narrative Absence of reference range indicates that [...] Specimen Performing Laboratory Blood - Arm, Left [address] [address] Narrative Get after transfusion * EEG AWAKE/ASLEEP (12/11/2016 9:36 AM) Specimen Performing Laboratory GE RIS Narrative DATE OF REPORT: 12/11/16 ACC: [id number] EE Start time: 08:34 am Stop time: 09:19 am ICD-10: R56.9 CPT Code: 57006 HISTORY: 65 y.o female on HD, ESRD, past FL, past cerebellar CVA (1 yr ago) with [...] PM CDT DATE OF REPORT: 12/11/16 ACC: [id number] EE Start time: 08:34 am Stop time: 09:19 am ICD-10: R56.9 CPT Code: 70167 HISTORY: 65 y.o female on HD, ESRD, past FL, past cerebellar CVA (1 yr ago) with [...] Performing Laboratory Blood - Arm, Left [facility] [address] [address] Narrative Reference Range: No Normals * XR chest 2 views (12/10/2016 10:20 AM) Only the most recent of 2 results within the time period is included. Specimen Performing Laboratory [employer] RIS Narrative FINAL REPORT One lateral and two frontal chest images. Comparison to December 06 Discussion: Cardiac prominence, moderate to large left effusion, and pulmonary congestion overall similar. No pneumothorax. Left chest dialysis catheter unchanged. Signed: Tisha Clarke MD Report Verified Date/Time:12/10/2016 11:04:41 Reading Location: [facility] Radiology Reading Room Procedure Note Interface, External Ris In - 12/10/2016 11:06 AM CDT FINAL REPORT One lateral and two frontal chest images. Comparison to December 06 Discussion: Cardiac prominence, moderate to large left effusion, and pulmonary congestion overall similar. No pneumothorax. Left chest dialysis catheter unchanged. Signed: Tisha Clarke MD Report Verified Date/Time: 12/10/2016 11:04:41 Reading Location: [facility] Radiology Reading Room * Adriana antigen with reflex to titer (12/10/2016 4:19 AM) Component Value Ref Range Adriana Antigen Negative Specimen Performing Laboratory Blood - Arm, [facility] [address] [place] [address] * MR brain without IV contrast (12/09/2016 3:32 PM) Specimen Performing Laboratory [employer] RIS Narrative FINAL REPORT MRI brain without [...] MD Report Verified Date/Time:12/09/2016 15:33:57 Reading Location: [address] Neuro Reading Room Procedure Note Interface, [...] Report Verified Date/Time: 12/09/2016 15:33:57 Reading Location: [address] Neuro Reading Room * Blood gas, [...] Specimen Performing Laboratory Blood, Arterial - Arm, [facility] Left [address] [place] [address] * Urinalysis w/Microscopic (12/09/2016 6:45 AM) Only the most recent of 3 results within the time period is included. Component Value Ref Range Color, UA Yellow Clarity, UA Hazy Specific [place], UA 1.020 1.001 - 1.035 pH, UA [...] Catheter Specimen Performing Laboratory Urine - Urine, [facility] Catheter [address] [place] [address] * Urine culture (12/09/2016 6:45 AM) Only the most recent of 5 results within the time period is included. Component Value Ref Range Result Result >100,000 col/mL Adriana albicans (A) Specimen Performing Laboratory Urine - Urine, [facility] Catheter [address] [place] [address] * BCID (12/09/2016 6:36 AM) Component Value Ref Range Scan Result Specimen Performing Laboratory Blood [facility] [address] [place] [address] Narrative Result comments: Coagulase Negative Staphylococcus Species [...] required. This sample was tested at the [facility] Clinical Microbiology Laboratory using the Bio[employer] Film[employer] Blood Culture ID Panel. This test is FDA cleared for in vitro diagnostic use and has been verified and approved by the [facility] Clinical Microbiologylaboratory for clinical use. Reference Range: Not Detected * Blood culture (12/09/2016 6:36 AM) Only the most recent of 8 results within the time period is included. Component Value Ref Range Result Result From Aerobic Bottle Only Coagulase negative Staphylococcus (A) Gram Stain Result From aerobic bottle only: gram positive cocci in clusters Specimen Performing Laboratory Blood - Arm, [place] [address] Narrative Coagulase Negative Staphylococcus Species (CoNS) DETECTED, [...] required. This sample was tested at the [facility] Clinical Microbiology Laboratory using the VIRTRA SYSTEMSArray Blood Culture ID Panel. This test is FDA cleared for in vitro diagnostic use and has been verified and approved by the [facility] Clinical Microbiology laboratory for clinical use. Reference Range: Not Detected * Vancomycin level, trough (12/09/2016 6:36 AM) Component Value Ref Range Vancomycin Tr 30.4 (HH) 10.0 - 20.0 ug/mL Specimen Performing Laboratory Blood [address] [address] * Lactic acid, venous, whole blood (12/09/2016 6:10 AM) Only the most recent of 2 results within the time period is included. Component Value Ref Range Lactate, Venous 0.7 0.5 - 2.2 mmol/L Specimen Performing Laboratory Blood - Arm, Left [address] [address] Narrative Effective 07/06/2015: Units/Reference Range Change New: [...] Specimen Performing Laboratory Blood - Arm, Left [address] [address] * Cortisol (12/08/2016 5:07 PM) Component Value Ref Range Cortisol, Total 14.0 3.7 - 19.4 ug/dL Specimen Performing Laboratory Blood - Arm, Left [address] [address] * Vitamin B12 and Folate (12/07/2016 6:45 AM) Component Value Ref Range Vitamin B12 1240 (H) 213 - 816 pg/mL Folate 10.5 >=7.0 ng/mL Specimen Performing Laboratory Blood - Arm, [address] [address] * TSH/Free T4 If Indicated (12/07/2016 6:45 AM) Only the most recent of 2 results within the time period is included. Component Value Ref Range TSH 2.64 0.35 - 4.94 uIU/mL Specimen Performing Laboratory Blood - Arm, Right [address] [address] * Iron, TIBC, % sat. (without ferritin) (12/07/2016 6:45 AM) Only the most recent of 2 results within the time period is included. Component Value Ref Range Iron 12 (L) 40 - 160 ug/dL TIBC 159 (L) 250 - 450 ug/dL Iron % Saturation 8 (L) 20 - 55 % Specimen Performing Laboratory Blood - Arm, Right [address] [address] * Reticulocyte count (12/07/2016 6:45 AM) Component Value Ref Range % Retic 2.7 (H) 0.5 - 1.7 % Specimen Performing Laboratory Blood - Arm, Right [address] [address] * Ferritin (12/07/2016 6:45 AM) Component Value Ref Range Ferritin 1142 (H) 5 - 275 ng/mL Specimen Performing Laboratory Blood - Arm, Right [address] [address] * Urinalysis w/Microscopic + Reflex to Culture (12/06/2016 1:30 PM) Component Value Ref Range Color, UA Yellow Clarity, UA Hazy Specific [place], UA 1.020 1.001 - 1.035 pH, UA [...] Specimen Performing Laboratory Urine - Urine, Straight [facility] Catheter [address] [place] [id number] * Type and screen (08/22/2016 11:23 AM) Only the most recent of 3 results within the time period is included. Component Value Ref Range Ab Scrn NEGATIVE ABO Grouping AB Rh Factor POS Specimen Performing Laboratory Blood [facility] [address] [place] [address] * US renal complete (08/20/2016 2:45 PM) [...] MD Report Verified Date/Time:08/20/2016 14:47:22 Reading Location: [facility] Radiology Reading Room Procedure Note Interface, External [...] Report Verified Date/Time: 08/20/2016 14:47:22 Reading Location: [facility] Radiology Reading Room * Occult blood, stool (08/17/2016 11:25 AM) Component Value Ref Range Occult blood Negative Negative Specimen Performing Laboratory Stool - Per Rectum [facility] [address] [place] [address] * Prepare Leuko-Red PLT (08/15/2016 11:54 PM) Component Value Ref Range Unit ABO A Pos UNIT NUMBER [id number] Status TRANSFUSED Blood Bank Product PLATELETS PRODUCT CODE [id number] Specimen Performing Laboratory Blood [place] * Tissue Exam (08/14/2016 1:51 PM) Component Value Ref Range Case Report Surgical Pathology Report Case: [id number] Authorizing Provider: Akash Joya MD Collected: 08/14/2016 1351 Ordering Location: [address] Med/Surg Received: 08/14/2016 7831 Pathologist: Roxana Hill MD Specimen: Gallbladder DIAGNOSIS GALLBLADDER, CHOLECYSTECTOMY: CHRONIC CHOLECYSTITIS CPT Code(s) MG/ew 30236 CLINICAL HISTORY Abdominal pain, cholecystitis SPECIMEN SOURCE Gallbladder GROSS DESCRIPTION Specimen is received in fixative and designated with the same medical record number and the same name as "gallbladder", consists of a cholecystectomy specimen (7.0 x 3.0 x 0.8 cm). The gallbladder contains no gallstones. The mucosa is yellow-lopez and velvety. No discrete lesions are identified. Correctional Lieutenant sections of the gallbladder mucosa and cystic duct are submitted into A1. MG/ew MICROSCOPIC DESCRIPTION Performed Specimen Performing Laboratory Tissue - Gallbladder [facility] [address] [place] [address] * NM hepatobiliary (HIDA) scan (08/13/2016 12:40 PM) Specimen Performing Laboratory GE RIS Narrative FINAL REPORT PROCEDURE: HEPATOBILIARY SCAN CPT CODE: 12313 INDICATION: Nausea, vomiting, positive Agustin's sign PROTOCOL: [...] MD Report Verified Date/Time:08/13/2016 16:23:17 Reading Location: [address] [facility] Med Reading Room Procedure Note Interface, External Ris In - 08/13/2016 4:25 PM CDT FINAL REPORT PROCEDURE: HEPATOBILIARY SCAN CPT CODE: 41764 INDICATION: Nausea, vomiting, positive Agustin's sign PROTOCOL: [...] Report Verified Date/Time: 08/13/2016 16:23:17 Reading Location: [address] Reading Room * Hemoglobin A1c (08/13/2016 6:23 AM) Component Value Ref Range Hemoglobin A1C 6.8 (H) 4.3 - 6.1 % Specimen Performing Laboratory Blood [facility] [address] [place] [address] * Amylase (08/12/2016 10:07 PM) Component Value Ref Range Amylase 18 (L) 30 - 110 U/L Specimen Performing Laboratory Blood [facility] [address] [place] [address] * US abdomen limited (08/12/2016 3:09 PM) Specimen Performing Laboratory GE RIS Narrative ...................................................................... ...................................................................... ............................ Study Date Accession # Location 08/12/2016 4:45 PM [id number] Procedure Code Procedure 5010 U/S, ABDOMINAL, LIMITED [...] Date Accession # Location 08/12/2016 4:45 PM [id number] Procedure Code Procedure 5010 U/S, ABDOMINAL, LIMITED [...] time period is included. Specimen Performing Laboratory [employer] Narrative FINAL REPORT CT abdomen pelvis without [...] MD Report Verified Date/Time:08/10/2016 23:15:06 Reading Location: [facility] B1 C013T Transitional Reading Room Procedure [...] Report Verified Date/Time: 08/10/2016 23:15:06 Reading Location: [address] Reading Room * Venous doppler arm, [...] MD Report Verified Date/Time:08/07/2016 22:49:49 Reading Location: [address] Reading Room Procedure Note Interface, External [...] Report Verified Date/Time: 08/07/2016 22:49:49 Reading Location: [address] Reading Room * Ammonia (08/07/2016 10:14 PM) Component Value Ref Range Ammonia <11 (L) 17 - 80 mol/L Specimen Performing Laboratory Blood - Arm, Right [facility] [address] [facility] [place] [address] * Venous doppler legs bilateral (08/07/2016 9:57 [...] MD Report Verified Date/Time:08/07/2016 22:47:15 Reading Location: [address] Reading Room Procedure Note Interface, External [...] Report Verified Date/Time: 08/07/2016 22:47:15 Reading Location: [address] Reading Room * D-dimer, quantitative (08/07/2016 9:21 PM) Only the most recent of 2 results within the time period is included. Component Value Ref Range D-Dimer, Quant 1.72 (H) <0.50 MG/L FEU Specimen Performing Laboratory Blood - Arm, Left [facility] [address] [place] [address] Narrative REGARDING D-DIMER RESULTS: The 98% NPV (Negative Predictive Value) for DVT/PE exclusion is 0.50 mg/L FEU as suggested by the recording studio setup worker and as approved by the FDA. * aPTT (08/07/2016 7:42 PM) Component Value Ref Range PTT 26.3 23.0 - 35.0 seconds Specimen Performing Laboratory Blood - Arm, Right [facility] [address] [place], [place] [address] * Prothrombin time/INR (08/07/2016 7:42 PM) Component Value Ref Range Protime 10.7 9.3 - 12.0 seconds INR 1.0 <=5.9 Specimen Performing Laboratory Blood - Arm, Right [facility] [address] [place], [place] [address] Narrative RECOMMENDED COUMADIN/WARFARIN INR THERAPY RANGES STANDARD [...] Normal Specimen Performing Laboratory Blood - Arm, [facility] [address] [place], [place] [address] * Glucose (07/31/2016 8:43 PM) Component Value Ref Range Glucose 561 (HH) 70 - 110 mg/dL Specimen Performing Laboratory Blood - Arm, Right [facility] [address] [place] [address] * Urea Nitrogen, random urine (07/29/2016 3:11 PM) Component Value Ref Range Urea Nitrogen, Ur 614 mg/dL Specimen Performing Laboratory Urine - Urine, [facility] [address] [place] [address] Narrative Reference Range: No Normals * Creatinine, random urine (07/29/2016 3:11 PM) Component Value Ref Range Creatinine, Ur 57.0 mg/dL Specimen Performing Laboratory Urine - Urine, [facility] [address] [address] [place] [address] Narrative Reference Range: No Normals * ED [...] normal. ST segments normal. T waves normal. Hostetter is normal. Clinical Impression: non-specific ECGECG reviewed [...] Est EF is 55-60% Specimen Performing Laboratory [facility] Narrative Transthoracic Echocardiography Report (TTE) Demographics Patient NameTHOMSNORTH RIOJASIADate of Study07/20/2016 [place] Gender Female Visit [id number] Race Unknown [id number] Number Date of 1950 [facility]erring[facility] Hospitals[facility]antha Reynolds Physician Age 65 year(s) Directional Driller Yeni Lee [facility] Interpreting Guillermo Sandoval MD. Physician Procedure Type of Study TTE procedure:2DECHO W/CONTRAST & DOPPLER (Routine) Indications:Dyspnea/SOB. Clinical History ANEMIA, CHF, CKD, HTN, FL, STROKE, TIA, CAD. Height: 67 inches Weight: [...] Name HONEY ANGUIANO Date of Study 07/20/2016 [place] Gender Female Visit Number [id number] Race Unknown Room Number A514 Number Date of 1950 Referring Owen Reynolds Physician Age 65 year(s) Directional Driller CHESTER Malik Interpreting Guillermo Sandoval MD. Physician Procedure Type of Study TTE procedure:2DECHO W/CONTRAST & DOPPLER (Routine) Indications:Dyspnea/SOB. Clinical History ANEMIA, CHF, CKD, HTN, FL, STROKE, TIA, CAD. Height: 67 inches Weight: [...] REPORT PROCEDURE: V/Q LUNG SCAN CPT CODE: 02183 INDICATION: dyspnea, elevated d-dimer PROTOCOL: 10.4 mCi [...] REPORT PROCEDURE: V/Q LUNG SCAN CPT CODE: 25283 INDICATION: dyspnea, elevated d-dimer PROTOCOL: 10.4 mCi [...] MD Report Verified Date/Time: 07/19/2016 20:03:57 after 07/08/2016
--- OUTSIDE RECORDS SUMMARY | 2017-07-09 01:08 | XMS REPORT | Clinical Summary ---
Author Author [facility] Organization [facility] Address Unknown Phone Unavailable Care Team Providers Care Medical Billing Supervisor Name Role Phone Davon Grewal MD PCP [...] Care Team Description 05/17/2017 Emergency [facility] Diarrhea, unspecified type (Primary Dx) after 07/08/2016 Social History Tobacco Use Types Packs/Day Years [...] and Americans. Specimen Performing Laboratory Plasma specimen [facility]OLOGY AND GENOMIC MEDICINE [address] [place] [address] * CBC with platelet and differential (05/17/2017 [...] - 1.0 % Specimen Performing Laboratory Blood [facility] OF PATHOLOGY AND GENOMIC MEDICINE [address] [place] [address] * Comprehensive metabolic panel (05/17/2017 4:20 PM) [...] 1.2 mg/dL Specimen Performing Laboratory Plasma specimen [facility] DEPARTMENT OF PATHOLOGY AND GENOMIC MEDICINE [facility] [address] after 07/08/2016 Insurance Payer Benefit Subscriber ID Type Phone Address Plan / Group [facility] ADVANTAGE [facility] xxxxxxxxxxx O ADVANTAGE [facility] [place] [address]
[2017-07-09] MEDS: HYDRALAZINE HCL 20 MG/ML VIAL IV PRN ×2 (01:40→06:33)
[2017-07-09] MEDS ORDERED: NITROGLYCERIN 2% OINT 1 GM PKT TOP SCH (06:00)
[2017-07-09] MEDS ORDERED: VITAMIN D1000 UNI1 PO (06:16)
[2017-07-09] MEDS ORDERED: ULTRAM50 MG PO (06:16)
[2017-07-09] MEDS ORDERED: AMLODIPINE BESYL5 MG PO (06:16)
[2017-07-09] MEDS ORDERED: FERROUS SULFAT325 MG PO (06:16)
[2017-07-09] MEDS ORDERED: METOPROLOL TART25 MG PO (06:16)
[2017-07-09] MEDS ORDERED: MELATONIN3 MG PO (06:16)
[2017-07-09] MEDS ORDERED: GABAPENTIN100 MG PO (06:16)
[2017-07-09] MEDS ORDERED: NOVOLOG100 UNITS1 (06:16)
[2017-07-09] MEDS ORDERED: LEVEMIR100 UNIT/1 (06:16)
[2017-07-09] MEDS ORDERED: ATORVASTATIN CA20 MG PO (06:16)
[2017-07-09] MEDS ORDERED: IPRAT-ALBUT 0.5-3 ML INH (06:16)
[2017-07-09] MEDS ORDERED: ALBUTEROL0.63 MG/3 (06:16)
[2017-07-09] MEDS ORDERED: LORAZEPAM0.5 MG PO (06:16)
[2017-07-09] MEDS ORDERED: ASPIR 8181 MG PO (06:16)
[2017-07-09] MEDS ORDERED: PANTOPRAZOLE SO40 MG PO (06:16)
[2017-07-09] MEDS ORDERED: MECLIZINE HCL12.5 MG PO (06:16)
[2017-07-09] MEDS ORDERED: HYDRALAZINE HCL25 MG PO (06:16)
[2017-07-09] MEDS ORDERED: ZOFRAN ODT4 MG PO (06:16)
[2017-07-09] MEDS ORDERED: CLOPIDOGREL75 MG PO (06:16)
[2017-07-09] MEDS ORDERED: ACETAMINOPHEN325 M1 PO (06:16)
[2017-07-09 06:27] LABS: CREATINE KINASE MB 1.1 ng/mL (0-5.0)
[2017-07-09] MEDS ORDERED: INSULIN REGULAR, HUMAN 100 UNIT/1 ML 3ML VIAL SQ SCH (07:30)
[2017-07-09] MEDS ORDERED: LORAZEPAM 0.5 MG TAB PO PRN (11:00)
[2017-07-09] MEDS ORDERED: ALBUTEROL/IPRATROPIUM 3 ML NEB NEB PRN (11:15)
[2017-07-09 12:28] LABS: ALBUMIN 2.5 g/dL (3.5-5.0); BILIRUBIN,DIRECT 0.1 mg/dL (0.0-0.5)
[2017-07-09] MEDS: INSULIN LISPRO 100 UNIT/1 ML 3ML VIAL SQ SCH ×3 (12:35→21:12)
--- NOTE | 2017-07-09 13:43 | Consultation ---
DATE OF CONSULTATION: July 09, 2017 RENAL CONSULT HISTORY OF PRESENT ILLNESS: This is a 66-year-old female, relatively poor historian, awake, alert. Brought into the emergency room with chest pain. She is a Saturday/Saturday/Saturday dialysis patient of Dr. Gold with [facility] at [facility]. Received about 1-1/2 hours of treatment yesterday. Currently awake, alert, lying supine, no apparent distress. Has a white count 11.6, hemoglobin 15.8, with a potassium 4.2, bicarbonate 26, creatinine 2.9. CK of 15 with a BNP 165.3. Chest x-ray shows some atelectasis and decreased lung volume left lower zone. No evidence of congestive heart failure. ALLERGIES: TO PENICILLIN, AMOXICILLIN, CEFACLOR, CODEINE, LISINOPRIL, LOSARTAN. CURRENT MEDICATIONS: Patient is on amlodipine 5 mg at bedtime, aspirin 81 mg to chew, atorvastatin 20 mg daily, Plavix 75 mg daily, hydralazine 25 mg p.o. b.i.d., insulin, lorazepam, melatonin 10 mg p.o. nightly, metoprolol 25 mg p.o. b.i.d., nitroglycerin paste 1 inch to chest wall, pantoprazole. For dose schedule, please see MAR. PAST MEDICAL HISTORY: Significant for cardiac arrest, status post successful resuscitation at [facility]. Coronary artery disease status post PCI and stenting. History of AICD placement recently, about a month and a half ago. Again with J[facility] Mccullough. Underlying end-stage renal disease, which probably developed after angiogram and she probably suffered ATN and is now dialysis-dependent. SOCIAL HISTORY: Does not smoke or drink. Very supportive daughter, who is helping with historical facts. FAMILY HISTORY: Significant for hypertension. LABS: As above. PHYSICAL EXAMINATION: GENERAL: Awake, alert, lying supine, no apparent distress. VITALS: Blood pressure 155/75. Pulse rate 71. Afebrile. Oxygen saturation 99%. HEAD AND NECK: Cornea clear. Oral mucosa dry. Neck veins flat. LUNGS: Harsh vesicular breath sounds but relatively clear. Decreased air entry right lower zone with scattered rales. HEART: S1 and S2 audible. ABDOMEN: Soft, nontender, with pacemaker noted left lower costal area. LOWER EXTREMITY EXAMINATION: Shows no edema. IMPRESSION: End-stage renal disease, stable volume status, no acute indications for dialysis. Underlying blood pressure, admitted with chest pain. Agree with workup, agree with cardiology evaluation. Discussed with daughter. Please see orders. Job#: [id number] EV
[2017-07-09 13:59] LABS: CREATINE KINASE MB 1.2 ng/mL (0-5.0)
[2017-07-09 14:31] VITALS: BP 168/71
[2017-07-09 17:36] VITALS: BP 199/95
--- NOTE | 2017-07-09 17:53 | Consultation ---
DATE OF CONSULTATION: July 09, 2017 CARDIOLOGY CONSULTATION REASON FOR CONSULTATION: Chest pain. HISTORY OF PRESENT ILLNESS: Ms. Geiger is a 66-year-old lady with a past medical history of hypertension, hypercholesterolemia, coronary artery disease with prior history of [place] x2 in November of 2016, prior history of ocz-uf-bxscousu arrest and an in-hospital arrest, has a subcutaneous ICD implantation with Dr. Romelia Majano, a history of prior recurrent GI bleed amongst other things. She has been on hemodialysis since her hospital arrest in November of 2016 and receives dialysis via Perma-Cath. Approximately about a month and a half ago patient has been experiencing chest pain with her hemodialysis sessions. She reports a left-sided deep sternal chest pressure tightness that occurs during her hemodialysis sessions and reports that she frequently receives sublingual nitroglycerin which improves the chest pain. Yesterday patient had chest pain at rest prior to her dialysis session the same as before. However, upon sitting down in her dialysis session about an hour and a half of treatment, patient had severe left-sided chest pressure that radiated to the substernal region, associated with numbness, heaviness and radiation to the left shoulder, back and down the left arm, typical angina symptoms that lasted for well over 20 minutes. She had her hemodialysis session cut short and then was brought to the emergency room for further evaluation. Patient reports to be mostly better; however, does note a low level discomfort right now in the center of her chest. Thus far her cardiac biomarkers have been negative, and she has maintained excellent compliance with her antiplatelet therapy. Of note, patient was previously on Brilinta therapy; however, was transitioned to Plavix about 3 months ago. PAST MEDICAL HISTORY 1. Hypertension, essential. 2. Hypercholesterolemia. 3. Type 2 diabetes with complications. 4. End-stage renal disease on hemodialysis since November of 2016. 5. History of in-hospital and aws-vd-jmhvoeiz cardiac arrests, status post subcutaneous ICD with Dr. Majano back in June of 2017. 6. Coronary artery disease with prior history of heart attacks x2 with stent placement to the RCA in the past, most notably in November of 2016. 7. History of recurrent bright red blood per rectum which is followed up closely with GI and has had a prior capsule endoscopy evaluation. 8. PAD with prior history of lower extremity stenting. PAST SURGICAL HISTORY 1. History of a left-sided subcutaneous ICD implantation. 2. History of cholecystectomy. 3. History of left peripheral revascularization many, many years ago. 4. History of left foot surgery for a dislocated ankle. FAMILY HISTORY: Mother in her 70s from a stroke. Father in his 70s, was on hemodialysis and had hypertensive heart disease. Had a sister who in her 60s with breast cancer. SOCIAL HISTORY: She does not smoke and denies any alcohol or illicit drug use. ALLERGIES INCLUDE: CECLOR, LOSARTAN, LISINOPRIL, AMOXICILLIN AND CODEINE. HOME MEDICATIONS INCLUDE 1. Tylenol 650 mg p.o. q.6 h. p.r.n. 2. Albuterol MDI p.r.n. 3. Norvasc 5 mg nightly. 4. Aspirin 81 mg daily. 5. Atorvastatin 20 mg daily. 6. Vitamin D tablet daily. 7. Plavix 75 mg daily. 8. Iron sulfate 325 mg b.i.d. 9. Gabapentin 200 mg t.i.d. 10. Hydralazine 25 mg b.i.d. 11. Insulin NovoLog. 12. Insulin Levemir. 13. DuoNeb p.r.n. 14. Lorazepam p.r.n. nightly. 15. Meclizine p.r.n. 16. Melatonin 10 mg nightly. 17. Metoprolol 25 mg b.i.d. 18. Zofran 4 mg q.8 h. p.r.n. 19. Protonix 40 mg daily. 20. Tramadol 50 mg q.8 h. p.r.n. pain. REVIEW OF SYSTEMS GENERAL: Denies any fevers, chills or any weight changes. HEENT: No headaches, visual complaints, sore throat, stuffy nose. RESPIRATORY: Denies any pleuritic chest pain. Positive for exertional dyspnea and dyspnea with the chest pain episode. CARDIOVASCULAR: As per HPI. Denies any palpitation, syncope or near syncope. No ICD shocks. GI: Denies any recent bright red blood per rectum, melena. Does have a history of prior GI bleeding but none recently. : Denies any dysuria. Does make scant urine but is on hemodialysis. MUSCULOSKELETAL: Has chronic neck pain, back pain. PERIPHERAL VASCULAR: Positive for claudication and PAD. No edema. NEUROLOGIC: Denies any focal weakness, numbness, seizures, headaches. Does report peripheral neuropathy. PHYSICAL EXAMINATION VITAL SIGNS: Height of 67 inches, weight of 162 pounds. BMI is 25.5. Temperature of 98.5, pulse of 74, respiratory rate of 14, blood pressure 143/62, O2 sat 100% on 2 liters nasal cannula. IN GENERAL: This is a well-nourished, well-developed lady, who is currently in no apparent distress. HEENT: Normocephalic, atraumatic. Pupils are equally round and reactive to light. Extraocular movements are intact. Oropharynx is clear. NECK: No elevation of jugular venous pulsation, no carotid bruits. CARDIOVASCULAR: Regular rate and rhythm. Normal S1 and S2. A 2/6 systolic murmur at the left upper sternal border. LUNGS: With slight decreased bibasilar breath sounds, otherwise clear to auscultation. ABDOMEN: There is a left lateral subcutaneous ICD noted as well as a left Perma-Cath dialysis catheter. BACK: No costovertebral angle tenderness. EXTREMITIES: Warm with absent pedal pulses, 1 to 2+ bilateral femoral pulses and 1+ right radial pulse and a 2+ left radial pulse. NEUROLOGIC: Cranial nerves 2-12 appear to be intact. Strength seems to be preserved, and she does not appear focal. LABS: White count 11.6, hemoglobin 15.8, hematocrit 50.6, platelets of 237. Sodium is 140, potassium 4.2, chloride 100, bicarb 26, BUN 30, creatinine 2.91, glucose of 262. AST 11, ALT 10, alk phos 100. Total protein is 5.6, albumin of 2.5. BNP is 865. Troponin went from 0.021 to 0.07 to 0.03. INR is 0.99. Chest x-ray reveals the ICD and Perma-Cath, a normal cardiac silhouette, and atherosclerotic calcifications. EKG reveals normal sinus rhythm, LVH and nonspecific ST-T wave changes in the lateral precordial leads. DIAGNOSES 1. Coronary artery disease with unstable angina pectoris symptoms and Peruvian classification stage IV. 2. Stented coronary artery. 3. History of myocardial infarction with a prior history of tnv-vk-fmixcfay arrest. 4. Peripheral artery disease with claudication. 5. Type 2 diabetes with complications. 6. Hypercholesterolemia. 7. Status post subcutaneous implantable cardioverter-defibrillator implant. PLAN/RECOMMENDATIONS 1. From a cardiovascular standpoint, we had an extensive discussion with the patient in terms of the differential diagnosis and alternative explanations. However, unstable angina is highest in our differential. Due to her prior history of an bzb-br-kufhrfrc arrest and known advanced cardiac status and the prior stenting and the typical angina symptoms, we will proceed with definitive ischemic evaluation with cardiac catheterization tomorrow morning and will time it around a dialysis session afterwards. 2. Aspirin and Plavix therapy. 3. Statin therapy. 4. Beta neeta therapy. 5. Aggressive risk-factor modification, medical therapy. 6. Telemetry monitoring. 7. Echo to evaluate left ventricular function. Job#: [id number] EV
[2017-07-09] MEDS: HYDRALAZINE HCL 25 MG TAB PO SCH (18:05)
[2017-07-09] MEDS: METOPROLOL TARTRATE 25 MG TAB PO SCH (18:05)
[2017-07-09 19:40] VITALS: BP 160/69
[2017-07-09] MEDS ORDERED: MELATONIN 3 MG TAB PO SCH (21:00)
[2017-07-09] MEDS ORDERED: AMLODIPINE BESYLATE 5 MG TAB PO SCH (21:00)
[2017-07-09] MEDS: MELATONIN 5 MG TABLET PO SCH (21:00)
[2017-07-09 22:43] LABS: CREATINE KINASE MB 1.3 ng/mL (0-5.0)
[2017-07-10] VITALS (8 sets, daily range): BP systolic 135–215; BP diastolic 65–88
[2017-07-10] MEDS ORDERED: LIDOCAINE HCL 2% LOCAL 20 ML VIAL ONE (06:40)
[2017-07-10] MEDS ORDERED: SODIUM CHLORIDE 0.9% 1000ML 2,000 ML ONE (06:41)
[2017-07-10] MEDS ORDERED: IOPAMIDOL 370 MG/ML 200 ML INFUS..BTL INJ ONE ×2 (06:41→08:33)
[2017-07-10] MEDS ORDERED: HEPARIN SOD/SOD CHLORIDE 2,000 ML ONE (06:41)
[2017-07-10] MEDS ORDERED: MIDAZOLAM HCL 2 MG/2 ML VIAL ONE (06:52)
[2017-07-10] MEDS ORDERED: FENTANYL CITRATE/PF 100MCG/2 ML INJ ONE (06:53)
[2017-07-10 06:56] LABS: BASOPHILS # (AUTO) 0.1 (0.0-0.1); BASOPHILS % 0.8 % (0.0-1.0); EOSINOPHILS # (AUTO) 0.7 (0.0-0.4); EOSINOPHILS % 5.6 % (0.0-6.0); HEMATOCRIT 43.9 % (34.2-44.1); HEMOGLOBIN 13.5 g/dL (12.0-16.0); LYMPHOCYTES # (AUTO) 2.3 (1.0-3.2); LYMPHOCYTES % 19.9 % (18.0-39.1); MEAN CORPUSCULAR HEMOGLOBIN 27.9 pg (28-32); MEAN CORPUSCULAR HGB CONC 30.8 g/dL (31-35); MEAN CORPUSCULAR VOLUME 90.7 fL (81-99); MONOCYTES % 8.6 % (4.4-11.3); NEUTROPHILS # (AUTO) 7.6 (2.1-6.9); NEUTROPHILS % 64.8 % (38.7-80.0); PLATELET COUNT 238 x10e3/uL (140-360); RED BLOOD COUNT 4.84 x10e6/uL (3.6-5.1); RED CELL DISTRIBUTION WIDTH 16.3 % (11.7-14.4)
[2017-07-10 07:00] LABS: INR 0.98; PROTHROMBIN TIME 12.2 seconds (11.9-14.5)
[2017-07-10 07:13] LABS: ALBUMIN 2.6 g/dL (3.5-5.0); ALBUMIN/GLOBULIN RATIO 0.8 (0.8-2.0); ANION GAP 14.3 mmol/L (8-16); CALCIUM 9.2 mg/dL (8.4-10.2); CREATININE, SERUM 3.99 mg/dL (0.57-1.11); POTASSIUM 4.3 mmol/L (3.5-5.1)
[2017-07-10] MEDS: INSULIN LISPRO 100 UNIT/1 ML 3ML VIAL SQ SCH ×4 (07:30→20:54)
[2017-07-10 07:37] LABS: CHOL/HDL RATIO 2.8 (3.0-3.6)
[2017-07-10 07:38] LABS: THYROID STIMULATING HORMONE 2.508 uIU/mL (0.350-4.940)
[2017-07-10] MEDS ORDERED: BIVALIRUDIN 250 MG/VIAL IV ONE (08:27)
[2017-07-10] MEDS ORDERED: SODIUM CHLORIDE 0.9% 50ML 50 ML ONE (08:28)
[2017-07-10] MEDS ORDERED: ATROPINE SULFATE 0.1 MG/ML 10ML SYR ONE (08:38)
[2017-07-10] MEDS ORDERED: CLOPIDOGREL BISULFATE 75 MG TAB ONE (08:44)
[2017-07-10] MEDS ORDERED: ASPIRIN 325 MG TAB ONE (08:45)
[2017-07-10] MEDS: METOPROLOL TARTRATE 25 MG TAB PO SCH ×2 (09:00→16:37)
[2017-07-10] MEDS: HYDRALAZINE HCL 25 MG TAB PO SCH ×3 (09:00→20:57)
[2017-07-10] MEDS: CLOPIDOGREL BISULFATE 75 MG TAB PO SCH (09:00)
[2017-07-10] MEDS ORDERED: ONDANSETRON HCL INJ 2 MG/ML VIAL IV PRN (09:15)
[2017-07-10] MEDS ORDERED: ACETAMINOPHEN 325 MG TAB PO PRN (09:15)
--- NOTE | 2017-07-10 10:12 | Operative Report ---
DATE OF PROCEDURE: July 10, 2017 CARDIAC CATHETERIZATION AND INTERVENTION PROCEDURES PERFORMED 1. Left heart cardiac catheterization and coronary angiography. 2. Left ventriculography. 3. Percutaneous coronary intervention with drug-eluting stent placement to the long proximal to mid right coronary artery lesion. 4. Vascade closure of the right common femoral arteriotomy. INDICATIONS FOR THE PROCEDURE: This is a 66-year-old lady with a history of hypertension, type-2 diabetes, hypercholesterolemia, end-stage renal disease on hemodialysis, prior history of sudden cardiac , and prior [place] times 2, who presents with unstable angina pectoris initiated after sitting on a hemodialysis machine. DESCRIPTION OF PROCEDURE: After risks, benefits, pros and cons of today's procedure were explained, the patient agreed to proceed. The patient was brought to the cardiac catheterization laboratory where the right groin was prepped and draped in the usual sterile fashion. One percent lidocaine solution was used to numb the right groin region. Access in the right femoral artery was obtained, and a 4-Estonian femoral sheath was placed. Selective coronary angiography of the [place] left and right coronaries was performed with JL4 and 3DRC diagnostic catheters respectively. An angled pigtail catheter was placed in the ventricle for ventriculography and hemodynamic assessment of ventricular filling pressures. After noting high-grade in-segment restenosis of the long proximal to mid RCA stent placed in [facility], we decided to proceed with intervention. The 4-Estonian femoral sheath was upsized to a 6-Estonian femoral sheath. IV Angiomax bolus was given. We initially went up with a 6-Estonian JR4 guiding catheter and selected the right coronary artery. Utilizing a 100-cm ProNetero Flex guidewire, we successfully crossed into the distal RCA. We proceeded with direct stenting strategy and took a Synergy 4.0 x 32 mm drug-eluting stent and covered the entire stented area and lesion and deployed that up to 11 atmospheres of pressure. We went ahead and took an NC Quantum 4.0 x 15 mm balloon and post dilated the entire segment of the stent up to 15 atmospheres distally and then 20 atmospheres in the proximal to mid aspect of this stent. Final angiography revealed 0% residual stenosis, KERI-3 flow and no complications. At the conclusion of the case, femoral angiogram was performed revealing femoral artery stick, and a 6-Estonian Vascade closure device was successfully deployed, achieving hemostasis. COMPLICATIONS: None. ESTIMATED BLOOD LOSS: Minimal. FINDINGS 1. The left main is angiographically normal. It gives rise to an LAD, ramus intermedius and circumflex branch. 2. The LAD has a long, tubular, 40% to 50% proximal stenosis, and this lesion terminates just before the 1st diagonal bifurcation. The remainder of this vessel and its branches are just with mild luminal irregularities. 3. The rest of the ramus intermedius is a small to moderate caliber vessel that is angiographically normal. 4. The left circumflex artery gives rise to essentially a mid marginal branch, and this vessel and its branches are angiographically normal. 5. The RCA has a proximal to mid stent with long segment of restenosis, particularly towards the distal end, up to 85%. This vessel gives rise to a large RV marginal branch, right PDA and right PLV branches. The remainder of this vessel is angiographically normal. 6. The left ventricular ejection fraction is 60% with end-diastolic pressure of 18 mmHg. There is no significant LV to aortic pullback gradient. INTERVENTION SUMMARY: Successful treatment of the 85% long proximal to mid RCA lesion with implantation of a Synergy 4.0 x 32 mm drug-eluting stent and post dilated with an NC Quantum 4.0 balloon resulting in 0% residual stenosis, KERI-3 flow and no complications. PLAN/RECOMMENDATIONS 1. Aspirin and Plavix therapy. 2. Statin therapy. 3. Aggressive risk factor modification and medical therapy. 4. We discussed the case with the renal service, notifying them of the results for hemodialysis post procedure today. 5. Recommend overnight stay and if clinically doing well okay to go home tomorrow. Job#: [id number]
[2017-07-10] MEDS: PANTOPRAZOLE SOD 40 MG TABEC PO SCH (12:27)
[2017-07-10] MEDS: ASPIRIN 81 MG CHEW TAB PO SCH (12:27)
[2017-07-10] MEDS: HYDRALAZINE HCL 20 MG/ML VIAL IV PRN (12:27)
[2017-07-10] MEDS: ATORVASTATIN 20 MG TAB PO SCH (12:27)
[2017-07-10] MEDS ORDERED: HEPARIN SOD (PORCINE) 1000 UNIT/ML SDV IV PRN (16:30)
[2017-07-10] MEDS ORDERED: MANNITOL 25% 12.5GM/50 ML VIAL IV PRN (16:30)
[2017-07-10] MEDS ORDERED: SODIUM CHLORIDE 0.9% 250ML 500 ML IV PRN (16:30)
[2017-07-10] MEDS ORDERED: ALBUMIN 25% 12.5GM 0.25 GM/ML BTL IV PRN (16:30)
[2017-07-10] MEDS ORDERED: SODIUM CHLORIDE 0.9% 1000ML 2,000 ML IV PRN (16:30)
[2017-07-10] MEDS ORDERED: SODIUM CHLORIDE 0.9% 1000ML 1,000 ML ONE (17:14)
[2017-07-10] MEDS: MELATONIN 5 MG TABLET PO SCH ×2 (20:57→21:00)
[2017-07-10] MEDS: FUROSEMIDE INJ 10 MG/ML 4 ML VIAL IV SCH (20:57)
[2017-07-10] MEDS ORDERED: NIFEDIPINE CR 30 MG TAB PO SCH (21:00)
[2017-07-11] VITALS: BP 144/62
[2017-07-11 04:00] VITALS: BP 142/62
[2017-07-11 06:40] LABS: BASOPHILS # (AUTO) 0.1 (0.0-0.1); BASOPHILS % 0.8 % (0.0-1.0); EOSINOPHILS # (AUTO) 0.5 (0.0-0.4); EOSINOPHILS % 5.5 % (0.0-6.0); HEMATOCRIT 42.2 % (34.2-44.1); HEMOGLOBIN 13.2 g/dL (12.0-16.0); LYMPHOCYTES # (AUTO) 1.8 (1.0-3.2); LYMPHOCYTES % 18.6 % (18.0-39.1); MEAN CORPUSCULAR HEMOGLOBIN 28.3 pg (28-32); MEAN CORPUSCULAR HGB CONC 31.3 g/dL (31-35); MEAN CORPUSCULAR VOLUME 90.6 fL (81-99); MONOCYTES # (AUTO) 0.8 (0.2-0.8); MONOCYTES % 8.4 % (4.4-11.3); NEUTROPHILS # (AUTO) 6.4 (2.1-6.9); NEUTROPHILS % 66.4 % (38.7-80.0); PLATELET COUNT 231 x10e3/uL (140-360); RED BLOOD COUNT 4.66 x10e6/uL (3.6-5.1); RED CELL DISTRIBUTION WIDTH 16.4 % (11.7-14.4)
[2017-07-11 06:59] LABS: ALBUMIN 2.5 g/dL (3.5-5.0); ALBUMIN/GLOBULIN RATIO 0.8 (0.8-2.0); ANION GAP 14.3 mmol/L (8-16); CALCIUM 8.9 mg/dL (8.4-10.2); CREATININE, SERUM 2.96 mg/dL (0.57-1.11); POTASSIUM 4.3 mmol/L (3.5-5.1)
[2017-07-11] MEDS: INSULIN LISPRO 100 UNIT/1 ML 3ML VIAL SQ SCH (07:30)
[2017-07-11 07:49] VITALS: BP 159/69
[2017-07-11] MEDS: FUROSEMIDE INJ 10 MG/ML 4 ML VIAL IV SCH (09:00)
[2017-07-11] MEDS: ATORVASTATIN 20 MG TAB PO SCH (09:27)
[2017-07-11] MEDS: HYDRALAZINE HCL 25 MG TAB PO SCH (09:27)
[2017-07-11] MEDS: ASPIRIN 81 MG CHEW TAB PO SCH (09:27)
[2017-07-11] MEDS: PANTOPRAZOLE SOD 40 MG TABEC PO SCH (09:28)
[2017-07-11] MEDS: CLOPIDOGREL BISULFATE 75 MG TAB PO SCH (09:28)
[2017-07-11] MEDS: METOPROLOL TARTRATE 25 MG TAB PO SCH (09:38)
[2017-07-11 09:42] VITALS: BP 159/69
--- NOTE | 2017-07-11 10:01 | Discharge Summary ---
PRIMARY CARE DOCTOR: Zaheer Grewal MD, with [facility]. FINAL DIAGNOSIS: Unstable angina with coronary artery disease. SECONDARY DIAGNOSES 1. Uncontrolled hypertension, better. 2. End-stage renal disease due to diabetes. 3. Chronic obstructive pulmonary disease due to secondhand exposure. 4. Peripheral vascular disease with previous stent placement. 5. Diastolic congestive heart failure. 6. Neuropathy. 7. Automatic implantable cardioverter-defibrillator placement last month. CONSULTANTS 1. Dr. Shore, nephrology. 2. Dr. Reid, cardiology. PROCEDURES/STUDIES PERFORMED 1. Left heart catheterization with stent placement. 2. Echocardiogram. 3. Carotid Doppler. HISTORY: Per [facility] HOSPITAL COURSE: The patient was admitted. The decision was to proceed with left heart cath. Subsequently, a stent was placed in the RCA. The patient will continue on her aspirin and Plavix. Echocardiogram shows normal EF now; however, an AICD was placed last month. The patient was dialyzed yesterday without any problem. Her blood pressure medicines were adjusted. I have discussed with the daughter about her blood pressure medicines. 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 I have placed a phone call out to her [facility] primary care doctor to update him on this hospitalization. The patient was seen and examined today. It took 32 minutes total to discharge this patient. CONDITION ON DISCHARGE: Stable. DISCHARGE MEDICATIONS: Please see medication reconciliation form. ROBERTO ANGELO M.D. Job#: [id number] cc:ZAHEER GREWAL MD
[2017-07-11] MEDS ORDERED: PLAVIX75 MG PO (10:21)
[2017-07-11 11:17] VITALS: BP 181/71
[2017-07-12] MEDS ORDERED: CLOPIDOGREL BISULFATE 75 MG TAB PO SCH (09:00)
== END 2017-07-11 14:40 | disposition home or self-care (01) | DRG 246 ==
LOC: ER 19:46 → ERHOLD 07-09 00:53 → IMCU 07-09 13:26 → OBSVTOIN 07-10 11:25
PROVIDERS: ADMIT Internal Medicine; ATTEND Internal Medicine
PROC: 027034Z Dilation of Coronary Artery, One Artery with Drug-eluting Intraluminal Device, Percutaneous Approach (ICD-10-PCS; principal; 2017-07-10)
PROC: B2111ZZ Fluoroscopy of Multiple Coronary Arteries using Low Osmolar Contrast (ICD-10-PCS; 2017-07-10)
PROC: B2151ZZ Fluoroscopy of Left Heart using Low Osmolar Contrast (ICD-10-PCS; 2017-07-10)
PROC: 5A1D70Z Performance of Urinary Filtration, Intermittent, Less than 6 Hours Per Day (ICD-10-PCS; 2017-07-10)
DX: I25.110 Atherosclerotic heart disease of native coronary artery with unstable angina pectoris (principal); N18.6 End stage renal disease; I13.2 Hypertensive heart and chronic kidney disease with heart failure and with stage 5 chronic kidney disease, or end stage renal disease; I50.32 Chronic diastolic (congestive) heart failure; Z99.2 Dependence on renal dialysis; Z95.810 Presence of automatic (implantable) cardiac defibrillator; E11.22 Type 2 diabetes mellitus with diabetic chronic kidney disease; Z79.4 Long term (current) use of insulin; Z86.74 Personal history of sudden cardiac arrest; Z95.820 Peripheral vascular angioplasty status with implants and grafts; E11.51 Type 2 diabetes mellitus with diabetic peripheral angiopathy without gangrene; E78.5 Hyperlipidemia, unspecified; I25.2 Old myocardial infarction; Z77.22 Contact with and (suspected) exposure to environmental tobacco smoke (acute) (chronic); E11.65 Type 2 diabetes mellitus with hyperglycemia; J44.9 Chronic obstructive pulmonary disease, unspecified
CPT/HCPCS: 36140; 36415; 71045; 77002; 80053; 80061; 80076; 82550; 82553; 82948; 83880; 84443; 84484; 85025; 85610; 85730; 90962; 93005; 93306; 93452; 93458; 93880; 99284; C1766; C9600; G0378; J0360; J0583; J1644; J1940; J2001; J2250; J2270; J7030; Q9967